=== PATIENT | female | born 1945 | race Caucasian/White ===

== ENCOUNTER 2017-04-04 08:29 | Day surgery (SDC) | payer OTHER ==
[2017-04-04 09:32] LABS: BASO % 0.9 % (0-2.0); EOS % 0.2 % (0-4.5); HEMATOCRIT 38.3 % (32.4-45.2); HEMOGLOBIN 12.5 GM/dL (10.7-15.3); LYMPH % 11.9 % (8-40); MCHC 32.7 g/dl (32.0-36.0); MEAN CELL VOLUME 100.9 fl (80-96); MEAN PLT VOLUME 9.9 fl (7.5-11.1); MONO % 0.7 % (3.8-10.2); NEUT % 86.3 % (42.8-82.8); PLATELET COUNT 199 K/MM3 (134-434); RDW 13.9 % (11.6-15.6); WHITE BLOOD COUNT 3.7 K/mm3 (4.0-10.0)
[2017-04-04 09:51] VITALS: TEMP 97.2
[2017-04-04] MEDS ORDERED: DEXAMETHASONE INJECTION 10 MG, DIPHENHYDRAMINE 50 MG, RANITIDINE INJECTION 50 MG in SOD... IVPB ONE (10:00)
[2017-04-04] MEDS ORDERED: PALONOSETRON HCL 0.25 MG/5 ML VIAL IVPUSH ONE (10:00)
[2017-04-04 10:03] LABS: ALBUMIN 3.6 g/dl (3.4-5.0); ALK PHOS 50 U/L (45-117); ANION GAP 8 (8-16); BILIRUBIN,DIRECT < 0.2 mg/dL (0.0-0.2); BILIRUBIN,TOTAL 0.4 mg/dL (0.2-1.0); BLOOD UREA NITROGEN 18 mg/dL (7-18); CALCIUM 9.4 mg/dL (8.5-10.1); CHLORIDE 104 mmol/L (98-107); CO2 27 mmol/L (21-32); GLUCOSE,RANDOM 218 mg/dL (74-106); MAGNESIUM 1.8 mg/dL (1.8-2.4); SGOT/AST 15 U/L (15-37); SGPT/ALT 15 U/L (12-78); SODIUM 139 mmol/L (136-145); TOT PROT 7.1 g/dl (6.4-8.2)
[2017-04-04] MEDS ORDERED: PACLITAXEL 84 MG in SODIUM CHLORIDE 250 ML IVPB ONE (10:30)
[2017-04-04] MEDS ORDERED: SODIUM CHLORIDE IVPB ONE (11:30)
[2017-04-04] MEDS ORDERED: CARBOPLATIN IVPB ONE (11:30)
[2017-04-04 16:55] VITALS: BP 125/69; PULSE 92
[2017-04-04] MEDS ORDERED: PORTA CATH FLUSH 10 ML IVPUSH ONE (17:43)
== END 2017-04-04 14:45 | disposition home or self-care (01) ==
LOC: JONCCHEMO 08:29 → J7W 09:52 → JONCCHEMO 14:45
PROVIDERS: ATTEND Internal Medicine Hematology & Oncology
DX: Z51.11 Encounter for antineoplastic chemotherapy (principal); C34.11 Malignant neoplasm of upper lobe, right bronchus or lung; I10 Essential (primary) hypertension; B20 Human immunodeficiency virus [HIV] disease
CPT/HCPCS: 36415; 80053; 80076; 83735; 85025; 96367; 96375; 96413; 96417; J1100; J2469

== ENCOUNTER 2017-04-11 07:22 | Day surgery (SDC) | payer OTHER ==
[2017-04-11] MEDS ORDERED: PALONOSETRON HCL 0.25 MG/5 ML VIAL IVPUSH ONE (08:00)
[2017-04-11] MEDS ORDERED: DEXAMETHASONE INJECTION 10 MG, DIPHENHYDRAMINE 50 MG, RANITIDINE INJECTION 50 MG in SOD... IVPB ONE (08:00)
[2017-04-11] MEDS ORDERED: PACLITAXEL 84 MG in SODIUM CHLORIDE 250 ML IVPB ONE (08:30)
[2017-04-11] MEDS ORDERED: SODIUM CHLORIDE IVPB ONE (09:30)
[2017-04-11] MEDS ORDERED: CARBOPLATIN IVPB ONE (09:30)
[2017-04-11 09:49] VITALS: TEMP 98.1
[2017-04-11 10:04] LABS: BASO % 0.5 % (0-2.0); HEMATOCRIT 36.2 % (32.4-45.2); HEMOGLOBIN 11.7 GM/dL (10.7-15.3); LYMPH % 6.5 % (8-40); MCH 32.6 pg (25.7-33.7); MCHC 32.2 g/dl (32.0-36.0); MEAN CELL VOLUME 101.4 fl (80-96); MEAN PLT VOLUME 10.1 fl (7.5-11.1); MONO % 0.7 % (3.8-10.2); NEUT % 92.3 % (42.8-82.8); PLATELET COUNT 183 K/MM3 (134-434); RBC 3.57 M/mm3 (3.60-5.2); RDW 13.6 % (11.6-15.6); WHITE BLOOD COUNT 2.8 K/mm3 (4.0-10.0)
[2017-04-11 10:30] LABS: ALBUMIN 3.6 g/dl (3.4-5.0); ALK PHOS 55 U/L (45-117); ANION GAP 10 (8-16); BILIRUBIN,DIRECT 0.2 mg/dL (0.0-0.2); BILIRUBIN,TOTAL 0.4 mg/dL (0.2-1.0); BLOOD UREA NITROGEN 21 mg/dL (7-18); CALCIUM 10.2 mg/dL (8.5-10.1); CHLORIDE 101 mmol/L (98-107); CO2 29 mmol/L (21-32); GLUCOSE,RANDOM 250 mg/dL (74-106); MAGNESIUM 1.7 mg/dL (1.8-2.4); POTASSIUM 4.1 mmol/L (3.5-5.1); SGOT/AST 13 U/L (15-37); SGPT/ALT 17 U/L (12-78); SODIUM 140 mmol/L (136-145); TOT PROT 6.8 g/dl (6.4-8.2)
[2017-04-11] MEDS ORDERED: INSULIN (NOVOLOG) ASPART 100 UNITS/ML 10ML VIAL SQ ONE (12:00)
[2017-04-11] MEDS ORDERED: MAGNESIUM 1GM/D5W - 1 GM/100 ML IVPB IVPB ONE (12:00)
[2017-04-11 17:49] VITALS: BP 140/72
[2017-04-11 17:51] VITALS: PULSE 93
== END 2017-04-11 13:30 | disposition home or self-care (01) ==
LOC: JONCCHEMO 07:22 → J7W 10:02 → JONCCHEMO 13:30
PROVIDERS: ATTEND Internal Medicine Hematology & Oncology
DX: Z51.11 Encounter for antineoplastic chemotherapy (principal); C34.11 Malignant neoplasm of upper lobe, right bronchus or lung; I10 Essential (primary) hypertension; B20 Human immunodeficiency virus [HIV] disease
CPT/HCPCS: 36415; 80053; 80076; 82962; 83735; 85025; 96367; 96375; 96413; 96417; J1100; J2469

== ENCOUNTER 2017-04-12 07:27 | Day surgery (SDC) | payer OTHER ==
[2017-04-12] MEDS ORDERED: TBO-FILGRASTIM 480 MCG/0.8 ML DISP.SYRIN SQ ONE (08:00)
[2017-04-12 13:37] VITALS: BP 119/73; PULSE 112; TEMP 98.5
== END 2017-04-12 10:10 | disposition home or self-care (01) ==
LOC: JONCCHEMO 07:27 → J7W 09:41 → JONCCHEMO 10:10
PROVIDERS: ATTEND Internal Medicine Hematology & Oncology
PROC: 3E013GC Introduction of Other Therapeutic Substance into Subcutaneous Tissue, Percutaneous Approach (ICD-10-PCS; principal; 2017-04-12)
DX: C34.11 Malignant neoplasm of upper lobe, right bronchus or lung (principal); I10 Essential (primary) hypertension; B20 Human immunodeficiency virus [HIV] disease; Z76.89 Persons encountering health services in other specified circumstances
CPT/HCPCS: 96372; J1447

== ENCOUNTER 2017-04-18 07:30 | Day surgery (SDC) | payer OTHER ==
[2017-04-18 09:04] VITALS: TEMP 97.4
[2017-04-18 09:32] LABS: HEMATOCRIT 35.8 % (32.4-45.2); HEMOGLOBIN 11.6 GM/dL (10.7-15.3); MCHC 32.4 g/dl (32.0-36.0); MEAN CELL VOLUME 101.9 fl (80-96); MEAN PLT VOLUME 10.3 fl (7.5-11.1); PLATELET COUNT 182 K/MM3 (134-434); RBC 3.52 M/mm3 (3.60-5.2); RDW 14.1 % (11.6-15.6); WHITE BLOOD COUNT 9.3 K/mm3 (4.0-10.0)
[2017-04-18 09:55] LABS: ALBUMIN 3.5 g/dl (3.4-5.0); ANION GAP 6 (8-16); BILIRUBIN,DIRECT < 0.2 mg/dL (0.0-0.2); BILIRUBIN,TOTAL 0.5 mg/dL (0.2-1.0); BLOOD UREA NITROGEN 21 mg/dL (7-18); CALCIUM 9.7 mg/dL (8.5-10.1); CHLORIDE 103 mmol/L (98-107); CO2 30 mmol/L (21-32); CREATININE 1.1 mg/dL (0.55-1.02); GLUCOSE,RANDOM 234 mg/dL (74-106); MAGNESIUM 1.7 mg/dL (1.8-2.4); POTASSIUM 4.1 mmol/L (3.5-5.1); SGOT/AST 10 U/L (15-37); SGPT/ALT 17 U/L (12-78); SODIUM 139 mmol/L (136-145); TOT PROT 6.5 g/dl (6.4-8.2)
[2017-04-18 09:56] LABS: ALK PHOS 59 U/L (45-117)
[2017-04-18] MEDS ORDERED: DEXAMETHASONE INJECTION 10 MG, RANITIDINE INJECTION 50 MG, DIPHENHYDRAMINE 50 MG in SOD... IVPB ONE (11:00)
[2017-04-18] MEDS ORDERED: PALONOSETRON HCL 0.25 MG in SODIUM CHLORIDE 50 ML IVPB ONE (11:00)
[2017-04-18 11:28] LABS: ANISOCYTOSIS 0; MACROCYTOSIS 1+; OVALOCYTE 1+; PLATELET ESTIMATE NORMAL
[2017-04-18] MEDS ORDERED: PACLITAXEL 84 MG in SODIUM CHLORIDE 250 ML IVPB ONE (11:30)
[2017-04-18] MEDS ORDERED: CARBOPLATIN IVPB ONE (12:30)
[2017-04-18] MEDS ORDERED: SODIUM CHLORIDE IVPB ONE (12:30)
[2017-04-18] MEDS ORDERED: PORTA CATH FLUSH 10 ML IVPUSH ONE (12:49)
[2017-04-18] MEDS ORDERED: MAGNESIUM OXIDE 400 MG TABLET (FP) PO ONE (14:00)
[2017-04-18 18:20] VITALS: BP 116/72; PULSE 99
== END 2017-04-18 15:15 | disposition home or self-care (01) ==
LOC: JONCCHEMO 07:30 → J7W 09:50 → JONCCHEMO 15:15
PROVIDERS: ATTEND Internal Medicine Hematology & Oncology
DX: Z51.11 Encounter for antineoplastic chemotherapy (principal); I10 Essential (primary) hypertension; B20 Human immunodeficiency virus [HIV] disease
CPT/HCPCS: 36415; 80053; 80076; 83735; 85025; 96367; 96375; 96413; 96417; J1100; J2469

== ENCOUNTER 2017-04-25 07:35 | Day surgery (SDC) | payer OTHER ==
[2017-04-25 09:51] LABS: BASO % 0.3 % (0-2.0); HEMATOCRIT 33.9 % (32.4-45.2); HEMOGLOBIN 11.1 GM/dL (10.7-15.3); LYMPH % 4.9 % (8-40); MCH 33.3 pg (25.7-33.7); MCHC 32.9 g/dl (32.0-36.0); MEAN CELL VOLUME 101.2 fl (80-96); MEAN PLT VOLUME 10.4 fl (7.5-11.1); NEUT % 93.8 % (42.8-82.8); PLATELET COUNT 162 K/MM3 (134-434); RBC 3.35 M/mm3 (3.60-5.2); WHITE BLOOD COUNT 2.7 K/mm3 (4.0-10.0)
[2017-04-25] MEDS ORDERED: PALONOSETRON HCL 0.25 MG/5 ML VIAL IVPUSH ONE (10:00)
[2017-04-25] MEDS ORDERED: DEXAMETHASONE INJECTION 10 MG, DIPHENHYDRAMINE 50 MG, RANITIDINE INJECTION 50 MG in SOD... IVPB ONE (10:00)
[2017-04-25 10:21] LABS: ALBUMIN 3.3 g/dl (3.4-5.0); ALK PHOS 56 U/L (45-117); ANION GAP 12 (8-16); BILIRUBIN,DIRECT 0.2 mg/dL (0.0-0.2); BILIRUBIN,TOTAL 0.4 mg/dL (0.2-1.0); BLOOD UREA NITROGEN 43 mg/dL (7-18); CALCIUM 10.3 mg/dL (8.5-10.1); CHLORIDE 99 mmol/L (98-107); CO2 26 mmol/L (21-32); CREATININE 1.3 mg/dL (0.55-1.02); GLUCOSE,RANDOM 286 mg/dL (74-106); MAGNESIUM 1.8 mg/dL (1.8-2.4); POTASSIUM 4.3 mmol/L (3.5-5.1); SGOT/AST 12 U/L (15-37); SGPT/ALT 17 U/L (12-78); SODIUM 137 mmol/L (136-145); TOT PROT 6.3 g/dl (6.4-8.2)
[2017-04-25] MEDS ORDERED: PACLITAXEL 84 MG in SODIUM CHLORIDE 250 ML IVPB ONE (10:30)
[2017-04-25] MEDS ORDERED: SODIUM CHLORIDE IVPB ONE (11:30)
[2017-04-25] MEDS ORDERED: CARBOPLATIN IVPB ONE (11:30)
[2017-04-25] MEDS ORDERED: POTASSIUM CHLORIDE 20 MEQ, MAGNESIUM SULFATE 1 GM in DEXTROSE 5%-NORMAL SALINE 500 ML IVPB ONE (12:15)
[2017-04-25 13:53] VITALS: TEMP 97.7
[2017-04-25] MEDS ORDERED: PORTA CATH FLUSH 10 ML IVPUSH ONE ×2 (13:55→16:14)
[2017-04-25 17:53] VITALS: BP 141/77; PULSE 94
== END 2017-04-25 17:55 | disposition home or self-care (01) ==
LOC: JONCCHEMO 07:35 → J7W 10:45 → JONCCHEMO 17:55
PROVIDERS: ATTEND Internal Medicine Hematology & Oncology
DX: Z51.11 Encounter for antineoplastic chemotherapy (principal); C34.11 Malignant neoplasm of upper lobe, right bronchus or lung; B20 Human immunodeficiency virus [HIV] disease; I10 Essential (primary) hypertension
CPT/HCPCS: 36415; 80053; 80076; 83735; 85025; 96361; 96367; 96375; 96413; 96417; J1100; J2469

== ENCOUNTER 2017-05-01 09:34 | Inpatient (IN) | payer OTHER ==
--- NOTE | 2017-05-01 10:08 | PDOC ---
History of Present Illness - General History Source: Patient Exam Limitations: No Limitations - History of Present Illness Initial Comments: 05/01/17 10:33 The patient is a 71 year old female, with a significant past medical history of lung cancer(on chemotherapy), COPD, CAD(s/p stents), HIV, hypertension, and hyperlipidemia, who presents to the emergency department with diarrhea for approximately 5 days. Patient reports developing diarrhea s/p chemotherapy on Saturday. She denies any abdominal pain, fever, diarrhea, or constipation. Today , patient reports TMax of 100.5. She denies any associated chills, cough, headache, or dizziness. She denies any chest pain, shortness of breath, diaphoresis, or palpitations. She denies any dysuria, hematuria, frequency, or urgency. She denies any recent travel or sick contacts. Allergies: Procaine HCl Past Surgical History: Cardiac stents Social History: Former smoker. No ETOH or recreational drug use. PCP: Dr. Yumiko Toribio Oncologist: Dr. Fong <Diego Esteban - Last Filed: 05/01/17 16:44> <Faina Smith - Last Filed: 05/03/17 10:57> - General Chief Complaint: Weakness Stated Complaint: DEHYDRATION, DIARRHEA (PCP SENT) Time Seen by Provider: 05/01/17 10:08 Past History <Diego Esteban - Last Filed: 05/01/17 16:44> - Past Medical History Anemia: No Asthma: No Cancer: Yes (lung ca - dx. 01/2017) Cardiac Disorders: Yes (cardiac stent - 2014) CVA: No COPD: Yes (05/24/15 CT chest:No acute pathology or change, 1 cm calc L lower lobe ) CHF: No Dementia: No Diabetes: No GI Disorders: No Disorders: No HTN: Yes Hypercholesterolemia: Yes Liver Disease: No Psychiatric Problems: No Seizures: No Thyroid Disease: No - Surgical History Abdominal Surgery: No Appendectomy: No Cardiac Surgery: Yes (CARDIAC STENT) Cholecystectomy: No Lung Surgery: No Neurologic Surgery: No Orthopedic Surgery: No - Suicide/Smoking/Psychosocial Hx Smoking History: Current every day smoker Have you smoked in the past 12 months: Yes Number of Cigarettes Smoked Daily: 8 If you are a former smoker, when did you quit?: 4 DAYS Cigars Per Day: 0 Information on smoking cessation initiated: No 'Breaking Loose' booklet given: 12/22/15 Hx Alcohol Use: No Drug/Substance Use Hx: No (past only, no use since 1971) Substance Use Type: Heroin Hx Substance Use Treatment: No <Faina Smith - Last Filed: 05/03/17 10:57> - Past Medical History Allergies/Adverse Reactions: Allergies Allergy/AdvReac Type Severity Reaction Status Date / Time procaine HCl [From Novocain] Allergy Unknown Swelling Verified 05/01/17 10:01 Home Medications: Ambulatory Orders Albuterol Sulfate Inhaler - [Ventolin Hfa Inhaler -] 1 - 2 inh PO Q4H 05/01/17 Alendronate Na [Fosamax] 70 mg PO Q7D 05/01/17 Aspirin [ASA -] 81 mg PO DAILY 05/01/17 Beclomethasone Dipropionate [Qvar] 8.7 gm IH BID 05/01/17 Calcium Carbonate/Vitamin D3 [Calcium 600 + D3 Softgel] 1 each PO DAILY Cholecalciferol (Vitamin D3) [Vitamin D3] 5,000 unit PO WEEKLY 05/01/17 Elviteg/Cob/Emtri/Tenof Alafen [Genvoya (Non-Formulary)] 1 each PO HS 05/01/17 Fenofibrate Nanocrystallized [Triglide] 160 mg PO DAILY 05/01/17 Losartan 50Mg/Hctz 12.5MG [Hyzaar -] 1 tab PO DAILY 05/01/17 Mirtazapine 15 mg PO HS 05/01/17 Multivitamin,Therapeutic [Thera] 1 each PO DAILY 05/01/17 [place]-3/Dha/Epa/Fish Oil [[place] 3 500 Softgel] 1 each PO BID 05/01/17 Umeclidinium [place] [Incruse Ellipta] 62.5 mcg IH DAILY 05/01/17 Zolpidem Tartrate [Ambien] 5 mg PO HS 05/01/17 Review of Systems - Review of Systems Able to Perform ROS?: Yes Comments:: 05/01/17 10:34 GENERAL/CONSTITUTIONAL: Yes fever. No chills. No weakness. HEAD, EYES, EARS, NOSE AND THROAT: No change in vision. No ear pain or discharge. No sore throat. CARDIOVASCULAR: No chest pain or shortness of breath. RESPIRATORY: No cough, wheezing, or hemoptysis. GASTROINTESTINAL: Yes diarrhea. No nausea, vomiting, or constipation. GENITOURINARY: No dysuria, frequency, or change in urination. MUSCULOSKELETAL: No joint or muscle swelling or pain. No neck or back pain. SKIN: No rash NEUROLOGIC: No headache, vertigo, loss of consciousness, or change in strength/ sensation. ENDOCRINE: No increased thirst. No abnormal weight change. HEMATOLOGIC/LYMPHATIC: No anemia, easy bleeding, or history of blood clots. ALLERGIC/IMMUNOLOGIC: No hives or skin allergy. <Diego Esteban - Last Filed: 05/01/17 16:44> *Physical Exam - Vital Signs Last Vital Signs Temp Pulse Resp BP Pulse Ox 97.9 F 129 H 21 76/50 98 05/01/17 10:01 05/01/17 10:01 05/01/17 10:01 05/01/17 10:01 05/01/17 10:01 <Diego Esteban - Last Filed: 05/01/17 16:44> - Vital Signs Last Vital Signs Temp Pulse Resp BP Pulse Ox 97.9 F 129 H 21 76/50 98 05/01/17 10:01 05/01/17 10:01 05/01/17 10:01 05/01/17 10:01 05/01/17 10:01 - Physical Exam Comments: GENERAL: Awake, alert, and fully oriented, in no acute distress HEAD: No signs of trauma EYES: PERRLA, EOMI, sclera anicteric, conjunctiva clear ENT: Auricles normal inspection, hearing grossly normal, nares patent, oropharynx clear without exudates. Dry mucosa NECK: Normal ROM, supple, no lymphadenopathy, JVD, or masses LUNGS: Dec air entry B/L, lungs clear to auscultation bilaterally. HEART: Tachycardic, normal S1 and S2, no murmurs, rubs or gallops ABDOMEN: Soft, nontender, normoactive bowel sounds. No guarding, no rebound. No masses EXTREMITIES: Normal range of motion, no edema. No clubbing or cyanosis. No cords, erythema, or tenderness NEUROLOGICAL: Cranial nerves II through XII grossly intact. Normal speech, normal gait SKIN: Warm, Dry, normal turgor, no rashes or lesions noted. <Faina Smith - Last Filed: 05/03/17 10:57> Heart Score/ECG Review - ECG Impressions Comment:: EKG read 10:45- Sinus tach 122 bpm, no acute ST/T changes <Faina Smith - Last Filed: 05/03/17 10:57> ED Treatment Course - LABORATORY CBC & Chemistry Diagram: 05/01/17 11:11 05/01/17 15:30 - RADIOLOGY Radiograph Interpretation: 05/01/17 12:21 EXAM: CXR INTERPRETED BY: Dr. Yousif REVIEWED BY: Dr. Smith IMPRESSION: Since 02/20/2017, a hyperdense nodule is again seen in the left lung base measuring 10 mm likely representing a calcified granuloma. The cardiac silhouette remains borderline in size allowing for magnification. Mild perihilar increased lung markings are present without evidence of focal infiltrates. Left internal jugular central venous catheter tip is in the superior vena cava. No pneumothorax or pleural effusion are identified. Mediastinum and visualized osseous structures appear intact SUMMARY: Left internal jugular central venous catheter is now present with its tip in the superior vena cava. Otherwise, no significant interval change or acute lung disease is present. <Diego Esteban - Last Filed: 05/01/17 16:44> - LABORATORY CBC & Chemistry Diagram: 05/03/17 06:50 05/03/17 06:50 <Faina Smith - Last Filed: 05/03/17 10:57> Medical Decision Making - Medical Decision Making 05/01/17 16:13 First call placed to Dr. Fong at 16:05. Awaiting call back. Patient evaluated by Dr. Workman at 16:45. <Diego Esteban - Last Filed: 05/01/17 16:44> - Medical Decision Making Case d/w Dr. Workman, recommended cefepime and vanco, will follow. I will admit to hospitalist, as patient is followed by the [facility]. <Faina Smith - Last Filed: 05/03/17 10:57> *DC/Admit/Observation/Transfer - Attestations Scribe Attestion: 05/01/17 10:34 Documentation prepared by Diego Esteban, acting as medical device sales for Faina Smith MD. <Diego Esteban - Last Filed: 05/01/17 16:44> - Discharge Dispostion Admit: Yes <Faina Smith - Last Filed: 05/03/17 10:57> Diagnosis at time of Disposition: Fever Qualifiers: Fever type: unspecified Qualified Code(s): R50.9 - Fever, unspecified Leukopenia Qualifiers: Leukopenia type: unspecified Qualified Code(s): D72.819 - Decreased white blood cell count, unspecified - Discharge Dispostion Condition at time of disposition: Stable
[2017-05-01] MEDS ORDERED: SODIUM CHLORIDE 2,000 ML IV STA (10:09)
[2017-05-01 11:18] LABS: BASO % 0.2 % (0-2.0); HEMATOCRIT 32.1 % (32.4-45.2); HEMOGLOBIN 10.7 GM/dL (10.7-15.3); LYMPH % 4.7 % (8-40); MCH 33.2 pg (25.7-33.7); MCHC 33.3 g/dl (32.0-36.0); MEAN CELL VOLUME 99.7 fl (80-96); MEAN PLT VOLUME 10.3 fl (7.5-11.1); MONO % 5.8 % (3.8-10.2); NEUT % 89.3 % (42.8-82.8); PLATELET COUNT 150 K/MM3 (134-434); RBC 3.22 M/mm3 (3.60-5.2); RDW 14.4 % (11.6-15.6); WHITE BLOOD COUNT 2.8 K/mm3 (4.0-10.0)
[2017-05-01 11:20] LABS: VENOUS PC02 39.1 mmHg (38-52); VENOUS PH 7.48 (7.32-7.42); VENOUS PO2 71.7 mmHg (28-48)
[2017-05-01 11:41] LABS: INR 1.12 (0.82-1.09); PROTHROMBIN TIME (PATIENT) 12.7 SEC (9.98-11.88)
--- NOTE | 2017-05-01 13:06 | EKG ---
Test Reason : Blood Pressure : / mmHG Vent. Rate : 122 BPM Atrial Rate : 122 BPM P-R Int : 190 ms QRS Dur : 076 ms QT Int : 372 ms P-R-T Axes : 076 -22 077 degrees QTc Int : 530 ms SINUS TACHYCARDIA OTHERWISE NORMAL ECG WHEN COMPARED WITH ECG OF 06-DEC-2016 10:28, VENT. RATE HAS INCREASED BY 53 BPM Confirmed by JOHN HUERTA MD ([id number]) on 05/01/2017 1:06:14 PM Referred By: Confirmed By:JOHN HUERTA MD
[2017-05-01] MEDS ORDERED: SODIUM CHLORIDE 1,000 ML IV STA (14:19)
[2017-05-01 15:52] LABS: ALBUMIN 2.6 g/dl (3.4-5.0); ANION GAP 7 (8-16); BILIRUBIN,TOTAL 0.6 mg/dL (0.2-1.0); BLOOD UREA NITROGEN 25 mg/dL (7-18); CALCIUM 7.7 mg/dL (8.5-10.1); CHLORIDE 104 mmol/L (98-107); CO2 27 mmol/L (21-32); CREATININE 0.9 mg/dL (0.55-1.02); GLUCOSE,RANDOM 111 mg/dL (74-106); POTASSIUM 4.1 mmol/L (3.5-5.1); SGOT/AST 13 U/L (15-37); SGPT/ALT 13 U/L (12-78); SODIUM 138 mmol/L (136-145)
[2017-05-01 15:54] LABS: ALK PHOS 33 U/L (45-117)
[2017-05-01] MEDS ORDERED: CEFEPIME 2 GM in DEXTROSE 5%-WATER - 100 ML IVPB ONE (16:44)
[2017-05-01] MEDS ORDERED: VANCOMYCIN 1,000 MG in DEXTROSE 5%-WATER - 250 ML IVPB ONE (16:45)
--- NOTE | 2017-05-01 17:26 | HP ---
Admitting History and Physical - Admission Chief Complaint: diarrhea, fever History of Present Illness: HPI This is a 71 year old female with HIV, non small cell carcinoma, HTN, COPD, CAD s/p sents, who presented to the ED after being seen in radiation oncology and noted to have low blood pressure. The pt states she normally feels bad with intermittent diarrhea after chemo and on Saturday she was a bit confused, but other perez wouldn't have come in. Per ED record pt with diarrhea x5 days and fever (100.5) taken at home. She last had chemo on Thursday 04/27 and after is when the diarrhea started. Currently, pt denies sob, fever, chills, diarrhea, abdominal pain. History Source: Patient, Medical Record Limitations to Obtaining History: No Limitations - Past Medical History Cardiovascular: Yes: CAD, HTN, Hyperlipdemia Pulmonary: Yes: COPD Infectious Disease: Yes: HIV - Past Surgical History Past Surgical History: Yes: Stent (cardiac) - Smoking History Smoking history: Current every day smoker Have you smoked in the past 12 months: Yes Aproximately how many cigarettes per day: 8 If you are a former smoker, when did you quit?: 4 DAYS - Alcohol/Substance Use Hx Alcohol Use: No History of Substance Use: reports: None - Social History Usual Living Arrangement: Yes: Alone ADL: Independent Home Medications - Allergies Allergies/Adverse Reactions: Allergies Allergy/AdvReac Type Severity Reaction Status Date / Time procaine HCl [From Novocain] Allergy Unknown Swelling Verified 05/01/17 10:01 - Home Medications Home Medications: Ambulatory Orders Albuterol Sulfate Inhaler - [Ventolin Hfa Inhaler -] 1 - 2 inh PO Q4H 05/01/17 Alendronate Na [Fosamax] 70 mg PO Q7D 05/01/17 Aspirin [ASA -] 81 mg PO DAILY 05/01/17 Beclomethasone Dipropionate [Qvar] 8.7 gm IH BID 05/01/17 Calcium Carbonate/Vitamin D3 [Calcium 600 + D3 Softgel] 1 each PO DAILY Cholecalciferol (Vitamin D3) [Vitamin D3] 5,000 unit PO WEEKLY 05/01/17 Elviteg/Cob/Emtri/Tenof Alafen [Genvoya (Non-Formulary)] 1 each PO HS 05/01/17 Fenofibrate Nanocrystallized [Triglide] 160 mg PO DAILY 05/01/17 Losartan 50Mg/Hctz 12.5MG [Hyzaar -] 1 tab PO DAILY 05/01/17 Mirtazapine 15 mg PO HS 05/01/17 Multivitamin,Therapeutic [Thera] 1 each PO DAILY 05/01/17 [place]-3/Dha/Epa/Fish Oil [[place] 3 500 Softgel] 1 each PO BID 05/01/17 Umeclidinium [place] [Incruse Ellipta] 62.5 mcg IH DAILY 05/01/17 Zolpidem Tartrate [Ambien] 5 mg PO HS 05/01/17 Family Disease History - Family Disease History Family Disease History: Heart Disease: Grandparent, Mother, Respiratory: Grandparent Review of Systems - Review of Systems Eyes: reports: No Symptoms HENT: reports: No Symptoms Neck: reports: No Symptoms Cardiovascular: reports: No Symptoms Respiratory: reports: No Symptoms Gastrointestinal: reports: Diarrhea Genitourinary: reports: No Symptoms Musculoskeletal: reports: No Symptoms Integumentary: reports: No Symptoms Neurological: reports: No Symptoms Endocrine: reports: No Symptoms Hematology/Lymphatic: reports: No Symptoms Psychiatric: reports: No Symptoms Physical Examination Vital Signs: Vital Signs Temperature 97.9 F 05/01/17 10:01 Pulse Rate 108 H 05/01/17 14:06 Respiratory Rate 18 05/01/17 14:06 Blood Pressure 106/98 05/01/17 14:06 O2 Sat by Pulse Oximetry (%) 97 05/01/17 14:06 Constitutional: Yes: No Distress Eyes: Yes: Conjunctiva Clear HENT: Yes: Other (dry MM) Cardiovascular: Yes: Regular Rate and Rhythm, S1, S2 Respiratory: Yes: Diminished, Rhonchi Gastrointestinal: Yes: Normal Bowel Sounds, Soft Musculoskeletal: Yes: WNL Extremities: Yes: WNL Edema: No Wound/Incision: Yes: Other (L CW port) Psychiatric: Yes: Alert, Oriented Labs: CBC, BMP 05/01/17 11:11 05/01/17 15:30 Imaging - Results Chest X-ray: Report Reviewed, Image Reviewed (10 mm hyperdense nodule LL base, no focal infiltrate) Problem List - Problems (1) Diarrhea Code(s): R19.7 - DIARRHEA, UNSPECIFIED (2) Fever Code(s): R50.9 - FEVER, UNSPECIFIED Qualifiers: Fever type: unspecified Qualified Code(s): R50.9 - Fever, unspecified (3) Leukopenia Code(s): D72.819 - DECREASED WHITE BLOOD CELL COUNT, UNSPECIFIED Qualifiers: Leukopenia type: unspecified Qualified Code(s): D72.819 - Decreased white blood cell count, unspecified Assessment/Plan Assessment: 71 year old female admitted with diarrhea and fever following chemo 5 days ago Plan: 1. Sepsis, fevers - Source appears to be urine - Lactic acid wnl - Send urine and blood cultures - Given vanco/cefepime in ED - Continue cefepime q8hr - Continue IVF - ID consulted 2. non small cell carcinoma - Inhalers appear to be NF, will see if pt can bring from home - Mgmt per Heme/onc 3. HTN - Hold BP meds d/t hypotension/sepsis 4. COPD - Stable 5. CAD s/p stents - ASA daily Visit type - Emergency Visit Emergency Visit: Yes ED Registration Date: 05/01/17 Care time: The patient presented to the Emergency Department on the above date and was hospitalized for further evaluation of their emergent condition. - New Patient This patient is new to me today: Yes Date on this admission: 05/02/17 - Critical Care Critical Care patient: No Hospitalist Screening - Colonoscopy Questionnaire Colonoscopy Questionnaire: Colonoscopy Questionnaire - Patient: 50 - 75 years old and never had a screening colonoscopy: Unknown History of colon or rectal polyps, or CA: Unknown History of IBD, Crohn's disease or UC: Unknown History of abdominal radiation therapy as a child: Unknown - Relative: 1 with colon or rectal CA, or polyps at age 60 or younger: Unknown Colon or rectal CA diagnosed at age 45 or younger: Unknown Multiple relatives with colon or rectal CA: Unknown - Outcome: Screening Result: Negative Screen
[2017-05-01 17:29] LABS: URINE APPEARANCE CLOUDY; URINE BILIRUBIN NEGATIVE (NEGATIVE); URINE BLOOD 1+ (NEGATIVE); URINE COLOR AMBER; URINE GLUCOSE (UA) NEGATIVE (NEGATIVE); URINE KETONE NEGATIVE (NEGATIVE); URINE NITRITE NEGATIVE (NEGATIVE)
[2017-05-01 17:31] LABS: URINE LEUK ESTERASE 3+ (NEGATIVE); URINE PROTEIN 1+ (NEGATIVE)
[2017-05-01] MEDS ORDERED: SODIUM CHLORIDE 1,000 ML IV SCH (17:45)
[2017-05-01 18:26] LABS: EPI CELLS RARE /HPF (FEW); URINE BACTERIA FEW /hpf (NONE SEEN); URINE HYALINE CAST 4 /lpf; URINE MUCUS MANY
[2017-05-01] MEDS ORDERED: CEFEPIME 2 GM in DEXTROSE 5%-WATER - 100 ML IVPB SCH (18:30)
[2017-05-01] MEDS: CEFEPIME HCL/D5W 2 GM/50 ML BAG IVPB SCH (19:35)
[2017-05-01] MEDS ORDERED: CEFEPIME 2 GM/100 ML BAG IVPB ONE (19:35)
--- NOTE | 2017-05-01 20:11 | CONSULT ---
Consult Consult Specialty:: oncology - History of Present Illness History of Present Illness: This is a 71 year old female with HIV, non small cell carcinoma, HTN, COPD, CAD s/p sents, who presented to the ED after being seen in radiation oncology and noted to have low blood pressure. The pt states she normally feels bad with intermittent diarrhea after chemo and on Saturday she was a bit confused, but other perez wouldn't have come in. Per ED record pt with diarrhea x5 days and fever (100.5) taken at home. She last had chemo on Thursday 04/27 and after is when the diarrhea started. Currently, pt denies sob, fever, chills, diarrhea, abdominal pain. - History Source History Provided By: Patient, Medical Record - Past Medical History Cardio/Vascular: Yes: CAD, HTN, Hyperlipdemia Pulmonary: Yes: COPD Infectious Disease: Yes: HIV - Past Surgical History Past Surgical History: Yes: Stent (cardiac) - Alcohol/Substance Use Hx Alcohol Use: No History of Substance Use: reports: None - Smoking History Smoking history: Current every day smoker Have you smoked in the past 12 months: Yes Aproximately how many cigarettes per day: 8 If you are a former smoker, when did you quit?: 4 DAYS - Social History ADL: Independent Home Medications - Allergies Allergies/Adverse Reactions: Allergies Allergy/AdvReac Type Severity Reaction Status Date / Time procaine HCl [From Novocain] Allergy Unknown Swelling Verified 05/01/17 10:01 - Home Medications Home Medications: Ambulatory Orders Albuterol Sulfate Inhaler - [Ventolin Hfa Inhaler -] 1 - 2 inh PO Q4H 05/01/17 Alendronate Na [Fosamax] 70 mg PO Q7D 05/01/17 Aspirin [ASA -] 81 mg PO DAILY 05/01/17 Beclomethasone Dipropionate [Qvar] 8.7 gm IH BID 05/01/17 Calcium Carbonate/Vitamin D3 [Calcium 600 + D3 Softgel] 1 each PO DAILY Cholecalciferol (Vitamin D3) [Vitamin D3] 5,000 unit PO WEEKLY 05/01/17 Elviteg/Cob/Emtri/Tenof Alafen [Genvoya (Non-Formulary)] 1 each PO HS 05/01/17 Fenofibrate Nanocrystallized [Triglide] 160 mg PO DAILY 05/01/17 Losartan 50Mg/Hctz 12.5MG [Hyzaar -] 1 tab PO DAILY 05/01/17 Mirtazapine 15 mg PO HS 05/01/17 Multivitamin,Therapeutic [Thera] 1 each PO DAILY 05/01/17 [place]-3/Dha/Epa/Fish Oil [[place] 3 500 Softgel] 1 each PO BID 05/01/17 Umeclidinium [place] [Incruse Ellipta] 62.5 mcg IH DAILY 05/01/17 Zolpidem Tartrate [Ambien] 5 mg PO HS 05/01/17 Family Disease History - Family Disease History Family Disease History: Heart Disease: Grandparent, Mother, Respiratory: Grandparent Physical Exam Vital Signs: Vital Signs Temperature 99.2 F 05/01/17 17:34 Pulse Rate 111 H 05/01/17 19:20 Respiratory Rate 15 05/01/17 19:20 Blood Pressure 125/69 05/01/17 17:34 O2 Sat by Pulse Oximetry (%) 100 05/01/17 19:20 Constitutional: Yes: Calm Eyes: Yes: Conjunctiva Clear, EOM Intact HENT: Yes: Atraumatic, Normocephalic Neck: Yes: Supple, Trachea Midline Cardiovascular: Yes: Regular Rate and Rhythm Respiratory: Yes: Regular, Cough, Diminished Gastrointestinal: Yes: Normal Bowel Sounds, Soft Edema: No Labs: CBC, BMP 05/01/17 11:11 05/01/17 15:30 Imaging - Results X-ray: Report Reviewed Assessment/Plan Fever w/u Abx ID consult will follow.
[2017-05-01] MEDS ORDERED: [UNRECOGNIZED DRUG - OTHER] PO SCH (22:00)
[2017-05-01] MEDS: MIRTAZAPINE 15 MG TABLET (FP) PO SCH (22:20)
[2017-05-01] MEDS: ZOLPIDEM TARTRATE 5 MG TABLET PO SCH (22:20)
[2017-05-01 23:15] VITALS: BMI 22.3
[2017-05-02] MEDS: ACETAMINOPHEN 325 MG TABLET (FP) PO PRN (01:52)
[2017-05-02] MEDS: CEFEPIME HCL/D5W 2 GM/50 ML BAG IVPB SCH ×2 (01:53→18:05)
[2017-05-02 07:56] LABS: BASO % 0.1 % (0-2.0); EOS % 0.1 % (0-4.5); HEMATOCRIT 24.7 % (32.4-45.2); HEMOGLOBIN 8.3 GM/dL (10.7-15.3); LYMPH % 5.8 % (8-40); MCH 34.3 pg (25.7-33.7); MCHC 33.7 g/dl (32.0-36.0); MEAN CELL VOLUME 101.6 fl (80-96); MEAN PLT VOLUME 9.7 fl (7.5-11.1); MONO % 12.9 % (3.8-10.2); NEUT % 81.1 % (42.8-82.8); PLATELET COUNT 75 K/MM3 (134-434); RBC 2.43 M/mm3 (3.60-5.2); RDW 14.2 % (11.6-15.6)
[2017-05-02 08:06] LABS: WHITE BLOOD COUNT 1.8 K/mm3 (4.0-10.0)
[2017-05-02 08:30] LABS: ALBUMIN 2.2 g/dl (3.4-5.0); ANION GAP 7 (8-16); BLOOD UREA NITROGEN 17 mg/dL (7-18); CALCIUM 7.5 mg/dL (8.5-10.1); CHLORIDE 107 mmol/L (98-107); CO2 26 mmol/L (21-32); CREATININE 0.7 mg/dL (0.55-1.02); GLUCOSE,RANDOM 99 mg/dL (74-106); MAGNESIUM 1.3 mg/dL (1.8-2.4); PHOSPHOROUS 1.7 mg/dL (2.5-4.9); POTASSIUM 3.6 mmol/L (3.5-5.1); SGOT/AST 12 U/L (15-37); SGPT/ALT 11 U/L (12-78); SODIUM 140 mmol/L (136-145)
[2017-05-02 08:33] LABS: ALK PHOS 31 U/L (45-117); BILIRUBIN,TOTAL 0.6 mg/dL (0.2-1.0); TOT PROT 4.4 g/dl (6.4-8.2)
--- NOTE | 2017-05-02 09:16 | CON.ID ---
Consult Consult Specialty:: Infectious Disease Referred by:: Primary Team Reason for Consultation:: Low WBC, Fever - History of Present Illness History of Present Illness: 71 year old F with pmh of HIV, NSCLC, COPD, HTN, CAD s/p stents presented from radiation with hypotension. Patient was found to be febrile to 101. Patient states she has chemo every (last ). She has chronic diarrhea after chemo and occasional chills. Patient denies chest pain, shortness of breath, abdominal pain, urinary symptoms, n/v. - History Source History Provided By: Patient, Medical Record Limitations to Obtaining History: No Limitations - Past Medical History Cardio/Vascular: Yes: CAD, HTN, Hyperlipdemia Pulmonary: Yes: COPD Infectious Disease: Yes: HIV - Past Surgical History Past Surgical History: Yes: Stent (cardiac) - Alcohol/Substance Use Hx Alcohol Use: No History of Substance Use: reports: None - Smoking History Smoking history: Current every day smoker Have you smoked in the past 12 months: Yes Aproximately how many cigarettes per day: 8 If you are a former smoker, when did you quit?: 4 DAYS - Social History ADL: Independent Home Medications - Allergies Allergies/Adverse Reactions: Allergies Allergy/AdvReac Type Severity Reaction Status Date / Time procaine HCl [From Novocain] Allergy Unknown Swelling Verified 05/01/17 10:01 - Home Medications Home Medications: Ambulatory Orders Albuterol Sulfate Inhaler - [Ventolin Hfa Inhaler -] 1 - 2 inh PO Q4H 05/01/17 Alendronate Na [Fosamax] 70 mg PO Q7D 05/01/17 Aspirin [ASA -] 81 mg PO DAILY 05/01/17 Beclomethasone Dipropionate [Qvar] 8.7 gm IH BID 05/01/17 Calcium Carbonate/Vitamin D3 [Calcium 600 + D3 Softgel] 1 each PO DAILY Cholecalciferol (Vitamin D3) [Vitamin D3] 5,000 unit PO WEEKLY 05/01/17 Elviteg/Cob/Emtri/Tenof Alafen [Genvoya (Non-Formulary)] 1 each PO HS 05/01/17 Fenofibrate Nanocrystallized [Triglide] 160 mg PO DAILY 05/01/17 Losartan 50Mg/Hctz 12.5MG [Hyzaar -] 1 tab PO DAILY 05/01/17 Mirtazapine 15 mg PO HS 05/01/17 Multivitamin,Therapeutic [Thera] 1 each PO DAILY 05/01/17 [place]-3/Dha/Epa/Fish Oil [[place] 3 500 Softgel] 1 each PO BID 05/01/17 Umeclidinium [place] [Incruse Ellipta] 62.5 mcg IH DAILY 05/01/17 Zolpidem Tartrate [Ambien] 5 mg PO HS 05/01/17 Family Disease History - Family Disease History Family Disease History: Heart Disease: Grandparent, Mother, Respiratory: Grandparent Review of Systems - Review of Systems Constitutional: reports: Chills, Fever. denies: Diaphoresis Eyes: reports: No Symptoms HENT: reports: No Symptoms Neck: reports: No Symptoms Cardiovascular: reports: No Symptoms Respiratory: reports: No Symptoms Gastrointestinal: reports: Diarrhea. denies: Nausea, Vomiting Neurological: reports: No Symptoms Psychiatric: reports: No Symptoms Physical Exam Vital Signs: Vital Signs Temperature 99.1 F 05/02/17 06:24 Pulse Rate 65 05/02/17 06:24 Respiratory Rate 20 05/02/17 06:24 Blood Pressure 119/69 05/02/17 06:24 O2 Sat by Pulse Oximetry (%) 99 05/02/17 02:55 Constitutional: Yes: No Distress, Calm Eyes: Yes: Conjunctiva Clear, EOM Intact HENT: Yes: Atraumatic, Normocephalic Neck: Yes: Supple, Trachea Midline Cardiovascular: Yes: Regular Rate and Rhythm, S1, S2 Respiratory: Yes: CTA Bilaterally, Diminished Gastrointestinal: Yes: Normal Bowel Sounds, Soft. No: Tenderness, Tenderness, Epigastrium, Tenderness, Rebound Edema: No Wound/Incision: Yes: Clean/Dry, Well Approximated, Other (Patient has left chest port. Appears clean/dry/intact without surrounding erythema) Neurological: Yes: Alert, Oriented Psychiatric: Yes: Alert, Oriented Labs: CBC, BMP 05/02/17 07:30 05/02/17 07:30 Microbiology 05/01/17 11:16 Blood Culture - Preliminary Blood - Peripheral Venous Lactose Fermenting Neg Bacilli CBC WBC 1.8 K/mm3 (4.0-10.0) L* D 05/02/17 07:30 RBC 2.43 M/mm3 (3.60-5.2) L D 05/02/17 07:30 Hgb 8.3 GM/dL (10.7-15.3) L D 05/02/17 07:30 Hct 24.7 % (32.4-45.2) L D 05/02/17 07:30 MCV 101.6 fl (80-96) H 05/02/17 07:30 MCH 34.3 pg (25.7-33.7) H 05/02/17 07:30 MCHC 33.7 g/dl (32.0-36.0) 05/02/17 07:30 RDW 14.2 % (11.6-15.6) 05/02/17 07:30 Plt Count 75 K/MM3 (134-434) L D 05/02/17 07:30 MPV 9.7 fl (7.5-11.1) 05/02/17 07:30 Neutrophils % 81.1 % (42.8-82.8) 05/02/17 07:30 Lymphocytes % 5.8 % (8-40) L D 05/02/17 07:30 Monocytes % 12.9 % (3.8-10.2) H D 05/02/17 07:30 Eosinophils % 0.1 % (0-4.5) D 05/02/17 07:30 Basophils % 0.1 % (0-2.0) 05/02/17 07:30 Urine Test Results Urine Color [place] 05/01/17 17:10 Urine Appearance Cloudy 05/01/17 17:10 Urine pH 5.0 (5.0-8.0) 05/01/17 17:10 Ur Specific [place] 1.013 (1.001-1.035) 05/01/17 17:10 Urine Protein 1+ (NEGATIVE) H 05/01/17 17:10 Urine Glucose (UA) Negative (NEGATIVE) 05/01/17 17:10 Urine Ketones Negative (NEGATIVE) 05/01/17 17:10 Urine Blood 1+ (NEGATIVE) H 05/01/17 17:10 Urine Nitrite Negative (NEGATIVE) 05/01/17 17:10 Urine Bilirubin Negative (NEGATIVE) 05/01/17 17:10 Ur Leukocyte Esterase 3+ (NEGATIVE) H 05/01/17 17:10 Ur Epithelial Cells Rare /HPF (FEW) 05/01/17 17:10 Urine Bacteria Few /hpf (NONE SEEN) 05/01/17 17:10 Urine Mucus Many 05/01/17 17:10 Assessment/Plan Assessment: 1. UTI 2. Gram negative bacteremia Plan: 1. Cefepime 2g q8h 2. F/u urine, blood cultures 3. No isolation precautions necessary.
--- NOTE | 2017-05-02 09:17 | PN ---
Teaching Attending Note Name of Resident: Sumeet La ATTENDING PHYSICIAN STATEMENT I saw and evaluated the patient. I reviewed the resident's note and discussed the case with the resident. I agree with the resident's findings and plan as documented. SUBJECTIVE: PATIENT EXAMINED REPORT OF POS BLOOD CULTURE GNB ALERT NAD OBJECTIVE: ASSESSMENT AND PLAN: Selected Entries 05/02/17 05/02/17 01:54 06:24 Temperature 101 F H 99.1 F Pulse Rate 65 Respiratory 20 Rate Blood Pressure 119/69 Microbiology 05/01/17 11:16 Blood - Peripheral Venous Blood Culture - Preliminary Lactose Fermenting Neg Bacilli Laboratory Tests 05/02/17 05/02/17 07:30 07:30 WBC 1.8 L* D Hgb 8.3 L D Hct 24.7 L D Plt Count 75 L D BUN 17 Creatinine 0.7 Creat Clearance w eGFR > 60 Plan Nonneutropenic fever with gram neg bacteremia ( Has a port) but most likely urinary tract source Cefepime 2 grs q 8 H Briana GRAVES Problem List - Problems (1) UTI (urinary tract infection) Code(s): N39.0 - URINARY TRACT INFECTION, SITE NOT SPECIFIED (2) Fever Code(s): R50.9 - FEVER, UNSPECIFIED Qualifiers: Fever type: unspecified Qualified Code(s): R50.9 - Fever, unspecified (3) Gram-negative bacteremia Code(s): R78.81 - BACTEREMIA
[2017-05-02] MEDS: FENOFIBRIC ACID 135 MG CAP PO SCH (10:24)
[2017-05-02] MEDS: ENOXAPARIN NA (PORCINE) 40 MG/0.4 ML DISP.SYRIN SQ SCH (10:24)
--- NOTE | 2017-05-02 11:18 | PN ---
Progress Note (short form) - Note Progress Note: patient seen and examined. Blood cultures positive. feels weak, +cough, productive. Labs reviewed. O/E: General : Appears chronically Ill, +cough HEENT: NCAT Cor: RRR Lungs: Decreased breath sounds Abd: Soft Extremities: No CCE Neuro: AAOx3 Last Vital Signs Temp Pulse Resp BP Pulse Ox 98.3 F 106 H 20 103/59 99 05/02/17 09:56 05/02/17 09:56 05/02/17 09:56 05/02/17 09:56 05/02/17 02:55 CBC, BMP 05/02/17 07:30 05/02/17 07:30 Current Medications Generic Name Dose Route Start Last Admin Trade Name Freq PRN Reason Stop Dose Admin Acetaminophen 650 mg 05/01/17 17:36 05/02/17 01:52 Tylenol - PO 650 mg Q4H PRN Administration FEVER Enoxaparin Sodium 40 mg 05/02/17 10:00 05/02/17 10:24 Lovenox - SQ 40 mg DAILY DURGA Administration Fenofibric Acid 135 mg 05/02/17 10:00 05/02/17 10:24 Trilipix - PO 135 mg DAILY DURGA Administration Sodium Chloride 1,000 mls @ 83 mls/hr 05/01/17 17:45 05/01/17 19:38 Normal Saline - IV 83 mls/hr ASDIR DURGA Administration Cefepime HCl 2 gm/ Dextrose 100 mls @ 200 mls/hr 05/01/17 18:30 IVPB Q8H DURGA Protocol Mirtazapine 15 mg 05/01/17 22:00 05/01/17 22:20 Remeron - PO 15 mg HS DURGA Administration Non-Formulary Medication 1 each 05/01/17 22:00 Elviteg/Cob/Emtri/Tenof Alafen [Genvoya (Non-Formulary)] PO HS DURGA Tbo-Filgrastim 300 mcg 05/03/17 11:17 Granix - SQ 05/03/17 11:18 ONCE ONE Zolpidem Tartrate 5 mg 05/01/17 22:00 05/01/17 22:20 Ambien - PO 5 mg HS DRUGA Administration A/P: Bacteremia: Appreciate ID c/s source likely urine pancytopenia: For Granix X1 Monitor Crit/Platelets Lung Ca (NSCLC) on concurrent chemo/RT on carbo/taxol. presently on hold due to the present clinical situation. Cough: productive Pulm c/s
--- NOTE | 2017-05-02 12:00 | PN ---
Physical Exam: SUBJECTIVE: Patient seen and examined. She denies feeling cold, chills, nausea, vomiting. OBJECTIVE: Vital Signs Period Temp Pulse Resp BP Sys/[place] Pulse Ox Last 24 Hr 98.3 F-101 F 65-111 14-29 103-145/59-98 94-100 PE Neuro: alert, awake, cn 2-12intact Pulm: course bs, basilar rhonchi CV: S1 s2 rrr Abd: s nt nd + bs Ext: Warm , no le edema, LCW port - no erythema, tenderness Laboratory Results - last 24 hr 05/01/17 05/01/17 05/02/17 15:30 17:10 07:30 WBC 1.8 L* D RBC 2.43 L D Hgb 8.3 L D Hct 24.7 L D MCV 101.6 H MCH 34.3 H MCHC 33.7 RDW 14.2 Plt Count 75 L D MPV 9.7 Neutrophils % 81.1 Lymphocytes % 5.8 L D Monocytes % 12.9 H D Eosinophils % 0.1 D Basophils % 0.1 VBG pH POC VBG pCO2 POC VBG pO2 Mixed VBG HCO3 Sodium 138 Potassium 4.1 Chloride 104 Carbon Dioxide 27 Anion Gap 7 L BUN 25 H Creatinine 0.9 Creat Clearance w eGFR > 60 Random Glucose 111 H Lactic Acid Calcium 7.7 L Phosphorus Magnesium Total Bilirubin 0.6 D AST 13 L ALT 13 Alkaline Phosphatase 33 L Creatine Kinase 27 Troponin I < 0.02 Total Protein 5.0 L Albumin 2.6 L Urine Color Ayana Urine Appearance Cloudy Urine pH 5.0 Ur Specific [place] 1.013 Urine Protein 1+ H Urine Glucose (UA) Negative Urine Ketones Negative Urine Blood 1+ H Urine Nitrite Negative Urine Bilirubin Negative Urine Urobilinogen 2.0 H Ur Leukocyte Esterase 3+ H Urine WBC (Auto) 377 Urine RBC (Auto) 3 Ur Epithelial Cells Rare Urine Bacteria Few Hyaline Casts 4 Urine Mucus Many 05/02/17 07:30 WBC RBC Hgb Hct MCV MCH MCHC RDW Plt Count MPV Neutrophils % Lymphocytes % Monocytes % Eosinophils % Basophils % VBG pH POC VBG pCO2 POC VBG pO2 Mixed VBG HCO3 Sodium 140 Potassium 3.6 Chloride 107 Carbon Dioxide 26 Anion Gap 7 L BUN 17 Creatinine 0.7 Creat Clearance w eGFR > 60 Random Glucose 99 Lactic Acid Calcium 7.5 L Phosphorus 1.7 L Magnesium 1.3 L Total Bilirubin 0.6 AST 12 L ALT 11 L Alkaline Phosphatase 31 L Creatine Kinase Troponin I Total Protein 4.4 L Albumin 2.2 L Urine Color Urine Appearance Urine pH Ur Specific [place] Urine Protein Urine Glucose (UA) Urine Ketones Urine Blood Urine Nitrite Urine Bilirubin Urine Urobilinogen Ur Leukocyte Esterase Urine WBC (Auto) Urine RBC (Auto) Ur Epithelial Cells Urine Bacteria Hyaline Casts Urine Mucus Active Medications Generic Name Dose Route Start Last Admin Trade Name Freq PRN Reason Stop Dose Admin Acetaminophen 650 mg 05/01/17 17:36 05/02/17 01:52 Tylenol - PO 650 mg Q4H PRN Administration FEVER Enoxaparin Sodium 40 mg 05/02/17 10:00 05/02/17 10:24 Lovenox - SQ 40 mg DAILY DURGA Administration Fenofibric Acid 135 mg 05/02/17 10:00 05/02/17 10:24 Trilipix - PO 135 mg DAILY DURGA Administration Sodium Chloride 1,000 mls @ 83 mls/hr 05/01/17 17:45 05/01/17 19:38 Normal Saline - IV 83 mls/hr ASDIR DURGA Administration Cefepime HCl 2 gm/ Dextrose 100 mls @ 200 mls/hr 05/01/17 18:30 IVPB Q8H DURGA Protocol Mirtazapine 15 mg 05/01/17 22:00 05/01/17 22:20 Remeron - PO [address] [facility] Administration Non-Formulary Medication 1 each 05/01/17 22:00 Elviteg/Cob/Emtri/Tenof Alafen [Genvoya (Non-Formulary)] PO HS DURGA Tbo-Filgrastim 300 mcg 05/03/17 11:17 Granix - SQ 05/03/17 11:18 ONCE ONE Zolpidem Tartrate 5 mg 05/01/17 22:00 05/01/17 22:20 Ambien - PO 5 mg HS DURGA Administration Microbiology 05/01/17 11:16 Blood Culture - Preliminary Blood - Peripheral Venous NO GROWTH OBTAINED AFTER 24 HOURS, INCUBATION TO CONTINUE FOR 4 DAYS. 05/01/17 11:16 Blood Culture - Preliminary Blood - Peripheral Venous Lactose Fermenting Neg Bacilli Assessment: 71 year old female admitted with diarrhea and fever following chemo 5 days ago Plan: 1. 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 HTN - Hold BP meds d/t hypotension/sepsis 4. COPD - Stable 5. CAD s/p stents - ASA daily Problem List - Problems (1) Diarrhea Code(s): R19.7 - DIARRHEA, UNSPECIFIED (2) Fever Code(s): R50.9 - FEVER, UNSPECIFIED Qualifiers: Fever type: unspecified Qualified Code(s): R50.9 - Fever, unspecified (3) Leukopenia Code(s): D72.819 - DECREASED WHITE BLOOD CELL COUNT, UNSPECIFIED Qualifiers: Leukopenia type: unspecified Qualified Code(s): D72.819 - Decreased white blood cell count, unspecified Visit type - Emergency Visit Emergency Visit: Yes ED Registration Date: 05/01/17 Care time: The patient presented to the Emergency Department on the above date and was hospitalized for further evaluation of their emergent condition. - New Patient This patient is new to me today: No - Critical Care Critical Care patient: No
[2017-05-02] MEDS ORDERED: ALBUTEROL SO4 0.083% IH SOL 2.5 MG/3 ML VIAL.NEB. NEB SCH (12:30)
[2017-05-02] MEDS: SODIUM CHLORIDE 1,000 ML IV SCH ×2 (13:37→15:54)
[2017-05-02] MEDS: ALBUTEROL SO4 0.083% IH SOL 2.5 MG/3 ML VIAL.NEB. NEB SCH ×2 (15:21→21:23)
[2017-05-02] MEDS ORDERED: PT OWN MED DRAWER 7, Y5N ONE ×2 (17:58→18:03)
--- NOTE | 2017-05-02 20:40 | PN ---
Progress Note (short form) - Note Progress Note: Radiation Oncology Pt known to our dept for stage IIA RUL pulmonary ADCA on concurrent chemoradiation (30.6Gy/17fx to date), missed treatments this week due to fatigue , dehydration, diarrhea after chemo last Thur. Sent to ED and admitted for urosepsis, on antibiotics, feeling a bit better today. Will hold RT until medically stable. Cont as per ID rec.
[2017-05-02] MEDS: ZOLPIDEM TARTRATE 5 MG TABLET PO SCH (21:33)
[2017-05-02] MEDS: MIRTAZAPINE 15 MG TABLET (FP) PO SCH (21:33)
[2017-05-03] MEDS ORDERED: SODIUM CHLORIDE 250 ML IV STA (01:18)
[2017-05-03] MEDS: ACETAMINOPHEN 325 MG TABLET (FP) PO PRN (01:31)
[2017-05-03] MEDS ORDERED: PT OWN MED DRAWER 7, Y5N ONE ×2 (01:37→17:10)
[2017-05-03] MEDS: CEFEPIME HCL/D5W 2 GM/50 ML BAG IVPB SCH ×3 (02:13→19:18)
[2017-05-03] MEDS ORDERED: MAGNESIUM SULF 50% (8.12 MEQ/2 ML-1 GM VIAL) IVPB ONE (03:02)
[2017-05-03] MEDS ORDERED: MAGNESIUM SULF 50% (8.12 MEQ/2 ML-1 GM VIAL) ONE (03:20)
[2017-05-03] MEDS ORDERED: dilTIAZem HCL 30 MG TABLET (FP) PO ONE ×2 (03:24→03:49)
--- NOTE | 2017-05-03 04:17 | HOSP ---
Subjective - Review of Symptoms Events since last encounter: called to see pt for elevated HR Subjective: pt denies CP, SOB, palpitation. Physical Examination Vital Signs: Vital Signs Temperature 98.9 F 05/03/17 02:49 Pulse Rate 145 H 05/03/17 02:49 Respiratory Rate 21 05/03/17 02:49 Blood Pressure 121/66 05/03/17 01:45 O2 Sat by Pulse Oximetry (%) 95 05/02/17 21:00 Constitutional: Yes: Calm Cardiovascular: Yes: Regular Rate and Rhythm, Tachycardia, S1, S2 Respiratory: Yes: CTA Bilaterally Gastrointestinal: Yes: Normal Bowel Sounds, Soft. No: Tenderness Labs: CBC, BMP 05/02/17 07:30 05/02/17 07:30 ECG 05/03/17 03:05 supraventricular tachycardia vent rate 134, QTC [address] abnormality Hospitalist Encounter Assessment: SVT - transfer to tele when bed available. Unable to give IV cardiac meds without monitor - cardizem po if bed not going to be available urgently - repeat ECG in am - labs inc cardiac enzymes
[2017-05-03 04:26] LABS: BASO % 0.1 % (0-2.0); EOS % 0.1 % (0-4.5); HEMATOCRIT 23.9 % (32.4-45.2); LYMPH % 7.5 % (8-40); MCH 33.8 pg (25.7-33.7); MCHC 33.2 g/dl (32.0-36.0); MEAN CELL VOLUME 101.6 fl (80-96); MEAN PLT VOLUME 10.9 fl (7.5-11.1); MONO % 17.6 % (3.8-10.2); NEUT % 74.7 % (42.8-82.8); PLATELET COUNT 83 K/MM3 (134-434); RBC 2.36 M/mm3 (3.60-5.2); RDW 14.4 % (11.6-15.6)
[2017-05-03] MEDS: SODIUM CHLORIDE 1,000 ML IV SCH ×2 (04:35→11:50)
[2017-05-03 04:48] LABS: ANION GAP 7 (8-16); BLOOD UREA NITROGEN 17 mg/dL (7-18); CALCIUM 7.5 mg/dL (8.5-10.1); CHLORIDE 107 mmol/L (98-107); CO2 26 mmol/L (21-32); CREATININE 0.6 mg/dL (0.55-1.02); GLUCOSE,RANDOM 104 mg/dL (74-106); SODIUM 140 mmol/L (136-145)
[2017-05-03 05:04] LABS: POTASSIUM 3.7 mmol/L (3.5-5.1)
[2017-05-03 05:33] LABS: WHITE BLOOD COUNT 1.9 K/mm3 (4.0-10.0)
[2017-05-03 07:12] LABS: BASO % 0.1 % (0-2.0); EOS % 0.1 % (0-4.5); HEMATOCRIT 23.4 % (32.4-45.2); HEMOGLOBIN 7.9 GM/dL (10.7-15.3); LYMPH % 7.6 % (8-40); MCH 34.4 pg (25.7-33.7); MCHC 33.9 g/dl (32.0-36.0); MEAN CELL VOLUME 101.4 fl (80-96); MEAN PLT VOLUME 10.1 fl (7.5-11.1); MONO % 14.8 % (3.8-10.2); NEUT % 77.4 % (42.8-82.8); PLATELET COUNT 79 K/MM3 (134-434); RDW 14.4 % (11.6-15.6)
[2017-05-03] MEDS: ALBUTEROL SO4 0.083% IH SOL 2.5 MG/3 ML VIAL.NEB. NEB SCH ×4 (07:54→21:18)
[2017-05-03 08:06] LABS: ANION GAP 10 (8-16); BLOOD UREA NITROGEN 15 mg/dL (7-18); CALCIUM 7.9 mg/dL (8.5-10.1); CHLORIDE 106 mmol/L (98-107); CO2 25 mmol/L (21-32); GLUCOSE,RANDOM 98 mg/dL (74-106); POTASSIUM 3.4 mmol/L (3.5-5.1); SODIUM 141 mmol/L (136-145)
[2017-05-03 08:08] LABS: CREATININE 0.6 mg/dL (0.55-1.02)
[2017-05-03 08:19] LABS: WHITE BLOOD COUNT 1.9 K/mm3 (4.0-10.0)
--- NOTE | 2017-05-03 09:33 | PN ---
Progress Note, Physician Chief Complaint: ID Cefepime Subjective improvement Temp down - Current Medication List Current Medications: Active Medications Acetaminophen (Tylenol -) 650 mg PO Q4H PRN PRN Reason: FEVER Last Admin: 05/03/17 01:31 Dose: 650 mg Albuterol Sulfate (Ventolin 0.083% Nebulizer Soln -) 1 amp NEB RQID [facility] Last Admin: 05/03/17 07:54 Dose: 1 amp Enoxaparin Sodium (Lovenox -) 40 mg SQ DAILY [facility] Last Admin: 05/02/17 10:24 Dose: 40 mg Fenofibric Acid (Trilipix -) 135 mg PO DAILY [facility] Last Admin: 05/02/17 10:24 Dose: 135 mg Sodium Chloride (Normal Saline -) 1,000 mls @ 60 mls/hr IV ASDIR [facility] Last Admin: 05/03/17 04:35 Dose: 60 mls/hr Cefepime HCl (Maxipime 2gm Ivpb (Premix)) 2 gm in 50 mls @ 100 mls/hr IVPB Q8H- IV DURGA PRN Reason: Protocol Last Admin: 05/03/17 02:13 Dose: 100 mls/hr Mirtazapine (Remeron -) 15 mg PO [facility] Last Admin: 05/02/17 21:33 Dose: 15 mg Non-Formulary Medication (Elviteg/Cob/Emtri/Tenof Alafen [Genvoya (Non-Formulary )]) 1 each PO [facility] Tbo-Filgrastim (Granix -) 300 mcg SQ ONCE ONE Stop: 05/03/17 11:18 Zolpidem Tartrate (Ambien -) 5 mg PO [facility] Last Admin: 05/02/17 21:33 Dose: 5 mg - Objective Vital Signs: Vital Signs Temperature 98.5 F 05/03/17 06:45 Pulse Rate 91 H 05/03/17 06:45 Respiratory Rate 20 05/03/17 06:45 Blood Pressure 106/62 05/03/17 06:45 O2 Sat by Pulse Oximetry (%) 95 05/02/17 21:00 Constitutional: Yes: No Distress Neck: Yes: WNL, Supple Cardiovascular: Yes: S1, S2, Other (port left) Respiratory: Yes: WNL, Regular, CTA Bilaterally Gastrointestinal: Yes: WNL, Normal Bowel Sounds, Soft. No: Tenderness, Tenderness, Epigastrium Labs: CBC, BMP 05/03/17 06:50 05/03/17 06:50 INR, PTT INR 1.12 (0.82-1.09) 05/01/17 11:11 Problem List - Problems (1) UTI (urinary tract infection) Code(s): N39.0 - URINARY TRACT INFECTION, SITE NOT SPECIFIED (2) Fever Code(s): R50.9 - FEVER, UNSPECIFIED Qualifiers: Fever type: unspecified Qualified Code(s): R50.9 - Fever, unspecified (3) Gram-negative bacteremia Code(s): R78.81 - BACTEREMIA Assessment/Plan Microbiology 05/01/17 17:10 Urine - Urine Clean Catch Urine Culture - Preliminary Lactose Fermenting Neg Bacilli 05/01/17 11:16 Blood - Peripheral Venous Blood Culture - Preliminary Lactose Fermenting Neg Bacilli Laboratory Tests 05/01/17 05/03/17 17:10 06:50 WBC 1.9 L* Hgb 7.9 L Hct 23.4 L Plt Count 79 L Neutrophils % 77.4 Lymphocytes % 7.6 L Monocytes % 14.8 H Ur Leukocyte Esterase 3+ H Urine WBC (Auto) 377 Urine RBC (Auto) 3 Assessment Nonneutropenic fever post chemotherapy. infection Gram negative bactermia Plan Continue Cefepime pending final cultures Briana GRAVES
--- NOTE | 2017-05-03 10:18 | EKG ---
Test Reason : Blood Pressure : / mmHG Vent. Rate : 134 BPM Atrial Rate : 125 BPM P-R Int : 000 ms QRS Dur : 082 ms QT Int : 350 ms P-R-T Axes : 000 -20 069 degrees QTc Int : 522 ms SUPRAVENTRICULAR TACHYCARDIA NONSPECIFIC ST ABNORMALITY ABNORMAL ECG WHEN COMPARED WITH ECG OF 01-MAY-2017 10:44, NO SIGNIFICANT CHANGE WAS FOUND Confirmed by HANK GRUBBS MD ([id number]) on 05/03/2017 10:18:02 AM Referred By: Confirmed By:HANK GRUBBS MD
[2017-05-03] MEDS: FENOFIBRIC ACID 135 MG CAP PO SCH (11:21)
[2017-05-03] MEDS: ENOXAPARIN NA (PORCINE) 40 MG/0.4 ML DISP.SYRIN SQ SCH (11:21)
--- NOTE | 2017-05-03 12:39 | PN ---
Physical Exam: SUBJECTIVE: Patient seen and examined. She doesn't feel different than her baseline. Denies palpitations, sob, cp. Events: - Period of SVT overnight, cardizem given - Now ST w 1 degree AVB now - Pt asymptomatic OBJECTIVE: Vital Signs Period Temp Pulse Resp BP Sys/[place] Pulse Ox Last 24 Hr 98 F-100.3 F 91-145 20-22 106-132/62-67 95 PE Neuro: alert, awake, cn 2-12intact Pulm: course bs, basilar rhonchi CV: S1 s2 rrr Abd: s nt nd + bs Ext: Warm , no le edema, LCW port Laboratory Results - last 24 hr 05/03/17 05/03/17 05/03/17 04:10 04:10 06:50 WBC 1.9 L* 1.9 L* RBC 2.36 L 2.30 L Hgb 8.0 L 7.9 L Hct 23.9 L 23.4 L MCV 101.6 H 101.4 H MCH 33.8 H 34.4 H MCHC 33.2 33.9 RDW 14.4 14.4 Plt Count 83 L 79 L MPV 10.9 D 10.1 Neutrophils % 74.7 77.4 Lymphocytes % 7.5 L D 7.6 L Monocytes % 17.6 H 14.8 H Eosinophils % 0.1 0.1 Basophils % 0.1 0.1 Sodium 140 Potassium 3.7 Chloride 107 Carbon Dioxide 26 Anion Gap 7 L BUN 17 Creatinine 0.6 Random Glucose 104 Calcium 7.5 L Magnesium Creatine Kinase 47 Troponin I 0.02 05/03/17 05/03/17 06:50 06:50 WBC RBC Hgb Hct MCV MCH MCHC RDW Plt Count MPV Neutrophils % Lymphocytes % Monocytes % Eosinophils % Basophils % Sodium 141 Potassium 3.4 L Chloride 106 Carbon Dioxide 25 Anion Gap 10 BUN 15 Creatinine 0.6 Random Glucose 98 Calcium 7.9 L Magnesium 2.3 Creatine Kinase Troponin I Active Medications Generic Name Dose Route Start Last Admin Trade Name Freq PRN Reason Stop Dose Admin Acetaminophen 650 mg 05/01/17 17:36 05/03/17 01:31 Tylenol - PO 650 mg Q4H PRN Administration FEVER Albuterol Sulfate 1 amp 05/02/17 16:00 05/03/17 11:05 Ventolin 0.083% Nebulizer Soln - NEB 1 amp RQID DURGA Administration Enoxaparin Sodium 40 mg 05/02/17 10:00 05/03/17 11:21 Lovenox - SQ 40 mg DAILY DURGA Administration Fenofibric Acid 135 mg 05/02/17 10:00 05/03/17 11:21 Trilipix - PO 135 mg DAILY DURGA Administration Sodium Chloride 1,000 mls @ 60 mls/hr 05/02/17 12:04 05/03/17 11:50 Normal Saline - IV Not Given ASDIR DURGA Cefepime HCl 2 gm in 50 mls @ 100 mls/hr 05/02/17 18:00 05/03/17 02:13 Maxipime 2gm Ivpb (Premix) IVPB 100 mls/hr Q8H-IV DURGA Administration Protocol Mirtazapine 15 mg 05/01/17 22:00 05/02/17 21:33 Remeron - PO 15 mg HS DURGA Administration Non-Formulary Medication 1 each 05/01/17 22:00 Elviteg/Cob/Emtri/Tenof Alafen [Genvoya (Non-Formulary)] PO HS [facility] Potassium Chloride 40 meq 05/03/17 11:42 Potassium Chloride Oral Liquid PO 05/03/17 11:43 ONCE ONE Tbo-Filgrastim 300 mcg 05/03/17 11:17 Granix - SQ 05/03/17 11:18 ONCE ONE Zolpidem Tartrate 5 mg 05/01/17 22:00 05/02/17 21:33 Ambien - PO 5 mg HS DURGA Administration Microbiology 05/01/17 11:16 Blood Culture - Preliminary Blood - Peripheral Venous NO GROWTH OBTAINED AFTER 48 HOURS, INCUBATION TO CONTINUE FOR 3 DAYS. 05/01/17 11:16 Blood Culture - Final Blood - Peripheral Venous Escherichia Coli 05/01/17 17:10 Urine Culture - Preliminary Urine - Urine Clean Catch Lactose Fermenting Neg Bacilli Assessment: 71 year old female admitted with diarrhea and fever following chemo 5 days ago Plan: 1. Sepsis d/t gram negative bacteremia - Urine cx LFNB - Cefepime q8hr 2. 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 HTN - Hold HCTZ/losartan combo d/t sepsis 5. COPD - Stable 6. CAD s/p stents - ASA daily - Trilipix 7. Hypokalemia - Replete 40meq x1 8. DVt - Lovenox Problem List - Problems (1) Diarrhea Code(s): R19.7 - DIARRHEA, UNSPECIFIED (2) Fever Code(s): R50.9 - FEVER, UNSPECIFIED Qualifiers: Fever type: unspecified Qualified Code(s): R50.9 - Fever, unspecified (3) Leukopenia Code(s): D72.819 - DECREASED WHITE BLOOD CELL COUNT, UNSPECIFIED Qualifiers: Leukopenia type: unspecified Qualified Code(s): D72.819 - Decreased white blood cell count, unspecified Visit type - Emergency Visit Emergency Visit: Yes ED Registration Date: 05/01/17 Care time: The patient presented to the Emergency Department on the above date and was hospitalized for further evaluation of their emergent condition. - New Patient This patient is new to me today: No - Critical Care Critical Care patient: No
--- NOTE | 2017-05-03 12:48 | PN ---
Progress Note (short form) - Note Progress Note: PULMONARY CONSULTATION DICTATED 05/03/17 IMP GRAM NEGATIVE BACTEREMIA UROSEPSIS PANCYTOPENIA LUNG CA COPD HIV ASHD S/P STENTS PLAN IV FLUID ABX PER ID INHALED BRONCHODILATORS O2 MONITOR CBC DR WAETRS
[2017-05-03] MEDS ORDERED: POTASSIUM CHLORIDE ORAL LIQUID 20 MEQ/15 ML PO ONE ×2 (13:00→16:30)
[2017-05-03 13:02] LABS: MAGNESIUM 2.1 mg/dL (1.8-2.4)
[2017-05-03] MEDS ORDERED: TBO-FILGRASTIM 300 MCG/0.5 ML DISP.SYRINGE SQ ONE (15:30)
[2017-05-03] MEDS: TIOTROPIUM BROMIDE 18 MCG/INH (DEVICE W/ 5 CAPSULES) IH SCH (16:42)
--- NOTE | 2017-05-03 21:28 | PN ---
Progress Note (short form) - Note Progress Note: Patient seen and examined Alert, awake . mildly rhonchorous Last Vital Signs Temp Pulse Resp BP Pulse Ox 99.1 F 110 H 18 142/76 94 L 05/04/17 07:51 05/04/17 07:51 05/04/17 07:51 05/04/17 07:51 05/03/17 21:00 Cor: RSR, No murmurs, No gallops Lungs: Clear to P&A Abd: Soft, Normal bowel sounds, No organomegaly Ext: 1+ edema Abnormal Lab Results 05/04/17 05/04/17 06:50 06:50 RBC 2.41 L Hgb 8.3 L Hct 24.3 L MCV 101.1 H MCH 34.6 H Plt Count 87 L Neutrophils % 83.9 H Lymphocytes % 3.9 L D Monocytes % 11.7 H Creatinine 0.4 L Home Medication List Medication Instructions Recorded Confirmed Type Albuterol Sulfate Inhaler - 1 - 2 inh PO Q4H 05/01/17 05/01/17 History [Ventolin Hfa Inhaler -] Alendronate Na [Fosamax] 70 mg PO Q7D 05/01/17 05/01/17 History Aspirin [ASA -] 81 mg PO DAILY 05/01/17 05/01/17 History Beclomethasone Dipropionate [Qvar] 8.7 gm IH BID 05/01/17 05/01/17 History Calcium Carbonate/Vitamin D3 1 each PO DAILY 05/01/17 05/01/17 History [Calcium 600 + D3 Softgel] Cholecalciferol (Vitamin D3) 5,000 unit PO WEEKLY 05/01/17 05/01/17 History [Vitamin D3] Elviteg/Cob/Emtri/Tenof Alafen 1 each PO HS 05/01/17 05/01/17 History [Genvoya (Non-Formulary)] Fenofibrate Nanocrystallized 160 mg PO DAILY 05/01/17 05/01/17 History [Triglide] Losartan 50Mg/Hctz 12.5MG [Hyzaar 1 tab PO DAILY 05/01/17 05/01/17 History -] Mirtazapine 15 mg PO HS 05/01/17 05/01/17 History Multivitamin,Therapeutic [Thera] 1 each PO DAILY 05/01/17 05/01/17 History Henderson-3/Dha/Epa/Fish Oil [H[place]erson 3 1 each PO BID 05/01/17 05/01/17 History 500 Softgel] Umeclidinium [place] [Incruse 62.5 mcg IH DAILY 05/01/17 05/01/17 History Ellipta] Zolpidem Tartrate [Ambien] 5 mg PO HS 05/01/17 05/01/17 History Active Medications Generic Name Dose Route Start Last Admin Trade Name Freq PRN Reason Stop Dose Admin Acetaminophen 650 mg 05/01/17 17:36 05/03/17 01:31 Tylenol - PO 650 mg Q4H PRN Administration FEVER Albuterol Sulfate 1 amp 05/02/17 16:00 05/04/17 07:25 Ventolin 0.083% Nebulizer Soln - NEB 1 amp RQID DURGA Administration Enoxaparin Sodium 40 mg 05/02/17 10:00 05/04/17 09:09 Lovenox - SQ 40 mg DAILY DURGA Administration Fenofibric Acid 135 mg 05/02/17 10:00 05/04/17 09:08 Trilipix - PO 135 mg DAILY DURGA Administration Cefepime HCl 2 gm in 50 mls @ 100 mls/hr 05/02/17 18:00 05/04/17 09:13 Maxipime 2gm Ivpb (Premix) IVPB 100 mls/hr Q8H-IV DURGA Administration Protocol Mirtazapine 15 mg 05/01/17 22:00 05/03/17 21:41 Remeron - PO 15 mg HS DURGA Administration Ptnt's Own Med ( 1 each 05/03/17 22:00 05/03/17 21:41 Elviteg/Cob/Emtri/ PO 1 each Tenof Alafen [ HS DURGA Administration Genvoya] Tiotropium [place] 1 puff 05/03/17 13:00 05/04/17 09:13 Spiriva - IH 1 puff DAILY DURGA Administration Zolpidem Tartrate 5 mg 05/01/17 22:00 05/03/17 21:41 Ambien - PO 5 mg HS DURGA Administration A/P Bacteremia: G- On cefepime pancytopenia: For Granix Monitor Crit/Platelets Lung Ca (NSCLC) on concurrent chemo/RT on carbo/taxol. treatment on hold due to ongoing sepsis discussed with patient and her [id number]. Daughter in law to get health care proxy and living will which were previously done family aware of guarded situation
[2017-05-03] MEDS: [UNRECOGNIZED DRUG - OTHER] PO SCH (21:41)
[2017-05-03] MEDS: ZOLPIDEM TARTRATE 5 MG TABLET PO SCH (21:41)
[2017-05-03] MEDS: MIRTAZAPINE 15 MG TABLET (FP) PO SCH (21:41)
--- NOTE | 2017-05-04 00:18 | CONS ---
DATE OF CONSULTATION: 05/03/2017 PULMONARY CONSULTATION REFERRING PHYSICIAN: Laya Peralta M.D. HISTORY OF PRESENT ILLNESS: The patient is a 71-year-old white female with past medical history that includes lung CA recently diagnosed on bronchoscopy, currently being treated by Dr. Fong, chronic obstructive pulmonary disease, ASD status post stents, HIV, hypertension, hyperlipidemia, admitted to [facility] on May 01 with complaint of diarrhea approximately 5 days prior to admission. Patient apparently developed diarrhea status post chemotherapy on Saturday prior to admission. At the time, she denied any abdominal pain, fevers, and diarrhea or nausea or vomiting. Apparently patient was noted to have a temperature of 100.5. There was no chest pain, palpitation, no cough or hemoptysis. She presented to the emergency room with the above. On admission, she was placed given IV fluids and broad-spectrum antibiotics. She was noted to be neutropenic with a WBC of 1.9. She was evalucated by infectious disease and placed on cefepime. Of note is urine cultures returned positive for E. coli. Blood cultures were also positive for E. coli. Patient has a history of smoking, still currently smokes a few cigarettes a day. There is no history of occupational exposure to chemicals or fumes. There is no history of recent travel. She does have history of COPD which she uses albuterol. She denies any recent travel. There is no history of hemoptysis. Denies any chest pains or palpitations. PAST MEDICAL HISTORY: Again includes HIV since 1988, small cell CA of the lung, COPD, hypertension, ASD status post stents. MEDICATION: Include Maxipen, Lovenox, Remeron, and albuterol, normal saline, , and KCl. REVIEW OF SYSTEMS: No orthopnea. No PND. No shortness of breath. No hemoptysis. No chest pain. No palpitations. Positive diarrhea. Positive fever. Positive chills. No hemoptysis. PHYSICAL EXAMINATION: General: The patient is a well-developed, well-nourished female, awake, alert, in no acute distress. Vital signs: She is currently afebrile. Blood pressure is 132/64, respiratory rate 20, O2 saturation is 95% on 2 L. HEENT: Head is normocephalic, atraumatic. Neck: Supple. Heart: Regular. S1, S2. Chest: Scattered rhonchi bilaterally. Abdomen: Soft. Bowel sounds positive. Extremities: No cyanosis, edema. LABORATORY: WBC is 1.9, hemoglobin 7.9, hematocrit 23.4 with platelet count of 79,000, potassium 3.4, BUN 15, creatinine 0.6, lactic acid 1.4. Chest x-ray, no infiltrates, no effusions. Blood culture positive for E. coli. IMPRESSION: 1. Fever, hypotension secondary to urosepsis. 2. Gram-negative bacteremia. 3. Chronic obstructive pulmonary disease. 4. Pancytopenia. 5. History of lung carcinoma non-small cell. 6. Chronic obstructive pulmonary disease. 7. History of human immunodeficiency virus. PLAN: IV fluids. Antibiotic therapy as per infectious disease. Inhaled bronchodilators. Supplemental O2. Monitor CBC. EVE WATERS M.D. [id number]
[2017-05-04] MEDS: CEFEPIME HCL/D5W 2 GM/50 ML BAG IVPB SCH ×3 (01:12→17:44)
[2017-05-04] MEDS ORDERED: dilTIAZem HCL 30 MG TABLET (FP) PO ONE (02:50)
[2017-05-04 07:22] LABS: BASO % 0.5 % (0-2.0); HEMATOCRIT 24.3 % (32.4-45.2); HEMOGLOBIN 8.3 GM/dL (10.7-15.3); LYMPH % 3.9 % (8-40); MCH 34.6 pg (25.7-33.7); MCHC 34.2 g/dl (32.0-36.0); MEAN CELL VOLUME 101.1 fl (80-96); MEAN PLT VOLUME 10.2 fl (7.5-11.1); MONO % 11.7 % (3.8-10.2); NEUT % 83.9 % (42.8-82.8); PLATELET COUNT 87 K/MM3 (134-434); RBC 2.41 M/mm3 (3.60-5.2); RDW 14.6 % (11.6-15.6); WHITE BLOOD COUNT 5.3 K/mm3 (4.0-10.0)
[2017-05-04] MEDS: ALBUTEROL SO4 0.083% IH SOL 2.5 MG/3 ML VIAL.NEB. NEB SCH ×4 (07:25→21:50)
[2017-05-04 07:37] LABS: ANION GAP 9 (8-16); BLOOD UREA NITROGEN 12 mg/dL (7-18); CALCIUM 8.6 mg/dL (8.5-10.1); CHLORIDE 105 mmol/L (98-107); CO2 28 mmol/L (21-32); GLUCOSE,RANDOM 97 mg/dL (74-106); SODIUM 142 mmol/L (136-145)
[2017-05-04 07:39] LABS: CREATININE 0.4 mg/dL (0.55-1.02)
[2017-05-04] MEDS: FENOFIBRIC ACID 135 MG CAP PO SCH (09:08)
[2017-05-04] MEDS: ENOXAPARIN NA (PORCINE) 40 MG/0.4 ML DISP.SYRIN SQ SCH (09:09)
[2017-05-04] MEDS: TIOTROPIUM BROMIDE 18 MCG/INH (DEVICE W/ 5 CAPSULES) IH SCH (09:13)
[2017-05-04] MEDS ORDERED: TBO-FILGRASTIM 300 MCG/0.5 ML DISP.SYRINGE SQ ONE (09:34)
--- NOTE | 2017-05-04 11:40 | EKG ---
Test Reason : Blood Pressure : / mmHG Vent. Rate : 141 BPM Atrial Rate : 094 BPM P-R Int : 000 ms QRS Dur : 076 ms QT Int : 318 ms P-R-T Axes : 000 -24 063 degrees QTc Int : 487 ms SUPRAVENTRICULAR TACHYCARDIA NONSPECIFIC ST ABNORMALITY ABNORMAL ECG WHEN COMPARED WITH ECG OF 03-MAY-2017 03:05, NO SIGNIFICANT CHANGE WAS FOUND Confirmed by MD CURTIS, XIN ([id number]) on 05/04/2017 11:39:50 AM Referred By: Confirmed By:XIN ACEVEDO MD
--- NOTE | 2017-05-04 12:10 | PN ---
Progress Note (short form) - Note Progress Note: Seen in follow up. Feeling significantly better than previously, no new complaints. Occasional dry cough, denies dyspnea. No fevers past 24 hours.. Meds reviewed. Current Medications Generic Name Dose Route Start Last Admin Trade Name Freq PRN Reason Stop Dose Admin Acetaminophen 650 mg 05/01/17 17:36 05/03/17 01:31 Tylenol - PO 650 mg Q4H PRN Administration FEVER Albuterol Sulfate 1 amp 05/02/17 16:00 05/04/17 11:33 Ventolin 0.083% Nebulizer Soln - NEB 1 amp RQID DURGA Administration Enoxaparin Sodium 40 mg 05/02/17 10:00 05/04/17 09:09 Lovenox - SQ 40 mg DAILY DURGA Administration Fenofibric Acid 135 mg 05/02/17 10:00 05/04/17 09:08 Trilipix - PO 135 mg DAILY DURGA Administration Cefepime HCl 2 gm in 50 mls @ 100 mls/hr 05/02/17 18:00 05/04/17 09:13 Maxipime 2gm Ivpb (Premix) IVPB 100 mls/hr Q8H-IV DURGA Administration Protocol Mirtazapine 15 mg 05/01/17 22:00 05/03/17 21:41 Remeron - PO 15 mg HS DURGA Administration Ptnt's Own Med ( 1 each 05/03/17 22:00 05/03/17 21:41 Elviteg/Cob/Emtri/ PO 1 each Tenof Alafen [ HS DURGA Administration Genvoya] Tiotropium [place] 1 puff 05/03/17 13:00 05/04/17 09:13 Spiriva - IH 1 puff DAILY DURGA Administration Zolpidem Tartrate 5 mg 05/01/17 22:00 05/03/17 21:41 Ambien - PO 5 mg HS DURGA Administration On exam: Last Vital Signs Temp Pulse Resp BP Pulse Ox 99.1 F 110 H 18 142/76 95 05/04/17 07:51 05/04/17 07:51 05/04/17 08:00 05/04/17 07:51 05/04/17 08:00 General: Supine in bed, interactive and pleasant. Extremities: Symmetrical, no obvious swelling. Chest:Soft breath sounds, AE bilaterally, clear Abdomen: Soft, no organomegaly, no masses. Neuro: Alert, oriented, non-focal. CVS: Normal sinus rhythm, S1, S2, no gallop or murmur. CBC, BMP 05/04/17 06:50 05/04/17 06:50 Assessment. NSCLC - on chemotherapy - admitted with chemotherapy induced nuetropenia and E. coli bacteremia. Significantly improved on IV Abics, and today with ANC >1.5 on G-CSG. Continue present Abic management. Can stop Granix. D/C neutropenic precautions.
--- NOTE | 2017-05-04 14:09 | PN ---
Progress Note (short form) - Note Progress Note: Chief Complaint: Events noted, notes reviewed, denies any chest pain or dyspnea , asymptomatic tachycardia noted ectopic atrial tachycardia versus sinus tachycardia, the later likely History of Present Illness: Seen and examined on telemetry. Full consult dictated Echocardiography performed yesterday revealed normal LV and RV size and function , mild MR and TR with pulmonary HTN - Current Medication List Current Medications Acetaminophen (Tylenol -) 650 mg PO Q4H PRN PRN Reason: FEVER Last Admin: 05/03/17 01:31 Dose: 650 mg Albuterol Sulfate (Ventolin 0.083% Nebulizer Soln -) 1 amp NEB RQID [facility] Last Admin: 05/04/17 11:33 Dose: 1 amp Enoxaparin Sodium (Lovenox -) 40 mg SQ DAILY [facility] Last Admin: 05/04/17 09:09 Dose: 40 mg Fenofibric Acid (Trilipix -) 135 mg PO DAILY [facility] Last Admin: 05/04/17 09:08 Dose: 135 mg Cefepime HCl (Maxipime 2gm Ivpb (Premix)) 2 gm in 50 mls @ 100 mls/hr IVPB Q8H- IV DURGA PRN Reason: Protocol Last Admin: 05/04/17 09:13 Dose: 100 mls/hr Mirtazapine (Remeron -) 15 mg PO HS [facility] Last Admin: 05/03/17 21:41 Dose: 15 mg Ptnt's Own Med ( Elviteg/Cob/Emtri/Tenof Alafen [ Genvoya] 1 each PO HS [facility] Last Admin: 05/03/17 21:41 Dose: 1 each Tiotropium [place] (Spiriva -) 1 puff IH DAILY [facility] Last Admin: 05/04/17 09:13 Dose: 1 puff Zolpidem Tartrate (Ambien -) 5 mg PO HS [facility] Last Admin: 05/03/17 21:41 Dose: 5 mg Review of Systems Cardiovascular: As noted above Respiratory: denies: reports: Cough but no Sputum Production Gastrointestinal: denies: Nausea, Vomiting, Diarrhea, Constipation or Abdominal Discomfort Musculoskeletal: No Symptoms Reported Endocrine: No Symptoms Reported - Objective Vital Signs: Last Vital Signs Temp Pulse Resp BP Pulse Ox 98.7 F 92 H 20 117/76 95 05/04/17 13:45 05/04/17 13:45 05/04/17 13:45 05/04/17 13:45 05/04/17 08:00 Intake & Output 05/01/17 05/02/17 05/03/17 05/04/17 23:59 23:59 23:59 23:59 Intake Total 250 2153 2240 220 Output Total 200 Balance 250 2152 2040 220 Weight 138 lb 5 oz Constitutional: No Distress, Calm Neck: Supple Negative JVD Cardiovascular: S1 S2 Regular Rate and Rhythm No Murmur Respiratory: Diminished Breath Sounds at the Bases Bilaterally Gastrointestinal: Soft Benign Normal Bowel Sounds Ext: No Edema Labs: CBC, BMP 05/04/17 06:50 05/04/17 06:50 Hepatic Panel Total Bilirubin 0.6 mg/dL (0.2-1.0) 05/02/17 07:30 AST 12 U/L (15-37) L 05/02/17 07:30 ALT 11 U/L (12-78) L 05/02/17 07:30 Alkaline Phosphatase 31 U/L (45-117) L 05/02/17 07:30 Albumin 2.2 g/dl (3.4-5.0) L 05/02/17 07:30 INR, PTT INR 1.12 (0.82-1.09) 05/01/17 11:11 Assessment/Plan ASSESSMENT: 1. Asymptomatic tachycardia ectopic atrial tachycardia versus sinus tachycardia versus atypical atrial flutter, unlikely to be SVT related to AV carol re- entrant tachycardia or accessory pathway mediated tachycardia 2. Hypotension related to sepsis syndrome, uro-sepsis, resolving 3. CAD post PCI/stent angina pectoris 4. Diastolic dysfunction with chronic class 0 NYHA classifcation LV failure 5. HTN 6. Hyperlipidemia 7. Non small cell lung carcinoma, currently receiving chemotherapy/radiation therapy 8. COPD 9. HIV 10. Anemia/thrombocytopenia PLAN: 1. Add B-Blockers, with caution 2. Continue Trilipix 3. Resume ASA once thrombocytopenia resolves 4. Obtain Holter monitor 5. Counselled smoking cessation and abstinence Claudia Carter MD
--- NOTE | 2017-05-04 15:42 | PN ---
Progress Note (short form) - Note Progress Note: PULMONARY Denies shortness of breath. Nonproductive cough. No fevers or chills. Last Vital Signs Temp Pulse Resp BP Pulse Ox 98.7 F 92 H 20 117/76 95 05/04/17 13:45 05/04/17 13:45 05/04/17 13:45 05/04/17 13:45 05/04/17 08:00 Gen: NAD at rest Heart: RRR Lung: decreased breath sounds at the bases Abd: soft, nontender Ext: no edema CBC, BMP 05/04/17 06:50 05/04/17 06:50 Active Medications Acetaminophen (Tylenol -) 650 mg PO Q4H PRN PRN Reason: FEVER Last Admin: 05/03/17 01:31 Dose: 650 mg Albuterol Sulfate (Ventolin 0.083% Nebulizer Soln -) 1 amp NEB RQID [facility] Last Admin: 05/04/17 11:33 Dose: 1 amp Enoxaparin Sodium (Lovenox -) 40 mg SQ DAILY [facility] Last Admin: 05/04/17 09:09 Dose: 40 mg Fenofibric Acid (Trilipix -) 135 mg PO DAILY [facility] Last Admin: 05/04/17 09:08 Dose: 135 mg Cefepime HCl (Maxipime 2gm Ivpb (Premix)) 2 gm in 50 mls @ 100 mls/hr IVPB Q8H- IV DURGA PRN Reason: Protocol Last Admin: 05/04/17 09:13 Dose: 100 mls/hr Mirtazapine (Remeron -) 15 mg PO HS [facility] Last Admin: 05/03/17 21:41 Dose: 15 mg Ptnt's Own Med ( Elviteg/Cob/Emtri/Tenof Alafen [ Genvoya] 1 each PO HS [facility] Last Admin: 05/03/17 21:41 Dose: 1 each Tiotropium [place] (Spiriva -) 1 puff IH DAILY [facility] Last Admin: 05/04/17 09:13 Dose: 1 puff Zolpidem Tartrate (Ambien -) 5 mg PO HS [facility] Last Admin: 05/03/17 21:41 Dose: 5 mg A/P UTI E Coli Bacteremia Sepsis Pancytopenia NSCLC on chemo COPD HIV CAD - continue antibiotics - inhaled bronchodilators - O2 to keep SpO2 >90% - DVT prophylaxis
--- NOTE | 2017-05-04 15:58 | CONS ---
DATE OF CONSULTATION: 05/04/2017 REQUESTING PHYSICIAN: Hospitalist. CHIEF COMPLAINT: Evaluation of cardiac arrhythmias. HISTORY: This is a 71-year-old female with known history of coronary artery disease status post percutaneous coronary intervention stenting, angina pectoris, diastolic left ventricular dysfunction with chronic class 0-1 [place] Heart Association classification left ventricular failure, hypertensive cardiovascular disease, hypercholesterolemia, HIV positivity, recently diagnosed non-small cell lung carcinoma currently receiving chemotherapy, chronic obstructive pulmonary disease who presented to [facility] with hypotension, generalized weakness and was noted to have evidence of urosepsis. During the current hospitalization, the patient was noted to have evidence of supraventricular tachyarrhythmia that responded to IV Cardizem therapy administration. Cardiovascular evaluation was requested in view of the above-noted arrhythmia. The patient denied any symptoms with the above-noted arrhythmia. The patient denied any chest discomfort. The patient reports dyspnea with [id number] physical exertion. The patient denies any orthopnea or paroxysmal or nocturnal dyspnea. The patient denies any peripheral edema. The patient denies any dizziness, lightheadedness, or syncope. PAST MEDICAL HISTORY: Coronary artery disease post percutaneous coronary intervention stenting, angina pectoris, diastolic left ventricular dysfunction with chronic class 0-1 [place] Heart Association classification left ventricular failure, hypertensive cardiovascular disease, hypercholesterolemia, chronic obstructive pulmonary disease, recently diagnosed non-small cell lung carcinoma currently receiving chemotherapy/radiation therapy. SOCIAL HISTORY: A smoker. FAMILY HISTORY: Positive for coronary artery disease. ALLERGIES: PROCAINE. MEDICAL THERAPY: Currently includes acetaminophen 650 mg every 4 hours as needed, Ventolin nebulizer, Lovenox 40 mg once a day, Trilipix 135 mg once a day, cefepime 2 g every 8 hours, Remeron 15 mg once a day, Genvoya 1 tablet once a day, Spiriva 1 puff once a day, Ambien 10 mg once a day. REVIEW OF SYSTEMS: Head and Neck: Denies headache, photophobia, blurring of vision. Respiratory: Reports cough nonproductive of sputum. Cardiovascular: As noted above. Gastrointestinal: Denies nausea, vomiting, diarrhea, abdominal discomfort. Musculoskeletal: No symptoms reports. Genitourinary: No symptoms reported. PHYSICAL EXAMINATION: Vital Signs: Blood pressure 116/76 mmHg, pulse rate 92 beats per minute, temperature 98.7. Head and Neck: Pupils equal and reactive to light and accommodation. Extraocular muscles are intact. Anicteric sclerae. Negative JVD. No bruits appreciated. Chest: Clear to auscultation and percussion. Cardiovascular: S1, S2. Regular. No murmurs, clicks, or gallops. Abdomen: Soft, benign. Normoactive bowel sounds. Extremities: Negative edema. Intact distal pulses. No calf tenderness. Electrocardiogram reveals sinus tachycardia with nonspecific T-wave abnormality. EKG during the above-noted tachyarrhythmia is suspicious of sinus tachycardia with borderline 1st-degree AV block versus ectopic atrial tachycardia. Chest x-ray report was noted. CBC revealed white blood cell count 5.3, hemoglobin 8.3, platelet count 87. Basic metabolic profile with sodium 142, potassium 4, BUN 12, creatinine 0.4, glucose 97. ASSESSMENT: 1. Asymptomatic tachycardia, ectopic atrial tachycardia versus sinus tachycardia versus atypical atrial flutter. Unlikely to be SVT related to AV carol reentrant tachycardia or accessory pathway-mediated tachycardia. 2. Hypertension related to sepsis syndrome. Urosepsis resolving. 3. Coronary artery disease post percutaneous coronary intervention stenting, angina pectoris. 4. Diastolic left ventricular dysfunction chronic class 0 [place] Heart Association classification left ventricular failure. 5. Hypertensive cardiovascular. 6. Hypercholesterolemia. 7. Non-small cell lung carcinoma currently receiving chemotherapy/radiation therapy. 8. Chronic obstructive pulmonary disease. 9. Human immunodeficiency virus. 10. Anemia/thrombocytopenia. RECOMMENDATION: 1. Addition of beta-blockers with caution. 2. Continuation of Trilipix therapy. 3. Resumption of aspirin therapy once thrombocytopenia resolves. 4. Obtain Holter monitor. 5. Patient was strongly counseled smoking cessation and abstinence. Thank you for the kind referral. LAISHA CAMILO M.D. [id number]
--- NOTE | 2017-05-04 16:38 | PN ---
Physical Exam: SUBJECTIVE: Patient seen and examined. Feels well, at her baseline, no acute complaints. Events: PSVT overnight, cardizem 30mg po x1 given OBJECTIVE: Vital Signs Period Temp Pulse Resp BP Sys/[place] Pulse Ox Last 24 Hr 98.4 F-99.2 F 92-133 18-20 117-155/71-90 94-95 PE Neuro: alert, awake, cn 2-12intact Pulm: course bs, basilar rhonchi CV: S1 s2 rrr Abd: s nt nd + bs Ext: Warm , no le edema, LCW port Laboratory Results - last 24 hr 05/04/17 05/04/17 06:50 06:50 WBC 5.3 D RBC 2.41 L Hgb 8.3 L Hct 24.3 L MCV 101.1 H MCH 34.6 H MCHC 34.2 RDW 14.6 Plt Count 87 L MPV 10.2 Neutrophils % 83.9 H Lymphocytes % 3.9 L D Monocytes % 11.7 H Eosinophils % 0.0 D Basophils % 0.5 D Sodium 142 Potassium 4.0 Chloride 105 Carbon Dioxide 28 Anion Gap 9 BUN 12 Creatinine 0.4 L Random Glucose 97 Calcium 8.6 Active Medications Generic Name Dose Route Start Last Admin Trade Name Freq PRN Reason Stop Dose Admin Acetaminophen 650 mg 05/01/17 17:36 05/03/17 01:31 Tylenol - PO 650 mg Q4H PRN Administration FEVER Albuterol Sulfate 1 amp 05/02/17 16:00 05/04/17 11:33 Ventolin 0.083% Nebulizer Soln - NEB 1 amp RQID DURGA Administration Enoxaparin Sodium 40 mg 05/02/17 10:00 05/04/17 09:09 Lovenox - SQ 40 mg DAILY DURGA Administration Fenofibric Acid 135 mg 05/02/17 10:00 05/04/17 09:08 Trilipix - PO 135 mg DAILY DURGA Administration Cefepime HCl 2 gm in 50 mls @ 100 mls/hr 05/02/17 18:00 05/04/17 09:13 Maxipime 2gm Ivpb (Premix) IVPB 100 mls/hr Q8H-IV DURGA Administration Protocol Mirtazapine 15 mg 05/01/17 22:00 05/03/17 21:41 Remeron - PO 15 mg HS DURGA Administration Ptnt's Own Med ( 1 each 05/03/17 22:00 05/03/17 21:41 Elviteg/Cob/Emtri/ PO 1 each Tenof Alafen [ HS DURGA Administration Genvoya] Tiotropium [place] 1 puff 05/03/17 13:00 05/04/17 09:13 Spiriva - IH 1 puff DAILY DURGA Administration Zolpidem Tartrate 5 mg 05/01/17 22:00 05/03/17 21:41 Ambien - PO 5 mg HS DURGA Administration Microbiology 05/01/17 17:10 Urine - Urine Clean Catch Urine Culture - Final Escherichia Coli 05/01/17 11:16 Blood - Peripheral Venous Blood Culture - Preliminary NO GROWTH OBTAINED AFTER 72 HOURS, INCUBATION TO CONTINUE FOR 2 DAYS. 05/01/17 11:16 Blood - Peripheral Venous Blood Culture - Final Escherichia Coli Assessment: 71 year old female admitted with diarrhea and fever following chemo 5 days ago Plan: 1. Sepsis d/t E coli bacteremia - Cefepime q8hr 2. Atrial tachycardia vs Sinus Tach - Consider BB - ECHO normal LV and RV size and function, mild MR and TR with pulmonary HTN - Holter monitoring - TSH wnl - D/w cardiology 3. Non small cell carcinoma - Albuterol nebs - Granix / - Mgmt per Heme/onc 4. HTN - Resume HCTZ/losartan 5. COPD - Stable 6. CAD s/p stents - ASA daily - Trilipix 7. Hypokalemia - Resolved 8. DVt - Lovenox sq Problem List - Problems (1) Diarrhea Code(s): R19.7 - DIARRHEA, UNSPECIFIED (2) Fever Code(s): R50.9 - FEVER, UNSPECIFIED Qualifiers: Fever type: unspecified Qualified Code(s): R50.9 - Fever, unspecified (3) Leukopenia Code(s): D72.819 - DECREASED WHITE BLOOD CELL COUNT, UNSPECIFIED Qualifiers: Leukopenia type: unspecified Qualified Code(s): D72.819 - Decreased white blood cell count, unspecified Visit type - Emergency Visit Emergency Visit: Yes ED Registration Date: 05/01/17 Care time: The patient presented to the Emergency Department on the above date and was hospitalized for further evaluation of their emergent condition. - New Patient This patient is new to me today: No - Critical Care Critical Care patient: No
[2017-05-04] MEDS: ACETAMINOPHEN 325 MG TABLET (FP) PO PRN (17:43)
[2017-05-04] MEDS: ZOLPIDEM TARTRATE 5 MG TABLET PO SCH (22:00)
[2017-05-04] MEDS: MIRTAZAPINE 15 MG TABLET (FP) PO SCH (22:00)
[2017-05-04] MEDS: [UNRECOGNIZED DRUG - OTHER] PO SCH (22:01)
[2017-05-05] MEDS: ACETAMINOPHEN 325 MG TABLET (FP) PO PRN (01:11)
[2017-05-05] MEDS ORDERED: PT OWN MED DRAWER 7, Y5N ONE (01:27)
[2017-05-05] MEDS: CEFEPIME HCL/D5W 2 GM/50 ML BAG IVPB SCH ×2 (02:35→10:30)
[2017-05-05] MEDS ORDERED: dilTIAZem HCL 30 MG TABLET (FP) PO ONE (03:17)
--- NOTE | 2017-05-05 03:24 | HOSP ---
Subjective - Review of Symptoms Events since last encounter: Hospitalist Encounter Notified by RN that the patient's HR- 130's, but she is asymptomatic Subjective: Arrived to bedside, patient is asleep but arousable. Patient denies CP, palpitations and SOB at present. Plan: EKG- reviewed ST 136 Cardizem 30mg po ordered Will continue to monitor overnight Physical Examination Vital Signs: Vital Signs Temperature 101.4 F H 05/05/17 02:00 Pulse Rate 134 H 05/05/17 02:00 Respiratory Rate 20 05/05/17 02:00 Blood Pressure 162/99 05/05/17 02:00 O2 Sat by Pulse Oximetry (%) 95 05/04/17 21:00 Constitutional: Yes: No Distress, Calm, Pallor Eyes: Yes: WNL, Conjunctiva Clear, EOM Intact, PERRL HENT: Yes: WNL, Atraumatic, Normocephalic Neck: Yes: WNL, Supple, Trachea Midline Cardiovascular: Yes: Tachycardia, S1, S2 Respiratory: Yes: Diminished, Tachypnea Neurological: Yes: WNL, Alert, Oriented, Cran Nerves II-XII Intact ...Motor Strength: WNL Psychiatric: Yes: WNL, Alert, Oriented Labs: CBC, BMP 05/04/17 06:50 05/04/17 06:50 Current Medications Generic Name Dose Route Start Last Admin Trade Name Freq PRN Reason Stop Dose Admin Acetaminophen 650 mg 05/01/17 17:36 05/05/17 01:11 Tylenol - PO 650 mg Q4H PRN Administration FEVER Albuterol Sulfate 1 amp 05/02/17 16:00 05/04/17 21:50 Ventolin 0.083% Nebulizer Soln - NEB 1 amp RQID DURGA Administration Enoxaparin Sodium 40 mg 05/02/17 10:00 05/04/17 09:09 Lovenox - SQ 40 mg DAILY DURGA Administration Fenofibric Acid 135 mg 05/02/17 10:00 05/04/17 09:08 Trilipix - PO 135 mg DAILY DURGA Administration HCTZ/Losartan Potassium 1 tab 05/05/17 10:00 Hyzaar - PO DAILY DURGA Cefepime HCl 2 gm in 50 mls @ 100 mls/hr 05/02/17 18:00 05/04/17 17:44 Maxipime 2gm Ivpb (Premix) IVPB 100 mls/hr Q8H-IV DURGA Administration Protocol Mirtazapine 15 mg 05/01/17 22:00 05/04/17 22:00 Remeron - PO 15 mg HS DURGA Administration Ptnt's Own Med ( 1 each 05/03/17 22:00 05/04/17 22:01 Elviteg/Cob/Emtri/ PO 1 each Tenof Alafen [ HS DURGA Administration Genvoya] Tiotropium [place] 1 puff 05/03/17 13:00 05/04/17 09:13 Spiriva - IH 1 puff DAILY DURGA Administration Zolpidem Tartrate 5 mg 05/01/17 22:00 05/04/17 22:00 Ambien - PO 5 mg HS DURGA Administration
[2017-05-05] MEDS: ALBUTEROL SO4 0.083% IH SOL 2.5 MG/3 ML VIAL.NEB. NEB SCH ×4 (07:50→20:00)
--- NOTE | 2017-05-05 09:27 | PN ---
Physical Exam: SUBJECTIVE: Patient seen and examined. She states she did not sleep well/at all last night. Denies palpitations, sob. Events: - t max 101.4 - PSVT 140-150's - x1 dose cardizem given OBJECTIVE: Vital Signs Period Temp Pulse Resp BP Sys/[place] Pulse Ox Last 24 Hr 97.8 F-101.4 F 92-148 18-22 117-162/68-99 95 PE Neuro: alert, awake, cn 2-12intact Pulm: course bs R>L, scattered rhonchi CV: S1 s2 tachycardia Abd: s nt nd + bs Ext: Warm , no le edema, LCW port Active Medications Generic Name Dose Route Start Last Admin Trade Name Freq PRN Reason Stop Dose Admin Acetaminophen 650 mg 05/01/17 17:36 05/05/17 01:11 Tylenol - PO 650 mg Q4H PRN Administration FEVER Albuterol Sulfate 1 amp 05/02/17 16:00 05/05/17 07:50 Ventolin 0.083% Nebulizer Soln - NEB 1 amp RQID DURGA Administration Enoxaparin Sodium 40 mg 05/02/17 10:00 05/04/17 09:09 Lovenox - SQ 40 mg DAILY DURGA Administration Fenofibric Acid 135 mg 05/02/17 10:00 05/04/17 09:08 Trilipix - PO 135 mg DAILY DURGA Administration HCTZ/Losartan Potassium 1 tab 05/05/17 10:00 Hyzaar - PO DAILY DURGA Cefepime HCl 2 gm in 50 mls @ 100 mls/hr 05/02/17 18:00 05/05/17 02:35 Maxipime 2gm Ivpb (Premix) IVPB 100 mls/hr Q8H-IV DURGA Administration Protocol Mirtazapine 15 mg 05/01/17 22:00 05/04/17 22:00 Remeron - PO 15 mg HS DURGA Administration Ptnt's Own Med ( 1 each 05/03/17 22:00 05/04/17 22:01 Elviteg/Cob/Emtri/ PO 1 each Tenof Alafen [ HS DURGA Administration Genvoya] Tiotropium [place] 1 puff 05/03/17 13:00 05/04/17 09:13 Spiriva - IH 1 puff DAILY DURGA Administration Zolpidem Tartrate 5 mg 05/01/17 22:00 05/04/17 22:00 Ambien - PO 5 mg HS DURGA Administration Imaging: - ECHO normal LV and RV size and function, mild MR and TR with pulmonary HTN Assessment: 71 year old female admitted with diarrhea and fever following chemo 5 days ago Plan: 1. Sepsis d/t E coli bacteremia - Febrile this AM - Repeat BC - Cefepime q8hr per ID 2. Atrial tachycardia vs Sinus Tach - PSVT x1 overnight - Initiation of BB per cardiology - Holter monitoring - Cardiology following 3. Non small cell carcinoma - Albuterol nebs - Granix 05/02 - Mgmt per Heme/onc 4. HTN - Continue HCTZ/losartan 5. COPD - Stable 6. CAD s/p stents - ASA daily - Trilipix 7. DVT - Lovenox sq Problem List - Problems (1) Diarrhea Code(s): R19.7 - DIARRHEA, UNSPECIFIED (2) Fever Code(s): R50.9 - FEVER, UNSPECIFIED Qualifiers: Fever type: unspecified Qualified Code(s): R50.9 - Fever, unspecified (3) Leukopenia Code(s): D72.819 - DECREASED WHITE BLOOD CELL COUNT, UNSPECIFIED Qualifiers: Leukopenia type: unspecified Qualified Code(s): D72.819 - Decreased white blood cell count, unspecified Visit type - Emergency Visit Emergency Visit: Yes ED Registration Date: 05/01/17 Care time: The patient presented to the Emergency Department on the above date and was hospitalized for further evaluation of their emergent condition. - New Patient This patient is new to me today: No - Critical Care Critical Care patient: No
[2017-05-05] MEDS ORDERED: LOSARTAN 50MG/HCTZ 12.5MG 1 TAB (FP) PO SCH (10:00)
[2017-05-05] MEDS: TIOTROPIUM BROMIDE 18 MCG/INH (DEVICE W/ 5 CAPSULES) IH SCH (10:30)
[2017-05-05] MEDS: ENOXAPARIN NA (PORCINE) 40 MG/0.4 ML DISP.SYRIN SQ SCH (10:30)
[2017-05-05] MEDS: FENOFIBRIC ACID 135 MG CAP PO SCH (10:30)
[2017-05-05 10:41] LABS: HEMOGLOBIN 8.5 GM/dL (10.7-15.3); MCH 34.1 pg (25.7-33.7); MEAN CELL VOLUME 100.4 fl (80-96); MEAN PLT VOLUME 9.9 fl (7.5-11.1); PLATELET COUNT 94 K/MM3 (134-434); RBC 2.49 M/mm3 (3.60-5.2); RDW 14.7 % (11.6-15.6); WHITE BLOOD COUNT 5.8 K/mm3 (4.0-10.0)
[2017-05-05 11:10] LABS: ANION GAP 11 (8-16); BLOOD UREA NITROGEN 10 mg/dL (7-18); CALCIUM 8.8 mg/dL (8.5-10.1); CHLORIDE 101 mmol/L (98-107); CO2 29 mmol/L (21-32); CREATININE 0.5 mg/dL (0.55-1.02); GLUCOSE,RANDOM 111 mg/dL (74-106); POTASSIUM 3.9 mmol/L (3.5-5.1); SODIUM 141 mmol/L (136-145)
--- NOTE | 2017-05-05 11:29 | PN ---
Progress Note (short form) - Note Progress Note: Seen in follow up. No new complaints, feeling well. Febrile this morning (?rectal) - now resolved - cultures drawn. Meds reviewed. Current Medications Generic Name Dose Route Start Last Admin Trade Name Freq PRN Reason Stop Dose Admin Acetaminophen 650 mg 05/01/17 17:36 05/05/17 01:11 Tylenol - PO 650 mg Q4H PRN Administration FEVER Albuterol Sulfate 1 amp 05/02/17 16:00 05/05/17 07:50 Ventolin 0.083% Nebulizer Soln - NEB 1 amp RQID DURGA Administration Enoxaparin Sodium 40 mg 05/02/17 10:00 05/05/17 10:30 Lovenox - SQ 40 mg DAILY DURGA Administration Fenofibric Acid 135 mg 05/02/17 10:00 05/05/17 10:30 Trilipix - PO 135 mg DAILY DURGA Administration HCTZ/Losartan Potassium 1 tab 05/05/17 10:00 05/05/17 10:30 Hyzaar - PO 1 tab DAILY DURGA Administration Cefepime HCl 2 gm in 50 mls @ 100 mls/hr 05/02/17 18:00 05/05/17 10:30 Maxipime 2gm Ivpb (Premix) IVPB 100 mls/hr Q8H-IV DURGA Administration Protocol Mirtazapine 15 mg 05/01/17 22:00 05/04/17 22:00 Remeron - PO 15 mg HS DURGA Administration Ptnt's Own Med ( 1 each 05/03/17 22:00 05/04/17 22:01 Elviteg/Cob/Emtri/ PO 1 each Tenof Alafen [ HS DURGA Administration Genvoya] Tiotropium [place] 1 puff 05/03/17 13:00 05/05/17 10:30 Spiriva - IH 1 puff DAILY DURGA Administration Zolpidem Tartrate 5 mg 05/01/17 22:00 05/04/17 22:00 Ambien - PO 5 mg HS DURGA Administration On exam: Last Vital Signs Temp Pulse Resp BP Pulse Ox 98.9 F 148 H 20 162/83 95 05/05/17 05:15 05/05/17 05:15 05/05/17 05:15 05/05/17 05:15 05/04/17 21:00 General: Supine in bed, interactive and pleasant. Extremities: Symmetrical, no obvious swelling. Chest:Soft breath sounds, AE bilaterally, clear Abdomen: Soft, no organomegaly, no masses. Neuro: Alert, oriented, non-focal. CVS: Normal sinus rhythm, S1, S2, no gallop or murmur. CBC, BMP 05/05/17 10:15 05/05/17 10:15 Assessment. NSCLC - on chemotherapy - admitted with chemotherapy induced nuetropenia and E. coli bacteremia. Significantly improved on IV Abics, and today with ANC >1.5 off G-CSF. Fever this am - cultures drawn - pending Continue present Abic management.
--- NOTE | 2017-05-05 12:32 | PN ---
Progress Note (short form) - Note Progress Note: Chief Complaint: Events noted, notes reviewed, denies any chest pain or dyspnea , asymptomatic sinus tachycardia noted given Cardizem last night History of Present Illness: Seen and examined on telemetry. Events noted, notes reviewed, denies any chest pain or dyspnea, asymptomatic sinus tachycardia noted given Cardizem last night Febrile last night Sinus tachycardia is probably reactionary to underlying pathologies not limited to fever, anemia, pain Echocardiography performed yesterday revealed normal LV and RV size and function , mild MR and TR with pulmonary HTN - Current Medication List Current Medications Acetaminophen (Tylenol -) 650 mg PO Q4H PRN PRN Reason: FEVER Last Admin: 05/05/17 01:11 Dose: 650 mg Albuterol Sulfate (Ventolin 0.083% Nebulizer Soln -) 1 amp NEB RQID [facility] Last Admin: 05/05/17 11:46 Dose: 1 amp Enoxaparin Sodium (Lovenox -) 40 mg SQ DAILY [facility] Last Admin: 05/05/17 10:30 Dose: 40 mg Fenofibric Acid (Trilipix -) 135 mg PO DAILY [facility] Last Admin: 05/05/17 10:30 Dose: 135 mg HCTZ/Losartan Potassium (Hyzaar -) 1 tab PO DAILY [facility] Last Admin: 05/05/17 10:30 Dose: 1 tab Cefepime HCl (Maxipime 2gm Ivpb (Premix)) 2 gm in 50 mls @ 100 mls/hr IVPB Q8H- IV [facility] PRN Reason: Protocol Last Admin: 05/05/17 10:30 Dose: 100 mls/hr Mirtazapine (Remeron -) 15 mg PO HS [facility] Last Admin: 05/04/17 22:00 Dose: 15 mg Ptnt's Own Med ( Elviteg/Cob/Emtri/Tenof Alafen [ Genvoya] 1 each PO HS [facility] Last Admin: 05/04/17 22:01 Dose: 1 each Tiotropium [place] (Spiriva -) 1 puff IH DAILY [facility] Last Admin: 05/05/17 10:30 Dose: 1 puff Zolpidem Tartrate (Ambien -) 5 mg PO HS [facility] Last Admin: 05/04/17 22:00 Dose: 5 mg Review of Systems Cardiovascular: As noted above Respiratory: denies: reports: Cough but no Sputum Production Gastrointestinal: denies: Nausea, Vomiting, Diarrhea, Constipation or Abdominal Discomfort Musculoskeletal: No Symptoms Reported Endocrine: No Symptoms Reported - Objective Vital Signs: Last Vital Signs Temp Pulse Resp BP Pulse Ox 98.9 F 148 H 20 162/83 95 05/05/17 05:15 05/05/17 05:15 05/05/17 05:15 05/05/17 05:15 05/04/17 21:00 Intake & Output 05/02/17 05/03/17 05/04/17 05/05/17 23:59 23:59 23:59 23:59 Intake Total 2153 2240 460 300 Output Total 200 Balance 2153 2040 460 300 Constitutional: No Distress, Calm Neck: Supple Negative JVD Cardiovascular: S1 S2 Regular Rate and Rhythm No Murmur Respiratory: Diminished Breath Sounds at the Bases Bilaterally Gastrointestinal: Soft Benign Normal Bowel Sounds Ext: No Edema Labs: CBC, BMP 05/05/17 10:15 05/05/17 10:15 Assessment/Plan ASSESSMENT: 1. Asymptomatic tachycardia probable sinus tachycardia, as outlined unlikely to be SVT related to AV carol re-entrant tachycardia or accessory pathway mediated tachycardia 2. HTN, transient Hypotension related to sepsis syndrome, uro-sepsis, resolved 3. CAD post PCI/stent angina pectoris 4. Diastolic dysfunction with chronic class 0 NYHA classifcation LV failure 5. HTN 6. Hyperlipidemia 7. Non small cell lung carcinoma, currently receiving chemotherapy/radiation therapy 8. COPD 9. HIV 10. Anemia/thrombocytopenia PLAN: 1. As recommended Add B-Blockers, with caution 2. Continue ARBS but avoid HCT 3. Trilipix 4. Resume ASA once thrombocytopenia resolves 5. Holter monitor as recommended 6. Counselled smoking cessation and abstinence Claudia Carter MD
[2017-05-05] MEDS: METOPROLOL TARTRATE 25 MG TABLET (FP) PO SCH ×2 (13:07→22:18)
--- NOTE | 2017-05-05 15:17 | PN ---
Progress Note, Physician History of Present Illness: Feeling better No focal complaint Febrile past 24hr 101,4 WBC improved 5.8 Blood c/s sensitive E coli - Current Medication List Current Medications: Active Medications Acetaminophen (Tylenol -) 650 mg PO Q4H PRN PRN Reason: FEVER Last Admin: 05/05/17 01:11 Dose: 650 mg Albuterol Sulfate (Ventolin 0.083% Nebulizer Soln -) 1 amp NEB RQID [facility] Last Admin: 05/05/17 11:46 Dose: 1 amp Enoxaparin Sodium (Lovenox -) 40 mg SQ DAILY [facility] Last Admin: 05/05/17 10:30 Dose: 40 mg Fenofibric Acid (Trilipix -) 135 mg PO DAILY [facility] Last Admin: 05/05/17 10:30 Dose: 135 mg Cefepime HCl (Maxipime 2gm Ivpb (Premix)) 2 gm in 50 mls @ 100 mls/hr IVPB Q8H- IV [facility] PRN Reason: Protocol Last Admin: 05/05/17 10:30 Dose: 100 mls/hr Losartan Potassium (Cozaar -) 50 mg PO DAILY [facility] Metoprolol Tartrate (Lopressor -) 25 mg PO BID [facility] Last Admin: 05/05/17 13:07 Dose: 25 mg Mirtazapine (Remeron -) 15 mg PO HS [facility] Last Admin: 05/04/17 22:00 Dose: 15 mg Ptnt's Own Med ( Elviteg/Cob/Emtri/Tenof Alafen [ Genvoya] 1 each PO HS [facility] Last Admin: 05/04/17 22:01 Dose: 1 each Tiotropium [place] (Spiriva -) 1 puff IH DAILY [facility] Last Admin: 05/05/17 10:30 Dose: 1 puff Zolpidem Tartrate (Ambien -) 5 mg PO [facility] Last Admin: 05/04/17 22:00 Dose: 5 mg - Objective Vital Signs: Vital Signs Temperature 98.9 F 05/05/17 05:15 Pulse Rate 136 H 05/05/17 14:12 Respiratory Rate 20 05/05/17 14:12 Blood Pressure 130/75 05/05/17 14:12 O2 Sat by Pulse Oximetry (%) 95 05/04/17 21:00 Constitutional: Yes: No Distress, Obese Cardiovascular: Yes: Regular Rate and Rhythm, S1, S2 Respiratory: Yes: CTA Bilaterally Gastrointestinal: Yes: Normal Bowel Sounds, Soft, Abdomen, Obese. No: Tenderness Edema: No Labs: CBC, BMP 05/05/17 10:15 05/05/17 10:15 INR, PTT INR 1.12 (0.82-1.09) 05/01/17 11:11 Assessment/Plan Gram Negative bacteremia/ sepsis secondary to UTI Leukopenia- improved Fever Substitute cefazolin 2gm IVPB q8h Reculture for recurrent temp
[2017-05-05] MEDS: CEFAZOLIN 2 GM/D5W 2 GM/50 ML ML IVPB SCH (17:38)
[2017-05-05] MEDS: MIRTAZAPINE 15 MG TABLET (FP) PO SCH (22:18)
[2017-05-05] MEDS: ZOLPIDEM TARTRATE 5 MG TABLET PO SCH (22:18)
[2017-05-05] MEDS: [UNRECOGNIZED DRUG - OTHER] PO SCH (22:28)
[2017-05-06] MEDS: CEFAZOLIN 2 GM/D5W 2 GM/50 ML ML IVPB SCH ×3 (02:30→18:00)
[2017-05-06 07:10] LABS: HEMATOCRIT 27.4 % (32.4-45.2); HEMOGLOBIN 9.2 GM/dL (10.7-15.3); MCH 34.3 pg (25.7-33.7); MCHC 33.5 g/dl (32.0-36.0); MEAN CELL VOLUME 102.5 fl (80-96); MEAN PLT VOLUME 10.7 fl (7.5-11.1); PLATELET COUNT 97 K/MM3 (134-434); RBC 2.67 M/mm3 (3.60-5.2); RDW 14.9 % (11.6-15.6); WHITE BLOOD COUNT 6.7 K/mm3 (4.0-10.0)
[2017-05-06] MEDS: ALBUTEROL SO4 0.083% IH SOL 2.5 MG/3 ML VIAL.NEB. NEB SCH ×4 (07:30→20:30)
[2017-05-06 08:06] LABS: ALBUMIN 2.4 g/dl (3.4-5.0); ANION GAP 8 (8-16); BLOOD UREA NITROGEN 16 mg/dL (7-18); CALCIUM 8.8 mg/dL (8.5-10.1); CHLORIDE 100 mmol/L (98-107); CO2 31 mmol/L (21-32); CREATININE 0.7 mg/dL (0.55-1.02); GLUCOSE,RANDOM 122 mg/dL (74-106); MAGNESIUM 1.7 mg/dL (1.8-2.4); PHOSPHOROUS 2.5 mg/dL (2.5-4.9); POTASSIUM 3.7 mmol/L (3.5-5.1); SGOT/AST 13 U/L (15-37); SGPT/ALT 12 U/L (12-78); SODIUM 139 mmol/L (136-145)
[2017-05-06 08:08] LABS: ALK PHOS 50 U/L (45-117); BILIRUBIN,TOTAL 0.3 mg/dL (0.2-1.0); TOT PROT 5.2 g/dl (6.4-8.2)
[2017-05-06] MEDS ORDERED: MAGNESIUM 2GM/50ML STERILE WATER IVPB IVPB ONE (09:00)
--- NOTE | 2017-05-06 09:22 | PN ---
Progress Note (short form) - Note Progress Note: feels well febrile to 101.4 3/4 no complaints no diarrhea no cough eating well Vital Signs Period Temp Pulse Resp BP Sys/Ovalles Pulse Ox Last 24 Hr 97.9 F-99.5 F 106-136 18-20 119-138/64-80 94 cor-rrr lungs clear abd soft,nt ext no edema CBC, BMP 05/06/17 06:45 05/06/17 06:45 Microbiology 05/01/17 11:16 Blood - Peripheral Venous Blood Culture - Preliminary NO GROWTH OBTAINED AFTER 96 HOURS, INCUBATION TO CONTINUE FOR 1 DAYS. 05/01/17 17:10 Urine - Urine Clean Catch Urine Culture - Final Escherichia Coli 05/01/17 11:16 Blood - Peripheral Venous Blood Culture - Final Escherichia Coli Active Medications Acetaminophen (Tylenol -) 650 mg PO Q4H PRN PRN Reason: FEVER Last Admin: 05/05/17 01:11 Dose: 650 mg Albuterol Sulfate (Ventolin 0.083% Nebulizer Soln -) 1 amp NEB RQID [facility] Last Admin: 05/06/17 07:30 Dose: 1 amp Enoxaparin Sodium (Lovenox -) 40 mg SQ DAILY [facility] Last Admin: 05/05/17 10:30 Dose: 40 mg Fenofibric Acid (Trilipix -) 135 mg PO DAILY [facility] Last Admin: 05/05/17 10:30 Dose: 135 mg Cefazolin Sodium/Dextrose (Ancef 2 Gm Premixed Ivpb -) 2 gm in 50 mls @ 100 mls /hr IVPB Q8H-IV [facility] Last Admin: 05/06/17 02:30 Dose: 100 mls/hr Losartan Potassium (Cozaar -) 50 mg PO DAILY [facility] Metoprolol Tartrate (Lopressor -) 25 mg PO BID [facility] Last Admin: 05/05/17 22:18 Dose: 25 mg Mirtazapine (Remeron -) 15 mg PO [facility] Last Admin: 05/05/17 22:18 Dose: 15 mg Ptnt's Own Med ( Elviteg/Cob/Emtri/Tenof Alafen [ Genvoya] 1 each PO HS [facility] Last Admin: 05/05/17 22:28 Dose: 1 each Tiotropium [place] (Spiriva -) 1 puff IH DAILY [facility] Last Admin: 05/05/17 10:30 Dose: 1 puff Zolpidem Tartrate (Ambien -) 5 mg PO HS [facility] Last Admin: 05/05/17 22:18 Dose: 5 mg a/p Ecoli sepsis- bacteremia secondary to UTI recurrent fever- would suggest sonogram of kidney/bladder s/p chemo for lung cancer- neutropenia resolved HIV-stable continue ART continue cefazolin
--- NOTE | 2017-05-06 09:34 | PN ---
Progress Note, Physician History of Present Illness: No further episodes of PSVT. - Current Medication List Current Medications: Active Medications Acetaminophen (Tylenol -) 650 mg PO Q4H PRN PRN Reason: FEVER Last Admin: 05/05/17 01:11 Dose: 650 mg Albuterol Sulfate (Ventolin 0.083% Nebulizer Soln -) 1 amp NEB RQID [facility] Last Admin: 05/06/17 07:30 Dose: 1 amp Enoxaparin Sodium (Lovenox -) 40 mg SQ DAILY [facility] Last Admin: 05/05/17 10:30 Dose: 40 mg Fenofibric Acid (Trilipix -) 135 mg PO DAILY [facility] Last Admin: 05/05/17 10:30 Dose: 135 mg Cefazolin Sodium/Dextrose (Ancef 2 Gm Premixed Ivpb -) 2 gm in 50 mls @ 100 mls /hr IVPB Q8H-IV [facility] Last Admin: 05/06/17 02:30 Dose: 100 mls/hr Losartan Potassium (Cozaar -) 50 mg PO DAILY [facility] Metoprolol Tartrate (Lopressor -) 25 mg PO BID [facility] Last Admin: 05/05/17 22:18 Dose: 25 mg Mirtazapine (Remeron -) 15 mg PO [facility] Last Admin: 05/05/17 22:18 Dose: 15 mg Ptnt's Own Med ( Elviteg/Cob/Emtri/Tenof Alafen [ Genvoya] 1 each PO HS [facility] Last Admin: 05/05/17 22:28 Dose: 1 each Tiotropium [place] (Spiriva -) 1 puff IH DAILY [facility] Last Admin: 05/05/17 10:30 Dose: 1 puff Zolpidem Tartrate (Ambien -) 5 mg PO [facility] Last Admin: 05/05/17 22:18 Dose: 5 mg - Objective Vital Signs: Vital Signs Temperature 98.0 F 05/06/17 06:00 Pulse Rate 106 H 05/06/17 06:00 Respiratory Rate 20 05/06/17 06:00 Blood Pressure 138/74 05/06/17 06:00 O2 Sat by Pulse Oximetry (%) 94 L 05/05/17 20:56 Constitutional: Yes: No Distress, Calm Neck: Yes: Supple Cardiovascular: Yes: Regular Rate and Rhythm Respiratory: Yes: Regular, Diminished, On Nasal O2 Gastrointestinal: Yes: Normal Bowel Sounds, Soft Edema: No Labs: CBC, BMP 05/06/17 06:45 05/06/17 06:45 INR, PTT INR 1.12 (0.82-1.09) 05/01/17 11:11 - ....Imaging EKG: Report Reviewed (Tele: SR) Problem List - Problems (1) Gram-negative bacteremia Code(s): R78.81 - BACTEREMIA (2) UTI (urinary tract infection) Code(s): N39.0 - URINARY TRACT INFECTION, SITE NOT SPECIFIED Qualifiers: Urinary tract infection type: site unspecified (3) Non-small cell carcinoma of lung Code(s): C34.90 - MALIGNANT NEOPLASM OF UNSP PART OF UNSP BRONCHUS OR LUNG (4) COPD (chronic obstructive pulmonary disease) Code(s): J44.9 - CHRONIC OBSTRUCTIVE PULMONARY DISEASE, UNSPECIFIED Qualifiers: COPD type: unspecified COPD Qualified Code(s): J44.9 - Chronic obstructive pulmonary disease, unspecified (5) Human immunodeficiency virus (HIV) disease Code(s): B20 - HUMAN IMMUNODEFICIENCY VIRUS [HIV] DISEASE (6) Hypertension, benign Code(s): I10 - ESSENTIAL (PRIMARY) HYPERTENSION (7) Tobacco use disorder Code(s): Z72.0 - TOBACCO USE Assessment/Plan Echocardiography performed yesterday revealed normal LV and RV size and function , mild MR and TR with pulmonary HTN 1. Asymptomatic tachycardia probable sinus tachycardia, as outlined unlikely to be SVT related to AV carol re-entrant tachycardia or accessory pathway mediated tachycardia 2. HTN, transient Hypotension related to neutropenia, E. coli urosepsis, resolved 3. CAD post PCI/stent angina pectoris 4. Diastolic dysfunction with chronic class 0 NYHA classifcation LV failure 5. HTN 6. Hyperlipidemia 7. Non small cell lung carcinoma, currently receiving chemotherapy/radiation therapy 8. COPD 9. HIV on ART 10. Anemia/thrombocytopenia PLAN: 1. Continue Lopressor 25 bid 2. Continue Losartan 50 qd 3. Trilipix 135 qd 4. Resume ASA once thrombocytopenia resolves 5. F/u holter monitor results as recommended 6. Counselled smoking cessation and abstinence 7. DVT prophylaxis, complete abx course, d/c telemetry
[2017-05-06] MEDS ORDERED: MAGNESIUM SULFATE IN WATER 2 GM/50 ML IVPB IVPB ONE (09:45)
[2017-05-06 10:33] LABS: ANISOCYTOSIS 1+; MACROCYTOSIS 1+; PLATELET ESTIMATE DECREASED
--- NOTE | 2017-05-06 10:48 | EKG ---
Test Reason : Blood Pressure : / mmHG Vent. Rate : 131 BPM Atrial Rate : 131 BPM P-R Int : 000 ms QRS Dur : 082 ms QT Int : 270 ms P-R-T Axes : 000 -19 085 degrees QTc Int : 398 ms SINUS TACHYCARDIA OTHERWISE NORMAL ECG WHEN COMPARED WITH ECG OF 04-MAY-2017 03:09, NO SIGNIFICANT CHANGE WAS FOUND Confirmed by JAILENE RAMIREZ MD ([id number]) on 05/06/2017 10:48:05 AM Referred By: Confirmed By:JAILENE RAMIREZ MD
--- NOTE | 2017-05-06 10:48 | EKG ---
Test Reason : Blood Pressure : / mmHG Vent. Rate : 136 BPM Atrial Rate : 136 BPM P-R Int : 000 ms QRS Dur : 080 ms QT Int : 286 ms P-R-T Axes : -04 -20 086 degrees QTc Int : 430 ms SINUS TACHYCARDIA NONSPECIFIC ST AND T WAVE ABNORMALITY ABNORMAL ECG WHEN COMPARED WITH ECG OF 05-MAY-2017 01:07, NO SIGNIFICANT CHANGE WAS FOUND Confirmed by JAILENE RAMIREZ MD ([id number]) on 05/06/2017 10:48:03 AM Referred By: Confirmed By:JAILENE RAMIREZ MD
[2017-05-06] MEDS: FENOFIBRIC ACID 135 MG CAP PO SCH (10:54)
[2017-05-06] MEDS: ENOXAPARIN NA (PORCINE) 40 MG/0.4 ML DISP.SYRIN SQ SCH (10:55)
[2017-05-06] MEDS: METOPROLOL TARTRATE 25 MG TABLET (FP) PO SCH ×2 (10:55→22:04)
[2017-05-06] MEDS: LOSARTAN POTASSIUM 50 MG TABLET (FP) PO SCH (10:55)
[2017-05-06] MEDS: TIOTROPIUM BROMIDE 18 MCG/INH (DEVICE W/ 5 CAPSULES) IH SCH (10:56)
--- NOTE | 2017-05-06 12:35 | PN ---
Progress Note, Physician History of Present Illness: PULMONARY ALERT,FEELING BETTER,-C/O SOB,-COUGH - Current Medication List Current Medications: Active Medications Acetaminophen (Tylenol -) 650 mg PO Q4H PRN PRN Reason: FEVER Last Admin: 05/05/17 01:11 Dose: 650 mg Albuterol Sulfate (Ventolin 0.083% Nebulizer Soln -) 1 amp NEB RQID [facility] Last Admin: 05/06/17 11:34 Dose: 1 amp Enoxaparin Sodium (Lovenox -) 40 mg SQ DAILY [facility] Last Admin: 05/06/17 10:55 Dose: 40 mg Fenofibric Acid (Trilipix -) 135 mg PO DAILY [facility] Last Admin: 05/06/17 10:54 Dose: 135 mg Cefazolin Sodium/Dextrose (Ancef 2 Gm Premixed Ivpb -) 2 gm in 50 mls @ 100 mls /hr IVPB Q8H-IV [facility] Last Admin: 05/06/17 10:54 Dose: 100 mls/hr Losartan Potassium (Cozaar -) 50 mg PO DAILY [facility] Last Admin: 05/06/17 10:55 Dose: 50 mg Metoprolol Tartrate (Lopressor -) 25 mg PO BID [facility] Last Admin: 05/06/17 10:55 Dose: 25 mg Mirtazapine (Remeron -) 15 mg PO [facility] Last Admin: 05/05/17 22:18 Dose: 15 mg Ptnt's Own Med ( Elviteg/Cob/Emtri/Tenof Alafen [ Genvoya] 1 each PO [facility] Last Admin: 05/05/17 22:28 Dose: 1 each Tiotropium [place] (Spiriva -) 1 puff IH DAILY [facility] Last Admin: 05/06/17 10:56 Dose: 1 puff Zolpidem Tartrate (Ambien -) 5 mg PO [facility] Last Admin: 05/05/17 22:18 Dose: 5 mg - Objective Vital Signs: Vital Signs Temperature 98.0 F 05/06/17 06:00 Pulse Rate 106 H 05/06/17 06:00 Respiratory Rate 20 05/06/17 06:00 Blood Pressure 138/74 05/06/17 06:00 O2 Sat by Pulse Oximetry (%) 94 L 05/05/17 20:56 Constitutional: Yes: Well Nourished, Calm Eyes: Yes: WNL HENT: Yes: WNL Neck: Yes: WNL Cardiovascular: Yes: Regular Rate and Rhythm, S1, S2 Respiratory: Yes: Diminished Gastrointestinal: Yes: Normal Bowel Sounds, Soft Extremities: Yes: WNL Edema: No Labs: CBC, BMP 05/06/17 06:45 05/06/17 06:45 INR, PTT INR 1.12 (0.82-1.09) 05/01/17 11:11 Problem List - Problems (1) Diarrhea Code(s): R19.7 - DIARRHEA, UNSPECIFIED (2) Fever Code(s): R50.9 - FEVER, UNSPECIFIED Qualifiers: Fever type: unspecified Qualified Code(s): R50.9 - Fever, unspecified (3) Gram-negative bacteremia Code(s): R78.81 - BACTEREMIA (4) Leukopenia Code(s): D72.819 - DECREASED WHITE BLOOD CELL COUNT, UNSPECIFIED Qualifiers: Leukopenia type: unspecified Qualified Code(s): D72.819 - Decreased white blood cell count, unspecified (5) Coronary artery calcification seen on CT scan Code(s): I25.10 - ATHSCL HEART DISEASE OF [place] CORONARY ARTERY W/O ANG PCTRS (6) Non-small cell carcinoma of lung Code(s): C34.90 - MALIGNANT NEOPLASM OF UNSP PART OF UNSP BRONCHUS OR LUNG (7) COPD (chronic obstructive pulmonary disease) Code(s): J44.9 - CHRONIC OBSTRUCTIVE PULMONARY DISEASE, UNSPECIFIED Qualifiers: COPD type: unspecified COPD Qualified Code(s): J44.9 - Chronic obstructive pulmonary disease, unspecified (8) Coronary artery disease Code(s): I25.10 - ATHSCL HEART DISEASE OF [place] CORONARY ARTERY W/O ANG PCTRS (9) Human immunodeficiency virus (HIV) disease Code(s): B20 - HUMAN IMMUNODEFICIENCY VIRUS [HIV] DISEASE (10) Tobacco use disorder Code(s): Z72.0 - TOBACCO USE Assessment/Plan IMP E COLI BACTEREMIA UROSEPSIS PANCYTOPENIA IMPROVING LUNG CA COPD HIV ASHD S/P STENTS PLAN ABX PER ID INHALED BRONCHODILATORS O2 MONITOR CBC DR WATERS
--- NOTE | 2017-05-06 15:05 | PN ---
Physical Exam: SUBJECTIVE: Patient seen and examined at the bedside. Feels better, resting. No shortness of breath, no pain. OBJECTIVE: Vital Signs Period Temp Pulse Resp BP Sys/Ovalles Pulse Ox Last 24 Hr 97.9 F-99.5 F 102-116 18-20 119-138/64-80 94-94 GENERAL: The patient is awake, alert, and fully oriented, in no acute distress. HEAD: Normal with no signs of trauma. EYES: PERRL, extraocular movements intact, sclera anicteric, conjunctiva clear. No ptosis. ENT: Ears normal, nares patent, oropharynx clear without exudates, moist mucous membranes. NECK: Trachea midline, full range of motion, supple. LUNGS: Breath sounds equal, clear to auscultation bilaterally, no wheezes, no crackles, no accessory muscle use. HEART: Regular rate and rhythm, S1, S2 without murmur, rub or gallop. ABDOMEN: Soft, nontender, nondistended, normoactive bowel sounds, EXTREMITIES: 2+ pulses, warm, well-perfused, no edema. NEUROLOGICAL: Cranial nerves II through XII grossly intact. Normal speech, gait not observed. PSYCH: Normal mood, normal affect. SKIN: Warm, dry, normal turgor, no rashes or lesions noted Laboratory Results - last 24 hr 05/06/17 05/06/17 06:45 06:45 WBC 6.7 RBC 2.67 L Hgb 9.2 L Hct 27.4 L MCV 102.5 H MCH 34.3 H MCHC 33.5 RDW 14.9 Plt Count 97 L MPV 10.7 Neutrophils % No Result Required. Neutrophils % (Manual) 77.8 Band Neutrophils % 3.0 Lymphocytes % No Result Required. Lymphocytes % (Manual) 8.1 D Monocytes % (Manual) 8 D Eosinophils % (Manual) 0.0 Basophils % (Manual) 0.0 Myelocytes % (Man) 1 D Promyelocytes % (Man) 0 Blast Cells % (Manual) 0 Nucleated RBC % 0 Metamyelocytes 1 D Hypochromia 0 Platelet Estimate Decreased Polychromasia 1+ Poikilocytosis 0 Anisocytosis 1+ Macrocytosis 1+ Sodium 139 Potassium 3.7 Chloride 100 Carbon Dioxide 31 Anion Gap 8 BUN 16 Creatinine 0.7 Creat Clearance w eGFR > 60 Random Glucose 122 H Calcium 8.8 Phosphorus 2.5 Magnesium 1.7 L Total Bilirubin 0.3 D AST 13 L ALT 12 Alkaline Phosphatase 50 Total Protein 5.2 L Albumin 2.4 L Active Medications Generic Name Dose Route Start Last Admin Trade Name Valeriyq PRN Reason Stop Dose Admin Acetaminophen 650 mg 05/01/17 17:36 05/05/17 01:11 Tylenol - PO 650 mg Q4H PRN Administration FEVER Albuterol Sulfate 1 amp 05/02/17 16:00 05/06/17 11:34 Ventolin 0.083% Nebulizer Soln - NEB 1 amp RQID [facility] Administration Enoxaparin Sodium 40 mg 05/02/17 10:00 05/06/17 10:55 Lovenox - SQ 40 mg DAILY [facility] Administration Fenofibric Acid 135 mg 05/02/17 10:00 05/06/17 10:54 Trilipix - PO 135 mg DAILY [facility] Administration Cefazolin Sodium/Dextrose 2 gm in 50 mls @ 100 mls/hr 05/05/17 18:00 10:54 Ancef 2 Gm Premixed Ivpb - IVPB 100 mls/hr Q8H-IV [facility] Administration Losartan Potassium 50 mg 05/06/17 10:00 05/06/17 10:55 Cozaar - PO 50 mg DAILY [facility] Administration Metoprolol Tartrate 25 mg 05/05/17 12:45 05/06/17 10:55 Lopressor - PO 25 mg BID [facility] Administration Mirtazapine 15 mg 05/01/17 22:00 05/05/17 22:18 Remeron - PO 15 mg HS [facility] Administration Ptnt's Own Med ( 1 each 05/03/17 22:00 05/05/17 22:28 Elviteg/Cob/Emtri/ PO 1 each Tenof Alafen [ HS [facility] Administration Genvoya] Tiotropium [place] 1 puff 05/03/17 13:00 05/06/17 10:56 Spiriva - IH 1 puff DAILY [facility] Administration Zolpidem Tartrate 5 mg 05/01/17 22:00 05/05/17 22:18 Ambien - PO 5 mg HS [facility] Administration ASSESSMENT/PLAN: Patient is a 71 year old female with a past medical history of HIV, non small cell carcinoma, hypertension, COPD, CAD with stents. She presents to the ED after being seen at radiation oncology and noted to have a low blood pressure. She last had chemo on 04/27 and reports that she had episodes of diarrhea after that session of chemo. ID: Sepsis Gram Negative bacteremia Sepsis secondary to UTI Repeat blood and urine cultures pending Leukopenia improved Fever curve improving, tmax 101,4 On Cefazolin 2 gram q8 HIV On antiviral therapy Cardiology Sinus tachycardia/atrial tachycardia CAD w stents Hypertension, chronic On Lopressor 25mg BID On asa 81mg Holter monitoring Cardiology notes reviewed Oncology/Hematology Non small cell carcinoma, on active therapy Oncology following Supplemental oxygen Thrombocytopenia, improving Leukopenia, resolving F.E.N. Fluids: tolerating PO electrolyses: monitor Nutrition: low sodium Prophy: Lovenox Visit type - Emergency Visit Emergency Visit: Yes ED Registration Date: 05/01/17 Care time: The patient presented to the Emergency Department on the above date and was hospitalized for further evaluation of their emergent condition. - New Patient This patient is new to me today: Yes Date on this admission: 05/06/17 - Critical Care Critical Care patient: No - Discharge Referral Referred to [facility] Med P.C.: No
--- NOTE | 2017-05-06 16:04 | HOL ---
Hook-up date: 2017-05-05 11:42:00 Duration: 23:31:00 Test Indications: PSVT VS ATRIAL TACH VS ST Medications: 742945 QRS complexes 112 Ventricular ectopics which represent <1 % of total QRS comp. 405 Supraventricular ectopics which represent <1 % of total QRS comp. * Paced QRS complexs which represent % of total QRS comp. * % of Time Classified as Noise VENTRICULAR ECTOPY 108 Isolated 0 Bigeminal Cycles 2 Couplets 0 Runs 0 Beats in Runs * Beats LONGEST at * BPM at :: -- * Beats FASTEST at * BPM at :: -- SUPRAVENTRICULAR ECTOPY 375 Isolated 12 Couplets 2 Runs 7 Beats in Runs 4 Beats LONGEST at 166 BPM at 13:14:54 2017-05-05 3 Beats FASTEST at 185 BPM at 12:18:59 2017-05-05 HEART RATES 83 MIN at 04:46:29 2017-05-06 109 AVG 175 MAX at 10:45:44 2017-05-06 LONGEST RR 0.984 secs at 15:04:04 2017-05-05 1. BASELINE RHYTHM IS SINUS WITH AVERAGE HEART RATE OF 109 BPM. RATES VARIED FROM 83 TO 175 BPM (SINUS TACHYCARDIA) 2. OCCASIONAL PREMATURE VENTRICULAR COMPLEXES 3. OCCASIONAL ATRIAL ECTOPIES INCLUDING 375 PREMATURE ATRIAL COMPLEXES , 12 COUPLETS AND 2 EPISODE OF 4 BEATS OF SVT. 4. NO SIGNIFICANT ST OR T WAVE VARIATIONS 5. DIARY WAS NOT SUBMITTED SCANNED BY CHRIS GRAVES ON 05/06/17 Confirmed by JAMES GRAVES, JAILENE ([id number]) on 05/06/2017 4:04:31 PM Referred By: SABRINA ROJAS DR Overread By: JAILENE RAMIREZ MD
[2017-05-06] MEDS ORDERED: ZOLPIDEM TARTRATE 5 MG TABLET PO PRN (22:00)
[2017-05-06] MEDS: [UNRECOGNIZED DRUG - OTHER] PO SCH (22:03)
[2017-05-06] MEDS: MIRTAZAPINE 15 MG TABLET (FP) PO SCH (22:04)
[2017-05-07] MEDS: CEFAZOLIN 2 GM/D5W 2 GM/50 ML ML IVPB SCH ×3 (02:30→18:31)
--- NOTE | 2017-05-07 07:01 | PN ---
Progress Note (short form) - Note Progress Note: Patient seen and examined 05/06/17 Alert, awake . More comfortable Feels well AFVSS Cor: RSR, No murmurs, No gallops Lungs: Clear to P&A Abd: Soft, Normal bowel sounds, No organomegaly Ext: no edema labs/meds rviewed A/P Bacteremia: G- On ancef pancytopenia: improved WBC stable platelets--monitor Lung Ca (NSCLC) on concurrent chemo/RT on carbo/taxol. treatment on hold due to ongoing infection
[2017-05-07] MEDS: ACETAMINOPHEN 325 MG TABLET (FP) PO PRN ×2 (07:08→22:19)
[2017-05-07 07:19] LABS: HEMATOCRIT 23.6 % (32.4-45.2); HEMOGLOBIN 8.1 GM/dL (10.7-15.3); MCH 34.7 pg (25.7-33.7); MCHC 34.1 g/dl (32.0-36.0); MEAN CELL VOLUME 101.7 fl (80-96); MEAN PLT VOLUME 10.3 fl (7.5-11.1); PLATELET COUNT 89 K/MM3 (134-434); RBC 2.32 M/mm3 (3.60-5.2); RDW 15.1 % (11.6-15.6)
[2017-05-07 07:47] LABS: ALBUMIN 2.3 g/dl (3.4-5.0); ANION GAP 7 (8-16); BLOOD UREA NITROGEN 20 mg/dL (7-18); CALCIUM 8.9 mg/dL (8.5-10.1); CHLORIDE 99 mmol/L (98-107); CO2 33 mmol/L (21-32); CREATININE 0.7 mg/dL (0.55-1.02); GLUCOSE,RANDOM 121 mg/dL (74-106); MAGNESIUM 1.8 mg/dL (1.8-2.4); POTASSIUM 3.7 mmol/L (3.5-5.1); SGOT/AST 12 U/L (15-37); SGPT/ALT 11 U/L (12-78); SODIUM 139 mmol/L (136-145)
[2017-05-07 07:48] LABS: ALK PHOS 48 U/L (45-117); BILIRUBIN,TOTAL 0.5 mg/dL (0.2-1.0); TOT PROT 5.1 g/dl (6.4-8.2)
[2017-05-07] MEDS: ALBUTEROL SO4 0.083% IH SOL 2.5 MG/3 ML VIAL.NEB. NEB SCH ×4 (08:35→20:19)
[2017-05-07 09:15] LABS: ANISOCYTOSIS 1+; PLATELET ESTIMATE DECREASED
[2017-05-07] MEDS: ENOXAPARIN NA (PORCINE) 40 MG/0.4 ML DISP.SYRIN SQ SCH (10:04)
[2017-05-07] MEDS: LOSARTAN POTASSIUM 50 MG TABLET (FP) PO SCH (10:04)
[2017-05-07] MEDS: METOPROLOL TARTRATE 25 MG TABLET (FP) PO SCH ×2 (10:04→22:13)
--- NOTE | 2017-05-07 10:07 | PN ---
Progress Note (short form) - Note Progress Note: PULMONARY More short of breath today. Now with cough productive of yellow sputum. Low grade fever this AM. Last Vital Signs Temp Pulse Resp BP Pulse Ox 100.5 F H 62 20 142/98 94 L 05/07/17 06:29 05/07/17 06:29 05/07/17 06:29 05/07/17 06:29 05/06/17 21:00 Gen: NAD at rest Heart: RRR Lung: decreased breath sounds at the bases Abd: soft, nontender Ext: no edema CBC, BMP 05/07/17 06:30 05/07/17 06:30 Active Medications Acetaminophen (Tylenol -) 650 mg PO Q4H PRN PRN Reason: FEVER Last Admin: 05/07/17 07:08 Dose: 650 mg Albuterol Sulfate (Ventolin 0.083% Nebulizer Soln -) 1 amp NEB RQID [facility] Last Admin: 05/06/17 20:30 Dose: 1 amp Enoxaparin Sodium (Lovenox -) 40 mg SQ DAILY [facility] Last Admin: 05/07/17 10:04 Dose: 40 mg Fenofibric Acid (Trilipix -) 135 mg PO DAILY [facility] Cefazolin Sodium/Dextrose (Ancef 2 Gm Premixed Ivpb -) 2 gm in 50 mls @ 100 mls /hr IVPB Q8H-IV [facility] Last Admin: 05/07/17 10:04 Dose: 100 mls/hr Losartan Potassium (Cozaar -) 50 mg PO DAILY [facility] Last Admin: 05/07/17 10:04 Dose: 50 mg Metoprolol Tartrate (Lopressor -) 25 mg PO BID [facility] Last Admin: 05/07/17 10:04 Dose: 25 mg Mirtazapine (Remeron -) 15 mg PO HS [facility] Last Admin: 05/06/17 22:04 Dose: 15 mg Ptnt's Own Med ( Elviteg/Cob/Emtri/Tenof Alafen [ Genvoya] 1 each PO HS [facility] Last Admin: 05/06/17 22:03 Dose: 1 each Tiotropium [place] (Spiriva -) 1 puff IH DAILY [facility] Last Admin: 05/06/17 10:56 Dose: 1 puff Zolpidem Tartrate (Ambien -) 5 mg PO HS PRN PRN Reason: INSOMNIA A/P UTI E Coli Bacteremia Sepsis Pancytopenia NSCLC on chemo COPD HIV CAD - will order CXR - continue antibiotics - f/u pending cultures - inhaled bronchodilators - O2 to keep SpO2 >90% - DVT prophylaxis
[2017-05-07] MEDS ORDERED: PT OWN MED DRAWER 7, Y5N ONE (10:29)
[2017-05-07] MEDS: FENOFIBRIC ACID 135 MG CAP PO SCH (10:37)
--- NOTE | 2017-05-07 11:53 | PN ---
Progress Note, Physician Chief Complaint: Events noted Not in distress History of Present Illness: Patient was seen and examined. Awake and alert. Chart was reviewed Denies chest pain, SOB or palpitations Periods of sinus tachycardia Temp 100.5 - Current Medication List Current Medications: Active Medications Acetaminophen (Tylenol -) 650 mg PO Q4H PRN PRN Reason: FEVER Last Admin: 05/07/17 07:08 Dose: 650 mg Albuterol Sulfate (Ventolin 0.083% Nebulizer Soln -) 1 amp NEB RQID [facility] Last Admin: 05/07/17 08:35 Dose: 1 amp Enoxaparin Sodium (Lovenox -) 40 mg SQ DAILY [facility] Last Admin: 05/07/17 10:04 Dose: 40 mg Fenofibric Acid (Trilipix -) 135 mg PO DAILY [facility] Last Admin: 05/07/17 10:37 Dose: 135 mg Cefazolin Sodium/Dextrose (Ancef 2 Gm Premixed Ivpb -) 2 gm in 50 mls @ 100 mls /hr IVPB Q8H-IV [facility] Last Admin: 05/07/17 10:04 Dose: 100 mls/hr Losartan Potassium (Cozaar -) 50 mg PO DAILY [facility] Last Admin: 05/07/17 10:04 Dose: 50 mg Metoprolol Tartrate (Lopressor -) 25 mg PO BID [facility] Last Admin: 05/07/17 10:04 Dose: 25 mg Mirtazapine (Remeron -) 15 mg PO HS [facility] Last Admin: 05/06/17 22:04 Dose: 15 mg Ptnt's Own Med ( Elviteg/Cob/Emtri/Tenof Alafen [ Genvoya] 1 each PO HS [facility] Last Admin: 05/06/17 22:03 Dose: 1 each Tiotropium [place] (Spiriva -) 1 puff IH DAILY [facility] Last Admin: 05/06/17 10:56 Dose: 1 puff Zolpidem Tartrate (Ambien -) 5 mg PO HS PRN PRN Reason: INSOMNIA - Objective Vital Signs: Vital Signs Temperature 100.5 F H 05/07/17 06:29 Pulse Rate 62 05/07/17 06:29 Respiratory Rate 20 05/07/17 06:29 Blood Pressure 142/98 05/07/17 06:29 O2 Sat by Pulse Oximetry (%) 94 L 05/06/17 21:00 HENT: Yes: Atraumatic Neck: Yes: Supple Cardiovascular: Yes: Regular Rate and Rhythm, Tachycardia, S1, S2 Respiratory: Yes: Diminished Gastrointestinal: Yes: Normal Bowel Sounds, Soft. No: Tenderness Edema: No Labs: CBC, BMP 05/07/17 06:30 05/07/17 06:30 Problem List - Problems (1) Sinus tachycardia Code(s): R00.0 - TACHYCARDIA, UNSPECIFIED (2) Fever Code(s): R50.9 - FEVER, UNSPECIFIED Qualifiers: Fever type: unspecified Qualified Code(s): R50.9 - Fever, unspecified (3) UTI (urinary tract infection) Code(s): N39.0 - URINARY TRACT INFECTION, SITE NOT SPECIFIED Qualifiers: Urinary tract infection type: site unspecified (4) Leukopenia Code(s): D72.819 - DECREASED WHITE BLOOD CELL COUNT, UNSPECIFIED Qualifiers: Leukopenia type: unspecified Qualified Code(s): D72.819 - Decreased white blood cell count, unspecified (5) Non-small cell carcinoma of lung Code(s): C34.90 - MALIGNANT NEOPLASM OF UNSP PART OF UNSP BRONCHUS OR LUNG (6) COPD (chronic obstructive pulmonary disease) Code(s): J44.9 - CHRONIC OBSTRUCTIVE PULMONARY DISEASE, UNSPECIFIED Qualifiers: COPD type: unspecified COPD Qualified Code(s): J44.9 - Chronic obstructive pulmonary disease, unspecified (7) Coronary artery disease Code(s): I25.10 - ATHSCL HEART DISEASE OF [place] CORONARY ARTERY W/O ANG PCTRS (8) Human immunodeficiency virus (HIV) disease Code(s): B20 - HUMAN IMMUNODEFICIENCY VIRUS [HIV] DISEASE (9) Hypertension, benign Code(s): I10 - ESSENTIAL (PRIMARY) HYPERTENSION Assessment/Plan 1. Asymptomatic tachycardia probable sinus tachycardia due to current clinical presentation with fever and sepsis 2. History of HTN 3. Post neutropenia now improved 4. CAD post PCI/stent angina pectoris 5. Diastolic dysfunction with chronic class 0 NYHA classifcation LV failure 6. Hyperlipidemia 7. Non small cell lung carcinoma, currently receiving chemotherapy/radiation therapy 8. COPD 9. HIV on HAART 10. Anemia/thrombocytopenia PLAN: 1. Continue Lopressor and Losartan as tolerated 2. Continue Trilipix 3. Resume ASA once thrombocytopenia resolves 4. Holter monitor reviewed 5. DVT prophylaxis 6. Complete antibiotic course 7. Continue HIV treatment 8. Follow Fever trend and further work up and treatment Gigi Hess MD
--- NOTE | 2017-05-07 12:32 | PN ---
Physical Exam: SUBJECTIVE: Patient seen and examined at the bedside. Slight short of breath reported, but oxygen stable. No chest pain, eating lunch. No conversational dyspnea. OBJECTIVE: Vital Signs Period Temp Pulse Resp BP Sys/[place] Pulse Ox Last 24 Hr 98.1 F-100.5 F 62-112 20-20 108-142/59-98 94 GENERAL: The patient is awake, alert, and fully oriented, in no acute distress. HEAD: Normal with no signs of trauma. EYES: PERRL, extraocular movements intact, sclera anicteric, conjunctiva clear. No ptosis. ENT: Ears normal, nares patent, oropharynx clear without exudates, moist mucous membranes. NECK: Trachea midline, full range of motion, supple. LUNGS: Breath sounds equal, clear to auscultation bilaterally, no wheezes, no crackles, no accessory muscle use. HEART: Regular rate and rhythm, S1, S2 without murmur, rub or gallop. ABDOMEN: Soft, nontender, nondistended, normoactive bowel sounds, EXTREMITIES: 2+ pulses, warm, well-perfused, no edema. NEUROLOGICAL: Cranial nerves II through XII grossly intact. Normal speech, gait not observed. PSYCH: Normal mood, normal affect. SKIN: Warm, dry, normal turgor, no rashes or lesions noted Laboratory Results - last 24 hr 05/07/17 05/07/17 06:30 06:30 WBC 5.0 RBC 2.32 L Hgb 8.1 L D Hct 23.6 L MCV 101.7 H MCH 34.7 H MCHC 34.1 RDW 15.1 Plt Count 89 L MPV 10.3 Neutrophils % No Result Required. Neutrophils % (Manual) 85.4 H Band Neutrophils % 0.0 Lymphocytes % No Result Required. Lymphocytes % (Manual) 3.1 L D Monocytes % (Manual) 7 Eosinophils % (Manual) 0.0 Basophils % (Manual) 0.0 Myelocytes % (Man) 1 Promyelocytes % (Man) 0 Blast Cells % (Manual) 0 Nucleated RBC % 0 Metamyelocytes 1 Platelet Estimate Decreased Anisocytosis 1+ Stomatocytes 3+ Sodium 139 Potassium 3.7 Chloride 99 Carbon Dioxide 33 H Anion Gap 7 L BUN 20 H Creatinine 0.7 Creat Clearance w eGFR > 60 Random Glucose 121 H Calcium 8.9 Magnesium 1.8 Total Bilirubin 0.5 D AST 12 L ALT 11 L Alkaline Phosphatase 48 Total Protein 5.1 L Albumin 2.3 L Active Medications Generic Name Dose Route Start Last Admin Trade Name Freq PRN Reason Stop Dose Admin Acetaminophen 650 mg 05/06/17 19:41 05/07/17 07:08 Tylenol - PO 650 mg Q4H PRN Administration FEVER Albuterol Sulfate 1 amp 05/06/17 20:00 05/07/17 08:35 Ventolin 0.083% Nebulizer Soln - NEB 1 amp RQID [facility] Administration Enoxaparin Sodium 40 mg 05/07/17 10:00 05/07/17 10:04 Lovenox - SQ 40 mg DAILY [facility] Administration Fenofibric Acid 135 mg 05/07/17 10:00 05/07/17 10:37 Trilipix - PO 135 mg DAILY [facility] Administration Cefazolin Sodium/Dextrose 2 gm in 50 mls @ 100 mls/hr 05/05/17 18:00 10:04 Ancef 2 Gm Premixed Ivpb - IVPB 100 mls/hr Q8H-IV [facility] Administration Losartan Potassium 50 mg 05/06/17 10:00 05/07/17 10:04 Cozaar - PO 50 mg DAILY [facility] Administration Metoprolol Tartrate 25 mg 05/05/17 12:45 05/07/17 10:04 Lopressor - PO 25 mg BID [facility] Administration Mirtazapine 15 mg 05/06/17 22:00 05/06/17 22:04 Remeron - PO 15 mg HS [facility] Administration Ptnt's Own Med ( 1 each 05/03/17 22:00 05/06/17 22:03 Elviteg/Cob/Emtri/ PO 1 each Tenof Alafen [ HS [facility] Administration Genvoya] Tiotropium [place] 1 puff 05/03/17 13:00 05/06/17 10:56 Spiriva - IH 1 puff DAILY [facility] Administration Zolpidem Tartrate 5 mg 05/06/17 22:00 Ambien - PO HS PRN INSOMNIA ASSESSMENT/PLAN: Patient is a 71 year old female with a past medical history of HIV, non small cell carcinoma, hypertension (home oxygen dependent), COPD, CAD with stents. She presents to the ED after being seen at radiation oncology and noted to have a low blood pressure. She last had chemo on 04/27 and reports that she had episodes of diarrhea after that session of chemo and generalized weakness. Imaging: Ultrasound of kidney/bladder - no obstruction seen ID: Sepsis secondary to UTI/Gram Negative bacteremia Repeat blood and urine cultures pending Neutropenia resolved Having low grade fevers 100.5 On Cefazolin 2 gram q8 (day #6) Monitor fever curve, vitals ID following HIV, chronic On antiviral therapy Cardiology Sinus tachycardia/atrial tachycardia CAD w stents, chronic Hypertension, chronic On Lopressor 25mg BID On asa 81mg (on hold due to thrombocytopenia) Mild tachycardia with low grade fevers Oncology/Hematology Non small cell carcinoma, on active therapy Oncology following Supplemental oxygen @ 2 liters Maintain oxygen saturations above 90% on 2 liters Chest xray as above Thrombocytopenia, monitor Leukopenia, resolved F.E.N. Fluids: tolerating PO electrolyses: monitor Nutrition: low sodium Prophy: Lovenox Disposition: full code. Visit type - Emergency Visit Emergency Visit: Yes ED Registration Date: 05/01/17 Care time: The patient presented to the Emergency Department on the above date and was hospitalized for further evaluation of their emergent condition. - New Patient This patient is new to me today: No - Critical Care Critical Care patient: No - Discharge Referral Referred to [facility] Med P.C.: No
--- NOTE | 2017-05-07 14:58 | PN ---
Progress Note (short form) - Note Progress Note: feels well no complaints Vital Signs Period Temp Pulse Resp BP Sys/[place] Pulse Ox Last 24 Hr 98.1 F-100.5 F 62-112 18-20 106-142/59-98 94 cor-rrr llungs scattered rhonchi abd soft,nt ext no edema CBC, BMP 05/07/17 06:30 05/07/17 06:30 Microbiology 05/05/17 11:10 Blood - Peripheral Venous Blood Culture - Preliminary NO GROWTH OBTAINED AFTER 48 HOURS, INCUBATION TO CONTINUE FOR 3 DAYS. 05/05/17 10:30 Blood - Peripheral Venous Blood Culture - Preliminary NO GROWTH OBTAINED AFTER 48 HOURS, INCUBATION TO CONTINUE FOR 3 DAYS. 05/01/17 11:16 Blood - Peripheral Venous Blood Culture - Final NO GROWTH AFTER 5 DAYS INCUBATION 05/01/17 17:10 Urine - Urine Clean Catch Urine Culture - Final Escherichia Coli 05/01/17 11:16 Blood - Peripheral Venous Blood Culture - Final Escherichia Coli sonogram kidney/bladder- no obstruction a/p Ecoli sepsis- bacteremia secondary to UTI s/p chemo for lung cancer- neutropenia resolved HIV-stable continue ART continue cefazolin day #6 antibiotics
[2017-05-07] MEDS: TIOTROPIUM BROMIDE 18 MCG/INH (DEVICE W/ 5 CAPSULES) IH SCH (18:00)
[2017-05-07] MEDS: MIRTAZAPINE 15 MG TABLET (FP) PO SCH (22:13)
[2017-05-07] MEDS: [UNRECOGNIZED DRUG - OTHER] PO SCH (22:13)
[2017-05-08] MEDS: CEFAZOLIN 2 GM/D5W 2 GM/50 ML ML IVPB SCH ×3 (01:33→17:11)
[2017-05-08] MEDS: ALBUTEROL SO4 0.083% IH SOL 2.5 MG/3 ML VIAL.NEB. NEB SCH ×4 (08:23→20:15)
[2017-05-08] MEDS ORDERED: PT OWN MED DRAWER 7, Y5N ONE (09:10)
[2017-05-08] MEDS: METOPROLOL TARTRATE 25 MG TABLET (FP) PO SCH ×2 (09:12→21:05)
[2017-05-08] MEDS: LOSARTAN POTASSIUM 50 MG TABLET (FP) PO SCH (09:12)
[2017-05-08] MEDS: ENOXAPARIN NA (PORCINE) 40 MG/0.4 ML DISP.SYRIN SQ SCH (09:13)
[2017-05-08] MEDS: TIOTROPIUM BROMIDE 18 MCG/INH (DEVICE W/ 5 CAPSULES) IH SCH (09:13)
[2017-05-08] MEDS: FENOFIBRIC ACID 135 MG CAP PO SCH (09:15)
--- NOTE | 2017-05-08 10:02 | PN ---
Progress Note (short form) - Note Progress Note: PULMONARY OFFERS NO COMPLAINTS APPEARS COMFORTABLE VSS/AFEBRILE ANICTERIC/PALE MINIMAL RHONCHI LEFT BASE S1S2 BS+ NO EDEMA CXR:LEFT MID LUNG LINEAR ATELECTASIS MEDS/NOTES/LABS/MICRO UTI E Coli Bacteremia Sepsis Pancytopenia NSCLC on chemo COPD HIV CAD - continue antibiotics - f/u pending cultures - inhaled bronchodilators - O2 to keep SpO2 >90% - DVT prophylaxis Becca QURESHI MD
--- NOTE | 2017-05-08 10:50 | PN ---
Progress Note (short form) - Note Progress Note: feels well no complaints Vital Signs Period Temp Pulse Resp BP Sys/[place] Pulse Ox Last 24 Hr 97.9 F-99.4 F 91-114 18-106 105-114/59-68 cor-rrr lungs decreased bs at bases abd soft,nt ext no edema CBC, BMP 05/07/17 06:30 05/07/17 06:30 Microbiology 05/05/17 10:30 Blood - Peripheral Venous Blood Culture - Preliminary NO GROWTH OBTAINED AFTER 72 HOURS, INCUBATION TO CONTINUE FOR 2 DAYS. 05/05/17 11:10 Blood - Peripheral Venous Blood Culture - Preliminary NO GROWTH OBTAINED AFTER 48 HOURS, INCUBATION TO CONTINUE FOR 3 DAYS. 05/01/17 11:16 Blood - Peripheral Venous Blood Culture - Final NO GROWTH AFTER 5 DAYS INCUBATION 05/01/17 17:10 Urine - Urine Clean Catch Urine Culture - Final Escherichia Coli 05/01/17 11:16 Blood - Peripheral Venous Blood Culture - Final Escherichia Coli sonogram kidney/bladder- no obstruction a/p Ecoli sepsis- bacteremia secondary to UTI s/p chemo for lung cancer- neutropenia resolved HIV-stable continue ART cefazolin day #7 antibiotics can switch to po vantin for another 7 days needs PT eval d/w hospitalist
[2017-05-08 11:10] LABS: HEMATOCRIT 24.1 % (32.4-45.2); MCH 34.2 pg (25.7-33.7); MCHC 33.3 g/dl (32.0-36.0); MEAN CELL VOLUME 102.9 fl (80-96); PLATELET COUNT 84 K/MM3 (134-434); RBC 2.35 M/mm3 (3.60-5.2); RDW 15.6 % (11.6-15.6); WHITE BLOOD COUNT 2.9 K/mm3 (4.0-10.0)
[2017-05-08 11:28] LABS: ALBUMIN 2.3 g/dl (3.4-5.0); ANION GAP 3 (8-16); BILIRUBIN,TOTAL 0.2 mg/dL (0.2-1.0); BLOOD UREA NITROGEN 29 mg/dL (7-18); CALCIUM 9.3 mg/dL (8.5-10.1); CHLORIDE 101 mmol/L (98-107); CO2 37 mmol/L (21-32); CREATININE 0.8 mg/dL (0.55-1.02); GLUCOSE,RANDOM 124 mg/dL (74-106); POTASSIUM 3.8 mmol/L (3.5-5.1); SGOT/AST 10 U/L (15-37); SGPT/ALT < 6 U/L (12-78); SODIUM 141 mmol/L (136-145); TOT PROT 5.2 g/dl (6.4-8.2)
[2017-05-08 11:29] LABS: ALK PHOS 48 U/L (45-117)
--- NOTE | 2017-05-08 11:55 | PN ---
Progress Note, Physician History of Present Illness: Remains afebrile. - Current Medication List Current Medications: Active Medications Acetaminophen (Tylenol -) 650 mg PO Q4H PRN PRN Reason: FEVER Last Admin: 05/07/17 22:19 Dose: 650 mg Albuterol Sulfate (Ventolin 0.083% Nebulizer Soln -) 1 amp NEB RQID [facility] Last Admin: 05/08/17 11:52 Dose: 1 amp Enoxaparin Sodium (Lovenox -) 40 mg SQ DAILY [facility] Last Admin: 05/08/17 09:13 Dose: 40 mg Fenofibric Acid (Trilipix -) 135 mg PO DAILY [facility] Last Admin: 05/08/17 09:15 Dose: 135 mg Cefazolin Sodium/Dextrose (Ancef 2 Gm Premixed Ivpb -) 2 gm in 50 mls @ 100 mls /hr IVPB Q8H-IV [facility] Last Admin: 05/08/17 09:12 Dose: 100 mls/hr Losartan Potassium (Cozaar -) 50 mg PO DAILY [facility] Last Admin: 05/08/17 09:12 Dose: 50 mg Metoprolol Tartrate (Lopressor -) 25 mg PO BID [facility] Last Admin: 05/08/17 09:12 Dose: 25 mg Mirtazapine (Remeron -) 15 mg PO HS [facility] Last Admin: 05/07/17 22:13 Dose: 15 mg Ptnt's Own Med ( Elviteg/Cob/Emtri/Tenof Alafen [ Genvoya] 1 each PO HS [facility] Last Admin: 05/07/17 22:13 Dose: 1 each Tiotropium [place] (Spiriva -) 1 puff IH DAILY [facility] Last Admin: 05/08/17 09:13 Dose: 1 puff Zolpidem Tartrate (Ambien -) 5 mg PO HS PRN PRN Reason: INSOMNIA - Objective Vital Signs: Vital Signs Temperature 97.9 F 05/08/17 06:46 Pulse Rate 109 H 05/08/17 11:46 Respiratory Rate 20 05/08/17 06:46 Blood Pressure 114/68 05/08/17 06:46 O2 Sat by Pulse Oximetry (%) 93 L 05/08/17 11:46 Constitutional: Yes: No Distress, Calm Neck: Yes: Supple Cardiovascular: Yes: Regular Rate and Rhythm Respiratory: Yes: Regular, Diminished Gastrointestinal: Yes: Normal Bowel Sounds, Soft Edema: No Labs: CBC, BMP 05/08/17 10:35 05/08/17 10:35 INR, PTT INR 1.12 (0.82-1.09) 05/01/17 11:11 - ....Imaging Chest X-ray: Report Reviewed (Left midlung ATX) Problem List - Problems (1) Gram-negative bacteremia Code(s): R78.81 - BACTEREMIA (2) UTI (urinary tract infection) Code(s): N39.0 - URINARY TRACT INFECTION, SITE NOT SPECIFIED Qualifiers: Urinary tract infection type: site unspecified (3) Non-small cell carcinoma of lung Code(s): C34.90 - MALIGNANT NEOPLASM OF UNSP PART OF UNSP BRONCHUS OR LUNG (4) COPD (chronic obstructive pulmonary disease) Code(s): J44.9 - CHRONIC OBSTRUCTIVE PULMONARY DISEASE, UNSPECIFIED Qualifiers: COPD type: unspecified COPD Qualified Code(s): J44.9 - Chronic obstructive pulmonary disease, unspecified (5) Human immunodeficiency virus (HIV) disease Code(s): B20 - HUMAN IMMUNODEFICIENCY VIRUS [HIV] DISEASE (6) Hypertension, benign Code(s): I10 - ESSENTIAL (PRIMARY) HYPERTENSION (7) Tobacco use disorder Code(s): Z72.0 - TOBACCO USE Assessment/Plan Echocardiography performed yesterday revealed normal LV and RV size and function , mild MR and TR with pulmonary HTN 05/06/2017 Holter: SR, occ PAC, PVC 1. Asymptomatic tachycardia probable sinus tachycardia due to current clinical presentation with fever and E. coli sepsis 2/2 UTI 2. History of HTN 3. Post neutropenia now improved 4. CAD post PCI/stent angina pectoris 5. Diastolic dysfunction with chronic class 0 NYHA classifcation LV failure 6. Hyperlipidemia 7. Non small cell lung carcinoma, currently receiving chemotherapy/radiation therapy 8. COPD 9. HIV on HAART 10. Anemia/thrombocytopenia PLAN: 1. Continue Lopressor 25 bid and Losartan 50 qd 2. Continue Trilipix 135 qd 3. Resume ASA once thrombocytopenia resolves 4. DVT prophylaxis 5. Complete antibiotic course per ID 6. Continue HIV treatment
[2017-05-08 12:00] LABS: ANISOCYTOSIS 1+; MACROCYTOSIS 1+
[2017-05-08 12:01] LABS: PLATELET ESTIMATE DECREASED
--- NOTE | 2017-05-08 14:58 | PN ---
Physical Exam: SUBJECTIVE: Patient seen and examined. She feels well, has no complaints. Got OOB with PT OBJECTIVE: Vital Signs Period Temp Pulse Resp BP Sys/[place] Pulse Ox Last 24 Hr 97.5 F-99.4 F 94-114 18-106 105-123/59-82 93-93 PE Neuro: alert, awake, cn 2-12intact Pulm: course bs R>L, scattered rhonchi CV: S1 s2 tachycardia Abd: s nt nd + bs Ext: Warm , no le edema, LCW port Laboratory Results - last 24 hr 05/08/17 05/08/17 10:35 10:35 WBC 2.9 L D RBC 2.35 L Hgb 8.0 L Hct 24.1 L MCV 102.9 H MCH 34.2 H MCHC 33.3 RDW 15.6 Plt Count 84 L MPV 10.0 Neutrophils % No Result Required. Neutrophils % (Manual) 64.0 Band Neutrophils % 3.0 Lymphocytes % No Result Required. Lymphocytes % (Manual) 15.0 Monocytes % (Manual) 15 H Myelocytes % (Man) 2 Nucleated RBC % 1 H Metamyelocytes 1 Differential Comment Man diff performed Platelet Estimate Decreased Platelet Comment Few giant plts Polychromasia 1+ Anisocytosis 1+ Macrocytosis 1+ Stomatocytes 1+ Sodium 141 Potassium 3.8 Chloride 101 Carbon Dioxide 37 H Anion Gap 3 L BUN 29 H Creatinine 0.8 Creat Clearance w eGFR > 60 Random Glucose 124 H Calcium 9.3 Magnesium 2.0 Total Bilirubin 0.2 D AST 10 L ALT < 6 L Alkaline Phosphatase 48 Total Protein 5.2 L Albumin 2.3 L Active Medications Generic Name Dose Route Start Last Admin Trade Name Freq PRN Reason Stop Dose Admin Acetaminophen 650 mg 05/06/17 19:41 05/07/17 22:19 Tylenol - PO 650 mg Q4H PRN Administration FEVER Albuterol Sulfate 1 amp 05/06/17 20:00 05/08/17 11:52 Ventolin 0.083% Nebulizer Soln - NEB 1 amp RQID [facility] Administration Enoxaparin Sodium 40 mg 05/07/17 10:00 05/08/17 09:13 Lovenox - SQ 40 mg DAILY [facility] Administration Fenofibric Acid 135 mg 05/07/17 10:00 05/08/17 09:15 Trilipix - PO 135 mg DAILY [facility] Administration Cefazolin Sodium/Dextrose 2 gm in 50 mls @ 100 mls/hr 05/05/17 18:00 09:12 Ancef 2 Gm Premixed Ivpb - IVPB 100 mls/hr Q8H-IV [facility] Administration Losartan Potassium 50 mg 05/06/17 10:00 05/08/17 09:12 Cozaar - PO 50 mg DAILY [facility] Administration Metoprolol Tartrate 25 mg 05/05/17 12:45 05/08/17 09:12 Lopressor - PO 25 mg BID [facility] Administration Mirtazapine 15 mg 05/06/17 22:00 05/07/17 22:13 Remeron - PO 15 mg HS [facility] Administration Ptnt's Own Med ( 1 each 05/03/17 22:00 05/07/17 22:13 Elviteg/Cob/Emtri/ PO 1 each Tenof Alafen [ HS [facility]UR[facility] Administration Genvoya] Tiotropium [place] 1 puff 05/03/17 13:00 05/08/17 09:13 Spiriva - IH 1 puff DAILY [facility] Administration Zolpidem Tartrate 5 mg 05/06/17 22:00 Ambien - PO HS PRN INSOMNIA Imaging: - ECHO normal LV and RV size and function, mild MR and TR with pulmonary HTN Assessment: 71 year old female admitted with diarrhea and fever following chemo 5 days ago Plan: 1. Sepsis d/t E coli bacteremia - Transition to PO vantin 200mg BID x7 days 2. Asymptomatic tachycardia - Losartan 50mg daily - Lopressor 25mg BID 3. Non small cell carcinoma - Albuterol nebs - Granix 3/ - Mgmt per Heme/onc 4. HTN - Stop HCTZ - Losartan 50mg - Lopressor 25mg BID 5. COPD - Stable 6. CAD s/p stents - ASA daily - Trilipix 7. DVT - Lovenox sq Dispo: - DC home tomorrow with oxygen and VNS Problem List - Problems (1) Diarrhea Code(s): R19.7 - [place], UNSPECIFIED (2) Fever Code(s): R50.9 - FEVER, UNSPECIFIED Qualifiers: Fever type: unspecified Qualified Code(s): R50.9 - Fever, unspecified (3) Leukopenia Code(s): D72.819 - DECREASED WHITE BLOOD CELL COUNT, UNSPECIFIED Qualifiers: Leukopenia type: unspecified Qualified Code(s): D72.819 - Decreased white blood cell count, unspecified Visit type - Emergency Visit Emergency Visit: Yes ED Registration Date: 05/01/17 Care time: The patient presented to the Emergency Department on the above date and was hospitalized for further evaluation of their emergent condition. - New Patient This patient is new to me today: No - Critical Care Critical Care patient: No
[2017-05-08] MEDS: MIRTAZAPINE 15 MG TABLET (FP) PO SCH (21:05)
[2017-05-08] MEDS: [UNRECOGNIZED DRUG - OTHER] PO SCH (21:07)
[2017-05-09] MEDS: CEFAZOLIN 2 GM/D5W 2 GM/50 ML ML IVPB SCH ×3 (03:32→17:31)
[2017-05-09 07:40] LABS: HEMATOCRIT 24.7 % (32.4-45.2); HEMOGLOBIN 8.2 GM/dL (10.7-15.3); MCH 34.1 pg (25.7-33.7); MEAN CELL VOLUME 103.3 fl (80-96); MEAN PLT VOLUME 11.2 fl (7.5-11.1); PLATELET COUNT 107 K/MM3 (134-434); RBC 2.39 M/mm3 (3.60-5.2); RDW 16.1 % (11.6-15.6); WHITE BLOOD COUNT 3.2 K/mm3 (4.0-10.0)
[2017-05-09] MEDS: ALBUTEROL SO4 0.083% IH SOL 2.5 MG/3 ML VIAL.NEB. NEB SCH ×3 (08:40→16:42)
[2017-05-09 09:25] LABS: ANISOCYTOSIS 1+; MACROCYTOSIS 1+; PLATELET ESTIMATE DECREASED
[2017-05-09] MEDS: ENOXAPARIN NA (PORCINE) 40 MG/0.4 ML DISP.SYRIN SQ SCH (10:03)
[2017-05-09] MEDS: LOSARTAN POTASSIUM 50 MG TABLET (FP) PO SCH (10:03)
[2017-05-09] MEDS: METOPROLOL TARTRATE 25 MG TABLET (FP) PO SCH (10:03)
[2017-05-09] MEDS: FENOFIBRIC ACID 135 MG CAP PO SCH (10:04)
[2017-05-09] MEDS: TIOTROPIUM BROMIDE 18 MCG/INH (DEVICE W/ 5 CAPSULES) IH SCH (10:06)
--- NOTE | 2017-05-09 10:33 | PN ---
Progress Note, Physician History of Present Illness: Low grade fevers. - Current Medication List Current Medications: Active Medications Acetaminophen (Tylenol -) 650 mg PO Q4H PRN PRN Reason: FEVER Last Admin: 05/07/17 22:19 Dose: 650 mg Albuterol Sulfate (Ventolin 0.083% Nebulizer Soln -) 1 amp NEB RQID [facility] Last Admin: 05/08/17 20:15 Dose: 1 amp Enoxaparin Sodium (Lovenox -) 40 mg SQ DAILY [facility] Last Admin: 05/09/17 10:03 Dose: 40 mg Fenofibric Acid (Trilipix -) 135 mg PO DAILY [facility] Last Admin: 05/09/17 10:04 Dose: 135 mg Cefazolin Sodium/Dextrose (Ancef 2 Gm Premixed Ivpb -) 2 gm in 50 mls @ 100 mls /hr IVPB Q8H-IV [facility] Last Admin: 05/09/17 10:03 Dose: 100 mls/hr Losartan Potassium (Cozaar -) 50 mg PO DAILY [facility] Last Admin: 05/09/17 10:03 Dose: 50 mg Metoprolol Tartrate (Lopressor -) 25 mg PO BID [facility] Last Admin: 05/09/17 10:03 Dose: 25 mg Mirtazapine (Remeron -) 15 mg PO HS [facility] Last Admin: 05/08/17 21:05 Dose: 15 mg Ptnt's Own Med ( Elviteg/Cob/Emtri/Tenof Alafen [ Genvoya] 1 each PO HS [facility] Last Admin: 05/08/17 21:07 Dose: 1 each Tiotropium [place] (Spiriva -) 1 puff IH DAILY [facility] Last Admin: 05/09/17 10:06 Dose: 1 puff Zolpidem Tartrate (Ambien -) 5 mg PO HS PRN PRN Reason: INSOMNIA Last Admin: 05/08/17 21:05 Dose: 5 mg - Objective Vital Signs: Vital Signs Temperature 100.3 F H 05/09/17 06:00 Pulse Rate 115 H 05/09/17 06:00 Respiratory Rate 20 05/09/17 06:00 Blood Pressure 130/78 05/09/17 06:00 O2 Sat by Pulse Oximetry (%) 93 L 05/08/17 21:00 Constitutional: Yes: No Distress, Calm Neck: Yes: Supple Cardiovascular: Yes: Tachycardia Respiratory: Yes: Regular, Diminished Gastrointestinal: Yes: Normal Bowel Sounds, Soft Edema: No Labs: CBC, BMP 05/09/17 06:00 05/08/17 10:35 INR, PTT INR 1.12 (0.82-1.09) 05/01/17 11:11 Problem List - Problems (1) Gram-negative bacteremia Code(s): R78.81 - BACTEREMIA (2) UTI (urinary tract infection) Code(s): N39.0 - URINARY TRACT INFECTION, SITE NOT SPECIFIED Qualifiers: Urinary tract infection type: site unspecified (3) Non-small cell carcinoma of lung Code(s): C34.90 - MALIGNANT NEOPLASM OF UNSP PART OF UNSP BRONCHUS OR LUNG (4) COPD (chronic obstructive pulmonary disease) Code(s): J44.9 - CHRONIC OBSTRUCTIVE PULMONARY DISEASE, UNSPECIFIED Qualifiers: COPD type: unspecified COPD Qualified Code(s): J44.9 - Chronic obstructive pulmonary disease, unspecified (5) Human immunodeficiency virus (HIV) disease Code(s): B20 - HUMAN IMMUNODEFICIENCY VIRUS [HIV] DISEASE (6) Hypertension, benign Code(s): I10 - ESSENTIAL (PRIMARY) HYPERTENSION (7) Tobacco use disorder Code(s): Z72.0 - TOBACCO USE Assessment/Plan Echocardiography performed yesterday revealed normal LV and RV size and function , mild MR and TR with pulmonary HTN 05/06/2017 Holter: SR, occ PAC, PVC 1. Asymptomatic tachycardia probable sinus tachycardia due to current clinical presentation with fever and E. coli sepsis 2/2 UTI 2. History of HTN 3. Post neutropenia now improved 4. CAD post PCI/stent angina pectoris 5. Diastolic dysfunction with chronic class 0 NYHA classifcation LV failure 6. Hyperlipidemia 7. Non small cell lung carcinoma, currently receiving chemotherapy/radiation therapy 8. COPD 9. HIV on HAART 10. Anemia/thrombocytopenia PLAN: 1. Continue Lopressor 25 bid and Losartan 50 qd 2. Continue Trilipix 135 qd 3. Resume ASA 81 qd as thrombocytopenia resolving 4. DVT prophylaxis 5. Complete antibiotic course per ID 6. Continue HIV treatment
[2017-05-09] MEDS ORDERED: PT OWN MED DRAWER 7, Y5N ONE ×2 (10:45→15:10)
--- NOTE | 2017-05-09 10:54 | PN ---
Progress Note (short form) - Note Progress Note: PULMONARY OFFERS NO COMPLAINTS APPEARS COMFORTABLE VSS/LOW GRADE TEMP ANICTERIC/PALE MINIMAL RHONCHI LEFT BASE S1S2 BS+ NO EDEMA CXR:LEFT MID LUNG LINEAR ATELECTASIS MEDS/NOTES/LABS/MICRO UTI E Coli Bacteremia Sepsis Pancytopenia NSCLC on chemo COPD HIV CAD - antibiotics as per primary team - subsequent cultures are negative - inhaled bronchodilators - O2 to keep SpO2 >90% - DVT prophylaxis Becca QURESHI MD
--- NOTE | 2017-05-09 11:33 | PN ---
Progress Note (short form) - Note Progress Note: Patient seen and examined continues to feel better. Has temp of 100.3 Cor: RSR, No murmurs, No gallops Lungs: Clear to P&A Abd: Soft, Normal bowel sounds, No organomegaly Ext: 1+ edema Last Vital Signs Temp Pulse Resp BP Pulse Ox 100.3 F H 115 H 20 130/78 93 L 05/09/17 06:00 05/09/17 06:00 05/09/17 06:00 05/09/17 06:00 05/08/17 21:00 CBC, BMP 05/09/17 06:00 05/08/17 10:35 Current Medications Generic Name Dose Route Start Last Admin Trade Name Freq PRN Reason Stop Dose Admin Acetaminophen 650 mg 05/06/17 19:41 05/07/17 22:19 Tylenol - PO 650 mg Q4H PRN Administration FEVER Albuterol Sulfate 1 amp 05/06/17 20:00 05/08/17 20:15 Ventolin 0.083% Nebulizer Soln - NEB 1 amp RQID [facility] Administration Aspirin 81 mg 05/10/17 10:00 Asa - PO DAILY [facility] Enoxaparin Sodium 40 mg 05/07/17 10:00 05/09/17 10:03 Lovenox - SQ 40 mg DAILY [facility] Administration Fenofibric Acid 135 mg 05/07/17 10:00 05/09/17 10:04 Trilipix - PO 135 mg DAILY [facility] Administration Cefazolin Sodium/Dextrose 2 gm in 50 mls @ 100 mls/hr 05/05/17 18:00 10:03 Ancef 2 Gm Premixed Ivpb - IVPB 100 mls/hr Q8H-IV [facility] Administration Losartan Potassium 50 mg 05/06/17 10:00 05/09/17 10:03 Cozaar - PO 50 mg DAILY [facility] Administration Metoprolol Tartrate 25 mg 05/05/17 12:45 05/09/17 10:03 Lopressor - PO 25 mg BID [facility] Administration Mirtazapine 15 mg 05/06/17 22:00 05/08/17 21:05 Remeron - PO 15 mg HS [facility] Administration Ptnt's Own Med ( 1 each 05/03/17 22:00 05/08/17 21:07 Elviteg/Cob/Emtri/ PO 1 each Tenof Alafen [ HS [facility] Administration Genvoya] Tiotropium [place] 1 puff 05/03/17 13:00 05/09/17 10:06 Spiriva - IH 1 puff DAILY [facility] Administration Zolpidem Tartrate 5 mg 05/06/17 22:00 05/08/17 21:05 Ambien - PO 5 mg HS PRN Administration INSOMNIA A/P Bacteremia: G- On ancef pancytopenia: improved WBC stable platelets--monitor VSS: temp of 100.3 Lung Ca (NSCLC) on concurrent chemo/RT on carbo/taxol. treatment on hold due to ongoing infection DC When planned, to be on home O2. [facility]
--- NOTE | 2017-05-09 12:46 | DS ---
Physical Exam: SUBJECTIVE: Patient seen and examined OBJECTIVE: Vital Signs Period Temp Pulse Resp BP Sys/[place] Pulse Ox Last 24 Hr 98.8 F-100.3 F 92-115 20-20 116-130/69-78 93 PHYSICAL EXAM GENERAL: The patient is awake, alert, and fully oriented, in no acute distress. HEAD: Normal with no signs of trauma. EYES: PERRL, extraocular movements intact, sclera anicteric, conjunctiva clear. ENT: Ears normal, nares patent, oropharynx clear without exudates, moist mucous membranes. NECK: Trachea midline, full range of motion, supple. LUNGS: Breath sounds equal, clear to auscultation bilaterally, no wheezes, no crackles, no accessory muscle use. HEART: Regular rate and rhythm, S1, S2 without murmur, rub or gallop. ABDOMEN: Soft, nontender, nondistended, normoactive bowel sounds, no guarding, no rebound, no hepatosplenomegaly, no masses. EXTREMITIES: 2+ pulses, warm, well-perfused, no edema. NEUROLOGICAL: Cranial nerves II through XII grossly intact. Normal speech, gait not observed. PSYCH: Normal mood, normal affect. SKIN: Warm, dry, normal turgor, no rashes or lesions noted. LABS Laboratory Results - last 24 hr 05/09/17 06:00 WBC 3.2 L RBC 2.39 L Hgb 8.2 L Hct 24.7 L MCV 103.3 H MCH 34.1 H MCHC 33.0 RDW 16.1 H Plt Count 107 L D MPV 11.2 H D Neutrophils % No Result Required. Neutrophils % (Manual) 71.0 Band Neutrophils % 2.0 Lymphocytes % No Result Required. Lymphocytes % (Manual) 16.0 D Monocytes % (Manual) 9 Eosinophils % (Manual) 0.0 Basophils % (Manual) 0.0 Myelocytes % (Man) 1 Promyelocytes % (Man) 0 Blast Cells % (Manual) 0 Nucleated RBC % 1 H Metamyelocytes 0 D Platelet Estimate Decreased Polychromasia 1+ Anisocytosis 1+ Macrocytosis 1+ HOSPITAL COURSE: Date of Admission:05/01/17 Date of Discharge: 05/09/17 Discharge Summary Reason For Visit: FEVER; LEUKOPENIA Current Active Problems Diarrhea (Acute) Fever (Acute) Gram-negative bacteremia (Acute) Sinus tachycardia (Acute) UTI (urinary tract infection) (Acute) Leukopenia (Chronic) Condition: Stable - Instructions Diet, Activity, Other Instructions: Please return to the ED for any new, persistent, or worsening symptoms. Follow up with your PCP in 1 week Take home medications as directed Take new medications as directed Take antibiotics as directed and until completed Continue using oxygen Referrals: Leonid Fong MD [Staff Physician] - Rolo Pedro MD [Staff Physician] - Disposition: VNS/HOME HEALTH CARE - Home Medications Comprehensive Discharge Medication List: Ambulatory Orders Albuterol Sulfate Inhaler - [Ventolin HFA Inhaler -] 1 - 2 inh PO Q4H 05/01/17 Alendronate Na [Fosamax (Weekly)] 70 mg PO Q7D 05/01/17 Aspirin [ASA -] 81 mg PO DAILY 05/01/17 Beclomethasone Dipropionate [Qvar] 8.7 gm IH BID 05/01/17 Calcium Carbonate/Vitamin D3 [Calcium 600 + Vit D 400 Softgl] 1 each PO DAILY Cholecalciferol (Vitamin D3) [Vitamin D3] 5,000 unit PO WEEKLY 05/01/17 Elviteg/Cob/Emtri/Tenof Alafen [Genvoya (Non-Formulary)] 1 each PO HS 05/01/17 Fenofibrate Nanocrystallized [Triglide] 160 mg PO DAILY 05/01/17 Mirtazapine 15 mg PO HS 05/01/17 Multivitamin,Therapeutic [Thera] 1 each PO DAILY 05/01/17 Riddle-3/Dha/Epa/Fish Oil [Riddle 3 500 Softgel] 1 each PO BID 05/01/17 Umeclidinium [place] [Incruse Ellipta] 62.5 mcg IH DAILY 05/01/17 Zolpidem Tartrate [Ambien] 5 mg PO HS 05/01/17 Cefpodoxime Proxetil [Vantin -] 200 mg PO BID #14 tablet 05/09/17 Losartan Potassium [Cozaar -] 50 mg PO DAILY #30 tablet 05/09/17 Metoprolol Tartrate [Lopressor -] 25 mg PO BID #60 tablet 05/09/17 Walker [Ultra-Light Rollator] 1 each MC DAILY #1 each 05/09/17 Problem List - Problems (1) Diarrhea Code(s): R19.7 - DIARRHEA, UNSPECIFIED (2) Fever Code(s): R50.9 - FEVER, UNSPECIFIED Qualifiers: Fever type: unspecified Qualified Code(s): R50.9 - Fever, unspecified (3) Leukopenia Code(s): D72.819 - DECREASED WHITE BLOOD CELL COUNT, UNSPECIFIED Qualifiers: Leukopenia type: unspecified Qualified Code(s): D72.819 - Decreased white blood cell count, unspecified - Discharge Referral Referred to [facility] No
[2017-05-09 15:30] VITALS: PULSE 99
[2017-05-09 17:00] VITALS: BP 133/75; TEMP 98.5
[2017-05-10] MEDS ORDERED: ASPIRIN 81 MG CHEWABLE TABLETS PO SCH (10:00)
== END 2017-05-09 19:04 | disposition home health service (06) | DRG 872 ==
LOC: JER 09:34 → JERBED 17:24 → J5S 21:09 → J4W 05-03 07:03 → J8W 05-06 14:54
PROVIDERS: ADMIT Internal Medicine; ATTEND Nurse Practitioner Acute Care
DX: A41.51 Sepsis due to Escherichia coli [E. coli] (principal); C34.90 Malignant neoplasm of unspecified part of unspecified bronchus or lung; N39.0 Urinary tract infection, site not specified; I47.1 Supraventricular tachycardia; I25.110 Atherosclerotic heart disease of native coronary artery with unstable angina pectoris; D61.818 Other pancytopenia; D72.819 Decreased white blood cell count, unspecified; J44.9 Chronic obstructive pulmonary disease, unspecified; I10 Essential (primary) hypertension; E78.5 Hyperlipidemia, unspecified; E86.0 Dehydration; E87.6 Hypokalemia; I27.20 Pulmonary hypertension, unspecified; D69.6 Thrombocytopenia, unspecified; D64.9 Anemia, unspecified; D70.2 Other drug-induced agranulocytosis; R19.7 Diarrhea, unspecified; T45.1X5A Adverse effect of antineoplastic and immunosuppressive drugs, initial encounter; Z87.891 Personal history of nicotine dependence; Z95.5 Presence of coronary angioplasty implant and graft; Z21 Asymptomatic human immunodeficiency virus [HIV] infection status
CPT/HCPCS: 36415; 71045-TC-FY; 76775-TC; 76856-TC; 80048; 80053; 81003; 81015; 82550; 82803; 83605; 83735; 84100; 84443; 84484; 85025; 85027; 85610; 85730; 87040; 87086; 87186; 93005; 93010; 93225; 93226; 93306-TC; 94010; 94640; 94761; 97116-GP; 97161-GP; 99285-25; J1447

== ENCOUNTER → 2017-05-23 | Day surgery (SDC) | payer OTHER ==
[~2017-05-23] MED LIST: CARBOPLATIN IVPB ONE; DEXAMETHASONE INJECTION 10 MG, DIPHENHYDRAMINE 50 MG, RANITIDINE INJECTION 50 MG in SOD... IVPB ONE; PACLITAXEL 84 MG in SODIUM CHLORIDE 250 ML IVPB ONE; PALONOSETRON HCL 0.25 MG/5 ML VIAL IVPUSH ONE; SODIUM CHLORIDE IVPB ONE
[2017-05-23 09:59] VITALS: BP 161/92; PULSE 94; TEMP 97.6
[2017-05-23 10:19] LABS: HEMATOCRIT 31.4 % (32.4-45.2); HEMOGLOBIN 10.4 GM/dL (10.7-15.3); MCH 33.5 pg (25.7-33.7); MCHC 33.1 g/dl (32.0-36.0); MEAN CELL VOLUME 101.1 fl (80-96); MEAN PLT VOLUME 10.3 fl (7.5-11.1); PLATELET COUNT 191 K/MM3 (134-434); RBC 3.11 M/mm3 (3.60-5.2); RDW 16.8 % (11.6-15.6); WHITE BLOOD COUNT 2.4 K/mm3 (4.0-10.0)
[2017-05-23 10:40] LABS: ALBUMIN 3.2 g/dl (3.4-5.0); ALK PHOS 62 U/L (45-117); ANION GAP 6 (8-16); BILIRUBIN,TOTAL 0.3 mg/dL (0.2-1.0); BLOOD UREA NITROGEN 16 mg/dL (7-18); CALCIUM 10.3 mg/dL (8.5-10.1); CHLORIDE 101 mmol/L (98-107); CO2 31 mmol/L (21-32); CREATININE 0.8 mg/dL (0.55-1.02); GLUCOSE,RANDOM 109 mg/dL (74-106); POTASSIUM 4.1 mmol/L (3.5-5.1); SGOT/AST 18 U/L (15-37); SGPT/ALT 9 U/L (12-78); SODIUM 138 mmol/L (136-145); TOT PROT 6.7 g/dl (6.4-8.2)
[2017-05-23 12:12] LABS: BILIRUBIN,DIRECT < 0.2 mg/dL (0.0-0.2); MAGNESIUM 1.4 mg/dL (1.8-2.4)
[2017-05-23 12:42] LABS: ANISOCYTOSIS 1+; MACROCYTOSIS 1+; PLATELET ESTIMATE NORMAL
== END | disposition home or self-care (01) ==
LOC: JONCCHEMO 05-02 07:29
PROVIDERS: ATTEND Internal Medicine Hematology & Oncology
PROC: 0JPVXVZ Removal of Infusion Pump from Upper Extremity Subcutaneous Tissue and Fascia, External Approach (ICD-10-PCS; principal; 2017-05-23)
DX: Z53.8 Procedure and treatment not carried out for other reasons (principal)
CPT/HCPCS: 36415; 80053; 80076; 83735; 85025

== ENCOUNTER 2017-05-30 07:24 | Day surgery (SDC) | payer OTHER ==
[2017-05-30] MEDS ORDERED: PALONOSETRON HCL 0.25 MG/5 ML VIAL IVPUSH ONE (08:00)
[2017-05-30] MEDS ORDERED: DEXAMETHASONE INJECTION 10 MG, DIPHENHYDRAMINE 50 MG, RANITIDINE INJECTION 50 MG in SOD... IVPB ONE (08:00)
[2017-05-30] MEDS ORDERED: PACLITAXEL 84 MG in SODIUM CHLORIDE 250 ML IVPB ONE (08:30)
[2017-05-30] MEDS ORDERED: SODIUM CHLORIDE IVPB ONE (09:30)
[2017-05-30] MEDS ORDERED: CARBOPLATIN IVPB ONE (09:30)
[2017-05-30 10:54] LABS: HEMATOCRIT 34.7 % (32.4-45.2); HEMOGLOBIN 11.5 GM/dL (10.7-15.3); MCH 33.2 pg (25.7-33.7); MCHC 33.2 g/dl (32.0-36.0); MEAN PLT VOLUME 10.4 fl (7.5-11.1); PLATELET COUNT 196 K/MM3 (134-434); RBC 3.47 M/mm3 (3.60-5.2); RDW 15.6 % (11.6-15.6)
[2017-05-30 11:31] LABS: ALBUMIN 3.4 g/dl (3.4-5.0); ANION GAP 9 (8-16); BILIRUBIN,TOTAL 0.4 mg/dL (0.2-1.0); BLOOD UREA NITROGEN 21 mg/dL (7-18); CALCIUM 10.2 mg/dL (8.5-10.1); CHLORIDE 101 mmol/L (98-107); CO2 30 mmol/L (21-32); CREATININE 0.8 mg/dL (0.55-1.02); GLUCOSE,RANDOM 109 mg/dL (74-106); SGPT/ALT 11 U/L (12-78); SODIUM 140 mmol/L (136-145)
[2017-05-30 11:32] LABS: ALK PHOS 62 U/L (45-117); TOT PROT 7.2 g/dl (6.4-8.2)
[2017-05-30 11:57] LABS: PLATELET ESTIMATE NORMAL
[2017-05-30 12:15] LABS: ALBUMIN 3.4 g/dl (3.4-5.0); ALK PHOS 61 U/L (45-117); BILIRUBIN,TOTAL 0.4 mg/dL (0.2-1.0); SGPT/ALT 10 U/L (12-78); TOT PROT 7.1 g/dl (6.4-8.2)
[2017-05-30 12:21] LABS: BILIRUBIN,DIRECT < 0.2 mg/dL (0.0-0.2); MAGNESIUM 1.8 mg/dL (1.8-2.4); SGOT/AST 27 U/L (15-37)
[2017-05-30 12:22] LABS: POTASSIUM 4.5 mmol/L (3.5-5.1); SGOT/AST 26 U/L (15-37)
[2017-05-30 16:09] VITALS: PULSE 93; TEMP 97.3
[2017-05-30] MEDS ORDERED: PORTA CATH FLUSH 10 ML IVPUSH ONE (16:09)
[2017-05-30 16:12] VITALS: BP 153/89
== END 2017-05-30 14:10 | disposition home or self-care (01) ==
LOC: JONCCHEMO 07:24 → J7W 10:28 → JONCCHEMO 14:10
PROVIDERS: ATTEND Internal Medicine Hematology & Oncology
DX: Z51.11 Encounter for antineoplastic chemotherapy (principal); C34.11 Malignant neoplasm of upper lobe, right bronchus or lung
CPT/HCPCS: 36415; 80053; 80076; 83735; 85025; 96367; 96375; 96413; 96417; J1100; J2469

== ENCOUNTER 2017-06-06 07:17 | Day surgery (SDC) | payer OTHER ==
[2017-06-06] MEDS ORDERED: PALONOSETRON HCL 0.25 MG/5 ML VIAL IVPUSH ONE (08:00)
[2017-06-06] MEDS ORDERED: DEXAMETHASONE INJECTION 10 MG, DIPHENHYDRAMINE 50 MG, RANITIDINE INJECTION 50 MG in SOD... IVPB ONE (08:00)
[2017-06-06] MEDS ORDERED: PACLITAXEL 84 MG in SODIUM CHLORIDE 250 ML IVPB ONE (08:30)
[2017-06-06] MEDS ORDERED: SODIUM CHLORIDE IVPB ONE (09:30)
[2017-06-06] MEDS ORDERED: CARBOPLATIN IVPB ONE (09:30)
[2017-06-06 10:25] LABS: HEMATOCRIT 33.6 % (32.4-45.2); HEMOGLOBIN 10.9 GM/dL (10.7-15.3); MCH 32.7 pg (25.7-33.7); MCHC 32.6 g/dl (32.0-36.0); MEAN CELL VOLUME 100.4 fl (80-96); MEAN PLT VOLUME 10.3 fl (7.5-11.1); PLATELET COUNT 150 K/MM3 (134-434); RBC 3.35 M/mm3 (3.60-5.2); RDW 15.4 % (11.6-15.6); WHITE BLOOD COUNT 2.5 K/mm3 (4.0-10.0)
[2017-06-06 10:45] LABS: ALBUMIN 3.2 g/dl (3.4-5.0); ALK PHOS 62 U/L (45-117); ANION GAP 4 (8-16); BILIRUBIN,DIRECT < 0.2 mg/dL (0.0-0.2); BILIRUBIN,TOTAL 0.2 mg/dL (0.2-1.0); BLOOD UREA NITROGEN 24 mg/dL (7-18); CALCIUM 9.6 mg/dL (8.5-10.1); CHLORIDE 102 mmol/L (98-107); CO2 33 mmol/L (21-32); CREATININE 0.7 mg/dL (0.55-1.02); GLUCOSE,RANDOM 101 mg/dL (74-106); MAGNESIUM 1.7 mg/dL (1.8-2.4); POTASSIUM 4.8 mmol/L (3.5-5.1); SGOT/AST 15 U/L (15-37); SGPT/ALT 8 U/L (12-78); SODIUM 139 mmol/L (136-145); TOT PROT 6.3 g/dl (6.4-8.2)
[2017-06-06] MEDS ORDERED: MAGNESIUM SULF 50% (8.12 MEQ/2 ML-1 GM VIAL) IVPB ONE (11:30)
[2017-06-06] MEDS ORDERED: MAGNESIUM 1GM/D5W - 1 GM/100 ML IVPB IVPB ONE (11:30)
[2017-06-06 13:00] LABS: MACROCYTOSIS 1+; PLATELET ESTIMATE NORMAL
[2017-06-06] MEDS ORDERED: TBO-FILGRASTIM 480 MCG/0.8 ML DISP.SYRIN SQ ONE (14:15)
[2017-06-06 16:03] VITALS: TEMP 97.7
[2017-06-06] MEDS ORDERED: PORTA CATH FLUSH 10 ML IVPUSH ONE (16:03)
[2017-06-06 16:04] VITALS: BP 143/79; PULSE 90
== END 2017-06-06 14:30 | disposition home or self-care (01) ==
LOC: JONCCHEMO 07:17 → J7W 11:23 → JONCCHEMO 14:30
PROVIDERS: ATTEND Internal Medicine Hematology & Oncology
PROC: 3E043GC Introduction of Other Therapeutic Substance into Central Vein, Percutaneous Approach (ICD-10-PCS; principal; 2017-06-06)
PROC: 3E013GC Introduction of Other Therapeutic Substance into Subcutaneous Tissue, Percutaneous Approach (ICD-10-PCS; 2017-06-06)
DX: C34.11 Malignant neoplasm of upper lobe, right bronchus or lung (principal); Z76.89 Persons encountering health services in other specified circumstances
CPT/HCPCS: 36415; 80053; 80076; 83735; 85025; 96372; 96417; J1447

== ENCOUNTER 2017-06-13 07:22 | Day surgery (SDC) | payer OTHER ==
[2017-06-13] MEDS ORDERED: PALONOSETRON HCL 0.25 MG/5 ML VIAL IVPUSH ONE (08:00)
[2017-06-13] MEDS ORDERED: DEXAMETHASONE INJECTION 10 MG, DIPHENHYDRAMINE 50 MG, RANITIDINE INJECTION 50 MG in SOD... IVPB ONE (08:00)
[2017-06-13] MEDS ORDERED: PACLITAXEL 84 MG in SODIUM CHLORIDE 250 ML IVPB ONE (08:30)
[2017-06-13 08:45] LABS: BASO % 1.5 % (0-2.0); EOS % 2.5 % (0-4.5); HEMATOCRIT 31.4 % (32.4-45.2); HEMOGLOBIN 10.4 GM/dL (10.7-15.3); LYMPH % 35.7 % (8-40); MCHC 33.2 g/dl (32.0-36.0); MEAN CELL VOLUME 99.4 fl (80-96); MEAN PLT VOLUME 9.6 fl (7.5-11.1); NEUT % 51.3 % (42.8-82.8); PLATELET COUNT 152 K/MM3 (134-434); RBC 3.15 M/mm3 (3.60-5.2); RDW 15.5 % (11.6-15.6)
[2017-06-13 08:51] LABS: WHITE BLOOD COUNT 0.8 K/mm3 (4.0-10.0)
[2017-06-13 09:10] LABS: ALBUMIN 3.4 g/dl (3.4-5.0); ANION GAP 6 (8-16); BILIRUBIN,DIRECT 0.2 mg/dL (0.0-0.2); BLOOD UREA NITROGEN 23 mg/dL (7-18); CALCIUM 10.4 mg/dL (8.5-10.1); CHLORIDE 101 mmol/L (98-107); CO2 32 mmol/L (21-32); GLUCOSE,RANDOM 108 mg/dL (74-106); MAGNESIUM 1.7 mg/dL (1.8-2.4); POTASSIUM 4.8 mmol/L (3.5-5.1); SGOT/AST 16 U/L (15-37); SGPT/ALT 10 U/L (12-78); SODIUM 139 mmol/L (136-145)
[2017-06-13 09:12] LABS: ALK PHOS 58 U/L (45-117); BILIRUBIN,TOTAL 0.6 mg/dL (0.2-1.0); TOT PROT 6.5 g/dl (6.4-8.2)
[2017-06-13] MEDS ORDERED: CARBOPLATIN IVPB ONE (09:30)
[2017-06-13] MEDS ORDERED: SODIUM CHLORIDE IVPB ONE (09:30)
[2017-06-13] MEDS ORDERED: D5-1/2NS+20 MEQ KCL - 20 MEQ/1,000 ML INFUS.BAG IV SCH (10:00)
[2017-06-13] MEDS ORDERED: TBO-FILGRASTIM 480 MCG/0.8 ML DISP.SYRIN SQ ONE (10:00)
[2017-06-13] MEDS ORDERED: MAGNESIUM 2GM/50ML STERILE WATER IVPB IVPB ONE (11:30)
[2017-06-13 15:48] VITALS: BP 134/84; PULSE 103; TEMP 97.4
== END 2017-06-13 15:15 | disposition home or self-care (01) ==
LOC: JONCCHEMO 07:22 → J7W 09:14 → JONCCHEMO 15:15
PROVIDERS: ATTEND Internal Medicine Hematology & Oncology
PROC: 3E043GC Introduction of Other Therapeutic Substance into Central Vein, Percutaneous Approach (ICD-10-PCS; principal; 2017-06-13)
PROC: 3E043GC Introduction of Other Therapeutic Substance into Central Vein, Percutaneous Approach (ICD-10-PCS; 2017-06-13)
PROC: 3E013GC Introduction of Other Therapeutic Substance into Subcutaneous Tissue, Percutaneous Approach (ICD-10-PCS; 2017-06-13)
DX: C34.11 Malignant neoplasm of upper lobe, right bronchus or lung (principal); Z76.89 Persons encountering health services in other specified circumstances
CPT/HCPCS: 36415; 80053; 80076; 83735; 85025; 96361; 96365; 96372; J1447

== ENCOUNTER 2017-06-20 09:08 | Day surgery (SDC) | payer OTHER ==
[2017-06-20 09:48] LABS: HEMATOCRIT 29.5 % (32.4-45.2); HEMOGLOBIN 9.8 GM/dL (10.7-15.3); MCH 32.9 pg (25.7-33.7); MCHC 33.3 g/dl (32.0-36.0); MEAN CELL VOLUME 98.8 fl (80-96); MEAN PLT VOLUME 10.8 fl (7.5-11.1); PLATELET COUNT 141 K/MM3 (134-434); RBC 2.99 M/mm3 (3.60-5.2); RDW 15.6 % (11.6-15.6); WHITE BLOOD COUNT 2.2 K/mm3 (4.0-10.0)
[2017-06-20 10:16] LABS: ALBUMIN 3.1 g/dl (3.4-5.0); ALK PHOS 54 U/L (45-117); ANION GAP 5 (8-16); BILIRUBIN,TOTAL 0.2 mg/dL (0.2-1.0); BLOOD UREA NITROGEN 27 mg/dL (7-18); CALCIUM 9.5 mg/dL (8.5-10.1); CHLORIDE 103 mmol/L (98-107); CO2 29 mmol/L (21-32); CREATININE 0.9 mg/dL (0.55-1.02); GLUCOSE,RANDOM 115 mg/dL (74-106); POTASSIUM 4.2 mmol/L (3.5-5.1); SGOT/AST 13 U/L (15-37); SGPT/ALT 10 U/L (12-78); SODIUM 137 mmol/L (136-145); TOT PROT 6.5 g/dl (6.4-8.2)
[2017-06-20 10:28] LABS: BILIRUBIN,DIRECT < 0.2 mg/dL (0.0-0.2); MAGNESIUM 1.9 mg/dL (1.8-2.4)
[2017-06-20] MEDS ORDERED: D5-1/2NS+20 MEQ KCL - 20 MEQ/1,000 ML INFUS.BAG IV SCH (11:30)
[2017-06-20 11:38] LABS: ANISOCYTOSIS 1+; MACROCYTOSIS 1+; OVALOCYTE 1+
[2017-06-20] MEDS ORDERED: TBO-FILGRASTIM 480 MCG/0.8 ML DISP.SYRIN SQ ONE (11:45)
--- NOTE | 2017-06-20 14:49 | EKG ---
Test Reason : Blood Pressure : / mmHG Vent. Rate : 127 BPM Atrial Rate : 127 BPM P-R Int : 000 ms QRS Dur : 084 ms QT Int : 304 ms P-R-T Axes : -29 -41 071 degrees QTc Int : 441 ms SINUS TACHYCARDIA LEFT AXIS DEVIATION ABNORMAL ECG WHEN COMPARED WITH ECG OF 05-MAY-2017 02:38, ST NO LONGER DEPRESSED IN ANTERIOR LEADS Confirmed by JENN PEÑA MD ([id number]) on 06/20/2017 2:49:28 PM Referred By: Confirmed By:JENN PEÑA MD
[2017-06-20 16:46] VITALS: TEMP 97.4
[2017-06-20] MEDS ORDERED: PORTA CATH FLUSH 10 ML IVPUSH ONE (16:46)
[2017-06-20 16:49] VITALS: BP 145/85; PULSE 104
== END 2017-06-20 14:15 | disposition home or self-care (01) ==
LOC: JONCCHEMO 09:08 → J7W 11:07 → JONCCHEMO 14:15
PROVIDERS: ATTEND Internal Medicine Hematology & Oncology
PROC: 3E04329 Introduction of Other Anti-infective into Central Vein, Percutaneous Approach (ICD-10-PCS; principal; 2017-06-20)
PROC: 3E013GC Introduction of Other Therapeutic Substance into Subcutaneous Tissue, Percutaneous Approach (ICD-10-PCS; 2017-06-20)
DX: C34.11 Malignant neoplasm of upper lobe, right bronchus or lung (principal); Z76.89 Persons encountering health services in other specified circumstances
CPT/HCPCS: 36415; 80053; 80076; 83735; 85025; 93005; 93010; 93970-TC; 96360; 96361; 96372; J1447

== ENCOUNTER 2017-06-26 07:25 | Day surgery (SDC) | payer OTHER ==
[2017-06-26] MEDS ORDERED: DEXAMETHASONE INJECTION 10 MG, DIPHENHYDRAMINE 50 MG, RANITIDINE INJECTION 50 MG in SOD... IVPB ONE (10:00)
[2017-06-26] MEDS ORDERED: PALONOSETRON HCL 0.25 MG/5 ML VIAL IVPUSH ONE (10:00)
[2017-06-26 10:16] LABS: BASO % 0.6 % (0-2.0); EOS % 0.6 % (0-4.5); HEMATOCRIT 28.1 % (32.4-45.2); HEMOGLOBIN 9.3 GM/dL (10.7-15.3); LYMPH % 8.2 % (8-40); MCH 32.8 pg (25.7-33.7); MCHC 33.1 g/dl (32.0-36.0); MEAN CELL VOLUME 99.1 fl (80-96); MEAN PLT VOLUME 9.1 fl (7.5-11.1); NEUT % 75.6 % (42.8-82.8); PLATELET COUNT 175 K/MM3 (134-434); RBC 2.83 M/mm3 (3.60-5.2); RDW 15.9 % (11.6-15.6); WHITE BLOOD COUNT 4.7 K/mm3 (4.0-10.0)
[2017-06-26] MEDS ORDERED: PACLITAXEL 84 MG in SODIUM CHLORIDE 250 ML IVPB ONE (10:30)
[2017-06-26 10:42] LABS: ALBUMIN 2.9 g/dl (3.4-5.0); ALK PHOS 53 U/L (45-117); ANION GAP 5 (8-16); BILIRUBIN,DIRECT < 0.2 mg/dL (0.0-0.2); BILIRUBIN,TOTAL 0.2 mg/dL (0.2-1.0); BLOOD UREA NITROGEN 15 mg/dL (7-18); CALCIUM 9.4 mg/dL (8.5-10.1); CHLORIDE 105 mmol/L (98-107); CO2 28 mmol/L (21-32); CREATININE 0.8 mg/dL (0.55-1.02); GLUCOSE,RANDOM 111 mg/dL (74-106); MAGNESIUM 1.8 mg/dL (1.8-2.4); POTASSIUM 4.4 mmol/L (3.5-5.1); SGOT/AST 15 U/L (15-37); SGPT/ALT 7 U/L (12-78); SODIUM 138 mmol/L (136-145); TOT PROT 6.1 g/dl (6.4-8.2)
[2017-06-26] MEDS ORDERED: CARBOPLATIN IVPB ONE (11:30)
[2017-06-26] MEDS ORDERED: SODIUM CHLORIDE IVPB ONE (11:30)
[2017-06-26 16:41] VITALS: TEMP 98.3
[2017-06-26 16:44] VITALS: BP 155/88; PULSE 109
[2017-06-26] MEDS ORDERED: PORTA CATH FLUSH 10 ML IVPUSH ONE (17:00)
== END 2017-06-26 15:00 | disposition home or self-care (01) ==
LOC: JONCCHEMO 07:25 → J7W 10:55 → JONCCHEMO 15:00
PROVIDERS: ATTEND Internal Medicine Hematology & Oncology
DX: Z51.11 Encounter for antineoplastic chemotherapy (principal); C34.11 Malignant neoplasm of upper lobe, right bronchus or lung
CPT/HCPCS: 36415; 80053; 80076; 83735; 85025; 96367; 96375; 96413; 96417; J1100; J2469

== ENCOUNTER 2017-07-03 07:26 | Day surgery (SDC) | payer OTHER ==
[2017-07-03] MEDS ORDERED: DEXAMETHASONE INJECTION 10 MG, DIPHENHYDRAMINE 25 MG, RANITIDINE INJECTION 50 MG in SOD... IVPB ONE (10:00)
[2017-07-03] MEDS ORDERED: PALONOSETRON HCL 0.25 MG/5 ML VIAL IVPUSH ONE (10:00)
[2017-07-03 10:18] LABS: HEMATOCRIT 28.8 % (32.4-45.2); HEMOGLOBIN 9.4 GM/dL (10.7-15.3); MCH 32.6 pg (25.7-33.7); MCHC 32.7 g/dl (32.0-36.0); MEAN CELL VOLUME 99.8 fl (80-96); MEAN PLT VOLUME 10.2 fl (7.5-11.1); PLATELET COUNT 166 K/MM3 (134-434); RBC 2.89 M/mm3 (3.60-5.2); RDW 15.8 % (11.6-15.6); WHITE BLOOD COUNT 2.8 K/mm3 (4.0-10.0)
[2017-07-03] MEDS ORDERED: PACLITAXEL 84 MG in SODIUM CHLORIDE 250 ML IVPB ONE (10:30)
[2017-07-03 10:45] LABS: ALBUMIN 3.3 g/dl (3.4-5.0); ANION GAP 4 (8-16); BLOOD UREA NITROGEN 28 mg/dL (7-18); CALCIUM 9.5 mg/dL (8.5-10.1); CHLORIDE 103 mmol/L (98-107); CO2 31 mmol/L (21-32); CREATININE 0.9 mg/dL (0.55-1.02); GLUCOSE,RANDOM 98 mg/dL (74-106); POTASSIUM 4.5 mmol/L (3.5-5.1); SGOT/AST 16 U/L (15-37); SGPT/ALT 9 U/L (12-78); SODIUM 138 mmol/L (136-145)
[2017-07-03 10:47] LABS: ALK PHOS 43 U/L (45-117); BILIRUBIN,TOTAL 0.4 mg/dL (0.2-1.0); TOT PROT 6.3 g/dl (6.4-8.2)
[2017-07-03] MEDS ORDERED: SODIUM CHLORIDE IVPB ONE (11:30)
[2017-07-03] MEDS ORDERED: CARBOPLATIN IVPB ONE (11:30)
[2017-07-03 11:40] LABS: MACROCYTOSIS 1+; OVALOCYTE 1+; TEAR DROP CELLS 1+
[2017-07-03 12:54] LABS: BILIRUBIN,DIRECT 0.2 mg/dL (0.0-0.2); MAGNESIUM 1.7 mg/dL (1.8-2.4)
[2017-07-03 16:07] VITALS: TEMP 97.8
[2017-07-03 16:13] VITALS: BP 104/67; PULSE 100
[2017-07-03] MEDS ORDERED: PORTA CATH FLUSH 10 ML IVPUSH ONE (16:13)
== END 2017-07-03 14:30 | disposition home or self-care (01) ==
LOC: JONCCHEMO 07:26 → J7W 10:34 → JONCCHEMO 14:30
PROVIDERS: ATTEND Internal Medicine Hematology & Oncology
PROC: 3E04305 Introduction of Other Antineoplastic into Central Vein, Percutaneous Approach (ICD-10-PCS; principal; 2017-07-03)
PROC: 3E033GC Introduction of Other Therapeutic Substance into Peripheral Vein, Percutaneous Approach (ICD-10-PCS; 2017-07-03)
DX: Z51.11 Encounter for antineoplastic chemotherapy (principal); C34.11 Malignant neoplasm of upper lobe, right bronchus or lung; I10 Essential (primary) hypertension; I25.10 Atherosclerotic heart disease of native coronary artery without angina pectoris; Z21 Asymptomatic human immunodeficiency virus [HIV] infection status; E78.00 Pure hypercholesterolemia, unspecified; J44.9 Chronic obstructive pulmonary disease, unspecified
CPT/HCPCS: 36415; 80053; 80076; 83735; 85025; 96367; 96375; 96413; 96415; 96417; J1100; J2469

== ENCOUNTER 2017-07-04 07:41 | Day surgery (SDC) | payer OTHER ==
[2017-07-04] MEDS ORDERED: TBO-FILGRASTIM 480 MCG/0.8 ML DISP.SYRIN SQ ONE (10:00)
[2017-07-04 17:01] VITALS: BP 138/81; PULSE 120; TEMP 98.2
== END 2017-07-04 09:30 | disposition home or self-care (01) ==
LOC: JONCCHEMO 07:41 → J7W 09:06 → JONCCHEMO 09:30
PROVIDERS: ATTEND Internal Medicine Hematology & Oncology
PROC: 3E023GC Introduction of Other Therapeutic Substance into Muscle, Percutaneous Approach (ICD-10-PCS; principal; 2017-07-04)
DX: C34.11 Malignant neoplasm of upper lobe, right bronchus or lung (principal); I10 Essential (primary) hypertension; I25.10 Atherosclerotic heart disease of native coronary artery without angina pectoris; Z21 Asymptomatic human immunodeficiency virus [HIV] infection status; E78.00 Pure hypercholesterolemia, unspecified; J44.9 Chronic obstructive pulmonary disease, unspecified
CPT/HCPCS: 96372; J1447

== ENCOUNTER 2017-07-10 07:31 | Day surgery (SDC) | payer OTHER ==
[2017-07-10] MEDS ORDERED: PALONOSETRON HCL 0.25 MG/5 ML VIAL IVPUSH ONE (10:00)
[2017-07-10] MEDS ORDERED: DEXAMETHASONE INJECTION 10 MG, DIPHENHYDRAMINE 25 MG, RANITIDINE INJECTION 50 MG in SOD... IVPB ONE (10:00)
[2017-07-10] MEDS ORDERED: PACLITAXEL 84 MG in SODIUM CHLORIDE 250 ML IVPB ONE (10:30)
[2017-07-10 11:00] LABS: BASO % 0.7 % (0-2.0); EOS % 0.5 % (0-4.5); HEMOGLOBIN 8.9 GM/dL (10.7-15.3); LYMPH % 19.8 % (8-40); MCHC 33.1 g/dl (32.0-36.0); MEAN CELL VOLUME 99.5 fl (80-96); MEAN PLT VOLUME 9.5 fl (7.5-11.1); MONO % 25.4 % (3.8-10.2); NEUT % 53.6 % (42.8-82.8); PLATELET COUNT 154 K/MM3 (134-434); RBC 2.71 M/mm3 (3.60-5.2); RDW 16.2 % (11.6-15.6)
[2017-07-10 11:14] LABS: WHITE BLOOD COUNT 1.4 K/mm3 (4.0-10.0)
[2017-07-10] MEDS ORDERED: SODIUM CHLORIDE IVPB ONE (11:30)
[2017-07-10] MEDS ORDERED: CARBOPLATIN IVPB ONE (11:30)
[2017-07-10] MEDS ORDERED: TBO-FILGRASTIM 480 MCG/0.8 ML DISP.SYRIN SQ ONE (12:15)
[2017-07-10 12:23] LABS: ALBUMIN 3.9 g/dl (3.4-5.0); ANION GAP 8 (8-16); BLOOD UREA NITROGEN 11 mg/dL (7-18); CALCIUM 8.4 mg/dL (8.5-10.1); CHLORIDE 104 mmol/L (98-107); CO2 27 mmol/L (21-32); GLUCOSE,RANDOM 94 mg/dL (74-106); POTASSIUM 3.9 mmol/L (3.5-5.1); SODIUM 139 mmol/L (136-145)
[2017-07-10 12:28] LABS: ALK PHOS 86 U/L (45-117); BILIRUBIN,TOTAL 0.4 mg/dL (0.2-1.0); CREATININE 1.2 mg/dL (0.55-1.02); SGOT/AST 15 U/L (15-37); SGPT/ALT 20 U/L (12-78)
[2017-07-10 16:22] VITALS: BP 130/88; PULSE 53; TEMP 97.5
[2017-07-11 00:23] LABS: ALBUMIN 3.5 g/dl (3.4-5.0); BILIRUBIN,DIRECT < 0.2 mg/dL (0.0-0.2); BILIRUBIN,TOTAL 0.3 mg/dL (0.2-1.0); MAGNESIUM 1.6 mg/dL (1.8-2.4); SGOT/AST 16 U/L (15-37); SGPT/ALT 8 U/L (12-78); TOT PROT 6.2 g/dl (6.4-8.2)
[2017-07-11 00:24] LABS: ALK PHOS 46 U/L (45-117)
== END 2017-07-10 12:00 | disposition home or self-care (01) ==
LOC: JONCCHEMO 07:31 → J7W 11:36 → JONCCHEMO 12:00
PROVIDERS: ATTEND Internal Medicine Hematology & Oncology
PROC: 3E013GC Introduction of Other Therapeutic Substance into Subcutaneous Tissue, Percutaneous Approach (ICD-10-PCS; principal; 2017-07-10)
DX: C34.11 Malignant neoplasm of upper lobe, right bronchus or lung (principal); I10 Essential (primary) hypertension; I25.10 Atherosclerotic heart disease of native coronary artery without angina pectoris; J44.9 Chronic obstructive pulmonary disease, unspecified; Z21 Asymptomatic human immunodeficiency virus [HIV] infection status; E78.00 Pure hypercholesterolemia, unspecified
CPT/HCPCS: 36415; 80053; 80076; 83735; 85025; 96372; J1447

== ENCOUNTER 2017-12-08 14:10 | Inpatient (IN) | payer OTHER ==
[2017-12-08] MEDS ORDERED: SODIUM CHLORIDE 1,000 ML IV STA ×2 (14:24→20:44)
[2017-12-08] MEDS ORDERED: dilTIAZem HCL 50 MG/10 ML - 10 ML VIAL IVPUSH ONE ×2 (14:42→15:27)
[2017-12-08] MEDS ORDERED: dilTIAZem HCL 125 MG/25 ML - 25 ML VIAL ONE (15:09)
[2017-12-08 15:10] LABS: BASO % 0.7 % (0-2.0); EOS % 0.2 % (0-4.5); HEMATOCRIT 41.8 % (32.4-45.2); HEMOGLOBIN 13.5 GM/dL (10.7-15.3); LYMPH % 7.1 % (8-40); MCHC 32.2 g/dl (32.0-36.0); MEAN CELL VOLUME 93.3 fl (80-96); MEAN PLT VOLUME 11.3 fl (7.5-11.1); MONO % 9.2 % (3.8-10.2); NEUT % 82.8 % (42.8-82.8); PLATELET COUNT 146 K/MM3 (134-434); RBC 4.48 M/mm3 (3.60-5.2); RDW 15.8 % (11.6-15.6); WHITE BLOOD COUNT 8.3 K/mm3 (4.0-10.0)
[2017-12-08 15:25] LABS: INR 1.13 (0.83-1.09); PROTHROMBIN TIME (PATIENT) 13.4 SEC (9.7-13.0)
[2017-12-08 15:27] LABS: ACTIVATED PTT 32.4 SECONDS (25.2-36.5)
[2017-12-08 15:47] LABS: ALBUMIN 2.5 g/dl (3.4-5.0); ALK PHOS 65 U/L (45-117); ANION GAP 3 MMOL/L (8-16); BILIRUBIN,TOTAL 1.6 mg/dL (0.2-1); BLOOD UREA NITROGEN 36 mg/dL (7-18); CALCIUM 10.4 mg/dL (8.5-10.1); CHLORIDE 103 mmol/L (98-107); CO2 29 mmol/L (21-32); GLUCOSE,RANDOM 137 mg/dL (74-106); N-TERMINAL BNP 18036.9 pg/ml (5-125); SGOT/AST 55 U/L (15-37); SGPT/ALT 19 U/L (13-61); SODIUM 134 mmol/L (136-145); TOT PROT 8.1 g/dl (6.4-8.2)
--- NOTE | 2017-12-08 15:47 | PDOC ---
History of Present Illness <Lora Cid - Last Filed: 12/08/17 18:41> - General History Source: Patient Exam Limitations: No Limitations - History of Present Illness Initial Comments: 12/08/17 15:46 *History obtained from daughter and patient 72yo f with HIV, lung adenocarcinoma s/p radiation and chemotherapy (last session in August 2017), COPD (uses 2L O2 at home) htn, hld, stent placement BIBA after being found on the floor by her couch. Per daughter, pt was last seen at around 5pm yesterday and she was on her couch. She was found on the floor by her godson at around 1pm today. Pt states she went to get up off the couch when she fell down. She admits to palpitations and cough. Denies headache, back pain , chest pain, abdominal pain, n/v/d, hemoptysis, leg pain/swelling, fevers. She is not taking blood thinners. She has not taken her HAART medications for the past few months, does not know what her current viral load is. PCP: Oncologist: Ajit PMH: see hpi PSH: cardiac stent 2014 Meds: see med rec Social: denies <Stacey Guardado - Last Filed: 12/09/17 00:42> - General Chief Complaint: Injury Stated Complaint: RAPID HEARTBEAT Time Seen by Provider: 12/08/17 14:22 Past History <Lora Cid - Last Filed: 12/08/17 18:41> - Past Medical History Anemia: No Asthma: Yes Cancer: Yes (lung ca - dx. 01/2017) Cardiac Disorders: Yes (cardiac stent - 2014) CVA: Yes COPD: Yes (05/24/15 CT chest:No acute pathology or change, 1 cm calc L lower lobe ) CHF: No Dementia: No Diabetes: No GI Disorders: No Disorders: No HTN: Yes Hypercholesterolemia: Yes Liver Disease: No Psychiatric Problems: No Seizures: No Thyroid Disease: No Other medical history: ARTHRITIS - Surgical History Abdominal Surgery: No Appendectomy: No Cardiac Surgery: Yes (CARDIAC STENT) Cholecystectomy: No Lung Surgery: No Neurologic Surgery: No Orthopedic Surgery: No - Immunization History Immunization Up to Date: (UNKNOWN) - Suicide/Smoking/Psychosocial Hx Smoking History: Former smoker Have you smoked in the past 12 months: No Number of Cigarettes Smoked Daily: 8 If you are a former smoker, when did you quit?: 7days Cigars Per Day: 0 Information on smoking cessation initiated: No 'Breaking Loose' booklet given: 05/01/17 Hx Alcohol Use: No Drug/Substance Use Hx: No Substance Use Type: Heroin Hx Substance Use Treatment: No <Stacey Guardado - Last Filed: 12/09/17 00:42> - Past Medical History Allergies/Adverse Reactions: Allergies Allergy/AdvReac Type Severity Reaction Status Date / Time procaine HCl [From Novocain] Allergy Unknown Swelling Verified 12/08/17 14:12 Home Medications: Ambulatory Orders Alendronate Na [Fosamax (Weekly)] 70 mg PO Q7D 05/01/17 Calcium Carbonate/Vitamin D3 [Calcium 600 + Vit D 400 Softgl] 1 each PO DAILY Cholecalciferol (Vitamin D3) [Vitamin D3] 5,000 unit PO WEEKLY 05/01/17 Lancets [Lancets Ultra Thin] 1 each MC TID #100 each 06/27/17 Albuterol Sulfate Inhaler - [Ventolin Hfa Inhaler -] 1 - 2 inh PO Q6H PRN Furosemide [Lasix -] 20 mg PO DAILY 07/05/17 Albuterol Sulfate Inhaler - [Ventolin HFA Inhaler -] 1 - 2 inh PO Q4H #3 each Aspirin [ASA -] 81 mg PO DAILY #90 tab.chew 09/25/17 Beclomethasone Dipropionate [Qvar] 8.7 gm IH BID #3 aer.w.adap 09/25/17 Clindamycin [Cleocin -] 300 mg PO TID #21 capsule 09/25/17 Elviteg/Cob/Emtri/Tenof Alafen [Genvoya (Non-Formulary)] 1 each PO HS #30 tablet 09/25/17 Fenofibrate Nanocrystallized [Triglide] 160 mg PO DAILY #90 tablet 09/25/17 L.acidoph,Paracasei, B.lactis [Probiotic] 1 each PO BID #30 capsule 09/25/17 Losartan Potassium [Cozaar -] 50 mg PO DAILY #90 tablet 09/25/17 Metoprolol Tartrate [Lopressor -] 25 mg PO BID #180 tablet 09/25/17 Mirtazapine 15 mg PO HS #30 tablet 09/25/17 Multivitamin,Therapeutic [Thera] 1 each PO DAILY #90 tablet 09/25/17 Umeclidinium [place] [Incruse Ellipta] 1 puff IH DAILY #3 blst.w.dev 09/25/17 Zolpidem Tartrate [Ambien] 5 mg PO HS #5 tablet MDD half tablet 09/25/17 Review of Systems - Review of Systems Able to Perform ROS?: Yes Is the patient limited Bahamian proficient: No Constitutional: No: Chills, Fever HEENTM: No: Recent change in vision, Nose Pain, Hearing Loss, Throat Pain Respiratory: Yes: Cough. No: Shortness of Breath, Hemoptysis Cardiac (ROS): Yes: Palpitations, Syncope. No: Chest Pain, Lightheadedness ABD/GI: No: Constipated, Diarrhea, Nausea, Vomiting, Abdominal cramping : No: Burning, Dysuria, Hematuria Musculoskeletal: No: Back Pain, Joint Pain, Muscle Pain, Neck Pain Integumentary: Yes: Dryness Neurological: No: Headache, Numbness, Tingling, Tremors Hematologic/Lymphatic: No: Blood Clots <Stacey Guardado - Last Filed: 12/09/17 00:42> *Physical Exam - Vital Signs Last Vital Signs Temp Pulse Resp BP Pulse Ox 98.4 F 122 H 22 H 157/94 98 12/08/17 14:16 12/08/17 18:15 12/08/17 18:15 12/08/17 18:15 12/08/17 18:15 <Lora Cid - Last Filed: 12/08/17 18:41> - Vital Signs Last Vital Signs Temp Pulse Resp BP Pulse Ox 98.4 F 120 H 22 H 142/102 H 100 12/08/17 14:16 12/08/17 15:35 12/08/17 15:35 12/08/17 15:35 12/08/17 15:35 - Physical Exam Comments: 12/08/17 21:07 Pt resting comfortably in bed, tachypneic General Appearance: Yes: Appropriately Dressed, Mild Distress, Cachetic, Thin HEENT: positive: EOMI, ISAEL, Pharynx Normal. negative: TMs Normal (L normal, R showed some erythema in ear canal with cerumen. No mastoid tenderness, ear tenderness), TM Bulging, TM Dull, TM Erythema Neck: positive: Trachea midline, Supple. negative: Carotid bruit, Lymphadenopathy (R), Lymphadenopathy (L) Respiratory/Chest: positive: Rapid RR, Crackles (in both lung arora), Rhonchi ( in L lung field). negative: Chest Tender, Lungs Clear, Normal Breath Sounds, Stridor, Wheezing Cardiovascular: positive: S1, S2, Tachycardia. negative: Edema, JVD, Murmur Vascular Pulses: Carotid (R): 2+, Carotid (L): 2+, Dorsalis-Pedis (R): 1+, Doralis-Pedis (L): 1+ Gastrointestinal/Abdominal: positive: Normal Bowel Sounds, Soft. negative: Distended, Guarding, Rebound, Tenderness Musculoskeletal: negative: CVA Tenderness (R), CVA Tenderness (L), Decreased Range of Motion Extremity: positive: Normal Capillary Refill, Pelvis Stable, Pedal Edema (edema up to ankles). negative: Coldness, Swelling, Calf Tenderness Integumentary: positive: Other (dry skin on face and arms. thickened lesion on doral aspect of feet, no bleeding) Neurologic: positive: microsoft dynamics manager architect II-XII NML intact, Fully Oriented, Alert, Normal Mood/ Affect, Normal Response. negative: Motor Strength 5/5 (motor strength 4/5 in legs bilaterally), Numbness, Sensory Deficit Deep Tendon Reflexes: Knee (L): 2+, Knee (R): 2+ <Stacey Guardado - Last Filed: 12/09/17 00:42> ED Treatment Course - LABORATORY CBC & Chemistry Diagram: 12/08/17 14:53 12/08/17 15:02 - ADDITIONAL ORDERS Additional order review: Laboratory Results 12/08/17 12/08/17 12/08/17 15:58 15:02 15:02 PT with INR INR PTT (Actin FS) Sodium Potassium Chloride Carbon Dioxide Anion Gap BUN Creatinine Creat Clearance w eGFR Random Glucose Calcium Magnesium Total Bilirubin AST ALT Alkaline Phosphatase Creatine Kinase Cancelled Troponin I B-Natriuretic Peptide Cancelled Total Protein Albumin TSH Urine Color Ayana Urine Appearance Cloudy Urine pH 8.0 D Ur Specific Holiday 1.016 Urine Protein 2+ H Urine Glucose (UA) Negative Urine Ketones Negative Urine Blood 2+ H Urine Nitrite Negative Urine Bilirubin Negative Urine Urobilinogen 4.0 e.u/dl H Ur Leukocyte Esterase 2+ H Urine WBC (Auto) 68 Urine RBC (Auto) 3 Urine Bacteria Rare Urine Mucus Rare 12/08/17 12/08/17 12/08/17 15:02 15:02 14:53 PT with INR 13.40 H INR 1.13 H PTT (Actin FS) 32.4 Sodium 134 L Potassium 6.0 H Chloride 103 Carbon Dioxide 29 Anion Gap 3 L BUN 36 H Creatinine 1.0 Creat Clearance w eGFR 54.81 Random Glucose 137 H Calcium 10.4 H Magnesium 2.0 Total Bilirubin 1.6 H AST 55 H ALT 19 Alkaline Phosphatase 65 Creatine Kinase 121 Troponin I 0.10 H B-Natriuretic Peptide 26142.9 H Total Protein 8.1 Albumin 2.5 L TSH Cancelled 0.30 L Urine Color Urine Appearance Urine pH Ur Specific Holiday Urine Protein Urine Glucose (UA) Urine Ketones Urine Blood Urine Nitrite Urine Bilirubin Urine Urobilinogen Ur Leukocyte Esterase Urine WBC (Auto) Urine RBC (Auto) Urine Bacteria Urine Mucus 12/08/17 14:53 RBC 4.48 MCV 93.3 MCHC 32.2 RDW 15.8 H D MPV 11.3 H Neutrophils % 82.8 D Lymphocytes % 7.1 L D Monocytes % 9.2 Eosinophils % 0.2 D Basophils % 0.7 - RADIOLOGY Radiology Studies Ordered: Category Date Time Status CHEST X-RAY PORTABLE* [RAD] Stat Radiology 12/08/17 14:25 Taken - Medications Given in the ED: ED Medications Discontinued Medications Generic Name Dose Route Start Last Admin Trade Name Dante PRN Reason Stop Dose Admin Calcium Gluconate 1,000 mg 12/08/17 16:18 12/08/17 18:34 Calcium Gluconate 10% - IVPB 12/08/17 16:19 1,000 mg ONCE ONE Administration Ceftriaxone Sodium 1,000 mg 12/08/17 17:41 12/08/17 18:22 Rocephin - IVPUSH 12/08/17 17:42 1,000 mg ONCE ONE Administration Dextrose 25 gm 12/08/17 18:20 12/08/17 18:34 D50w (Vial) - IVPUSH 12/08/17 18:21 25 gm NOW ONE Administration Diltiazem HCl 10 mg 12/08/17 14:42 12/08/17 15:10 Cardizem Injection - IVPUSH 12/08/17 14:43 10 mg ONCE ONE Administration Diltiazem HCl 10 mg 12/08/17 15:27 12/08/17 15:37 Cardizem Injection - IVPUSH 12/08/17 15:28 10 mg ONCE ONE Administration Diltiazem HCl 60 mg 12/08/17 17:39 12/08/17 18:16 Cardizem - PO 12/08/17 17:40 60 mg ONCE ONE Administration Furosemide 40 mg 12/08/17 16:18 12/08/17 18:16 Lasix Injection - IVPUSH 12/08/17 16:19 40 mg ONCE ONE Administration Sodium Chloride 1,000 mls @ 1,000 mls/hr 12/08/17 14:24 12/08/17 15:08 Normal Saline - IV 12/08/17 15:23 1,000 mls/hr ASDIR STA Administration Dextrose 1,000 mls @ 125 mls/hr 12/08/17 16:30 12/08/17 18:34 D10w - IV Not Given ASDIR DURGA Insulin Human Regular 10 units 12/08/17 16:18 12/08/17 18:34 Novolin R Vial *For Ivpush Or Iv Drip Only* IVPUSH 12/08/17 16:19 10 unit ONCE ONE Administration <Lora Cid - Last Filed: 12/08/17 18:41> - LABORATORY CBC & Chemistry Diagram: 12/08/17 14:53 12/08/17 21:34 - ADDITIONAL ORDERS Additional order review: Laboratory Results 12/08/17 12/08/17 12/08/17 15:02 15:02 15:02 PT with INR INR PTT (Actin FS) Creatine Kinase Cancelled B-Natriuretic Peptide Cancelled TSH Cancelled 12/08/17 14:53 PT with INR 13.40 H INR 1.13 H PTT (Actin FS) 32.4 Creatine Kinase B-Natriuretic Peptide TSH 12/08/17 14:53 RBC 4.48 MCV 93.3 MCHC 32.2 RDW 15.8 H D MPV 11.3 H Neutrophils % 82.8 D Lymphocytes % 7.1 L D Monocytes % 9.2 Eosinophils % 0.2 D Basophils % 0.7 - Medications Given in the ED: ED Medications Discontinued Medications Generic Name Dose Route Start Last Admin Trade Name Dante PRN Reason Stop Dose Admin Diltiazem HCl 10 mg 12/08/17 14:42 12/08/17 15:10 Cardizem Injection - IVPUSH 12/08/17 14:43 10 mg ONCE ONE Administration Diltiazem HCl 10 mg 12/08/17 15:27 12/08/17 15:37 Cardizem Injection - IVPUSH 12/08/17 15:28 10 mg ONCE ONE Administration Sodium Chloride 1,000 mls @ 1,000 mls/hr 12/08/17 14:24 12/08/17 15:08 Normal Saline - IV 12/08/17 15:23 1,000 mls/hr ASDIR STA Administration <Stacey Guardado - Last Filed: 12/09/17 00:42> Medical Decision Making - Critical Care Time Total Critical Care Time (minutes): 60 Critical Care Statement: The care of this patient involved high complexity decision making to prevent further life threatening deterioration of the patient 's condition and/or to evaluate & treat vital organ system(s) failure or risk of failure. - Medical Decision Making 12/08/17 17:38 72yo f with PMH of lung adenocarcinoma s/p radiation and chemotherapy, HIV, COPD , htn, hld presenting after synopal episode found on ground for over 12 hours. Vitals: tachycardic, tachypneic, saturating in high 80s/low 90s, afebrile ( rectal temp) PE: crackles/rhonci in lungs, dry scaling skin, no neurological deficits. Pt at baseline DDx: acs, pe, sepsis pt is afebrile however not on antiretrovirals and tachycardic, tachypneic and saturating in low 90s. syncope could be due to stock sheets cleaner inspector, pe, arrythmia. low suspicion for stock sheets cleaner inspector process due to lack of neurological deficits. EKG seems to show svt, no afib. due to pt history of malignancy, high suspicion for pe. EKG showed SVT. unsure as to whether originating from sinus or other pathway. Tried vagal maneuvers but it was unsuccessful. IV was established (L arm with 22G done by nurse Sera and R arm 20G done with ultrasound guidance by ks). Pt given 2 doses of IV diltiazem, which reduced hr to the 120s. EKG obtained again which showed atrial flutter. PT received po 60mg diltazem, ivf. CBC wnl. CMP showd K at 6, Ca at 10.4, Trop at .1 and BNP 94991. Bedside ultrasound showed reduced L ventricle contractility with RV similar in size to LV. Negative for B lines therefore no pulmonary congestion. Ordered calcium gluconate, insulin with d50, and 2 duoneb. will recheck cmp and troponin. UA positive for infection. started pt on ceftriaxone Consulted Dr. Llamas for elevated troponin and a flutter. Awaiting CT results. 12/08/17 20:59 ICU declined pt. 2nd labs showed K at 3.5 and Trop at 0.08. still tachy in 120s, low o2 saturation. pt on 3L nc. Not complaining of SOB, still at baseline neurologically. Pt given ivf. Pt admitted to inpatient tele under Dr. Barbosa CT head negative for hemorrhage or ischemia. chronic microvascular changes CT c spine negative for fracture 12/09/17 00:07 received call from imaging digital solution architect notifying me of bilateral pe's in upper and lower lobes. PT was sent to CT at 4pm and images had not been sent to imaging digital solution architect by 8pm. Pt started on enoxaparin 1mg/kg q12 h. Will receive one dose here in ED and then every 12 hours. CTA chest- multiple acute pulmonary emboli within l and r upper and lower lobe pulmonary arterial branches. suggestion of a parson's hum in r llower lobe posterior basal segment. <Stacey Guardado - Last Filed: 12/09/17 00:42> *DC/Admit/Observation/Transfer - Discharge Dispostion Decision to Admit order: Yes Decision to Admit order Date/Time: Decision to Admit Order Category Date Time Status Decision to Admit to Hospital Routine Admission 12/08/17 14:43 Active <Lora Cid - Last Filed: 12/08/17 18:41> <Stacey Guardado - Last Filed: 12/09/17 00:42> Diagnosis at time of Disposition: Syncope Qualifiers: Syncope type: unspecified Qualified Code(s): R55 - Syncope and collapse Arrhythmia Qualifiers: Arrhythmia type: atrial flutter Atrial flutter type: unspecified Qualified Code (s): I48.92 - Unspecified atrial flutter UTI (urinary tract infection) Qualifiers: Urinary tract infection type: site unspecified Hematuria presence: without hematuria Qualified Code(s): N39.0 - Urinary tract infection, site not specified Pulmonary embolism Qualifiers: Pulmonary embolism type: other Chronicity: acute Acute cor pulmonale presence: without acute cor pulmonale Qualified Code(s): I26.99 - Other pulmonary embolism without acute cor pulmonale - Discharge Dispostion Condition at time of disposition: Fair
--- NOTE | 2017-12-08 16:17 | PDOC ---
Attending Attestation - Resident Resident Name: Stacey Guardado - ED Attending Attestation I have performed the following: I have examined & evaluated the patient, The case was reviewed & discussed with the resident, I agree w/resident's findings & plan - HPI HPI: 12/08/17 18:44 Mrs. 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 last normal and in usual state of health yesterday. today was found down on the ground, apparently down for apparently ~16 hours; pt unclear of prodromal sx. she woke up feeling palpitations. The patient denies chest pain, shortness of breath, headache and dizziness. Denies fever, chills, nausea, vomiting, diarrhea or constipation. Denies dysuria , frequency, urgency and hematuria. Allergies: Procaine HCl Past surgical history: Cardiac stent (2014) Social History: Heroin use. Tobacco use (8 daily). 12/08/17 18:48 - Physicial Exam PE: 12/08/17 18:48 NAD, well appearing, MMM, nl conjunctiva, anicteric; neck supple, no JVD.. (+) Tachypnea and Rhonchi left lower lobe and crackles, (+) Very Tachycardic, abdomen soft nontender. ROBLES x4, no focal neuro deficits. No peripheral edema. (+ ) Dry skin over face and dorsum of foot. normal color for ethnicity, WWP. no calf tenderness. 12/08/17 18:55 - Critical Care Time Total Critical Care Time: 90 (arrhythmia, electrolyte derangement) Critical Care Statement: The care of this patient involved high complexity decision making to prevent further life threatening deterioration of the patient 's condition and/or to evaluate & treat vital organ system(s) failure or risk of failure. - Medical Decision Making 12/08/17 18:49 Mrs. 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 dehydration, electrolyte/metabolic derangements. syncope, CVA, head bleed. Vital signs reviewed, notable for no fevers rectally. very tachy to 140s. mildly hypertensive and hypoxic off RA in high 80s, increased supp O2 for support. Prior notes reviewed, including admissions, discharges and consultations. laboratory results and imaging reviewed, basic labs, normal WBC ct and H/H. however potassium elevated ~6, without acute EKG changes. Cr normal. EKG 2:1 atrial flutter, no P waves vs burial in T waves when traced out. narrow QRS complexes, ST and T wave segments and morphology normal. Nonspecific T wave abnormalities - given diltiazem x 2 doses IV, then PO dose to rate control as possible Aflutter 2:1 block. rate improved. down to 120s, now sinus tachycardia -Hyper K noted, treat with IV calcium, lasix, dextrose and insulin, albuterol nebs. NO Kayexalate as no evidence to suggest utility. Hyper K may be from being found down, hemolysis/cell lysis; will recheck after meds and tx. - IVF hydration. - trop elevated, BNP elevated, but see POCUS findings below. considering elevations in biomarkers 2/2 PE vs ACS vs infection/sepsis POCUS echocardiogram performed, indication includes chest pain/dyspnea/ arrhythmia/syncope. views obtained (PSLA, PSS, A4, SX). Findings include normal EF, no pericardial effusion, Normal aortic root <4cm. RV=LV. Impression: dilated RV compared to left, acute vs chronic dilation; POCUS thoracic exam, indication for dyspnea; views obtained (bilateral lung arora and bases). Findings: A line profile, b/l lung sliding, no B lines and no pleural effusions. Impression: no acute findings. - with POCUS findings, does have h/o COPD so suspected chronic pulm HTN, will need CT PE study to r/o PE as source for syncope, arrhythmia and persistent tachypnea/hypoxia. - bnp elevated, but no pulm edema or B lines noted on ultrasound. so doubt acute pulm edema/fluid overloaded state trops elevated with bnp, neg lung findings, suggest of submassive PE vs other etiology - CT head to r/o bleed or CVA Dispo: plan for telemetry vs ICU consultation, cardiology consultation. serial trops and monitoring Admit for elevated trops/Syncope, suspecting cardiogenic etiology vs Acute PE. Discussed results and management plan with pt and family member at bedside, agree with impression and plan 12/11/17 15:57 Heart Score/ECG Review - ECG Impressions Normal ECG: No Tachycardia: Atrial Flutter Comment:: 12/08/17 18:55 EKG 2:1 atrial flutter, no P waves vs burial in T waves when traced out. narrow QRS complexes, ST and T wave segments and morphology normal. Nonspecific T wave abnormalities Procedures - Bedside Ultrasound Bedside Ultrasound: Cardiac Remarks: 12/08/17 18:58 POCUS echocardiogram performed, indication includes chest pain/dyspnea/ arrhythmia/syncope. views obtained (PSLA, PSS, A4, SX). Findings include normal EF, no pericardial effusion, Normal aortic root <4cm. RV=LV. Impression: dilated RV compared to left, acute vs chronic dilation; POCUS thoracic exam, indication for dyspnea; views obtained (bilateral lung arora and bases). Findings: A line profile, b/l lung sliding, no B lines and no pleural effusions. Impression: no acute findings. 12/08/17 18:58
[2017-12-08] MEDS ORDERED: CALCIUM GLUCONATE 10% - 1,000 MG/10 ML VIAL IVPB ONE (16:18)
[2017-12-08] MEDS ORDERED: INSULIN REGULAR HUMAN 100 UNITS/ML *VIAL IVPUSH ONE (16:18)
[2017-12-08] MEDS ORDERED: FUROSEMIDE 40 MG/4 ML INJECTABLE VIAL IVPUSH ONE (16:18)
[2017-12-08] MEDS ORDERED: ALBUTEROL SO4 2.5/IPRATROPIUM 0.5 INH SOL 3 ML VIAL.NEB. NEB ONE ×2 (16:18→18:12)
[2017-12-08 16:30] LABS: URINE APPEARANCE CLOUDY; URINE BILIRUBIN NEGATIVE (<2.0 mg/dL); URINE COLOR AMBER; URINE GLUCOSE (UA) NEGATIVE (NEGATIVE); URINE KETONE NEGATIVE (NEGATIVE); URINE LEUK ESTERASE 2+ (NEGATIVE); URINE NITRITE NEGATIVE (NEGATIVE); URINE PROTEIN 2+ (NEGATIVE); URINE UROBILINOGEN 4.0 E.U/dl mg/dL (0.2-1.0)
[2017-12-08] MEDS ORDERED: DEXTROSE 10%-WATER - 1,000 ML IV SCH (16:30)
[2017-12-08 16:39] LABS: URINE BACTERIA RARE /hpf (NONE SEEN); URINE MUCUS RARE
[2017-12-08] MEDS ORDERED: dilTIAZem HCL 60 MG TABLET (FP) PO ONE (17:39)
[2017-12-08] MEDS ORDERED: CALCIUM GLUCONATE 10% - 1,000 MG/10 ML VIAL ONE (18:12)
[2017-12-08] MEDS ORDERED: dilTIAZem HCL 60 MG TABLET (FP) ONE (18:12)
[2017-12-08] MEDS ORDERED: CEFTRIAXONE 1 GM/50 ML BAG ONE (18:12)
[2017-12-08] MEDS ORDERED: INSULIN REGULAR HUMAN 100 UNITS/ML *VIAL ONE (18:13)
[2017-12-08] MEDS ORDERED: FUROSEMIDE 40 MG/4 ML INJECTABLE VIAL ONE (18:13)
[2017-12-08] MEDS ORDERED: DEXTROSE 50%-WATER - 25 GM/50 ML VIAL IVPUSH ONE (18:20)
[2017-12-08] MEDS ORDERED: DEXTROSE 50%-WATER 25 GM/50 ML DISP.SYRIN ONE (18:25)
[2017-12-08 22:17] LABS: ALBUMIN 2.4 g/dl (3.4-5.0); ALK PHOS 69 U/L (45-117); ANION GAP 7 MMOL/L (8-16); BILIRUBIN,TOTAL 1.2 mg/dL (0.2-1); BLOOD UREA NITROGEN 30 mg/dL (7-18); CALCIUM 9.5 mg/dL (8.5-10.1); CHLORIDE 106 mmol/L (98-107); CO2 28 mmol/L (21-32); CREATININE 0.8 mg/dL (0.55-1.3); GLUCOSE,RANDOM 91 mg/dL (74-106); POTASSIUM 3.5 mmol/L (3.5-5.1); SGOT/AST 56 U/L (15-37); SGPT/ALT 21 U/L (13-61); SODIUM 141 mmol/L (136-145)
--- NOTE | 2017-12-08 22:26 | PN ---
Teaching Attending Note Name of Resident: Rcih Hudson ATTENDING PHYSICIAN STATEMENT I saw and evaluated the patient. I reviewed the resident's note and discussed the case with the resident. I agree with the resident's findings and plan as documented. SUBJECTIVE: Patient is a 72 year old woman with history of HIV disease, lung adenocarcinoma (s/p radiation and chemotherapy last session in August 2017), COPD on 2L O2 at home, HTN, HLD, CAD with stent placement BIBA after being found on the floor by her couch. Per daughter, she was last seen at around 5pm yesterday and she was on her couch. She was found on the floor by her Godson at around 1pm today. Patient states she went to get up off the couch when she fell down. She admits to palpitations and cough. Denies headache, back pain, chest pain, abdominal pain, vomiting, hemoptysis, leg pain/swelling or fevers. She is not taking blood thinners. She has not taken her HAART medications for the past few months , does not know what her current viral load is. Had Aflutter with tachycardia on arrival and responded to cardiazem. OBJECTIVE: Alert Vital Signs Period Temp Pulse Resp BP Sys/[place] Pulse Ox Last 24 Hr 98.4 F 115-143 18-26 130-157/86-108 95-100 HEENT: No Jaundice, eye redness or discharge, PERRLA, EOMI. Normocephalic, atraumatic. External ears are normal and hearing is grossly intact. No nasal discharge. Neck: Supple, nontender. No palpable adenopathy or thyromegaly. No JVD Chest: Good effort. Clear to auscultation and percussion. Heart: Tachycardia. No S3, rub or murmur Abdomen: Not distended, soft, nontender and no HSM. No rebound or guarding. Normoactive bowel sounds. Ext: Peripheral pulses intact. No leg edema. Skin: Warm and dry. No petechiae, rash or ecchymosis. Neuro: Alert. Oriented x3. CN 2-12 grossly intact. Sensation grossly intact in all four extremities and DTR are symmetric. Home Medications Medication Instructions Recorded Alendronate Na [Fosamax (Weekly)] 70 mg PO Q7D 05/01/17 Calcium Carbonate/Vitamin D3 1 each PO DAILY 05/01/17 [Calcium 600 + Vit D 400 Softgl] Cholecalciferol (Vitamin D3) 5,000 unit PO WEEKLY 05/01/17 [Vitamin D3] Lancets [Lancets Ultra Thin] 1 each MC TID #100 each 06/27/17 Albuterol Sulfate Inhaler - 1 - 2 inh PO Q6H PRN 07/05/17 [Ventolin Hfa Inhaler -] Furosemide [Lasix -] 20 mg PO DAILY 07/05/17 Albuterol Sulfate Inhaler - 1 - 2 inh PO Q4H #3 each 09/25/17 [Ventolin HFA Inhaler -] Aspirin [ASA -] 81 mg PO DAILY #90 tab.chew 09/25/17 Beclomethasone Dipropionate [Qvar] 8.7 gm IH BID #3 aer.w.adap 09/25/17 Clindamycin [Cleocin -] 300 mg PO TID #21 capsule 09/25/17 Elviteg/Cob/Emtri/Tenof Alafen 1 each PO HS #30 tablet 09/25/17 [Genvoya (Non-Formulary)] Fenofibrate Nanocrystallized 160 mg PO DAILY #90 tablet 09/25/17 [Triglide] L.acidoph,Paracasei, B.lactis 1 each PO BID #30 capsule 09/25/17 [Probiotic] Losartan Potassium [Cozaar -] 50 mg PO DAILY #90 tablet 09/25/17 Metoprolol Tartrate [Lopressor -] 25 mg PO BID #180 tablet 09/25/17 Mirtazapine 15 mg PO HS #30 tablet 09/25/17 Multivitamin,Therapeutic [Thera] 1 each PO DAILY #90 tablet 09/25/17 Umeclidinium [place] [Incruse 1 puff IH DAILY #3 blst.w.dev 09/25/17 Ellipta] Zolpidem Tartrate [Ambien] 5 mg PO HS #5 tablet MDD half 09/25/17 tablet Abnormal Lab Results 12/08/17 12/08/17 12/08/17 14:53 14:53 15:02 RDW 15.8 H D MPV 11.3 H Lymphocytes % 7.1 L D PT with INR 13.40 H INR 1.13 H Sodium 134 L Potassium 6.0 H Anion Gap 3 L BUN 36 H Random Glucose 137 H Calcium 10.4 H Total Bilirubin 1.6 H AST 55 H Troponin I 0.10 H B-Natriuretic Peptide 64739.9 H Albumin 2.5 L TSH 0.30 L Urine Protein Urine Blood Urine Urobilinogen Ur Leukocyte Esterase 12/08/17 12/08/17 15:58 21:34 RDW MPV Lymphocytes % PT with INR INR Sodium Potassium Anion Gap 7 L BUN 30 H Random Glucose Calcium Total Bilirubin 1.2 H AST 56 H Troponin I 0.08 H B-Natriuretic Peptide Albumin 2.4 L TSH Urine Protein 2+ H Urine Blood 2+ H Urine Urobilinogen 4.0 e.u/dl H Ur Leukocyte Esterase 2+ H ASSESSMENT AND PLAN: 1. Syncope/UTI/Pulmonary embolism - Etiology of syncope is unclear, but aflutter /infection or PE are possible culprits. Found to have UTI and PE on CTA. Started on full dose Lovenox and Rocephin. Monitor on telemetry, repeat troponin and EKG to rule out ACS and continue beta bharat for rate control; get ECHO and complete syncope work up with brain MRI, EEG and carotid doppler ( she had fallen twice recently without coming to the hospital). Will give IV lasix, strive for normotension, correct hyperkalemia (got acute measures in the ER), monitior LFTs and check free T4 and T3RU. 2. Hypoalbuminemia - Possibly due to combined effects of proteinuria, malnutrition and inflammation associated with comorbid chronic conditions. Will ensure adequate dietary protein intake and also consult carpentry teacher. 3. DVT prophylaxis - On full dose lovenox for PE. 4. Advance directives - Full code
--- NOTE | 2017-12-09 00:01 | HP ---
CHIEF COMPLAINT: Fall PCP: None HISTORY OF PRESENT ILLNESS: Pt is a 72 y/o lady with a significant past medical history of non-small cell lung cancer, HIV (diagnosed 1988, Viral load 89, CD4 count 10,000, follows up at [facility]), COPD, HTN, HLD, CAD who was BIBA yesterday evening (12/08/17) after being found on the ground near her couch by her godson at approximately 1 pm yesterday. Pt endorses that she last saw her family Saturday around 5pm and was informed then that they would be taking her to [facility] in the afternoon. Pt endorses remembering waking up around midnight yesterday and being confused. Pt endorses she remembers hitting her head sometime during the night but cannot recall any details. Pt states she has fallen 3 times in the past few months, Oct 24, , and yesterday. Did not seek medical treatment for the first 2 falls. Denies chest pain, headache, changes in vision, nausea or vomiting. ER course was notable for: (1) CTA chest- multiple acute pulmonary emboli within L and R upper and lower lobe pulmonary arterial branches. (2) Potassium--> 6.0 (3) BNP > 18K Recent Travel: denies PAST MEDICAL HISTORY: per hpi PAST SURGICAL HISTORY: Chemo port insertion, 2 cardiac stents Social History: Smoking: Former smoker Smoked 2 packs/day, quit apr 2017 Alcohol: Denies Drugs: Denies Family History: Allergies procaine HCl [From Novocain] Allergy (Unknown, Verified 12/08/17 14:12) Swelling HOME MEDICATIONS: Home Medications Medication Instructions Recorded Alendronate Na [Fosamax (Weekly)] 70 mg PO Q7D 05/01/17 Calcium Carbonate/Vitamin D3 1 each PO DAILY 05/01/17 [Calcium 600 + Vit D 400 Softgl] Cholecalciferol (Vitamin D3) 5,000 unit PO WEEKLY 05/01/17 [Vitamin D3] Lancets [Lancets Ultra Thin] 1 each MC TID #100 each 06/27/17 Albuterol Sulfate Inhaler - 1 - 2 inh PO Q6H PRN 07/05/17 [Ventolin Hfa Inhaler -] Furosemide [Lasix -] 20 mg PO DAILY 07/05/17 Albuterol Sulfate Inhaler - 1 - 2 inh PO Q4H #3 each 09/25/17 [Ventolin HFA Inhaler -] Aspirin [ASA -] 81 mg PO DAILY #90 tab.chew 09/25/17 Beclomethasone Dipropionate [Qvar] 8.7 gm IH BID #3 aer.w.adap 09/25/17 Clindamycin [Cleocin -] 300 mg PO TID #21 capsule 09/25/17 Elviteg/Cob/Emtri/Tenof Alafen 1 each PO HS #30 tablet 09/25/17 [Genvoya (Non-Formulary)] Fenofibrate Nanocrystallized 160 mg PO DAILY #90 tablet 09/25/17 [Triglide] L.acidoph,Paracasei, B.lactis 1 each PO BID #30 capsule 09/25/17 [Probiotic] Losartan Potassium [Cozaar -] 50 mg PO DAILY #90 tablet 09/25/17 Metoprolol Tartrate [Lopressor -] 25 mg PO BID #180 tablet 09/25/17 Mirtazapine 15 mg PO HS #30 tablet 09/25/17 Multivitamin,Therapeutic [Thera] 1 each PO DAILY #90 tablet 09/25/17 Umeclidinium [place] [Incruse 1 puff IH DAILY #3 blst.w.dev 09/25/17 Ellipta] Zolpidem Tartrate [Ambien] 5 mg PO HS #5 tablet MDD half 09/25/17 tablet REVIEW OF SYSTEMS CONSTITUTIONAL: Absent: fever, chills, diaphoresis, generalized weakness, malaise, loss of appetite, weight change HEENT: Absent: rhinorrhea, nasal congestion, throat pain, throat swelling, difficulty swallowing, mouth swelling, ear pain, eye pain, visual changes CARDIOVASCULAR: PRESENT palpitations, irregular heart rate RESPIRATORY: Absent: cough, shortness of breath, dyspnea with exertion, orthopnea, wheezing, stridor, hemoptysis GASTROINTESTINAL: Absent: abdominal pain, abdominal distension, nausea, vomiting, diarrhea, constipation, melena, hematochezia GENITOURINARY: Absent: dysuria, frequency, urgency, hesitancy, hematuria, flank pain, genital pain MUSCULOSKELETAL: PRESENT: back pain SKIN: PRESENT: itching HEMATOLOGIC/IMMUNOLOGIC: Absent: easy bleeding, easy bruising, lymphadenopathy, frequent infections ENDOCRINE: Absent: unexplained weight gain, unexplained weight loss, heat intolerance, cold intolerance NEUROLOGIC: Absent: headache, focal weakness or paresthesias, dizziness, unsteady gait, seizure, mental status changes, bladder or bowel incontinence PSYCHIATRIC: Absent: anxiety, depression, suicidal or homicidal ideation, hallucinations. PHYSICAL EXAMINATION Vital Signs - 24 hr 12/08/17 12/08/17 12/08/17 14:16 15:09 15:15 Temperature 98.4 F Pulse Rate 141 H Pulse Rate [ Apical] Pulse Rate [ 143 H 124 H Left Radial] Respiratory 18 26 H 20 Rate Blood Pressure 137/101 H Blood Pressure 130/108 H 141/92 [Right Arm] O2 Sat by Pulse 95 99 100 Oximetry (%) 12/08/17 12/08/17 12/08/17 15:35 15:49 16:09 Temperature Pulse Rate Pulse Rate [ 120 H 115 H 122 H Apical] Pulse Rate [ 120 H Left Radial] Respiratory 22 H 20 22 H Rate Blood Pressure Blood Pressure 142/102 H 139/86 149/102 H [Right Arm] O2 Sat by Pulse 100 100 100 Oximetry (%) 12/08/17 18:15 Temperature Pulse Rate Pulse Rate [ 122 H Apical] Pulse Rate [ Left Radial] Respiratory 22 H Rate Blood Pressure Blood Pressure 157/94 [Right Arm] O2 Sat by Pulse 98 Oximetry (%) GENERAL: AAOx3, NAD HEAD: NC/AT, dry peeling skin on face and 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 . MUSCULOSKELETAL: FROM UPPER EXTREMITIES: No CCE LOWER EXTREMITIES: :Excoriations on dorsum of feet 2/2 intense itching NEUROLOGICAL: CN 2-12 intact. No neuro deficits appreciated PSYCHIATRIC: Cooperative. Good eye contact. Appropriate mood and affect. SKIN: Dry Laboratory Results - last 24 hr 12/08/17 12/08/17 12/08/17 14:53 14:53 15:02 WBC 8.3 RBC 4.48 Hgb 13.5 Hct 41.8 D MCV 93.3 MCH 30.0 MCHC 32.2 RDW 15.8 H D Plt Count 146 MPV 11.3 H Absolute Neuts (auto) 6.9 Neutrophils % 82.8 D Neutrophils % (Manual) 78.0 Band Neutrophils % 3.0 Lymphocytes % 7.1 L D Lymphocytes % (Manual) 9.0 D Monocytes % 9.2 Monocytes % (Manual) 9 Eosinophils % 0.2 D Basophils % 0.7 Nucleated RBC % 0 Platelet Comment No clumping noted PT with INR 13.40 H INR 1.13 H PTT (Actin FS) 32.4 Sodium 134 L Potassium 6.0 H Chloride 103 Carbon Dioxide 29 Anion Gap 3 L BUN 36 H Creatinine 1.0 Creat Clearance w eGFR 54.81 Random Glucose 137 H Calcium 10.4 H Magnesium 2.0 Total Bilirubin 1.6 H AST 55 H ALT 19 Alkaline Phosphatase 65 Creatine Kinase 121 Troponin I 0.10 H B-Natriuretic Peptide 33319.9 H Total Protein 8.1 Albumin 2.5 L TSH 0.30 L Urine Color Urine Appearance Urine pH Ur Specific [place] Urine Protein Urine Glucose (UA) Urine Ketones Urine Blood Urine Nitrite Urine Bilirubin Urine Urobilinogen Ur Leukocyte Esterase Urine WBC (Auto) Urine RBC (Auto) Urine Bacteria Urine Mucus 12/08/17 12/08/17 12/08/17 15:02 15:02 15:02 WBC RBC Hgb Hct MCV MCH MCHC RDW Plt Count MPV Absolute Neuts (auto) Neutrophils % Neutrophils % (Manual) Band Neutrophils % Lymphocytes % Lymphocytes % (Manual) Monocytes % Monocytes % (Manual) Eosinophils % Basophils % Nucleated RBC % Platelet Comment PT with INR INR PTT (Actin FS) Sodium Potassium Chloride Carbon Dioxide Anion Gap BUN Creatinine Creat Clearance w eGFR Random Glucose Calcium Magnesium Total Bilirubin AST ALT Alkaline Phosphatase Creatine Kinase Cancelled Troponin I B-Natriuretic Peptide Cancelled Total Protein Albumin TSH Cancelled Urine Color Urine Appearance Urine pH Ur Specific [place] Urine Protein Urine Glucose (UA) Urine Ketones Urine Blood Urine Nitrite Urine Bilirubin Urine Urobilinogen Ur Leukocyte Esterase Urine WBC (Auto) Urine RBC (Auto) Urine Bacteria Urine Mucus 12/08/17 12/08/17 15:58 21:34 WBC RBC Hgb Hct MCV MCH MCHC RDW Plt Count MPV Absolute Neuts (auto) Neutrophils % Neutrophils % (Manual) Band Neutrophils % Lymphocytes % Lymphocytes % (Manual) Monocytes % Monocytes % (Manual) Eosinophils % Basophils % Nucleated RBC % Platelet Comment PT with INR INR PTT (Actin FS) Sodium 141 Potassium 3.5 Chloride 106 Carbon Dioxide 28 Anion Gap 7 L BUN 30 H Creatinine 0.8 Creat Clearance w eGFR > 60 Random Glucose 91 Calcium 9.5 Magnesium Total Bilirubin 1.2 H AST 56 H ALT 21 Alkaline Phosphatase 69 Creatine Kinase Troponin I 0.08 H B-Natriuretic Peptide Total Protein 7.0 Albumin 2.4 L TSH Urine Color [place] Urine Appearance Cloudy Urine pH 8.0 D Ur Specific [place] 1.016 Urine Protein 2+ H Urine Glucose (UA) Negative Urine Ketones Negative Urine Blood 2+ H Urine Nitrite Negative Urine Bilirubin Negative Urine Urobilinogen 4.0 e.u/dl H Ur Leukocyte Esterase 2+ H Urine WBC (Auto) 68 Urine RBC (Auto) 3 Urine Bacteria Rare Urine Mucus Rare ASSESSMENT/PLAN: Pt is a 72 y/o lady with a significant past medical history of non-small cell lung cancer, HIV, COPD, HTN, HLD, CAD who was BIBA yesterday evening (12/08/17) after being found on the ground near her couch by her godson at approximately 1 pm yesterday. # Syncope 2/2 Pulmonary Embolism/ Arrhythmia - Head CT negative - CTA Chest--> Multiple acute pulmonary emboli within L and R upper and lower lobe pulmonary arterial branches. -Lovenox 63 MG SQ BID - Cardio consult - Repeat Troponin and EKG to rule out ACS -BNP-->50632. Most likely 2/2 P.E, not CHF- -Diltiazem IVPUSH for Atrial Flutter. Rsponded well in ED. #HIV -Pt endorses taking Genvoya every day -Continue taking medication -ID consult # Non-Small cell [place] Lung -Received Radiation therapy for 12 weeks, everyday according to pt -Received Chemo therapy for 12 weeks, once per week according to pt -Consider Heme/Onc consult -MRI Brain to check for metastases #HTN -Consider continuing Losartan in light of pt's residing hyperkalemia -Resume Metoprolol 25 bid #COPD Resume Qvar Inhaler BID Ventolin inhaler PRN FEN No Fluids Monitor electrolytes Sodium Diet DVT ppx: Lovenox SQ BID Dispo: Monitor on tele Visit type - Emergency Visit Emergency Visit: Yes ED Registration Date: 12/08/17 Care time: The patient presented to the Emergency Department on the above date and was hospitalized for further evaluation of their emergent condition. - New Patient This patient is new to me today: Yes Date on this admission: 12/09/17 - Critical Care Critical Care patient: No
[2017-12-09] MEDS ORDERED: ENOXAPARIN NA (PORCINE) 40 MG/0.4 ML DISP.SYRIN SQ ONE (00:25)
[2017-12-09] MEDS ORDERED: ENOXAPARIN NA (PORCINE) 80 MG/0.8 ML DISP.SYRIN SQ ONE ×2 (00:48→09:48)
[2017-12-09] MEDS: ENOXAPARIN NA (PORCINE) 40 MG/0.4 ML DISP.SYRIN SQ SCH ×2 (00:50→09:49)
[2017-12-09 07:02] LABS: BASO % 0.8 % (0-2.0); EOS % 0.1 % (0-4.5); HEMATOCRIT 38.1 % (32.4-45.2); HEMOGLOBIN 11.9 GM/dL (10.7-15.3); LYMPH % 8.3 % (8-40); MCH 29.5 pg (25.7-33.7); MCHC 31.2 g/dl (32.0-36.0); MEAN CELL VOLUME 94.4 fl (80-96); MEAN PLT VOLUME 11.3 fl (7.5-11.1); MONO % 9.9 % (3.8-10.2); NEUT % 80.9 % (42.8-82.8); PLATELET COUNT 116 K/MM3 (134-434); RBC 4.04 M/mm3 (3.60-5.2); RDW 15.7 % (11.6-15.6); WHITE BLOOD COUNT 8.3 K/mm3 (4.0-10.0)
[2017-12-09 07:29] LABS: ANION GAP 8 MMOL/L (8-16); BLOOD UREA NITROGEN 30 mg/dL (7-18); CALCIUM 9.2 mg/dL (8.5-10.1); CHLORIDE 106 mmol/L (98-107); CO2 28 mmol/L (21-32); CREATININE 0.9 mg/dL (0.55-1.3); GLUCOSE,RANDOM 114 mg/dL (74-106); MAGNESIUM 1.6 mg/dL (1.8-2.4); POTASSIUM 4.1 mmol/L (3.5-5.1); SODIUM 142 mmol/L (136-145)
[2017-12-09] MEDS ORDERED: IBUPROFEN 600 MG TABLET (FP) PO ONE ×2 (07:30→09:20)
[2017-12-09 07:31] LABS: INR 1.21 (0.83-1.09); PROTHROMBIN TIME (PATIENT) 14.3 SEC (9.7-13.0)
[2017-12-09 07:33] LABS: ACTIVATED PTT 43.1 SECONDS (25.2-36.5)
[2017-12-09] MEDS ORDERED: CEFTRIAXONE 1 GM in DEXTROSE 5%-WATER - 50 ML IVPB ONE (08:00)
--- NOTE | 2017-12-09 08:21 | CON.CARD ---
Consult Consult Specialty:: Cardiology Reason for Consultation:: PE - History of Present Illness History of Present Illness: Pt is a 72 y/o lady with a significant past medical history of non-small cell lung cancer, HIV (diagnosed 1988, Viral load 89, CD4 count 10,000, follows up at [facility]), COPD, HTN, HLD, CAD who was BIBA yesterday evening (12/08/17) after being found on the ground near her couch by her godson at approximately 1 pm yesterday. Pt endorses that she last saw her family Saturday around 5pm and was informed then that they would be taking her to religion in the afternoon. Pt endorses remembering waking up around midnight yesterday and being confused. Pt endorses she remembers hitting her head sometime during the night but cannot recall any details. Pt states she has fallen 3 times in the past few months, Oct 24, , and yesterday. Did not seek medical treatment for the first 2 falls. Denies chest pain, headache, changes in vision, nausea or vomiting. ER course was notable for: (1) CTA chest- multiple acute pulmonary emboli within L and R upper and lower lobe pulmonary arterial branches. (2) Potassium--> 6.0 (3) BNP > 18K - History Source History Provided By: Patient, Medical Record - Past Medical History Cardio/Vascular: Yes: CAD, HTN, Hyperlipdemia Pulmonary: Yes: COPD Infectious Disease: Yes: HIV - Past Surgical History Past Surgical History: Yes: Stent - Alcohol/Substance Use Hx Alcohol Use: No History of Substance Use: reports: None - Smoking History Smoking history: Former smoker Have you smoked in the past 12 months: No Aproximately how many cigarettes per day: 8 If you are a former smoker, when did you quit?: 7days - Social History ADL: Independent Home Medications - Allergies Allergies/Adverse Reactions: Allergies Allergy/AdvReac Type Severity Reaction Status Date / Time procaine HCl [From Novocain] Allergy Unknown Swelling Verified 12/08/17 14:12 - Home Medications Home Medications: Ambulatory Orders Alendronate Na [Fosamax (Weekly)] 70 mg PO Q7D 05/01/17 Calcium Carbonate/Vitamin D3 [Calcium 600 + Vit D 400 Softgl] 1 each PO DAILY Cholecalciferol (Vitamin D3) [Vitamin D3] 5,000 unit PO WEEKLY 05/01/17 Lancets [Lancets Ultra Thin] 1 each MC TID #100 each 06/27/17 Albuterol Sulfate Inhaler - [Ventolin Hfa Inhaler -] 1 - 2 inh PO Q6H PRN Furosemide [Lasix -] 20 mg PO DAILY 07/05/17 Albuterol Sulfate Inhaler - [Ventolin HFA Inhaler -] 1 - 2 inh PO Q4H #3 each Aspirin [ASA -] 81 mg PO DAILY #90 tab.chew 09/25/17 Beclomethasone Dipropionate [Qvar] 8.7 gm IH BID #3 aer.w.adap 09/25/17 Clindamycin [Cleocin -] 300 mg PO TID #21 capsule 09/25/17 Elviteg/Cob/Emtri/Tenof Alafen [Genvoya (Non-Formulary)] 1 each PO HS #30 tablet 09/25/17 Fenofibrate Nanocrystallized [Triglide] 160 mg PO DAILY #90 tablet 09/25/17 L.acidoph,Paracasei, B.lactis [Probiotic] 1 each PO BID #30 capsule 09/25/17 Losartan Potassium [Cozaar -] 50 mg PO DAILY #90 tablet 09/25/17 Metoprolol Tartrate [Lopressor -] 25 mg PO BID #180 tablet 09/25/17 Mirtazapine 15 mg PO HS #30 tablet 09/25/17 Multivitamin,Therapeutic [Thera] 1 each PO DAILY #90 tablet 09/25/17 Umeclidinium [place] [Incruse Ellipta] 1 puff IH DAILY #3 blst.w.dev 09/25/17 Zolpidem Tartrate [Ambien] 5 mg PO HS #5 tablet MDD half tablet 09/25/17 Family Disease History - Family Disease History Family Disease History: Heart Disease: Grandparent, Mother, Respiratory: Grandparent Review of Systems - Review of Systems Constitutional: reports: No Symptoms Eyes: reports: No Symptoms HENT: reports: No Symptoms Neck: reports: No Symptoms Cardiovascular: reports: Shortness of Breath Gastrointestinal: reports: No Symptoms Genitourinary: reports: No Symptoms Breasts: reports: No Symptoms Reported Musculoskeletal: reports: No Symptoms Integumentary: reports: No Symptoms Neurological: reports: Syncope Endocrine: reports: No Symptoms Hematology/Lymphatic: reports: No Symptoms Psychiatric: reports: No Symptoms Vital Signs: Vital Signs Temperature 98.3 F 12/09/17 02:24 Pulse Rate 129 H 12/09/17 07:51 Respiratory Rate 27 H 12/09/17 06:10 Blood Pressure 148/95 12/09/17 07:51 O2 Sat by Pulse Oximetry (%) 96 12/09/17 06:10 Constitutional: Yes: Well Nourished, No Distress, Calm Eyes: Yes: WNL, Conjunctiva Clear, EOM Intact HENT: Yes: WNL, Atraumatic, Normocephalic Neck: Yes: WNL, Supple, Trachea Midline Respiratory: Yes: WNL, Regular, CTA Bilaterally Gastrointestinal: Yes: WNL, Normal Bowel Sounds Renal/: Yes: WNL Cardiovascular: Yes: WNL, Regular Rate and Rhythm, Tachycardia Heart Sounds: Yes: S1, S2 Musculoskeletal: Yes: WNL Extremities: Yes: WNL Edema: Yes Integumentary: Yes: WNL Neurological: Yes: WNL, Alert, Oriented ...Motor Strength: WNL Psychiatric: Yes: WNL, Alert, Oriented - Other Data Labs, Other Data: CBC, BMP 12/09/17 06:00 12/09/17 06:00 INR, PTT INR 1.21 (0.83-1.09) H 12/09/17 06:00 Troponin, BNP 12/08/17 12/08/17 12/08/17 15:02 15:02 21:34 Troponin I 0.10 H 0.08 H B-Natriuretic Peptide 72302.9 H Cancelled Troponin, BNP 12/08/17 12/08/17 12/08/17 15:02 15:02 21:34 Troponin I 0.10 H 0.08 H B-Natriuretic Peptide 41070.9 H Cancelled Imaging - Results Chest X-ray: Image Reviewed (l base grranuloma) EKG: Image Reviewed (s tachy rep abn) Problem List - Problems (1) Arrhythmia Code(s): I49.9 - CARDIAC ARRHYTHMIA, UNSPECIFIED Qualifiers: Arrhythmia type: atrial flutter Atrial flutter type: unspecified Qualified Code(s): I48.92 - Unspecified atrial flutter (2) Pulmonary embolism Code(s): I26.99 - OTHER PULMONARY EMBOLISM WITHOUT ACUTE COR PULMONALE Qualifiers: Pulmonary embolism type: other Chronicity: acute Acute cor pulmonale presence: without acute cor pulmonale Qualified Code(s): I26.99 - Other pulmonary embolism without acute cor pulmonale (3) Syncope Code(s): R55 - SYNCOPE AND COLLAPSE Qualifiers: Syncope type: unspecified Qualified Code(s): R55 - Syncope and collapse (4) UTI (urinary tract infection) Code(s): N39.0 - URINARY TRACT INFECTION, SITE NOT SPECIFIED Qualifiers: Urinary tract infection type: site unspecified Hematuria presence: without hematuria Qualified Code(s): N39.0 - Urinary tract infection, site not specified (5) Abdominal or pelvic swelling, mass, or lump, left upper quadrant Code(s): R19.02 - LEFT UPPER QUADRANT ABDOMINAL SWELLING, MASS AND LUMP (6) Abnormal finding on CT scan Code(s): R93.8 - ABNORMAL FINDINGS ON DIAGNOSTIC IMAGING OF BILL * DO NOT USE * (7) Acute URI Code(s): J06.9 - ACUTE UPPER RESPIRATORY INFECTION, UNSPECIFIED (8) Coronary artery calcification seen on CT scan Code(s): I25.10 - ATHSCL HEART DISEASE OF [place] CORONARY ARTERY W/O ANG PCTRS (9) Deficiency of vitamin B12 Code(s): E53.8 - DEFICIENCY OF OTHER SPECIFIED B GROUP VITAMINS (10) Diabetes Code(s): E11.9 - TYPE 2 DIABETES MELLITUS WITHOUT COMPLICATIONS (11) Diarrhea Code(s): R19.7 - DIARRHEA, UNSPECIFIED (12) Dizziness Code(s): R42 - DIZZINESS AND GIDDINESS (13) Encounter for gynecological examination Code(s): Z01.419 - ENCNTR FOR AUTO DESIGN CHECKER EXAM (GENERAL) (ROUTINE) W/O ABN FINDINGS (14) Encounter for medication counseling Code(s): Z71.89 - OTHER SPECIFIED COUNSELING (15) Fever Code(s): R50.9 - FEVER, UNSPECIFIED Qualifiers: Fever type: unspecified Qualified Code(s): R50.9 - Fever, unspecified (16) Gram-negative bacteremia Code(s): R78.81 - BACTEREMIA (17) Headache Code(s): R51 - HEADACHE (18) Herpes zoster Code(s): B02.9 - ZOSTER WITHOUT COMPLICATIONS (19) Hypercalcemia Code(s): E83.52 - HYPERCALCEMIA (20) Instability of right knee joint Code(s): M25.361 - OTHER INSTABILITY, RIGHT KNEE (21) Joint pain Code(s): M25.50 - PAIN IN UNSPECIFIED JOINT (22) Knee pain, right Code(s): M25.561 - PAIN IN RIGHT KNEE (23) Macrocytosis Code(s): D75.89 - OTHER SPECIFIED DISEASES OF BLOOD AND BLOOD-FORMING ORGANS (24) Non-small cell carcinoma of lung Code(s): C34.90 - MALIGNANT NEOPLASM OF UNSP PART OF UNSP BRONCHUS OR LUNG (25) Pre-diabetes Code(s): R73.09 - OTHER ABNORMAL GLUCOSE (26) Pre-op evaluation Code(s): Z01.818 - ENCOUNTER FOR OTHER PREPROCEDURAL EXAMINATION (27) Screening for malignant neoplasm of cervix Code(s): Z12.4 - ENCOUNTER FOR SCREENING FOR MALIGNANT NEOPLASM OF CERVIX (28) Seborrhea Code(s): L21.9 - SEBORRHEIC DERMATITIS, UNSPECIFIED (29) Sinus tachycardia Code(s): R00.0 - TACHYCARDIA, UNSPECIFIED (30) Skin lesion of face Code(s): L98.9 - DISORDER OF THE SKIN AND SUBCUTANEOUS TISSUE, UNSPECIFIED (31) Tachycardia Code(s): R00.0 - TACHYCARDIA, UNSPECIFIED (32) Vitamin D deficiency Code(s): E55.9 - VITAMIN D DEFICIENCY, UNSPECIFIED (33) Weight loss Code(s): R63.4 - ABNORMAL WEIGHT LOSS (34) Wound of right leg Code(s): S81.801A - UNSPECIFIED OPEN WOUND, RIGHT LOWER LEG, INITIAL ENCOUNTER (35) COPD (chronic obstructive pulmonary disease) Code(s): J44.9 - CHRONIC OBSTRUCTIVE PULMONARY DISEASE, UNSPECIFIED Qualifiers: COPD type: unspecified COPD Qualified Code(s): J44.9 - Chronic obstructive pulmonary disease, unspecified (36) Coronary artery disease Code(s): I25.10 - ATHSCL HEART DISEASE OF [place] CORONARY ARTERY W/O ANG PCTRS (37) Human immunodeficiency virus (HIV) disease Code(s): B20 - HUMAN IMMUNODEFICIENCY VIRUS [HIV] DISEASE (38) Hypertension, benign Code(s): I10 - ESSENTIAL (PRIMARY) HYPERTENSION (39) Leukopenia Code(s): D72.819 - DECREASED WHITE BLOOD CELL COUNT, UNSPECIFIED Qualifiers: Leukopenia type: unspecified Qualified Code(s): D72.819 - Decreased white blood cell count, unspecified (40) Macrocytosis without anemia Code(s): D75.89 - OTHER SPECIFIED DISEASES OF BLOOD AND BLOOD-FORMING ORGANS (41) Osteoporosis Code(s): M81.0 - AGE-RELATED OSTEOPOROSIS W/O CURRENT PATHOLOGICAL FRACTURE (42) Paresthesia of right upper extremity Code(s): R20.2 - PARESTHESIA OF SKIN (43) Seborrheic dermatitis of scalp Code(s): L21.9 - SEBORRHEIC DERMATITIS, UNSPECIFIED (44) Tobacco use disorder Code(s): Z72.0 - TOBACCO USE Assessment/Plan Multiple bilateral PEs (upper lobes) syncope s tachycardia history of non-small cell lung cancer, HIV (diagnosed 1988, Viral load 89, CD4 count 10,000, follows up at [facility]) , COPD, HTN, HLD, CAD Plan; LMWH 1 mg/kg BID ECHO to evaluate RV strain and need for trombolitics ICU monitoring Critical care /pulmonary consult cc time spent 71 min
[2017-12-09] MEDS ORDERED: DILTIAZEM INJECTION 125 MG in DEXTROSE 5%-WATER - 100 ML IVPB SCH (09:00)
[2017-12-09] MEDS ORDERED: dilTIAZem HCL 125 MG/25 ML - 25 ML VIAL ONE ×2 (09:02→09:04)
[2017-12-09] MEDS ORDERED: CEFTRIAXONE 1 GM/50 ML BAG ONE (09:20)
[2017-12-09] MEDS: MAGNESIUM OXIDE 400 MG TABLET (FP) PO ONE ×2 (10:28→10:30)
[2017-12-09] MEDS ORDERED: MAGNESIUM OXIDE 400 MG TABLET (FP) ONE (10:28)
--- NOTE | 2017-12-09 10:40 | EKG ---
Test Reason : Blood Pressure : / mmHG Vent. Rate : 146 BPM Atrial Rate : 107 BPM P-R Int : 000 ms QRS Dur : 078 ms QT Int : 342 ms P-R-T Axes : 000 -52 061 degrees QTc Int : 532 ms SUPRAVENTRICULAR TACHYCARDIA LEFT AXIS DEVIATION POSSIBLE INFERIOR INFARCT , AGE UNDETERMINED ABNORMAL ECG WHEN COMPARED WITH ECG OF 25-SEP-2017 11:26, NO SIGNIFICANT CHANGE WAS FOUND Confirmed by JAILENE RAMIREZ MD ([id number]) on 12/09/2017 10:40:26 AM Referred By: Confirmed By:JAILENE RAMIREZ MD
--- NOTE | 2017-12-09 10:40 | EKG ---
Test Reason : Blood Pressure : / mmHG Vent. Rate : 141 BPM Atrial Rate : 136 BPM P-R Int : 000 ms QRS Dur : 078 ms QT Int : 342 ms P-R-T Axes : 000 -44 063 degrees QTc Int : 523 ms SUPRAVENTRICULAR TACHYCARDIA LEFT AXIS DEVIATION NONSPECIFIC ST AND T WAVE ABNORMALITY ABNORMAL ECG WHEN COMPARED WITH ECG OF 08-DEC-2017 14:18, NO SIGNIFICANT CHANGE WAS FOUND Confirmed by JAILENE RAMIREZ MD ([id number]) on 12/09/2017 10:40:22 AM Referred By: Confirmed By:JAILENE RAMIREZ MD
--- NOTE | 2017-12-09 12:53 | CON.PULM ---
Consult Consult Specialty:: PULMONARY Referred by:: Dr Mcintyre Reason for Consultation:: pulmonary emboli - History of Present Illness Chief Complaint: syncope History of Present Illness: 72yo female with h/o HTN, hyperlipidemia, CAD, COPD, chronic hypoxic respiratory failure, HIV, adenocarcinoma of lung s/p chemotherapy and radiation who was admitted after being found on the floor. Reportedly felt palpitations prior to falling. Denies shortness of breath or chest pain. No fevers, chills or sweats. Found to be in rapid atrial flutter, started on cardizem gtt. CTA chest ordered which did show bilateral pulmonary emboli. Denies history of clots. She is a former smoker. Denies any leg pain or swelling. - History Source History Provided By: Patient, Medical Record Limitations to Obtaining History: Poor Historian - Past Medical History Cardio/Vascular: Yes: CAD, HTN, Hyperlipdemia Pulmonary: Yes: COPD Infectious Disease: Yes: HIV - Past Surgical History Past Surgical History: Yes: Stent - Alcohol/Substance Use Hx Alcohol Use: No History of Substance Use: reports: None - Smoking History Smoking history: Former smoker Have you smoked in the past 12 months: No Aproximately how many cigarettes per day: 8 If you are a former smoker, when did you quit?: 7days - Social History ADL: Independent Home Medications - Allergies Allergies/Adverse Reactions: Allergies Allergy/AdvReac Type Severity Reaction Status Date / Time procaine HCl [From Novocain] Allergy Unknown Swelling Verified 12/08/17 14:12 - Home Medications Home Medications: Ambulatory Orders Alendronate Na [Fosamax (Weekly)] 70 mg PO Q7D 05/01/17 Calcium Carbonate/Vitamin D3 [Calcium 600 + Vit D 400 Softgl] 1 each PO DAILY Cholecalciferol (Vitamin D3) [Vitamin D3] 5,000 unit PO WEEKLY 05/01/17 Lancets [Lancets Ultra Thin] 1 each MC TID #100 each 06/27/17 Albuterol Sulfate Inhaler - [Ventolin Hfa Inhaler -] 1 - 2 inh PO Q6H PRN Furosemide [Lasix -] 20 mg PO DAILY 07/05/17 Albuterol Sulfate Inhaler - [Ventolin HFA Inhaler -] 1 - 2 inh PO Q4H #3 each 07 /25/18 Aspirin [ASA -] 81 mg PO DAILY #90 tab.chew 09/25/17 Beclomethasone Dipropionate [Qvar] 8.7 gm IH BID #3 aer.w.adap 09/25/17 Clindamycin [Cleocin -] 300 mg PO TID #21 capsule 09/25/17 Elviteg/Cob/Emtri/Tenof Alafen [Genvoya (Non-Formulary)] 1 each PO HS #30 tablet 09/25/17 Fenofibrate Nanocrystallized [Triglide] 160 mg PO DAILY #90 tablet 09/25/17 L.acidoph,Paracasei, B.lactis [Probiotic] 1 each PO BID #30 capsule 09/25/17 Losartan Potassium [Cozaar -] 50 mg PO DAILY #90 tablet 09/25/17 Metoprolol Tartrate [Lopressor -] 25 mg PO BID #180 tablet 09/25/17 Mirtazapine 15 mg PO HS #30 tablet 09/25/17 Multivitamin,Therapeutic [Thera] 1 each PO DAILY #90 tablet 09/25/17 Umeclidinium [place] [Incruse Ellipta] 1 puff IH DAILY #3 blst.w.dev 09/25/17 Zolpidem Tartrate [Ambien] 5 mg PO HS #5 tablet MDD half tablet 09/25/17 Family Disease History - Family Disease History Family Disease History: Heart Disease: Grandparent, Mother, Respiratory: Grandparent Review of Systems - Review of Systems Constitutional: reports: Weakness. denies: Chills, Fever Eyes: denies: Recent Change in Vision HENT: denies: Nasal Congestion, Throat Pain Neck: denies: Stiffness, Tenderness Cardiovascular: reports: Palpitations. denies: Chest Pain, Edema, Shortness of Breath Respiratory: denies: Cough, Hemoptysis, Wheezing Gastrointestinal: denies: Abdominal Pain, Nausea, Vomiting Genitourinary: denies: Dysuria, Hematuria Neurological: denies: Dizziness, Headache Endocrine: denies: Unexplained Weight Loss Physical Exam Vital Sings: Vital Signs Temperature 98.3 F 12/09/17 02:24 Pulse Rate 104 H 12/09/17 12:39 Respiratory Rate 29 H 12/09/17 12:39 Blood Pressure 109/70 12/09/17 12:39 O2 Sat by Pulse Oximetry (%) 95 12/09/17 12:39 Constitutional: Yes: Calm Eyes: Yes: Conjunctiva Clear, EOM Intact HENT: Yes: Atraumatic, Normocephalic Neck: Yes: Trachea Midline Cardiovascular: Yes: Pulse Irregular Respiratory: Yes: Diminished (decreased breath sounds at the bases) ...Clubbing: No Gastrointestinal: Yes: Normal Bowel Sounds, Soft. No: Tenderness Edema: No Neurological: Yes: Alert Labs: CBC, BMP 12/09/17 06:00 12/09/17 06:00 Imaging - Results Cat Scan: Report Reviewed, Image Reviewed (bilateral pulmonary emboli) Problem List - Problems (1) Pulmonary embolism Code(s): I26.99 - OTHER PULMONARY EMBOLISM WITHOUT ACUTE COR PULMONALE Qualifiers: Pulmonary embolism type: other Chronicity: acute Acute cor pulmonale presence: without acute cor pulmonale Qualified Code(s): I26.99 - Other pulmonary embolism without acute cor pulmonale (2) Syncope Code(s): R55 - SYNCOPE AND COLLAPSE Qualifiers: Syncope type: unspecified Qualified Code(s): R55 - Syncope and collapse (3) Non-small cell carcinoma of lung Code(s): C34.90 - MALIGNANT NEOPLASM OF UNSP PART OF UNSP BRONCHUS OR LUNG (4) COPD (chronic obstructive pulmonary disease) Code(s): J44.9 - CHRONIC OBSTRUCTIVE PULMONARY DISEASE, UNSPECIFIED Qualifiers: COPD type: unspecified COPD Qualified Code(s): J44.9 - Chronic obstructive pulmonary disease, unspecified (5) Coronary artery disease Code(s): I25.10 - ATHSCL HEART DISEASE OF [place] CORONARY ARTERY W/O ANG PCTRS (6) Human immunodeficiency virus (HIV) disease Code(s): B20 - HUMAN IMMUNODEFICIENCY VIRUS [HIV] DISEASE (7) Hypertension, benign Code(s): I10 - ESSENTIAL (PRIMARY) HYPERTENSION Assessment/Plan Syncope Acute Pulmonary Emboli Atrial Fibrillation with RVR NSCLC (Adenocarcinoma) s/p chemo/RT HIV COPD Chronic Hypoxic Respiratory Failure CAD HTN Hyperlipidemia - anticoagulation with LMWH - LE dopplers to assess clot burden - echocardiogram to assess RV function - O2 to keep SpO2 >90% - rate control - inhaled bronchodilators - telemetry monitoring Thank you for this consult Anand Pacheco MD
--- NOTE | 2017-12-09 14:08 | ECHO ---
Name: JOHANNA ORTIZ Exam:Adult Echocardiogram Study Date: 12/09/2017 11:30 AM Age: 72 yrs Reason For Study: Pulmonary emboli Height: 65 in Weight: 138 lb BSA: 1.7 m2 MMode/2D Measurements & Calculations IVSd: 0.96 cm Ao root diam: 3.1 cm LVIDd: 4.3 cm LA dimension: 2.2 cm LVIDs: 3.2 cm ACS: 1.8 cm LVPWd: 0.74 cm IVSs: 1.2 cm LVPWs: 0.98 cm EDV(Teich): 81.2 ml ESV(Teich): 40.5 ml Doppler Measurements & Calculations MV E max amilcar: 30.9 cm/sec TR max amilcar: 279.3 cm/sec MV A max amilcar: 86.4 cm/sec TR max P.2 mmHg MV E/A: 0.36 Med Peak E' Amilcar: 2.9 cm/sec Med E/e': 10.8 Lat Peak E' Amilcar: 3.1 cm/sec Lat E/e': 10.1 Procedure A complete two-dimensional transthoracic echocardiogram was performed (2D, M-mode, Doppler and color flow Doppler). Left Ventricle The left ventricle is normal in size. Left ventricular systolic function is mildly reduced. Ejection Fraction = 45-50%. There is basal posterolateral wall mild hypokinesis. There is proximal mid posteriolateral wall mild hypokinesis. There is mild inferior wall hypokinesis. There is mid inferoseptal wall mild hypokinesis . There is basal inferoseptal wall mild hypokinesis. There are regional wall motion abnormalities as specifie d. Right Ventricle The right ventricle is not well visualized. RV appears mildly dilated with reduced systolic function. A moderator band is seen in the right ventricle. Atria The left atrial size is normal. Right atrial size is normal. Mitral Valve There is mild mitral annular calcification. There is no mitral regurgitation noted. Tricuspid Valve The tricuspid valve is normal in structure and function. There is mild tricuspid regurgitation. Aortic Valve There is moderate aortic sclerosis.;. No aortic regurgitation is present. Pulmonic Valve The pulmonic valve is not well visualized. Great Vessels Mild aortic root dilatation. Pericardium/Pleura There is no pericardial effusion. Interpretation Summary The left ventricle is normal in size. Left ventricular systolic function is mildly reduced. There are regional wall motion abnormalities as specified. Ejection Fraction = 45-50%. The right ventricle is not well visualized. RV appears mildly dilated with reduced systolic function A moderator band is seen in the right ventricle. The left atrial size is normal. There is mild mitral annular calcification. There is mild tricuspid regurgitation. There is moderate aortic sclerosis.; Mild aortic root dilatation. Pulmonary artery systolic pressure is at least 50 mmHg assuming RA pressure of 15 mmHg (dilated IVC w ith <50% collapse) There is no pericardial effusion. Previous study is not available for comparison Gigi Hess MD 12/09/2017 02:07 PM
--- NOTE | 2017-12-09 14:46 | PN ---
Progress Note (short form) - Note Progress Note: ID Consult dictated S/P syncope Bilateral pulmonary emboli Rapid A fib Lung ca UTI HIV/ AIDS Hx non compliance ? Seborrhea Await c/s Continue ceftriaxone Check CD4 ART ? PCP prophylaxis
--- NOTE | 2017-12-09 15:49 | CONSULT ---
Consultation: REQUESTING PROVIDER: CONSULT REQUEST: We have been asked to medically evaluate this patient for ICU. HISTORY OF PRESENT ILLNESS: A 72 y.o. F w/ PMHx. of COPD (on 3L NC), HTN, HIV( last CD4 was 89 in August per Pt.) CAD( stent placed in 2015), Lung Ca. ( completed chemo and radiation in August), HLD and medication noncompliance, presents to the ICU after passing out and laying on the ground for an undetermined amount of time. [facility] called EMS and brought PT. to the ED. Pt. states that since October 21, 2017 she has fallen 3 times always with the symptoms of feeling dizzy/lightheaded "here I go again" feeling. In the ED Pt. was found to be tachycardic Pt. states she does not take medications because she does not fee like it. REVIEW OF SYSTEMS: Pt. endorses having dizziness, lightheadedness, cough( non-productive), polyuria , sees floaters in eyes( 6-7 white and black), palpitations, increased shortness of breath, swollen feet, and facial rash that began 3 years ago. Pt. denies all other symptoms. PHYSICAL EXAMINATION Vital Signs - 24 hr 12/08/17 12/08/17 12/08/17 15:49 16:09 18:15 Temperature Pulse Rate Pulse Rate [ 115 H 122 H 122 H Apical] Respiratory 20 22 H 22 H Rate Blood Pressure Blood Pressure 139/86 149/102 H 157/94 [Right Arm] O2 Sat by Pulse 100 100 98 Oximetry (%) 12/08/17 12/09/17 12/09/17 20:20 02:24 06:10 Temperature 98.3 F Pulse Rate Pulse Rate [ 121 H 127 H Apical] Respiratory 25 H 27 H Rate Blood Pressure Blood Pressure 123/81 147/93 [Right Arm] O2 Sat by Pulse 97 95 96 Oximetry (%) 12/09/17 12/09/17 12/09/17 07:51 09:13 10:37 Temperature Pulse Rate 138 H Pulse Rate [ 129 H 133 H Apical] Respiratory 21 H Rate Blood Pressure 150/99 Blood Pressure 148/95 165/93 [Right Arm] O2 Sat by Pulse 94 L Oximetry (%) 12/09/17 12/09/17 12/09/17 11:00 11:10 12:39 Temperature Pulse Rate 133 H Pulse Rate [ 132 H 104 H Apical] Respiratory 32 H 29 H Rate Blood Pressure 125/73 Blood Pressure 125/73 109/70 [Right Arm] O2 Sat by Pulse 95 95 Oximetry (%) GENERAL: Awake, alert, and fully oriented, in no acute distress. HEAD: Normal with no signs of gross trauma, Facial rash, dry, likely psoriasis. EYES: Pupils equal, round and reactive to light, extraocular movements intact, sclera anicteric, conjunctiva clear. No lid lag. EARS, NOSE, THROAT: Ears normal, nares patent, oropharynx clear without exudates. Moist mucous membranes. NECK: Normal range of motion, supple without lymphadenopathy, JVD, or masses. LUNGS: Breath sounds equal, clear to auscultation bilaterally. No wheezes, and no crackles. No accessory muscle use. HEART: Regular rate and rhythm, normal S1 and S2 without murmur, rub or gallop. ABDOMEN: Soft, nontender, not distended, normoactive bowel sounds, no guarding, no rebound, no masses. No hepatomegaly or splenomegaly. MUSCULOSKELETAL: Normal range of motion at all joints. No bony deformities or tenderness. No CVA tenderness. UPPER EXTREMITIES: 2+ pulses, warm, well-perfused. No cyanosis. No clubbing. Cap refill <2 seconds. No peripheral edema. LOWER EXTREMITIES: 2+ pulses, warm, well-perfused. No calf tenderness. No peripheral edema. NEUROLOGICAL: Cranial nerves II-XII intact. Normal speech. Normal gait. PSYCHIATRIC: Cooperative. Good eye contact. Appropriate mood and affect. SKIN: Warm, dry, normal turgor, no rashes or lesions noted. Laboratory Results - last 24 hr 12/08/17 12/08/17 12/08/17 14:53 15:02 15:58 WBC RBC Hgb Hct MCV MCH MCHC RDW Plt Count MPV Absolute Neuts (auto) Neutrophils % Neutrophils % (Manual) 78.0 Band Neutrophils % 3.0 Lymphocytes % Lymphocytes % (Manual) 9.0 D Monocytes % Monocytes % (Manual) 9 Eosinophils % Basophils % Nucleated RBC % Platelet Comment No clumping noted PT with INR INR PTT (Actin FS) Sodium 134 L Potassium 6.0 H Chloride 103 Carbon Dioxide 29 Anion Gap 3 L BUN 36 H Creatinine 1.0 Creat Clearance w eGFR 54.81 Random Glucose 137 H Calcium 10.4 H Phosphorus Magnesium 2.0 Total Bilirubin 1.6 H AST 55 H ALT 19 Alkaline Phosphatase 65 Creatine Kinase 121 Troponin I 0.10 H B-Natriuretic Peptide 41475.9 H Total Protein 8.1 Albumin 2.5 L TSH 0.30 L Free T4 Urine Color [place] Urine Appearance Cloudy Urine pH 8.0 D Ur Specific [place] 1.016 Urine Protein 2+ H Urine Glucose (UA) Negative Urine Ketones Negative Urine Blood 2+ H Urine Nitrite Negative Urine Bilirubin Negative Urine Urobilinogen 4.0 e.u/dl H Ur Leukocyte Esterase 2+ H Urine WBC (Auto) 68 Urine RBC (Auto) 3 Urine Bacteria Rare Urine Mucus Rare 12/08/17 12/09/17 12/09/17 21:34 06:00 06:00 WBC 8.3 RBC 4.04 Hgb 11.9 Hct 38.1 MCV 94.4 MCH 29.5 MCHC 31.2 L RDW 15.7 H Plt Count 116 L D MPV 11.3 H Absolute Neuts (auto) 6.7 Neutrophils % 80.9 Neutrophils % (Manual) Band Neutrophils % Lymphocytes % 8.3 Lymphocytes % (Manual) Monocytes % 9.9 Monocytes % (Manual) Eosinophils % 0.1 Basophils % 0.8 Nucleated RBC % 0 Platelet Comment PT with INR 14.30 H INR 1.21 H PTT (Actin FS) 43.1 H Sodium 141 Potassium 3.5 Chloride 106 Carbon Dioxide 28 Anion Gap 7 L BUN 30 H Creatinine 0.8 Creat Clearance w eGFR > 60 Random Glucose 91 Calcium 9.5 Phosphorus Magnesium Total Bilirubin 1.2 H AST 56 H ALT 21 Alkaline Phosphatase 69 Creatine Kinase Troponin I 0.08 H B-Natriuretic Peptide Total Protein 7.0 Albumin 2.4 L TSH Free T4 Urine Color Urine Appearance Urine pH Ur Specific [place] Urine Protein Urine Glucose (UA) Urine Ketones Urine Blood Urine Nitrite Urine Bilirubin Urine Urobilinogen Ur Leukocyte Esterase Urine WBC (Auto) Urine RBC (Auto) Urine Bacteria Urine Mucus 12/09/17 12/09/17 06:00 08:50 WBC RBC Hgb Hct MCV MCH MCHC RDW Plt Count MPV Absolute Neuts (auto) Neutrophils % Neutrophils % (Manual) Band Neutrophils % Lymphocytes % Lymphocytes % (Manual) Monocytes % Monocytes % (Manual) Eosinophils % Basophils % Nucleated RBC % Platelet Comment PT with INR INR PTT (Actin FS) Sodium 142 Potassium 4.1 Chloride 106 Carbon Dioxide 28 Anion Gap 8 BUN 30 H Creatinine 0.9 Creat Clearance w eGFR > 60 Random Glucose 114 H Calcium 9.2 Phosphorus 3.0 Magnesium 1.6 L Total Bilirubin AST ALT Alkaline Phosphatase Creatine Kinase Troponin I B-Natriuretic Peptide Total Protein Albumin TSH Free T4 1.40 Urine Color Urine Appearance Urine pH Ur Specific [place] Urine Protein Urine Glucose (UA) Urine Ketones Urine Blood Urine Nitrite Urine Bilirubin Urine Urobilinogen Ur Leukocyte Esterase Urine WBC (Auto) Urine RBC (Auto) Urine Bacteria Urine Mucus Active Medications Current Medications Chlorhexidine Gluconate (Hibiclens For Decolonization -) 1 applic TP HS DURGA Enoxaparin Sodium (Lovenox -) 63 mg SQ BID DURGA Last Admin: 12/09/17 09:49 Dose: 63 mg Ceftriaxone Sodium 1 gm/ (Dextrose) 50 mls @ 100 mls/hr IVPB DAILY DURGA; Protocol Mupirocin (Bactroban Ointment (For Decolonization) -) 1 applic NS BID DURGA Stop: 12/14/17 21:59 ASSESSMENT/PLAN: Pt is a 72 y/o lady with a significant past medical history of non-small cell lung cancer, HIV, COPD, HTN, HLD, CAD who was BIBA yesterday evening (12/08/17) after being found on the ground near her couch by her godson at approximately 1 pm yesterday. #Cardiovascular -Syncope 2/2 Pulmonary Embolism vs.Arrhythmia Cardiology consult appreciated Trend troponins and EKG to rule out ACS BNP: 85697. Most likely 2/2 P.E, not CHF -HTN Consider continuing Losartan in light of pt's residing hyperkalemia Resume Metoprolol 25 bid #Pulmonology -Bilateral PE CTA Chest shows multiple acute pulmonary emboli within L and R upper and lower lobe pulmonary arterial branches. c/w Lovenox 1mg/kg BID BNP: 60620 -COPD-stable Resume Qvar Inhaler BID Ventolin inhaler PRN #Infectious Disease -HIV Pt endorses taking Genvoya every day Continue taking medication ID consult # Oncology -Non-Small cell Adeno Lung Completed Radiation and Chemotherapy Tx. F/u Heme/Onc consult MRI Brain to check for metastases #FEN No Fluids Monitor electrolytes Sodium Diet DVT ppx: Lovenox SQ BID Dispo: ICU Visit type - Emergency Visit Emergency Visit: Yes ED Registration Date: 12/08/17 Care time: The patient presented to the Emergency Department on the above date and was hospitalized for further evaluation of their emergent condition. - New Patient This patient is new to me today: Yes Date on this admission: 12/09/17 - Critical Care Critical Care patient: Yes Total Critical Care Time (in minutes): 42 Critical Care Statement: The care of this patient involved high complexity decision making to prevent further life threatening deterioration of the patient 's condition and/or to evaluate & treat vital organ system(s) failure or risk of failure.
[2017-12-09] MEDS: CEFTRIAXONE 1 GM in DEXTROSE 5%-WATER - 50 ML IVPB SCH (15:52)
--- NOTE | 2017-12-09 16:52 | CONS ---
DATE OF CONSULTATION: DATE OF DICTATION: 12/09/2017 The patient is a 72-year-old female with a history of acquired immunodeficiency syndrome with recent history of noncompliance, lung cancer status post chemotherapy in August of 2017, now evaluated for HIV management. The history is obtained from the chart as well as the patient and the patient's son, who was present at the time of examination. She was apparently found on the floor of her residence on December 08, 2017, after an apparent syncopal episode. She was brought to the emergency room, where a CAT scan of the head was negative for acute infarct or bleed. A CT angiogram was performed of the chest and showed bilateral pulmonary emboli. She was placed on anticoagulation. Her course was complicated by rapid atrial fibrillation. At the present time, she is awake and alert; she has no recall for events. She does report falling several times in the past week or so. She had sustained right head trauma without evidence of injury. On initial evaluation, she was also noted to have pyuria. She denies urinary tract symptoms. No complaints of dysuria, hematuria, frequency, or urgency. Patient admits to non-adherence to her anti-retroviral therapy; however, states she has been taking them regularly for the past week or so. Her most recent viral markers from September 2017 showed a viral load of 55,000, T-cell count of 96. PAST MEDICAL HISTORY POSITIVE FOR: 1. Acquired immunodeficiency syndrome diagnosed in 1988. 2. History of lung cancer, status post chemo and radiation therapy, [id number] CA. 3. COPD. 4. Hypertension. 5. Hyperlipidemia. 6. Coronary artery disease. ALLERGIES: To PROCAINE, reports swelling. Medications include ceftriaxone, Lovenox, outpatient antiretroviral therapy, Genvoya. SOCIAL HISTORY: She is a former smoker. Former heroin user, as per chart. SYSTEMS REVIEW: Neurologic: As per HPI. Cardiac: As per HPI. Respiratory: Negative cough, sputum production, hemoptysis. Gastrointestinal: Negative vomiting or diarrhea. Genitourinary: As per HPI. LABORATORY DATA: White count 8.3, hematocrit 38.1, platelets 116. BUN 30, creatinine 0.9. Chest x-ray negative for acute infiltrate. CAT scan: No evidence of infiltrate. Positive bilateral pulmonary emboli. PHYSICAL EXAMINATION: General: She is supine on a stretcher in the emergency room, in no acute distress. Vital Signs: Temperature 98.3. Blood pressure 109/70. Pulse 104, regular. Respiration 20 per minute. Skin: There is extensive seborrhea or psoriasis involving the face. No mucous membrane involvement. Eyes: Sclerae anicteric. Oropharynx: Negative. Neck: Supple. No palpable nodes. Heart Sounds: Irregular. S1, S2. Lungs: Crepitations at the bases bilaterally. Abdomen: Obese, soft, nontender. Extremities: Negative for edema. Dry abrasions are present over the dorsum of both feet. They do not appear to be infected. IMPRESSION: 1. Status post syncope. 2. Bilateral pulmonary emboli. 3. Rapid atrial fibrillation. 4. Lung cancer. 5. Urinary tract infection. 6. Acquired immunodeficiency syndrome with history of noncompliance. 7. Seborrhea of the face. Await culture results. Will continue ceftriaxone 1 g IV piggyback daily for possible urinary tract infection. Obtain CD4 lymphocyte count. Resume antiretroviral therapy. PCP prophylaxis if T-cell count less than 200. Will follow. Thank you for the kind referral. HANK BISHOP M.D. [id number]
--- NOTE | 2017-12-09 17:36 | PN ---
Physical Exam: SUBJECTIVE: Patient seen and examined at bedside. Patient has no new complaints. She denies SOB, chest pain, palpitations, abdominal pain, diarrhea, headache, lightheadedness. OBJECTIVE: Vital Signs Period Temp Pulse Resp BP Sys/[place] Pulse Ox Last 24 Hr 98.3 F 93-138 21-32 109-165/68-99 91-98 GENERAL: The patient is awake, alert, and fully oriented, in no acute distress. HEAD: Normal with no signs of trauma. +pruritic, dry skin on the face EYES: PERRLA, EOMI, sclera anicteric, conjunctiva clear. ENT: Ears normal, nares patent, oropharynx clear without exudates, moist mucous membranes. NECK: Trachea midline, full range of motion, supple. LUNGS: Breath sounds equal, clear to auscultation bilaterally. HEART: Regular rate and rhythm, S1, S2 without murmur, rub or gallop. ABDOMEN: Soft, nontender, nondistended, normoactive bowel sounds. EXTREMITIES: 2+ pulses, warm, well-perfused, no edema. NEUROLOGICAL: Cranial nerves II through XII grossly intact. Normal speech, gait not observed. PSYCH: Normal mood, normal affect. SKIN: Warm, normal turgor, +dry skin, +wounds on dorsum of feet bilaterally Laboratory Results - last 24 hr 12/08/17 12/08/17 12/09/17 14:53 21:34 06:00 WBC 8.3 RBC 4.04 Hgb 11.9 Hct 38.1 MCV 94.4 MCH 29.5 MCHC 31.2 L RDW 15.7 H Plt Count 116 L D MPV 11.3 H Absolute Neuts (auto) 6.7 Neutrophils % 80.9 Neutrophils % (Manual) 78.0 Band Neutrophils % 3.0 Lymphocytes % 8.3 Lymphocytes % (Manual) 9.0 D Monocytes % 9.9 Monocytes % (Manual) 9 Eosinophils % 0.1 Basophils % 0.8 Nucleated RBC % 0 Platelet Comment No clumping noted PT with INR INR PTT (Actin FS) Sodium 141 Potassium 3.5 Chloride 106 Carbon Dioxide 28 Anion Gap 7 L BUN 30 H Creatinine 0.8 Creat Clearance w eGFR > 60 Random Glucose 91 Calcium 9.5 Phosphorus Magnesium Total Bilirubin 1.2 H AST 56 H ALT 21 Alkaline Phosphatase 69 Troponin I 0.08 H Total Protein 7.0 Albumin 2.4 L Free T4 12/09/17 12/09/17 12/09/17 06:00 06:00 08:50 WBC RBC Hgb Hct MCV MCH MCHC RDW Plt Count MPV Absolute Neuts (auto) Neutrophils % Neutrophils % (Manual) Band Neutrophils % Lymphocytes % Lymphocytes % (Manual) Monocytes % Monocytes % (Manual) Eosinophils % Basophils % Nucleated RBC % Platelet Comment PT with INR 14.30 H INR 1.21 H PTT (Actin FS) 43.1 H Sodium 142 Potassium 4.1 Chloride 106 Carbon Dioxide 28 Anion Gap 8 BUN 30 H Creatinine 0.9 Creat Clearance w eGFR > 60 Random Glucose 114 H Calcium 9.2 Phosphorus 3.0 Magnesium 1.6 L Total Bilirubin AST ALT Alkaline Phosphatase Troponin I Total Protein Albumin Free T4 1.40 Active Medications Generic Name Dose Route Start Last Admin Trade Name Freq PRN Reason Stop Dose Admin Chlorhexidine Gluconate 1 applic 12/09/17 22:00 Hibiclens For Decolonization - TP HS DURGA Enoxaparin Sodium 63 mg 12/09/17 00:30 12/09/17 09:49 Lovenox - SQ 63 mg BID DURGA Administration Ceftriaxone Sodium 1 gm/ 50 mls @ 100 mls/hr 12/09/17 15:15 12/09/17 15:52 Dextrose IVPB 100 mls/hr DAILY DURGA Administration Protocol Mupirocin 1 applic 12/09/17 22:00 Bactroban Ointment (For Decolonization) - NS 12/14/17 21:59 BID DURGA Imaging Chest xray (12/08/17) - Since 05/07/17, the lungs appear better aerated. The left central line persists. There is a prominent mediastinum and persistent granuloma left base. Chest xray (12/09/17) - Since 12/08/17, there is no significant change and no sign of an acute process. There is a left base granuloma, left central line and prominent mediastinum. Chest CTA - Multiple pulmonary emboli at the left pulmonary artery bifurcation extending and involving the left upper and lower lobe branches as well as multiple pulmonary emboli in the right upper and lower lobe proximal and distal branches. Minimal atelectatic changes in the left lung base and subsegmental atelectasis in the right lung base, posteriorly. There is no aneurysmal dilatation of the abdominal aorta. Vascular calcifications are present. Partially included exophytic right renal lesion for which further evaluation with US is recommended. On prior CT scan of the chest dated 10/15/17, partially included cortical deformity of the right kidney was present. Head CT without contrast - No evidence of acute intracranial hemorrhage, edema, midline shift, mass effect, or skull fracture. No CT evidence of acute territorial ischemic changes. Moderate supratentorial white matter microangiopathic ischemic changes. Cervical spine CT - No compression fracture, subluxation or prevertebral soft tissue swelling identified. Moderate to marked degenerative disc disease at C6- C7 level with mild anterior and posterior spur formation as well as bilateral uncovertebral hypertrophy slightly to moderately narrowing the right and slightly narrowing the left foramen. Echo - LV is normal in size. LV systolic function is mildly reduced. There are regional wall motion abnormalities. EF is 45-50%. RV is not well visualized. RV appears mildly dilated with reduced systolic function. A moderator band is seen in the RV. LA size is normal. There is mild mitral annular calcification. There is mild tricuspid regurgitation. There is moderate aortic sclerosis. Mild aortic root dilatation. Pulmonary artery systolic pressure is at least 50mmHg assuming RA pressure of 15mmHg (dilated IVC with <50% collapse). No pericardial effusion. ASSESSMENT/PLAN: Patient is a 72 year old female with a significant past medical history of non- small cell lung cancer, HIV, COPD, HTN, HLD, CAD who was BIBA yesterday evening (12/08/17) after having an episode of syncope and being found on the ground near her couch by her godson at approximately 1 pm yesterday. # Syncope: likely 2/2 Arrhythmia vs Pulmonary embolism -EKG - SVT, LAD -Head CT - No evidence of acute intracranial hemorrhage, edema, midline shift, mass effect, or skull fracture. No CT evidence of acute territorial ischemic changes. Moderate supratentorial white matter microangiopathic ischemic changes. -Echo - LV systolic function is mildly reduced. There are regional wall motion abnormalities. EF is 45-50%. RV is not well visualized. RV appears mildly dilated with reduced systolic function. A moderator band is seen in the RV. LA size is normal. There is mild mitral annular calcification. There is mild tricuspid regurgitation. There is moderate aortic sclerosis. Mild aortic root dilatation. Pulmonary artery systolic pressure is at least 50mmHg assuming RA pressure of 15mmHg (dilated IVC with <50% collapse). -Troponins trended 0.10 --> 0.08. Likely demand ischemia from tachycardia. -Cardiology (Dr. St) consulted. Recommendations appreciated. -Lovenox 63 mg sq BID (1mg/kg bid) -Cardizem drip started. #Multiple pulmonary embolism: hemodynamically stable -Chest CTA - Multiple pulmonary emboli at the left pulmonary artery bifurcation extending and involving the left upper and lower lobe branches as well as multiple pulmonary emboli in the right upper and lower lobe proximal and distal branches. -BNP - 35075 -Lovenox 63mg sq BID #Hypomagnesemia -Mg 1.6 -Mg PO 800mg given -will monitor #HIV -Pt endorses taking Genvoya every day -ID (Dr. Peralta) consulted. #UTI -UA - WBC 63, leuk est +2 -Ceftriaxone 1 gm daily started. #Non-Small cell AdenoCa Lung -Received Radiation therapy for 12 weeks, everyday according to pt -Received Chemo therapy for 12 weeks, once per week according to pt -MRI Brain ordered. #HTN -Consider continuing Losartan in light of pt's residing hyperkalemia -Resume Metoprolol 25 mg bid #COPD -Resume Qvar Inhaler BID -Ventolin inhaler PRN #FEN -not on any standing fluids -HypoMg, replete as needed -Sodium restricted diet #Prophylaxis -On lovenox #Disposition -admit to ICU for closer monitoring Visit type - Emergency Visit Emergency Visit: Yes ED Registration Date: 12/08/17 Care time: The patient presented to the Emergency Department on the above date and was hospitalized for further evaluation of their emergent condition. - New Patient This patient is new to me today: Yes Date on this admission: 12/09/17 - Critical Care Critical Care patient: Yes Total Critical Care Time (in minutes): 40 Critical Care Statement: The care of this patient involved high complexity decision making to prevent further life threatening deterioration of the patient 's condition and/or to evaluate & treat vital organ system(s) failure or risk of failure.
--- NOTE | 2017-12-09 17:58 | PN ---
Teaching Attending Note Name of Resident: Tracy Malik ATTENDING PHYSICIAN STATEMENT I saw and evaluated the patient. I reviewed the resident's note and discussed the case with the resident. I agree with the resident's findings and plan as documented. SUBJECTIVE:asymptomatic. states she is no longer feeling palpitations. denies CP , SOB, fever, chills, N/V/c/D, dizzyness or blurred vision OBJECTIVE: Last Vital Signs Temp Pulse Resp BP Pulse Ox 98.3 F 101 H 23 H 113/62 94 L 12/09/17 02:24 12/09/17 17:41 12/09/17 17:41 12/09/17 17:41 12/09/17 17:41 General NAD CV S1 S2 RRR Lungs CTA B/L No wheezing/rales/rhonchi Extremities no pedal edema skin white flaking of the entire face, lacy macular rash of the arms ASSESSMENT AND PLAN: 72yo F with PMH HIV not compliant with HARRT, lung ca s/p chemo/RTX, COPD on home O2 2L NC, HTN, CAD s/p stent, dyslipidemia presented to the ER after syncope. she syncopized at home and then could not get up and was down on the floor for extended period of time.In the ER was found to be in aflutter and have multiple PE 1. Syncope- most lkely due to arythmia. will complete syncope workup to r/o other causes. check echo and carotid doppler. cardiac monitoring 2. Aflutter- initially SVT with no response to vagal maneuver. responded well to cardizem and showed aflutter. currently on cardizem ggt and currently appear to be in sinus rhythm. will transition over to po. cardio consulted 3. Multiple B/L PE- hemodynamically stable. no signs of heart strain with bedside echo, awaiting official echo to be done. on lovenox full dose. will likely require life long anticoaulation. given malignancy and hypercoagulable state. 4. Hyperkalemia- treated in the ER. now resolved 5. Tropinemia- likely demand ischemia from tachycardia. Peaked at 0.1 and trended down. can consider ischemia eval as outpatient if aflutter persists although most likely induced from PE. 6. Hypomagnesemia- mg 800mg 7. Low TSH- check T3/T4 8. UTI- on ceftriaxone day 1. f/u Cx 9. HIV- not complaint wtih HARRT. ID consulted 10. diffuse rash- has had for over a year. has seen dermatology in the past. not on treatment 11. DVT ppx- full dose lovenox
[2017-12-09] MEDS ORDERED: CHLORHEXIDINE GLUCONATE 4% CLEANSER FOR DECOLONIZATION TP SCH (22:00)
[2017-12-09] MEDS ORDERED: MUPIROCIN 2% TOPICAL OINTMENT FOR DECOLONIZATION NS SCH (22:00)
[2017-12-09] MEDS: ENOXAPARIN NA (PORCINE) 60 MG/0.6 ML DISP.SYRIN SQ SCH (23:42)
[2017-12-10 07:28] LABS: BASO % 0.4 % (0-2.0); EOS % 0.2 % (0-4.5); HEMATOCRIT 36.7 % (32.4-45.2); HEMOGLOBIN 11.6 GM/dL (10.7-15.3); MCH 29.5 pg (25.7-33.7); MCHC 31.6 g/dl (32.0-36.0); MEAN CELL VOLUME 93.4 fl (80-96); MEAN PLT VOLUME 11.7 fl (7.5-11.1); MONO % 9.4 % (3.8-10.2); PLATELET COUNT 106 K/MM3 (134-434); RBC 3.93 M/mm3 (3.60-5.2); RDW 15.9 % (11.6-15.6); WHITE BLOOD COUNT 6.3 K/mm3 (4.0-10.0)
[2017-12-10 07:50] LABS: INR 1.16 (0.83-1.09); PROTHROMBIN TIME (PATIENT) 13.7 SEC (9.7-13.0)
[2017-12-10 08:01] LABS: ALBUMIN 2.2 g/dl (3.4-5.0); ALK PHOS 62 U/L (45-117); ANION GAP 6 MMOL/L (8-16); BILIRUBIN,TOTAL 0.8 mg/dL (0.2-1); BLOOD UREA NITROGEN 33 mg/dL (7-18); CALCIUM 9.4 mg/dL (8.5-10.1); CHLORIDE 105 mmol/L (98-107); CO2 29 mmol/L (21-32); CREATININE 0.6 mg/dL (0.55-1.3); GLUCOSE,RANDOM 94 mg/dL (74-106); MAGNESIUM 1.9 mg/dL (1.8-2.4); PHOSPHOROUS 2.5 mg/dL (2.5-4.9); POTASSIUM 4.1 mmol/L (3.5-5.1); SGOT/AST 25 U/L (15-37); SGPT/ALT 16 U/L (13-61); SODIUM 141 mmol/L (136-145); TOT PROT 6.8 g/dl (6.4-8.2)
[2017-12-10] MEDS ORDERED: DEXTROSE 5%-WATER - 50 ML IVPB ONE (09:09)
[2017-12-10] MEDS ORDERED: cefTRIAXone SODIUM 1 GM VIAL ONE (09:09)
[2017-12-10] MEDS: CEFTRIAXONE 1 GM in DEXTROSE 5%-WATER - 50 ML IVPB SCH (09:15)
[2017-12-10] MEDS: ENOXAPARIN NA (PORCINE) 60 MG/0.6 ML DISP.SYRIN SQ SCH ×2 (09:16→21:20)
[2017-12-10] MEDS ORDERED: FLU VACCINE QUAD 60 MCG/0.5 ML (MDV 18-19) IM ONE (10:00)
[2017-12-10] MEDS ORDERED: LOSARTAN POTASSIUM 50 MG TABLET (FP) PO SCH (10:00)
[2017-12-10] MEDS ORDERED: METOPROLOL TARTRATE 25 MG TABLET (FP) PO SCH (10:00)
--- NOTE | 2017-12-10 10:03 | PN ---
Progress Note, Physician Chief Complaint: Pt A&Ox3; feels "better" than on admission, but still coughs, feels fatigued and is easily dyspneic.No chest pain presently. History of Present Illness: 72yo white woman with HIV, lung adenocarcinoma s/p radiation and chemotherapy ( last session in August 2017), COPD (uses 2L O2 at home) htn, hld, stent placement BIBA after being found on the floor by her couch. Per daughter, pt was last seen at around 5pm yesterday and she was on her couch. She was found on the floor by her godson at around 1pm today. Pt states she went to get up off the couch when she fell down. She admits to palpitations and cough. Denies headache , back pain, chest pain, abdominal pain, n/v/d, hemoptysis, leg pain/swelling, fevers. She is not taking blood thinners. She has not taken her HAART medications for the past few months, does not know what her current viral load is. PCP: Oncologist: Ajit PMH: see hpi PSH: cardiac stent 2014 - Current Medication List Current Medications: Active Medications Enoxaparin Sodium (Lovenox -) 60 mg SQ BID [facility] Last Admin: 12/10/17 09:16 Dose: 60 mg Ceftriaxone Sodium 1 gm/ (Dextrose) 50 mls @ 100 mls/hr IVPB DAILY [facility]; Protocol Last Admin: 12/10/17 09:15 Dose: 100 mls/hr Influenza Virus Vaccine Quadrival (Flulaval Quad [id number]) 60 mcg IM .ONCE ONE Stop: 12/10/17 10:01 Metoprolol Tartrate (Lopressor -) 25 mg PO BID [facility] Last Admin: 12/10/17 09:15 Dose: 25 mg - Objective Vital Signs: Vital Signs Temperature 98.8 F 12/10/17 05:55 Pulse Rate 128 H 12/10/17 05:55 Respiratory Rate 20 12/10/17 05:55 Blood Pressure 137/85 12/10/17 05:55 O2 Sat by Pulse Oximetry (%) 94 L 12/09/17 22:00 Constitutional: Yes: Calm Eyes: Yes: WNL HENT: Yes: WNL Neck: Yes: WNL Cardiovascular: Yes: Regular Rate and Rhythm, S1, S2, S4 Respiratory: Yes: Diminished, Tachypnea Gastrointestinal: Yes: Soft ...Rectal Exam: Yes: Deferred Genitourinary: Yes: Anuria Breast(s): Yes: WNL Musculoskeletal: Yes: Muscle Weakness Extremities: Yes: Cool Edema: No Peripheral Pulses WNL: Yes Neurological: Yes: Alert, Oriented, Weakness Psychiatric: Yes: Alert, Oriented Labs: CBC, BMP 12/10/17 05:30 12/10/17 05:30 INR, PTT INR 1.16 (0.83-1.09) H 12/10/17 05:30 Abnormal Lab Results 12/09/17 12/10/17 12/10/17 08:50 05:30 05:30 MCHC 31.6 L RDW 15.9 H Plt Count 106 L MPV 11.7 H Neutrophils % 83.0 H Neutrophils % (Manual) 86.7 H Lymphocytes % 7.0 L Lymphocytes % (Manual) 3.1 L D PT with INR INR Anion Gap 6 L BUN 33 H Albumin 2.2 L Free T3 1.9 L 12/10/17 05:30 MCHC RDW Plt Count MPV Neutrophils % Neutrophils % (Manual) Lymphocytes % Lymphocytes % (Manual) PT with INR 13.70 H INR 1.16 H Anion Gap BUN Albumin Free T3 - ....Imaging Cat Scan: Image Reviewed (bilateral PE) EKG: Image Reviewed (NSR; LAD) Problem List - Problems (1) Pulmonary embolism Assessment/Plan: Multiple bilateral pulmonary emboli, Initially in sinus tachycardia; now in NSR, with HR 90-100 bpm. ECHO: mildly reduced LVEF with regional wall motion abnormalities; reduced RVEF with mildly dilated RV On Lovenox 60 mg bid. As discussed with rn emergency, pt to be evaluated for possible tPa. Coronary artery evaluation when stable (hx coronary stent several years ago; still smokes cigarettes; she is unsure if she ever had an FL). Code(s): I26.99 - OTHER PULMONARY EMBOLISM WITHOUT ACUTE COR PULMONALE Qualifiers: Pulmonary embolism type: other Chronicity: acute Acute cor pulmonale presence: without acute cor pulmonale Qualified Code(s): I26.99 - Other pulmonary embolism without acute cor pulmonale (2) Syncope Code(s): R55 - SYNCOPE AND COLLAPSE Qualifiers: Syncope type: unspecified Qualified Code(s): R55 - Syncope and collapse (3) Coronary artery calcification seen on CT scan Assessment/Plan: hx coronary stent several years ago. Multiple ongoing risks for CAD progression. For coronary artery evaluation when stable, if not done in the recent past. Code(s): I25.10 - ATHSCL HEART DISEASE OF [place] CORONARY ARTERY W/O ANG PCTRS (4) Diabetes Code(s): E11.9 - TYPE 2 DIABETES MELLITUS WITHOUT COMPLICATIONS (5) Fever Assessment/Plan: on antibiotics for UTI per ID. Code(s): R50.9 - FEVER, UNSPECIFIED Qualifiers: Fever type: unspecified Qualified Code(s): R50.9 - Fever, unspecified (6) Non-small cell carcinoma of lung Code(s): C34.90 - MALIGNANT NEOPLASM OF UNSP PART OF UNSP BRONCHUS OR LUNG (7) COPD (chronic obstructive pulmonary disease) Code(s): J44.9 - CHRONIC OBSTRUCTIVE PULMONARY DISEASE, UNSPECIFIED Qualifiers: COPD type: unspecified COPD Qualified Code(s): J44.9 - Chronic obstructive pulmonary disease, unspecified (8) Coronary artery disease Code(s): I25.10 - ATHSCL HEART DISEASE OF [place] CORONARY ARTERY W/O ANG PCTRS (9) Osteoporosis Code(s): M81.0 - AGE-RELATED OSTEOPOROSIS W/O CURRENT PATHOLOGICAL FRACTURE (10) Seborrheic dermatitis of scalp Code(s): L21.9 - SEBORRHEIC DERMATITIS, UNSPECIFIED (11) Tobacco use disorder Code(s): Z72.0 - TOBACCO USE (12) HIV (human immunodeficiency virus infection) Code(s): B20 - HUMAN IMMUNODEFICIENCY VIRUS [HIV] DISEASE
[2017-12-10] MEDS ORDERED: METOPROLOL TARTRATE 50 MG TABLET (FP) PO SCH (10:15)
--- NOTE | 2017-12-10 10:32 | PN ---
Progress Note, Physician History of Present Illness: C/O back pain with deep inspiration No c/o dyspnea/ cough No c/o fever/ chills Denies dysuria - Current Medication List Current Medications: Active Medications Enoxaparin Sodium (Lovenox -) 60 mg SQ BID [facility] Last Admin: 12/10/17 09:16 Dose: 60 mg Ceftriaxone Sodium 1 gm/ (Dextrose) 50 mls @ 100 mls/hr IVPB DAILY [facility]; Protocol Last Admin: 12/10/17 09:15 Dose: 100 mls/hr Metoprolol Tartrate (Lopressor -) 50 mg PO BID [facility] - Objective Vital Signs: Vital Signs Temperature 98.8 F 12/10/17 05:55 Pulse Rate 128 H 12/10/17 05:55 Respiratory Rate 20 12/10/17 05:55 Blood Pressure 137/85 12/10/17 05:55 O2 Sat by Pulse Oximetry (%) 94 L 12/09/17 22:00 Constitutional: Yes: No Distress Eyes: Yes: Conjunctiva Clear Cardiovascular: Yes: Regular Rate and Rhythm, S1, S2 Respiratory: Yes: Diminished Gastrointestinal: Yes: Normal Bowel Sounds, Soft. No: Tenderness Edema: No Labs: CBC, BMP 12/10/17 05:30 12/10/17 05:30 INR, PTT INR 1.16 (0.83-1.09) H 12/10/17 05:30 Assessment/Plan S/P syncope Bilateral PE UTI HIV/ AIDS Continue empiric ceftriaxone
[2017-12-10] MEDS ORDERED: METOPROLOL TARTRATE 25 MG TABLET (FP) PO ONE (10:38)
[2017-12-10 11:15] LABS: ANISOCYTOSIS 1+; MACROCYTOSIS 1+; OVALOCYTE 1+; PLATELET ESTIMATE DECREASED
--- NOTE | 2017-12-10 11:45 | EKG ---
Test Reason : Blood Pressure : / mmHG Vent. Rate : 097 BPM Atrial Rate : 097 BPM P-R Int : 174 ms QRS Dur : 084 ms QT Int : 366 ms P-R-T Axes : 064 -49 020 degrees QTc Int : 464 ms NORMAL SINUS RHYTHM LEFT AXIS DEVIATION ABNORMAL ECG Confirmed by Florencio Slaughter MD ([id number]) on 12/10/2017 11:45:14 AM Referred By: Confirmed By:Florencio Slaughter MD
--- NOTE | 2017-12-10 11:49 | PN ---
Progress Note, Physician History of Present Illness: PULMONARY ALERT,NO DISTRESS,-CP,-SOB - Current Medication List Current Medications: Active Medications Enoxaparin Sodium (Lovenox -) 60 mg SQ BID [facility] Last Admin: 12/10/17 09:16 Dose: 60 mg Ceftriaxone Sodium 1 gm/ (Dextrose) 50 mls @ 100 mls/hr IVPB DAILY [facility]; Protocol Last Admin: 12/10/17 09:15 Dose: 100 mls/hr Metoprolol Tartrate (Lopressor -) 50 mg PO BID [facility] - Objective Vital Signs: Vital Signs Temperature 98.3 F 12/10/17 08:15 Pulse Rate 132 H 12/10/17 09:00 Respiratory Rate 20 12/10/17 09:00 Blood Pressure 151/90 12/10/17 08:15 O2 Sat by Pulse Oximetry (%) 93 L 12/10/17 09:00 Constitutional: Yes: Well Nourished, Calm Eyes: Yes: WNL HENT: Yes: WNL Neck: Yes: WNL Cardiovascular: Yes: Pulse Irregular, S1, S2 Respiratory: Yes: CTA Bilaterally Gastrointestinal: Yes: Normal Bowel Sounds, Soft Extremities: Yes: WNL Edema: No Labs: CBC, BMP 12/10/17 05:30 INR, PTT INR 1.16 (0.83-1.09) H 12/10/17 05:30 - ....Imaging Cat Scan: Report Reviewed, Image Reviewed (BILATERAL PULMONARY EMBOLI) Ultrasound: Report Reviewed (RLE DVT) Other: Other (ECHO MILDLY REDUCED RV FUNCTION,+ PULMONARY HTN) Assessment/Plan Problem List - Problems (1) Pulmonary embolism Code(s): I26.99 - OTHER PULMONARY EMBOLISM WITHOUT ACUTE COR PULMONALE Qualifiers: Pulmonary embolism type: other Chronicity: acute Acute cor pulmonale presence: without acute cor pulmonale Qualified Code(s): I26.99 - Other pulmonary embolism without acute cor pulmonale (2) Syncope Code(s): R55 - SYNCOPE AND COLLAPSE Qualifiers: Syncope type: unspecified Qualified Code(s): R55 - Syncope and collapse (3) Non-small cell carcinoma of lung Code(s): C34.90 - MALIGNANT NEOPLASM OF UNSP PART OF UNSP BRONCHUS OR LUNG (4) COPD (chronic obstructive pulmonary disease) Code(s): J44.9 - CHRONIC OBSTRUCTIVE PULMONARY DISEASE, UNSPECIFIED Qualifiers: COPD type: unspecified COPD Qualified Code(s): J44.9 - Chronic obstructive pulmonary disease, unspecified (5) Coronary artery disease Code(s): I25.10 - ATHSCL HEART DISEASE OF [place] CORONARY ARTERY W/O ANG PCTRS (6) Human immunodeficiency virus (HIV) disease Code(s): B20 - HUMAN IMMUNODEFICIENCY VIRUS [HIV] DISEASE (7) Hypertension, benign Code(s): I10 - ESSENTIAL (PRIMARY) HYPERTENSION Assessment/Plan Syncope likely secondary to PE Acute Submassive Pulmonary Emboli Atrial Fibrillation with RVR RLE DVT NSCLC (Adenocarcinoma) s/p chemo/RT HIV COPD Chronic Hypoxic Respiratory Failure CAD HTN Hyperlipidemia - anticoagulation with LMWH - O2 to keep SpO2 >90% - inhaled bronchodilators - IR evaluation for possible catheter directed tpa in view of rv dysfunction on echo DR WATERS
--- NOTE | 2017-12-10 12:06 | CONSULT ---
Consultation: REQUESTING PROVIDER: CONSULT REQUEST: We have been asked to medically evaluate this patient for PE and need for AC. HISTORY OF PRESENT ILLNESS: 72 yo F with pmhx of adenocarcinoma of lung , HIV (on HAART), HTN, HLD, and COPD presents to ER BIBA after being found to floor of her home by her grandson. She was find to have bilateral PE's and LE DVT. Patient will need anticoagulation . REVIEW OF SYSTEMS: CONSTITUTIONAL: Absent: fever, chills, diaphoresis, generalized weakness, malaise, loss of appetite, weight change HEENT: Absent: rhinorrhea, nasal congestion, throat pain, throat swelling, difficulty swallowing, mouth swelling, ear pain, eye pain, visual changes CARDIOVASCULAR:chest pain, syncope Absent: , palpitations, irregular heart rate, lightheadedness, peripheral edema RESPIRATORY: cough, shortness of breath, dyspnea with exertion Absent:, orthopnea, wheezing, stridor, hemoptysis GASTROINTESTINAL: Absent: abdominal pain, abdominal distension, nausea, vomiting, diarrhea, constipation, melena, hematochezia GENITOURINARY: Absent: dysuria, frequency, urgency, hesitancy, hematuria, flank pain, genital pain MUSCULOSKELETAL: Absent: myalgia, arthralgia, joint swelling, back pain, neck pain SKIN: Absent: rash, itching, pallor HEMATOLOGIC/IMMUNOLOGIC: Absent: easy bleeding, easy bruising, lymphadenopathy, frequent infections ENDOCRINE: Absent: unexplained weight gain, unexplained weight loss, heat intolerance, cold intolerance NEUROLOGIC: Absent: headache, focal weakness or paresthesias, dizziness, unsteady gait, seizure, mental status changes, bladder or bowel incontinence PSYCHIATRIC: Absent: anxiety, depression, suicidal or homicidal ideation, hallucinations. PHYSICAL EXAMINATION Vital Signs - 24 hr 12/09/17 12/09/17 12/09/17 12:39 13:30 14:30 Temperature Pulse Rate Pulse Rate [ 104 H 102 H 99 H Apical] Respiratory 29 H 25 H 22 H Rate Blood Pressure Blood Pressure 109/70 113/68 116/72 [Right Arm] O2 Sat by Pulse 95 96 91 L Oximetry (%) 12/09/17 12/09/17 12/09/17 15:55 16:30 17:41 Temperature Pulse Rate Pulse Rate [ 93 H 97 H 101 H Apical] Respiratory 24 H 26 H 23 H Rate Blood Pressure Blood Pressure 119/76 112/74 113/62 [Right Arm] O2 Sat by Pulse 93 L 95 94 L Oximetry (%) 12/09/17 12/09/17 12/09/17 19:57 21:00 22:00 Temperature 97.8 F Pulse Rate 94 H Pulse Rate [ 98 H Apical] Respiratory 18 20 20 Rate Blood Pressure 120/60 Blood Pressure 117/80 [Right Arm] O2 Sat by Pulse 96 94 L Oximetry (%) 12/10/17 12/10/17 12/10/17 02:31 05:55 08:15 Temperature 97.3 F L 98.8 F 98.3 F Pulse Rate 103 H 128 H 93 H Pulse Rate [ Apical] Respiratory 20 20 20 Rate Blood Pressure 118/73 137/85 151/90 Blood Pressure [Right Arm] O2 Sat by Pulse Oximetry (%) 12/10/17 09:00 Temperature Pulse Rate 132 H Pulse Rate [ Apical] Respiratory 20 Rate Blood Pressure Blood Pressure [Right Arm] O2 Sat by Pulse 93 L Oximetry (%) GENERAL: awake but lethargic, NAD HEAD: NCAT EYES: PERRLA, EOMI, sclera anicteric, conjunctiva clear. ptosis of left eye EARS, NOSE, THROAT: Dry mucous membranes. NECK: Supple without lymphadenopathy, JVD, or masses. LUNGS: Decreased breath sounds bilaterally.Scattered wheezes, and no crackles. No accessory muscle use. HEART: RRR, normal S1 and S2 without murmur, rub or gallop. BREAST: No palpable masses, without dippling or retraction. ABDOMEN: Soft, NT/ND, NABS, no guarding, no rebound, no masses. No hepatomegaly or splenomegaly. MUSCULOSKELETAL: No CVA tenderness. UPPER EXTREMITIES: 2+ pulses, warm, well-perfused. No cyanosis. No clubbing. No peripheral edema. LOWER EXTREMITIES: 2+ pulses, warm, well-perfused. No calf tenderness. No peripheral edema. NEUROLOGICAL: lethargic , responds to repeated questioning. SKIN: Xeroderma of face and scalp, onychomycosis of bilateral feet. Laboratory Results - last 24 hr 12/09/17 12/10/17 12/10/17 08:50 05:30 05:30 WBC 6.3 RBC 3.93 Hgb 11.6 Hct 36.7 MCV 93.4 MCH 29.5 MCHC 31.6 L RDW 15.9 H Plt Count 106 L MPV 11.7 H Absolute Neuts (auto) 5.2 Neutrophils % 83.0 H Neutrophils % (Manual) 86.7 H Band Neutrophils % 0.0 Lymphocytes % 7.0 L Lymphocytes % (Manual) 3.1 L D Monocytes % 9.4 Monocytes % (Manual) 10 Eosinophils % 0.2 D Eosinophils % (Manual) 0.0 D Basophils % 0.4 Basophils % (Manual) 0.0 Myelocytes % (Man) 0 D Promyelocytes % (Man) 0 Blast Cells % (Manual) 0 Nucleated RBC % 0 Metamyelocytes 0 Hypochromia 1+ Platelet Estimate Decreased Polychromasia 1+ Poikilocytosis 0 Anisocytosis 1+ Microcytosis 0 Macrocytosis 1+ Ovalocytes 1+ PT with INR INR Sodium Potassium Chloride Carbon Dioxide Anion Gap BUN Creatinine Creat Clearance w eGFR Random Glucose Lactic Acid Calcium Phosphorus Magnesium Total Bilirubin AST ALT Alkaline Phosphatase Creatine Kinase Troponin I 0.03 Total Protein Albumin Free T3 1.9 L 12/10/17 12/10/17 12/10/17 05:30 05:30 05:30 WBC RBC Hgb Hct MCV MCH MCHC RDW Plt Count MPV Absolute Neuts (auto) Neutrophils % Neutrophils % (Manual) Band Neutrophils % Lymphocytes % Lymphocytes % (Manual) Monocytes % Monocytes % (Manual) Eosinophils % Eosinophils % (Manual) Basophils % Basophils % (Manual) Myelocytes % (Man) Promyelocytes % (Man) Blast Cells % (Manual) Nucleated RBC % Metamyelocytes Hypochromia Platelet Estimate Polychromasia Poikilocytosis Anisocytosis Microcytosis Macrocytosis Ovalocytes PT with INR 13.70 H INR 1.16 H Sodium 141 Potassium 4.1 Chloride 105 Carbon Dioxide 29 Anion Gap 6 L BUN 33 H Creatinine 0.6 Creat Clearance w eGFR > 60 Random Glucose 94 Lactic Acid 1.4 Calcium 9.4 Phosphorus 2.5 Magnesium 1.9 Total Bilirubin 0.8 AST 25 ALT 16 Alkaline Phosphatase 62 Creatine Kinase 38 Troponin I 0.04 Total Protein 6.8 Albumin 2.2 L Free T3 Active Medications Generic Name Dose Route Start Last Admin Trade Name Freq PRN Reason Stop Dose Admin Enoxaparin Sodium 60 mg 12/09/17 23:45 12/10/17 09:16 Lovenox - SQ 60 mg BID [facility] Administration Ceftriaxone Sodium 1 gm/ 50 mls @ 100 mls/hr 12/09/17 15:15 12/10/17 09:15 Dextrose IVPB 100 mls/hr DAILY [facility] Administration Protocol Metoprolol Tartrate 50 mg 12/10/17 22:00 Lopressor - PO BID [facility] ASSESSMENT/PLAN: 72yo F with PMH HIV not compliant with HARRT, lung ca s/p chemo/RTX, COPD on home O2 2L NC, HTN, CAD s/p stent, dyslipidemia presented to the ER after syncope. she syncopized at home and then could not get up and was down on the floor for extended period of time.In the ER was found to be in aflutter and have multiple PE's. Dispo: We will continue to follow the patient. Thank you for this consultative opportunity. Problem List - Problems (1) Pulmonary embolism Assessment/Plan: Bilateral massive PE found on imaging. * Can be bridged from Lovenox to NOAC. * No contraindication or significant reaction with HAART therapy . * Can start NOAC for next dose of Lovenox. * Kidney and liver function ok to start NOAC. (2) HIV (human immunodeficiency virus infection) Assessment/Plan: On HAART therapy; Followed at [facility]. (3) Non-small cell carcinoma of lung Code(s): C34.90 - MALIGNANT NEOPLASM OF UNSP PART OF UNSP BRONCHUS OR LUNG Visit type - Emergency Visit Emergency Visit: Yes ED Registration Date: 12/08/17 Care time: The patient presented to the Emergency Department on the above date and was hospitalized for further evaluation of their emergent condition. - New Patient This patient is new to me today: Yes Date on this admission: 12/11/17 - Critical Care Critical Care patient: No
--- NOTE | 2017-12-10 13:59 | PN ---
Teaching Attending Note Name of Resident: Tracy Malik ATTENDING PHYSICIAN STATEMENT I saw and evaluated the patient. I reviewed the resident's note and discussed the case with the resident. I agree with the resident's findings and plan as documented. SUBJECTIVE: OBJECTIVE: ASSESSMENT AND PLAN:
--- NOTE | 2017-12-10 14:11 | PN ---
Teaching Attending Note Name of Resident: Tracy Malik ATTENDING PHYSICIAN STATEMENT I saw and evaluated the patient. I reviewed the resident's note and discussed the case with the resident. I agree with the resident's findings and plan as documented with exceptions below. SUBJECTIVE: Patient seen and examined. Overall breathing better, low back pain from fall but no new leg weakness/tingling/numbness, urinary or bowel symptoms. OBJECTIVE: Vital Signs Period Temp Pulse Resp BP Sys/[place] Pulse Ox Last 24 Hr 97.3 F-98.8 F 93-132 18-26 112-151/60-90 91-96 Intake & Output 12/07/17 12/08/17 12/09/17 12/10/17 23:59 23:59 23:59 23:59 Intake Total 500 Balance 500 Weight 138 lb 138 lb 131 lb 3.2 oz General: sitting in bed, some tachypnea, short of breath with minimal activity. able to speak uninterrupted in small sentences CVS:S1S2 irregular Chest: CTAB, no rales or wheezing appreciated Abdomen:soft, nT, ND, positive bowel sounds Extremities: mininal LE asymmetry, with RLE with some swelling, positive pulses Home Medications Medication Instructions Recorded Alendronate Na [Fosamax (Weekly)] 70 mg PO Q7D 05/01/17 Calcium Carbonate/Vitamin D3 1 each PO DAILY 05/01/17 [Calcium 600 + Vit D 400 Softgl] Cholecalciferol (Vitamin D3) 5,000 unit PO WEEKLY 05/01/17 [Vitamin D3] Lancets [Lancets Ultra Thin] 1 each MC TID #100 each 06/27/17 Albuterol Sulfate Inhaler - 1 - 2 inh PO Q6H PRN 07/05/17 [Ventolin Hfa Inhaler -] Furosemide [Lasix -] 20 mg PO DAILY 07/05/17 Albuterol Sulfate Inhaler - 1 - 2 inh PO Q4H #3 each 09/25/17 [Ventolin HFA Inhaler -] Aspirin [ASA -] 81 mg PO DAILY #90 tab.chew 09/25/17 Beclomethasone Dipropionate [Qvar] 8.7 gm IH BID #3 aer.w.adap 09/25/17 Clindamycin [Cleocin -] 300 mg PO TID #21 capsule 09/25/17 Elviteg/Cob/Emtri/Tenof Alafen 1 each PO HS #30 tablet 09/25/17 [Genvoya (Non-Formulary)] Fenofibrate Nanocrystallized 160 mg PO DAILY #90 tablet 09/25/17 [Triglide] L.acidoph,Paracasei, B.lactis 1 each PO BID #30 capsule 09/25/17 [Probiotic] Losartan Potassium [Cozaar -] 50 mg PO DAILY #90 tablet 09/25/17 Metoprolol Tartrate [Lopressor -] 25 mg PO BID #180 tablet 09/25/17 Mirtazapine 15 mg PO HS #30 tablet 09/25/17 Multivitamin,Therapeutic [Thera] 1 each PO DAILY #90 tablet 09/25/17 Umeclidinium [place] [Incruse 1 puff IH DAILY #3 blst.w.dev 09/25/17 Ellipta] Zolpidem Tartrate [Ambien] 5 mg PO HS #5 tablet MDD half 09/25/17 tablet [place]-3/Dha/Epa/Fish Oil [[place] 3 1 each PO BID 12/09/17 500 Softgel] Active Medications Acetaminophen (Tylenol -) 650 mg PO Q6H PRN PRN Reason: PAIN Enoxaparin Sodium (Lovenox -) 60 mg SQ BID [facility] Last Admin: 12/10/17 09:16 Dose: 60 mg Ceftriaxone Sodium 1 gm/ (Dextrose) 50 mls @ 100 mls/hr IVPB DAILY [facility]; Protocol Last Admin: 12/10/17 09:15 Dose: 100 mls/hr Metoprolol Tartrate (Lopressor -) 50 mg PO BID [facility] Laboratory Results - last 24 hr 12/09/17 12/10/17 12/10/17 08:50 05:30 05:30 WBC 6.3 RBC 3.93 Hgb 11.6 Hct 36.7 MCV 93.4 MCH 29.5 MCHC 31.6 L RDW 15.9 H Plt Count 106 L MPV 11.7 H Absolute Neuts (auto) 5.2 Neutrophils % 83.0 H Neutrophils % (Manual) 86.7 H Band Neutrophils % 0.0 Lymphocytes % 7.0 L Lymphocytes % (Manual) 3.1 L D Monocytes % 9.4 Monocytes % (Manual) 10 Eosinophils % 0.2 D Eosinophils % (Manual) 0.0 D Basophils % 0.4 Basophils % (Manual) 0.0 Myelocytes % (Man) 0 D Promyelocytes % (Man) 0 Blast Cells % (Manual) 0 Nucleated RBC % 0 Metamyelocytes 0 Hypochromia 1+ Platelet Estimate Decreased Polychromasia 1+ Poikilocytosis 0 Anisocytosis 1+ Microcytosis 0 Macrocytosis 1+ Ovalocytes 1+ PT with INR INR Sodium Potassium Chloride Carbon Dioxide Anion Gap BUN Creatinine Creat Clearance w eGFR Random Glucose Lactic Acid Calcium Phosphorus Magnesium Total Bilirubin AST ALT Alkaline Phosphatase Creatine Kinase Troponin I 0.03 Total Protein Albumin Free T3 1.9 L 12/10/17 12/10/17 12/10/17 05:30 05:30 05:30 WBC RBC Hgb Hct MCV MCH MCHC RDW Plt Count MPV Absolute Neuts (auto) Neutrophils % Neutrophils % (Manual) Band Neutrophils % Lymphocytes % Lymphocytes % (Manual) Monocytes % Monocytes % (Manual) Eosinophils % Eosinophils % (Manual) Basophils % Basophils % (Manual) Myelocytes % (Man) Promyelocytes % (Man) Blast Cells % (Manual) Nucleated RBC % Metamyelocytes Hypochromia Platelet Estimate Polychromasia Poikilocytosis Anisocytosis Microcytosis Macrocytosis Ovalocytes PT with INR 13.70 H INR 1.16 H Sodium 141 Potassium 4.1 Chloride 105 Carbon Dioxide 29 Anion Gap 6 L BUN 33 H Creatinine 0.6 Creat Clearance w eGFR > 60 Random Glucose 94 Lactic Acid 1.4 Calcium 9.4 Phosphorus 2.5 Magnesium 1.9 Total Bilirubin 0.8 AST 25 ALT 16 Alkaline Phosphatase 62 Creatine Kinase 38 Troponin I 0.04 Total Protein 6.8 Albumin 2.2 L Free T3 CTA results reviewed 2D echo results reviewed, limited visualization of RV, <50% collapsed RVC Telemetry: 100s-120s tachycardia since 4 AM, ?sinus EKG NSR 97 ASSESSMENT AND PLAN: 72yo F with PMH HIV not compliant with HARRT, lung ca s/p chemo/RTX, COPD on home O2 2L NC, HTN, CAD s/p stent, dyslipidemia presented to the ER after syncope. she syncopized at home and then could not get up and was down on the floor for extended period of time.In the ER was found to be in aflutter and have multiple PE -Syncope, from extensive bilateral PE vs Arrhythmia -Atrial flutter with RVR -RLE DVT -Hyperkalemia, resolved -Elevated troponin, suspect demand induced from above, ?right heart strai -Hypomagnesemia -Abnormal TFTs -Lower uncomplicated UTI -HIV, concern for noncompliance with HAART -Lung ca s/p chemo/RTx -COPD on 2l Home oxygen -CAD s/p PCI -Diffuse rash, > 1 year Plan: Cardiology/pulmonary input noted. Lovenox BID. Off cardizem drip. Resumed home metoprolol. Dose increased. Hold losartan for now. Heme/onc consult with Dr. Fong (sees Dr. Fong outpatient) replete lytes prn. Repeat TFTs in 2-3 weeks. Ceftriaxone day 2, HAART per ID. DVTPPX as above Dispo pending clinical improvement. Plan discussed with patient in detail, all questions answered.
[2017-12-10] MEDS: ACETAMINOPHEN 325 MG TABLET (FP) PO PRN (15:54)
--- NOTE | 2017-12-10 19:10 | PN ---
Physical Exam: SUBJECTIVE: Patient seen and examined at bedside this morning. Patient was noted to be tachycardic this morning. Home med Lopressor resumed. OBJECTIVE: Vital Signs Period Temp Pulse Resp BP Sys/[place] Pulse Ox Last 24 Hr 97.3 F-101.6 F 93-132 18-20 117-151/60-90 93-96 GENERAL: The patient is awake, alert, and fully oriented, in no acute distress. HEAD: Normal with no signs of trauma. +pruritic, dry skin on the face EYES: PERRLA, EOMI, sclera anicteric, conjunctiva clear. ENT: Ears normal, nares patent, oropharynx clear without exudates, moist mucous membranes. NECK: Trachea midline, full range of motion, supple. LUNGS: Breath sounds equal, clear to auscultation bilaterally. HEART: Regular rate and rhythm, S1, S2 without murmur, rub or gallop. ABDOMEN: Soft, nontender, nondistended, normoactive bowel sounds. EXTREMITIES: 2+ pulses, warm, well-perfused, no edema. NEUROLOGICAL: Cranial nerves II through XII grossly intact. Normal speech, gait not observed. PSYCH: Normal mood, normal affect. SKIN: Warm, normal turgor, +dry skin, +wounds on dorsum of feet bilaterally Laboratory Results - last 24 hr 12/09/17 12/10/17 12/10/17 08:50 05:30 05:30 WBC 6.3 RBC 3.93 Hgb 11.6 Hct 36.7 MCV 93.4 MCH 29.5 MCHC 31.6 L RDW 15.9 H Plt Count 106 L MPV 11.7 H Absolute Neuts (auto) 5.2 Neutrophils % 83.0 H Neutrophils % (Manual) 86.7 H Band Neutrophils % 0.0 Lymphocytes % 7.0 L Lymphocytes % (Manual) 3.1 L D Monocytes % 9.4 Monocytes % (Manual) 10 Eosinophils % 0.2 D Eosinophils % (Manual) 0.0 D Basophils % 0.4 Basophils % (Manual) 0.0 Myelocytes % (Man) 0 D Promyelocytes % (Man) 0 Blast Cells % (Manual) 0 Nucleated RBC % 0 Metamyelocytes 0 Hypochromia 1+ Platelet Estimate Decreased Polychromasia 1+ Poikilocytosis 0 Anisocytosis 1+ Microcytosis 0 Macrocytosis 1+ Ovalocytes 1+ PT with INR INR Sodium Potassium Chloride Carbon Dioxide Anion Gap BUN Creatinine Creat Clearance w eGFR Random Glucose Lactic Acid Calcium Phosphorus Magnesium Total Bilirubin AST ALT Alkaline Phosphatase Creatine Kinase Troponin I 0.03 Total Protein Albumin Free T3 1.9 L 12/10/17 12/10/17 12/10/17 05:30 05:30 05:30 WBC RBC Hgb Hct MCV MCH MCHC RDW Plt Count MPV Absolute Neuts (auto) Neutrophils % Neutrophils % (Manual) Band Neutrophils % Lymphocytes % Lymphocytes % (Manual) Monocytes % Monocytes % (Manual) Eosinophils % Eosinophils % (Manual) Basophils % Basophils % (Manual) Myelocytes % (Man) Promyelocytes % (Man) Blast Cells % (Manual) Nucleated RBC % Metamyelocytes Hypochromia Platelet Estimate Polychromasia Poikilocytosis Anisocytosis Microcytosis Macrocytosis Ovalocytes PT with INR 13.70 H INR 1.16 H Sodium 141 Potassium 4.1 Chloride 105 Carbon Dioxide 29 Anion Gap 6 L BUN 33 H Creatinine 0.6 Creat Clearance w eGFR > 60 Random Glucose 94 Lactic Acid 1.4 Calcium 9.4 Phosphorus 2.5 Magnesium 1.9 Total Bilirubin 0.8 AST 25 ALT 16 Alkaline Phosphatase 62 Creatine Kinase 38 Troponin I 0.04 Total Protein 6.8 Albumin 2.2 L Free T3 Active Medications Generic Name Dose Route Start Last Admin Trade Name Freq PRN Reason Stop Dose Admin Acetaminophen 650 mg 12/10/17 13:15 12/10/17 15:54 Tylenol - PO 650 mg Q6H PRN Administration PAIN Enoxaparin Sodium 60 mg 12/09/17 23:45 12/10/17 09:16 Lovenox - SQ 60 mg BID DUR[facility] Administration Ceftriaxone Sodium 1 gm/ 50 mls @ 100 mls/hr 12/09/17 15:15 12/10/17 09:15 Dextrose IVPB 100 mls/hr DAILY DURGA Administration Protocol Metoprolol Tartrate 50 mg 12/10/17 22:00 Lopressor - PO BID [facility] Imaging Chest xray (12/08/17) - Since 05/07/17, the lungs appear better aerated. The left central line persists. There is a prominent mediastinum and persistent granuloma left base. Chest xray (12/09/17) - Since 12/08/17, there is no significant change and no sign of an acute process. There is a left base granuloma, left central line and prominent mediastinum. Chest CTA - Multiple pulmonary emboli at the left pulmonary artery bifurcation extending and involving the left upper and lower lobe branches as well as multiple pulmonary emboli in the right upper and lower lobe proximal and distal branches. Minimal atelectatic changes in the left lung base and subsegmental atelectasis in the right lung base, posteriorly. There is no aneurysmal dilatation of the abdominal aorta. Vascular calcifications are present. Partially included exophytic right renal lesion for which further evaluation with US is recommended. On prior CT scan of the chest dated 10/15/17, partially included cortical deformity of the right kidney was present. Head CT without contrast - No evidence of acute intracranial hemorrhage, edema, midline shift, mass effect, or skull fracture. No CT evidence of acute territorial ischemic changes. Moderate supratentorial white matter microangiopathic ischemic changes. Cervical spine CT - No compression fracture, subluxation or prevertebral soft tissue swelling identified. Moderate to marked degenerative disc disease at C6- C7 level with mild anterior and posterior spur formation as well as bilateral uncovertebral hypertrophy slightly to moderately narrowing the right and slightly narrowing the left foramen. Echo - LV is normal in size. LV systolic function is mildly reduced. There are regional wall motion abnormalities. EF is 45-50%. RV is not well visualized. RV appears mildly dilated with reduced systolic function. A moderator band is seen in the RV. LA size is normal. There is mild mitral annular calcification. There is mild tricuspid regurgitation. There is moderate aortic sclerosis. Mild aortic root dilatation. Pulmonary artery systolic pressure is at least 50mmHg assuming RA pressure of 15mmHg (dilated IVC with <50% collapse). No pericardial effusion. ASSESSMENT/PLAN: Patient is a 72 year old female with a significant past medical history of non- small cell lung cancer, HIV, COPD, HTN, HLD, CAD who was BIBA yesterday evening (12/08/17) after having an episode of syncope and being found on the ground near her couch by her godson at approximately 1 pm yesterday. # Syncope: likely 2/2 Arrhythmia vs Pulmonary embolism -EKG - SVT, LAD -Head CT - No evidence of acute intracranial hemorrhage, edema, midline shift, mass effect, or skull fracture. No CT evidence of acute territorial ischemic changes. Moderate supratentorial white matter microangiopathic ischemic changes. -Echo - LV systolic function is mildly reduced. There are regional wall motion abnormalities. EF is 45-50%. -Troponins trended 0.10 --> 0.08. Likely demand ischemia from tachycardia. -Cardiology (Dr. St) consulted. Recommendations appreciated. -Lovenox 60 mg sq BID (1mg/kg bid) -Cardizem drip discontinued. -Lopressor 25mg BID. -Will monitor. #Multiple pulmonary embolism: hemodynamically stable -Chest CTA - Multiple pulmonary emboli at the left pulmonary artery bifurcation extending and involving the left upper and lower lobe branches as well as multiple pulmonary emboli in the right upper and lower lobe proximal and distal branches. -[facility]-Onc (Dr. Fong) consulted. Recommendations appreciated. -Would consider catheter directed thrombolysis. -Ultimately will need anticoagulant. -Non compliance is an issue so NOAC is favored over lovenox. -Coumadin less efficacious in malignancies and would foresee compliance monitoring issue. -Continue Lovenox 60mg sq BID #Hypomagnesemia -Mg 1.9 -will give Mg PO 800mg given -will monitor #HIV -Pt endorses taking Genvoya every day -ID (Dr. Peralta) consulted. #UTI -UA - WBC 63, leuk est +2 -Ceftriaxone 1 gm daily started. #Non-Small cell AdenoCa Lung -Received Radiation therapy for 12 weeks, everyday according to pt -Received Chemo therapy for 12 weeks, once per week according to pt -MRI Brain done - Moderate chronic small vessel ischemic changes. Otherwise unremarkable MRI of the brain. #HTN: controlled -Consider continuing Losartan in light of pt's residing hyperkalemia -Resume Metoprolol 25 mg bid #COPD -Resume Qvar Inhaler BID -Ventolin inhaler PRN #FEN -not on any standing fluids -HypoMg, replete as needed -Sodium restricted diet #Prophylaxis -On lovenox #Disposition -tele monitoring Visit type - Emergency Visit Emergency Visit: Yes ED Registration Date: 12/08/17 Care time: The patient presented to the Emergency Department on the above date and was hospitalized for further evaluation of their emergent condition. - New Patient This patient is new to me today: Yes Date on this admission: 12/10/17 - Critical Care Critical Care patient: No
--- NOTE | 2017-12-10 19:13 | PN ---
Teaching Attending Note Name of Resident: Winston Moreira ATTENDING PHYSICIAN STATEMENT I saw and evaluated the patient. I reviewed the resident's note and discussed the case with the resident. I agree with the resident's findings and plan as documented. SUBJECTIVE:Patient seen and examined Events noted Syncope and bilateral saddle emboli. Patient with HIV under therapy, COPD who was treated with combined RT/taxol/ carboplatinum for adenoca of lung. (7 cycles of chemotherapy) Non compliant and missed many appointments. Eventually completed treatment with delays in both RT and chemotherapy. Last chemotherapy given in July 2017. Last seen in office in September 2017. Reviewed CTA Extensive bilateral pulmonary emboli. Would consider catheter directed thrombolysis . Ultimately will need a/c. Non compliance is an issue so NOAC favored over lovenox . Coumadin less efficacious in malignancies and would foresee compliance monitoring issue. OBJECTIVE: ASSESSMENT AND PLAN:
[2017-12-10] MEDS: METOPROLOL TARTRATE 50 MG TABLET (FP) PO SCH (21:20)
[2017-12-11 06:54] LABS: BASO % 0.4 % (0-2.0); HEMATOCRIT 37.6 % (32.4-45.2); HEMOGLOBIN 11.6 GM/dL (10.7-15.3); LYMPH % 9.2 % (8-40); MCHC 30.9 g/dl (32.0-36.0); MEAN CELL VOLUME 93.7 fl (80-96); MEAN PLT VOLUME 12.5 fl (7.5-11.1); MONO % 9.3 % (3.8-10.2); NEUT % 81.1 % (42.8-82.8); PLATELET COUNT 139 K/MM3 (134-434); RBC 4.01 M/mm3 (3.60-5.2); RDW 15.7 % (11.6-15.6); WHITE BLOOD COUNT 9.2 K/mm3 (4.0-10.0)
--- NOTE | 2017-12-11 07:39 | PN ---
Teaching Attending Note Name of Resident: Tracy Malik ATTENDING PHYSICIAN STATEMENT I saw and evaluated the patient. I reviewed the resident's note and discussed the case with the resident. I agree with the resident's findings and plan as documented with exceptions below. SUBJECTIVE: Patient seen and examined. awake, appropriate, breathing better, hungry, otherwise no complaints. OBJECTIVE: Vital Signs Period Temp Pulse Resp BP Sys/[place] Pulse Ox Last 24 Hr 97.5 F-101.6 F 93-132 18-20 135-162/83-92 93-96 Intake & Output 12/08/17 12/09/17 12/10/17 12/11/17 23:59 23:59 23:59 23:59 Intake Total 500 530 Balance 500 530 Weight 138 lb 138 lb 131 lb General: lying in bed, no tachypnea or use of acessory muscles of respiration today Chest: few basilar rales Abdomen; soft, NT throughout Extremities: trace RLE edema neuro: AA, orented to self, place, but not time, facial symmetry, generalized weakness but non focal exam Musculoskeletal: no spinal tenderness Active Medications Acetaminophen (Tylenol -) 650 mg PO Q6H PRN PRN Reason: PAIN Last Admin: 12/10/17 15:54 Dose: 650 mg Enoxaparin Sodium (Lovenox -) 60 mg SQ BID [facility] Last Admin: 12/10/17 21:20 Dose: 60 mg Ceftriaxone Sodium 1 gm/ (Dextrose) 50 mls @ 100 mls/hr IVPB DAILY [facility]; Protocol Last Admin: 12/10/17 09:15 Dose: 100 mls/hr Metoprolol Tartrate (Lopressor -) 50 mg PO BID [facility] Last Admin: 12/10/17 21:20 Dose: 50 mg Laboratory Results - last 24 hr 12/10/17 12/10/17 12/10/17 05:30 05:30 05:30 WBC 6.3 RBC 3.93 Hgb 11.6 Hct 36.7 MCV 93.4 MCH 29.5 MCHC 31.6 L RDW 15.9 H Plt Count 106 L MPV 11.7 H Absolute Neuts (auto) 5.2 Neutrophils % 83.0 H Neutrophils % (Manual) 86.7 H Band Neutrophils % 0.0 Lymphocytes % 7.0 L Lymphocytes % (Manual) 3.1 L D Monocytes % 9.4 Monocytes % (Manual) 10 Eosinophils % 0.2 D Eosinophils % (Manual) 0.0 D Basophils % 0.4 Basophils % (Manual) 0.0 Myelocytes % (Man) 0 D Promyelocytes % (Man) 0 Blast Cells % (Manual) 0 Nucleated RBC % 0 Metamyelocytes 0 Hypochromia 1+ Platelet Estimate Decreased Polychromasia 1+ Poikilocytosis 0 Anisocytosis 1+ Microcytosis 0 Macrocytosis 1+ Ovalocytes 1+ PT with INR INR Sodium 141 Potassium 4.1 Chloride 105 Carbon Dioxide 29 Anion Gap 6 L BUN 33 H Creatinine 0.6 Creat Clearance w eGFR > 60 Random Glucose 94 Lactic Acid Calcium 9.4 Phosphorus 2.5 Magnesium 1.9 Total Bilirubin 0.8 AST 25 ALT 16 Alkaline Phosphatase 62 Creatine Kinase 38 Troponin I 0.03 0.04 Total Protein 6.8 Albumin 2.2 L 12/10/17 12/10/17 12/11/17 05:30 05:30 05:30 WBC 9.2 RBC 4.01 Hgb 11.6 Hct 37.6 MCV 93.7 MCH 29.0 MCHC 30.9 L RDW 15.7 H Plt Count 139 D MPV 12.5 H Absolute Neuts (auto) 7.4 Neutrophils % 81.1 Neutrophils % (Manual) Band Neutrophils % Lymphocytes % 9.2 D Lymphocytes % (Manual) Monocytes % 9.3 Monocytes % (Manual) Eosinophils % 0.0 D Eosinophils % (Manual) Basophils % 0.4 Basophils % (Manual) Myelocytes % (Man) Promyelocytes % (Man) Blast Cells % (Manual) Nucleated RBC % 0 Metamyelocytes Hypochromia Platelet Estimate Polychromasia Poikilocytosis Anisocytosis Microcytosis Macrocytosis Ovalocytes PT with INR 13.70 H INR 1.16 H Sodium Potassium Chloride Carbon Dioxide Anion Gap BUN Creatinine Creat Clearance w eGFR Random Glucose Lactic Acid 1.4 Calcium Phosphorus Magnesium Total Bilirubin AST ALT Alkaline Phosphatase Creatine Kinase Troponin I Total Protein Albumin EKG NSR ASSESSMENT AND PLAN: 72yo F with PMH HIV not compliant with HARRT, lung ca s/p chemo/RTX, COPD on home O2 2L NC, HTN, CAD s/p stent, dyslipidemia presented to the ER after syncope. she syncopized at home and then could not get up and was down on the floor for extended period of time.In the ER was found to be in aflutter and have multiple PE -Syncope, from extensive bilateral PE vs Arrhythmia -Submassive PE with likely right heart strain -Atrial flutter with RVR, likely from submassive PE -RLE DVT -Fever, ?from PE/DVT vs pulmonary infarction, r/o infectious etiology -Hyperkalemia, resolved -Elevated troponin, suspect right heart strain vs demand induced from above -Hypomagnesemia -Abnormal TFTs -Lower uncomplicated Klebsiella UTI -HIV, concern for noncompliance with HAART -Lung ca s/p chemo/RTx -COPD on 2l Home oxygen -CAD s/p PCI -Diffuse rash, > 1 year Plan fevers noted, likely from clot burden+/- pulmonary infarction. CXR, repeat blood cx. urine cultures noted. Ceftriaxone day 4. Cd4 38. HAART per ID. Cardiology/pulmonary/heme/onc input noted. IR guided catheter thrombolysis. Attempt repeat 2D echo to assess RV. Lovenox BID. NOAC when stable. Unlikely candidate for coumadin given less efficacy in malignancy and compliance concerns. Off cardizem drip. Metoprolol 50 mg BID. Hold losartan for now. Replete lytes prn. Repeat TFTs in 2-3 weeks. DVTPPX as above Dispo pending clinical improvement. Plan discussed with patient in detail, all questions answered.
[2017-12-11 08:53] LABS: ALBUMIN 2.1 g/dl (3.4-5.0); ALK PHOS 73 U/L (45-117); ANION GAP 8 MMOL/L (8-16); BILIRUBIN,TOTAL 0.7 mg/dL (0.2-1); BLOOD UREA NITROGEN 37 mg/dL (7-18); CALCIUM 9.7 mg/dL (8.5-10.1); CHLORIDE 107 mmol/L (98-107); CO2 28 mmol/L (21-32); CREATININE 0.6 mg/dL (0.55-1.3); GLUCOSE,RANDOM 104 mg/dL (74-106); MAGNESIUM 2.1 mg/dL (1.8-2.4); PHOSPHOROUS 2.5 mg/dL (2.5-4.9); POTASSIUM 4.7 mmol/L (3.5-5.1); SGOT/AST 23 U/L (15-37); SGPT/ALT 15 U/L (13-61); SODIUM 142 mmol/L (136-145); TOT PROT 6.7 g/dl (6.4-8.2)
[2017-12-11] MEDS ORDERED: cefTRIAXone SODIUM 1 GM VIAL ONE (09:05)
[2017-12-11] MEDS ORDERED: DEXTROSE 5%-WATER - 50 ML IVPB ONE (09:06)
[2017-12-11 10:07] LABS: ANISOCYTOSIS 1+; MACROCYTOSIS 0; PLATELET ESTIMATE DECREASED
--- NOTE | 2017-12-11 10:18 | PN ---
Progress Note, Physician History of Present Illness: Pt is a 72 y/o lady with a significant past medical history of non-small cell lung cancer, HIV (diagnosed 1988, Viral load 89, CD4 count 10,000, follows up at [facility]), COPD, HTN, HLD, CAD who was BIBA yesterday evening (12/08/17) after being found on the ground near her couch by her godson at approximately 1 pm yesterday. Pt endorses that she last saw her family Saturday around 5pm and was informed then that they would be taking her to congregational in the afternoon. Pt endorses remembering waking up around midnight yesterday and being confused. Pt endorses she remembers hitting her head sometime during the night but cannot recall any details. Pt states she has fallen 3 times in the past few months, Oct 24, , and yesterday. Did not seek medical treatment for the first 2 falls. Denies chest pain, headache, changes in vision, nausea or vomiting. ER course was notable for: (1) CTA chest- multiple acute pulmonary emboli within L and R upper and lower lobe pulmonary arterial branches. (2) Potassium--> 6.0 (3) BNP > 18K - Current Medication List Current Medications: Active Medications Acetaminophen (Tylenol -) 650 mg PO Q6H PRN PRN Reason: PAIN Last Admin: 12/10/17 15:54 Dose: 650 mg Enoxaparin Sodium (Lovenox -) 60 mg SQ BID [facility] Last Admin: 12/10/17 21:20 Dose: 60 mg Ceftriaxone Sodium 1 gm/ (Dextrose) 50 mls @ 100 mls/hr IVPB DAILY [facility]; Protocol Last Admin: 12/10/17 09:15 Dose: 100 mls/hr Metoprolol Tartrate (Lopressor -) 50 mg PO BID [facility] Last Admin: 12/10/17 21:20 Dose: 50 mg - Objective Vital Signs: Vital Signs Temperature 98.3 F 12/11/17 08:48 Pulse Rate 108 H 12/11/17 08:48 Respiratory Rate 20 12/11/17 09:00 Blood Pressure 147/99 12/11/17 08:48 O2 Sat by Pulse Oximetry (%) 98 12/11/17 09:00 Eyes: Yes: WNL, Conjunctiva Clear, EOM Intact HENT: Yes: WNL, Atraumatic, Normocephalic Neck: Yes: WNL, Supple, Trachea Midline Cardiovascular: Yes: WNL, Regular Rate and Rhythm Respiratory: Yes: WNL, Regular, CTA Bilaterally Gastrointestinal: Yes: WNL, Normal Bowel Sounds Genitourinary: Yes: WNL Musculoskeletal: Yes: WNL Extremities: Yes: WNL Edema: No Integumentary: Yes: WNL Neurological: Yes: WNL, Alert, Oriented ...Motor Strength: WNL Psychiatric: Yes: WNL Labs: CBC, BMP 12/11/17 05:30 12/11/17 05:30 INR, PTT INR 1.16 (0.83-1.09) H 12/10/17 05:30 Problem List - Problems (1) Arrhythmia Code(s): I49.9 - CARDIAC ARRHYTHMIA, UNSPECIFIED Qualifiers: Arrhythmia type: atrial flutter Atrial flutter type: unspecified Qualified Code(s): I48.92 - Unspecified atrial flutter (2) Pulmonary embolism Code(s): I26.99 - OTHER PULMONARY EMBOLISM WITHOUT ACUTE COR PULMONALE Qualifiers: Pulmonary embolism type: other Chronicity: acute Acute cor pulmonale presence: without acute cor pulmonale Qualified Code(s): I26.99 - Other pulmonary embolism without acute cor pulmonale (3) Syncope Code(s): R55 - SYNCOPE AND COLLAPSE Qualifiers: Syncope type: unspecified Qualified Code(s): R55 - Syncope and collapse (4) UTI (urinary tract infection) Code(s): N39.0 - URINARY TRACT INFECTION, SITE NOT SPECIFIED Qualifiers: Urinary tract infection type: site unspecified Hematuria presence: without hematuria Qualified Code(s): N39.0 - Urinary tract infection, site not specified (5) Abdominal or pelvic swelling, mass, or lump, left upper quadrant Code(s): R19.02 - LEFT UPPER QUADRANT ABDOMINAL SWELLING, MASS AND LUMP (6) Abnormal finding on CT scan Code(s): R93.8 - ABNORMAL FINDINGS ON DIAGNOSTIC IMAGING OF BILL * DO NOT USE * (7) Acute URI Code(s): J06.9 - ACUTE UPPER RESPIRATORY INFECTION, UNSPECIFIED (8) Coronary artery calcification seen on CT scan Code(s): I25.10 - ATHSCL HEART DISEASE OF [place] CORONARY ARTERY W/O ANG PCTRS (9) Deficiency of vitamin B12 Code(s): E53.8 - DEFICIENCY OF OTHER SPECIFIED B GROUP VITAMINS (10) Diabetes Code(s): E11.9 - TYPE 2 DIABETES MELLITUS WITHOUT COMPLICATIONS (11) Diarrhea Code(s): R19.7 - DIARRHEA, UNSPECIFIED (12) Dizziness Code(s): R42 - DIZZINESS AND GIDDINESS (13) Encounter for gynecological examination Code(s): Z01.419 - ENCNTR FOR GRAIN OPERATIONS MANAGER EXAM (GENERAL) (ROUTINE) W/O ABN FINDINGS (14) Encounter for medication counseling Code(s): Z71.89 - OTHER SPECIFIED COUNSELING (15) Fever Code(s): R50.9 - FEVER, UNSPECIFIED Qualifiers: Fever type: unspecified Qualified Code(s): R50.9 - Fever, unspecified (16) Gram-negative bacteremia Code(s): R78.81 - BACTEREMIA (17) Headache Code(s): R51 - HEADACHE (18) Herpes zoster Code(s): B02.9 - ZOSTER WITHOUT COMPLICATIONS (19) Hypercalcemia Code(s): E83.52 - HYPERCALCEMIA (20) Instability of right knee joint Code(s): M25.361 - OTHER INSTABILITY, RIGHT KNEE (21) Joint pain Code(s): M25.50 - PAIN IN UNSPECIFIED JOINT (22) Knee pain, right Code(s): M25.561 - PAIN IN RIGHT KNEE (23) Macrocytosis Code(s): D75.89 - OTHER SPECIFIED DISEASES OF BLOOD AND BLOOD-FORMING ORGANS (24) Non-small cell carcinoma of lung Code(s): C34.90 - MALIGNANT NEOPLASM OF UNSP PART OF UNSP BRONCHUS OR LUNG (25) Pre-diabetes Code(s): R73.09 - OTHER ABNORMAL GLUCOSE (26) Pre-op evaluation Code(s): Z01.818 - ENCOUNTER FOR OTHER PREPROCEDURAL EXAMINATION (27) Screening for malignant neoplasm of cervix Code(s): Z12.4 - ENCOUNTER FOR SCREENING FOR MALIGNANT NEOPLASM OF CERVIX (28) Seborrhea Code(s): L21.9 - SEBORRHEIC DERMATITIS, UNSPECIFIED (29) Sinus tachycardia Code(s): R00.0 - TACHYCARDIA, UNSPECIFIED (30) Skin lesion of face Code(s): L98.9 - DISORDER OF THE SKIN AND SUBCUTANEOUS TISSUE, UNSPECIFIED (31) Tachycardia Code(s): R00.0 - TACHYCARDIA, UNSPECIFIED (32) Vitamin D deficiency Code(s): E55.9 - VITAMIN D DEFICIENCY, UNSPECIFIED (33) Weight loss Code(s): R63.4 - ABNORMAL WEIGHT LOSS (34) Wound of right leg Code(s): S81.801A - UNSPECIFIED OPEN WOUND, RIGHT LOWER LEG, INITIAL ENCOUNTER (35) COPD (chronic obstructive pulmonary disease) Code(s): J44.9 - CHRONIC OBSTRUCTIVE PULMONARY DISEASE, UNSPECIFIED Qualifiers: COPD type: unspecified COPD Qualified Code(s): J44.9 - Chronic obstructive pulmonary disease, unspecified (36) Coronary artery disease Code(s): I25.10 - ATHSCL HEART DISEASE OF [place] CORONARY ARTERY W/O ANG PCTRS (37) Human immunodeficiency virus (HIV) disease Code(s): B20 - HUMAN IMMUNODEFICIENCY VIRUS [HIV] DISEASE (38) Hypertension, benign Code(s): I10 - ESSENTIAL (PRIMARY) HYPERTENSION (39) Leukopenia Code(s): D72.819 - DECREASED WHITE BLOOD CELL COUNT, UNSPECIFIED Qualifiers: Leukopenia type: unspecified Qualified Code(s): D72.819 - Decreased white blood cell count, unspecified (40) Macrocytosis without anemia Code(s): D75.89 - OTHER SPECIFIED DISEASES OF BLOOD AND BLOOD-FORMING ORGANS (41) Osteoporosis Code(s): M81.0 - AGE-RELATED OSTEOPOROSIS W/O CURRENT PATHOLOGICAL FRACTURE (42) Paresthesia of right upper extremity Code(s): R20.2 - PARESTHESIA OF SKIN (43) Seborrheic dermatitis of scalp Code(s): L21.9 - SEBORRHEIC DERMATITIS, UNSPECIFIED (44) Tobacco use disorder Code(s): Z72.0 - TOBACCO USE Assessment/Plan - Problems (1) Pulmonary embolism Assessment/Plan: Multiple bilateral pulmonary emboli, Initially in sinus tachycardia; now in NSR, with HR 90-100 bpm. ECHO: mildly reduced LVEF with regional wall motion abnormalities; reduced RVEF with mildly dilated RV On Lovenox 60 mg bid. As discussed with lime sludge kiln operator, pt to be evaluated for possible tPa. Coronary artery evaluation when stable (hx coronary stent several years ago; still smokes cigarettes; she is unsure if she ever had an DE). Code(s): I26.99 - OTHER PULMONARY EMBOLISM WITHOUT ACUTE COR PULMONALE Qualifiers: Pulmonary embolism type: other Chronicity: acute Acute cor pulmonale presence: without acute cor pulmonale Qualified Code(s): I26.99 - Other pulmonary embolism without acute cor pulmonale (2) Syncope Code(s): R55 - SYNCOPE AND COLLAPSE Qualifiers: Syncope type: unspecified Qualified Code(s): R55 - Syncope and collapse (3) Coronary artery calcification seen on CT scan Assessment/Plan: hx coronary stent several years ago. Multiple ongoing risks for CAD progression. For coronary artery evaluation whn stable, if not done in the recent past. Code(s): I25.10 - ATHSCL HEART DISEASE OF [place] CORONARY ARTERY W/O ANG PCTRS (4) Diabetes Code(s): E11.9 - TYPE 2 DIABETES MELLITUS WITHOUT COMPLICATIONS (5) Fever Assessment/Plan: on antibiotics for UTI per ID. Code(s): R50.9 - FEVER, UNSPECIFIED Qualifiers: Fever type: unspecified Qualified Code(s): R50.9 - Fever, unspecified (6) Non-small cell carcinoma of lung Code(s): C34.90 - MALIGNANT NEOPLASM OF UNSP PART OF UNSP BRONCHUS OR LUNG (7) COPD (chronic obstructive pulmonary disease) Code(s): J44.9 - CHRONIC OBSTRUCTIVE PULMONARY DISEASE, UNSPECIFIED Qualifiers: COPD type: unspecified COPD Qualified Code(s): J44.9 - Chronic obstructive pulmonary disease, unspecified (8) Coronary artery disease Code(s): I25.10 - ATHSCL HEART DISEASE OF [place] CORONARY ARTERY W/O ANG PCTRS (9) Osteoporosis Code(s): M81.0 - AGE-RELATED OSTEOPOROSIS W/O CURRENT PATHOLOGICAL FRACTURE (10) Seborrheic dermatitis of scalp Code(s): L21.9 - SEBORRHEIC DERMATITIS, UNSPECIFIED (11) Tobacco use disorder Code(s): Z72.0 - TOBACCO USE (12) HIV (human immunodeficiency virus infection) Code(s): B20 - HUMAN IMMUNODEFICIENCY VIRUS [HIV] DISEASE
[2017-12-11] MEDS: CEFTRIAXONE 1 GM in DEXTROSE 5%-WATER - 50 ML IVPB SCH (10:44)
[2017-12-11] MEDS: METOPROLOL TARTRATE 50 MG TABLET (FP) PO SCH ×2 (10:44→21:38)
[2017-12-11] MEDS: ENOXAPARIN NA (PORCINE) 60 MG/0.6 ML DISP.SYRIN SQ SCH (10:44)
--- NOTE | 2017-12-11 10:47 | ECHO ---
Version: 1 Name: JOHANNA ORTIZ Exam: Adult Echocardiogram Study Date: 12/11/2017, 9:03 AM Age: 72 Years MMode/2D Measurements & Calculations IVSd: 1.07 cm LVIDs: 4.2 cm LVIDd: 4.7 cm LVPWd: 0.77 cm LVOT diam: 1.97 cm Procedure Images were not obtained from all of the standard acoustic windows due to the limited scope of the s tudy. The study was technically difficult with many images being suboptimal in quality. Left Ventricle The left ventricle is grossly normal size. Left ventricular systolic function is severely reduced. R egional wall motion abnormalities cannot be excluded due to limited visualization. Right Ventricle The right ventricle is moderately dilated. The right ventricular systolic function is moderately red uced. Mitral Valve The mitral valve is not well visualized. Tricuspid Valve The tricuspid valve is not well visualized. Aortic Valve The aortic valve is not well visualized. Pulmonic Valve The pulmonic valve is not well visualized. Great Vessels The aortic root is not well visualized. Summary Statements The study was technically difficult with many images being suboptimal in quality. The left ventricle is grossly normal size. Left ventricular systolic function is severely reduced. Regional wall motion abnormalities cannot be excluded due to limited visualization. The right ventricle is moderately dilated. The right ventricular systolic function is moderately reduced. MD Adam Garcia 12/11/2017, 10:46 AM Ordering Physician: KAREEM FLOWER Performed By: Nevin Duron
--- NOTE | 2017-12-11 11:01 | PN ---
Progress Note, Physician History of Present Illness: PULMONARY ALERT,NO DISTRESS,-CP,-SOB - Current Medication List Current Medications: Active Medications Acetaminophen (Tylenol -) 650 mg PO Q6H PRN PRN Reason: PAIN Last Admin: 12/10/17 15:54 Dose: 650 mg Enoxaparin Sodium (Lovenox -) 60 mg SQ BID [facility] Last Admin: 12/11/17 10:44 Dose: 60 mg Ceftriaxone Sodium 1 gm/ (Dextrose) 50 mls @ 100 mls/hr IVPB DAILY [facility]; Protocol Last Admin: 12/11/17 10:44 Dose: 100 mls/hr Metoprolol Tartrate (Lopressor -) 50 mg PO BID [facility] Last Admin: 12/11/17 10:44 Dose: 50 mg - Objective Vital Signs: Vital Signs Temperature 98.3 F 12/11/17 08:48 Pulse Rate 108 H 12/11/17 08:48 Respiratory Rate 20 12/11/17 09:00 Blood Pressure 147/99 12/11/17 08:48 O2 Sat by Pulse Oximetry (%) 98 12/11/17 09:00 Constitutional: Yes: Well Nourished, Calm Eyes: Yes: WNL HENT: Yes: WNL Neck: Yes: WNL Cardiovascular: Yes: Tachycardia, S1, S2 Respiratory: Yes: Diminished Gastrointestinal: Yes: Normal Bowel Sounds, Soft Extremities: Yes: WNL Edema: No Labs: CBC, BMP 12/11/17 05:30 12/11/17 05:30 INR, PTT INR 1.16 (0.83-1.09) H 12/10/17 05:30 Assessment/Plan Problem List - Problems (1) Pulmonary embolism Code(s): I26.99 - OTHER PULMONARY EMBOLISM WITHOUT ACUTE COR PULMONALE Qualifiers: Pulmonary embolism type: other Chronicity: acute Acute cor pulmonale presence: without acute cor pulmonale Qualified Code(s): I26.99 - Other pulmonary embolism without acute cor pulmonale (2) Syncope Code(s): R55 - SYNCOPE AND COLLAPSE Qualifiers: Syncope type: unspecified Qualified Code(s): R55 - Syncope and collapse (3) Non-small cell carcinoma of lung Code(s): C34.90 - MALIGNANT NEOPLASM OF UNSP PART OF UNSP BRONCHUS OR LUNG (4) COPD (chronic obstructive pulmonary disease) Code(s): J44.9 - CHRONIC OBSTRUCTIVE PULMONARY DISEASE, UNSPECIFIED Qualifiers: COPD type: unspecified COPD Qualified Code(s): J44.9 - Chronic obstructive pulmonary disease, unspecified (5) Coronary artery disease Code(s): I25.10 - ATHSCL HEART DISEASE OF [place] CORONARY ARTERY W/O ANG PCTRS (6) Human immunodeficiency virus (HIV) disease Code(s): B20 - HUMAN IMMUNODEFICIENCY VIRUS [HIV] DISEASE (7) Hypertension, benign Code(s): I10 - ESSENTIAL (PRIMARY) HYPERTENSION Assessment/Plan Syncope likely secondary to PE Acute Submassive Pulmonary Emboli Atrial Fibrillation with RVR RLE DVT NSCLC (Adenocarcinoma) s/p chemo/RT HIV COPD Chronic Hypoxic Respiratory Failure CAD HTN Hyperlipidemia - anticoagulation with LMWH - O2 to keep SpO2 >90% - inhaled bronchodilators - IR for catheter directed tpa in view of rv dysfunction on echo DR WATERS
[2017-12-11] MEDS ORDERED: ALTEPLASE 50MG 25 MG in SODIUM CHLORIDE 250 ML IVPB ONE (13:30)
[2017-12-11] MEDS ORDERED: ALTEPLASE 50MG 25 MG in SODIUM CHLORIDE 225 ML IVPB ONE (13:53)
--- NOTE | 2017-12-11 14:51 | EKG ---
Test Reason : Blood Pressure : / mmHG Vent. Rate : 120 BPM Atrial Rate : 120 BPM P-R Int : 180 ms QRS Dur : 082 ms QT Int : 328 ms P-R-T Axes : 072 -48 019 degrees QTc Int : 463 ms SINUS TACHYCARDIA LEFT AXIS DEVIATION POSSIBLE INFERIOR INFARCT , AGE UNDETERMINED ANTERIOR INFARCT , AGE UNDETERMINED ABNORMAL ECG WHEN COMPARED WITH ECG OF 08-DEC-2017 14:37, ST NO LONGER DEPRESSED IN ANTERIOR LEADS T WAVE INVERSION NOW EVIDENT IN INFERIOR LEADS INVERTED T WAVES HAVE REPLACED NONSPECIFIC T WAVE ABNORMALITY IN ANTERIOR LEADS Confirmed by DEANNA GRAVES, JOHN ([id number]) on 12/11/2017 2:51:12 PM Referred By: Confirmed By:JOHN HUERTA MD
--- NOTE | 2017-12-11 15:17 | PN ---
Physical Exam: SUBJECTIVE: Patient seen and examined. Pt. received on tPA drip. Will hold BP medications for permissive HTN up to 180 SBP. Fibrinogen sent with Rpt. order for 8pm. Fibrinogen goal between 200-400. OBJECTIVE: Vital Signs Period Temp Pulse Resp BP Sys/[place] Pulse Ox Last 24 Hr 97.5 F-100.3 F 93-116 16-20 135-162/83-105 95-100 GENERAL: The patient is awake, alert, and fully oriented, in no acute distress. HEAD: Normal with no signs of trauma. EYES: PERRL, extraocular movements intact, sclera anicteric, conjunctiva clear. No ptosis. ENT: Ears normal, nares patent, oropharynx clear without exudates, moist mucous membranes. NECK: Trachea midline, full range of motion, supple. LUNGS: Breath sounds equal, clear to auscultation bilaterally, no wheezes, no crackles, no accessory muscle use. HEART: Regular rate and rhythm, S1, S2 without murmur, rub or gallop. ABDOMEN: Soft, nontender, nondistended, normoactive bowel sounds, no guarding, no rebound, no hepatosplenomegaly, no masses. EXTREMITIES: 2+ pulses, warm, well-perfused, no edema. NEUROLOGICAL: Cranial nerves II through XII grossly intact. Normal speech, gait not observed. PSYCH: Normal mood, normal affect. SKIN: Warm, dry, normal turgor, no rashes or lesions noted Laboratory Results - last 24 hr 12/10/17 12/11/17 12/11/17 10:30 05:30 05:30 WBC 9.8 9.2 RBC 4.01 Hgb 11.6 Hct 37.6 MCV 93.7 MCH 29.0 MCHC 30.9 L RDW 15.7 H Plt Count 139 D MPV 12.5 H Absolute Neuts (auto) 7.4 Absolute Lymphs (auto) 0.4 L Neutrophils % 81.1 Neutrophils % (Manual) 84.6 H Band Neutrophils % 0.0 Lymphocytes % 9.2 D Lymphocytes % (Manual) 13.4 D Monocytes % 9.3 Monocytes % (Manual) 2 L Eosinophils % 0.0 D Eosinophils % (Manual) 0.0 Basophils % 0.4 Basophils % (Manual) 0.0 Myelocytes % (Man) 0 Promyelocytes % (Man) 0 Blast Cells % (Manual) 0 Nucleated RBC % 0 Lymphocytes 4 Metamyelocytes 0 Nucleated RBCs TNP Hypochromia 0 Platelet Estimate Decreased Polychromasia 0 Poikilocytosis 3+ Anisocytosis 1+ Microcytosis 0 Macrocytosis 0 Sodium 142 Potassium 4.7 Chloride 107 Carbon Dioxide 28 Anion Gap 8 BUN 37 H Creatinine 0.6 Creat Clearance w eGFR > 60 Random Glucose 104 Calcium 9.7 Phosphorus 2.5 Magnesium 2.1 Total Bilirubin 0.7 AST 23 ALT 15 Alkaline Phosphatase 73 Total Protein 6.7 Albumin 2.1 L Absolute CD3 Count 327 L % CD3+ Lymphocytes 81.8 Absolute CD4 [place] 38 L % CD4+ Lymphocyte 9.5 L CD4/CD8 Ratio 0.13 L % CD8+ Lymphocyte 71.3 H Absolute CD8 Count 285 Active Medications Current Medications Acetaminophen (Tylenol -) 650 mg PO Q6H PRN PRN Reason: PAIN Last Admin: 12/10/17 15:54 Dose: 650 mg Enoxaparin Sodium (Lovenox -) 60 mg SQ BID [facility] Last Admin: 12/11/17 10:44 Dose: 60 mg Ceftriaxone Sodium 1 gm/ (Dextrose) 50 mls @ 100 mls/hr IVPB DAILY [facility]; Protocol Last Admin: 12/11/17 10:44 Dose: 100 mls/hr Alteplase, Recombinant 25 mg/ (Sodium Chloride) 225 mls @ 10 mls/hr IVPB ONCE ONE Stop: 12/12/17 11:59 Last Admin: 12/11/17 14:52 Dose: 10 mls/hr Metoprolol Tartrate (Lopressor -) 50 mg PO BID [facility] Last Admin: 12/11/17 10:44 Dose: 50 mg ASSESSMENT/PLAN: Pt is a 72 y/o lady with a significant past medical history of non-small cell lung cancer, HIV, COPD, HTN, HLD, CAD who was BIBA yesterday evening (12/08/17) after being found on the ground near her couch by her godson at approximately 1 pm yesterday. #Cardiovascular -Syncope 2/2 Pulmonary Embolism vs.Arrhythmia Cardiology consult appreciated Trend troponins and EKG to rule out ACS BNP: [id number]. Most likely 2/2 P.E, not CHF -HTN Consider continuing Losartan in light of pt's residing hyperkalemia Resume Metoprolol 25 bid #Pulmonology -Bilateral PE CTA Chest shows multiple acute pulmonary emboli within L and R upper and lower lobe pulmonary arterial branches. D/C Lovenox Started on Heparin Drip Protocol Bolused 500 units of Heparin On tPA drip f/u fibrinogen levels Q2H and adjust drip as per Dr. Moreira's note BNP: [id number] -COPD-stable Resume Qvar Inhaler BID Ventolin inhaler PRN #Infectious Disease -HIV Pt endorses taking Genvoya every day Continue taking medication ID consult concern for HIV associated dementia # Oncology -Non-Small cell Adeno Lung- stable Completed Radiation and Chemotherapy Tx. Heme/Onc consult appreciated MRI Brain to check for metastases #F/E/N No Fluids Monitor electrolytes and replete as needed Low sodium Diet DVT ppx: D/C Lovenox Started on Heparin Drip Protocol Bolused 500 units of Heparin On tPA drip Dispo: ICU Visit type - Emergency Visit Emergency Visit: Yes ED Registration Date: 12/08/17 Care time: The patient presented to the Emergency Department on the above date and was hospitalized for further evaluation of their emergent condition. - New Patient This patient is new to me today: No - Critical Care Critical Care patient: Yes Total Critical Care Time (in minutes): 42 Critical Care Statement: The care of this patient involved high complexity decision making to prevent further life threatening deterioration of the patient 's condition and/or to evaluate & treat vital organ system(s) failure or risk of failure. - Discharge Referral Referred to [facility] Med P.C.: No
[2017-12-11] MEDS ORDERED: HEPARIN NA (PORCINE) 5,000 UNITS/ML 1ML VIAL IVPUSH PRN ×4 (15:23→17:20)
[2017-12-11] MEDS ORDERED: HEPARIN INFUSION - 25,000 UNITS/500 ML INFUS.BAG IVPB SCH (15:30)
--- NOTE | 2017-12-11 15:43 | PN ---
Physical Exam: SUBJECTIVE: Patient seen and examined at bedside this morning. No acute events overnight. Patient is more alert and oriented today. OBJECTIVE: Vital Signs Period Temp Pulse Resp BP Sys/[place] Pulse Ox Last 24 Hr 97.4 F-100.3 F 92-116 16-32 135-162/83-111 95-100 GENERAL: The patient is awake, alert, and fully oriented, in no acute distress. HEAD: Normal with no signs of trauma. +pruritic, dry skin on the face EYES: PERRLA, EOMI, sclera anicteric, conjunctiva clear. ENT: Ears normal, nares patent, oropharynx clear without exudates, moist mucous membranes. NECK: Trachea midline, full range of motion, supple. LUNGS: Breath sounds equal, clear to auscultation bilaterally. HEART: Regular rate and rhythm, S1, S2 without murmur, rub or gallop. ABDOMEN: Soft, nontender, nondistended, normoactive bowel sounds. EXTREMITIES: 2+ pulses, warm, well-perfused, no edema. NEUROLOGICAL: Cranial nerves II through XII grossly intact. Normal speech, gait not observed. PSYCH: Normal mood, normal affect. SKIN: Warm, normal turgor, +dry skin, +wounds on dorsum of feet bilaterally Laboratory Results - last 24 hr 12/10/17 12/11/17 12/11/17 10:30 05:30 05:30 WBC 9.8 9.2 RBC 4.01 Hgb 11.6 Hct 37.6 MCV 93.7 MCH 29.0 MCHC 30.9 L RDW 15.7 H Plt Count 139 D MPV 12.5 H Absolute Neuts (auto) 7.4 Absolute Lymphs (auto) 0.4 L Neutrophils % 81.1 Neutrophils % (Manual) 84.6 H Band Neutrophils % 0.0 Lymphocytes % 9.2 D Lymphocytes % (Manual) 13.4 D Monocytes % 9.3 Monocytes % (Manual) 2 L Eosinophils % 0.0 D Eosinophils % (Manual) 0.0 Basophils % 0.4 Basophils % (Manual) 0.0 Myelocytes % (Man) 0 Promyelocytes % (Man) 0 Blast Cells % (Manual) 0 Nucleated RBC % 0 Lymphocytes 4 Metamyelocytes 0 Nucleated RBCs TNP Hypochromia 0 Platelet Estimate Decreased Polychromasia 0 Poikilocytosis 3+ Anisocytosis 1+ Microcytosis 0 Macrocytosis 0 Sodium 142 Potassium 4.7 Chloride 107 Carbon Dioxide 28 Anion Gap 8 BUN 37 H Creatinine 0.6 Creat Clearance w eGFR > 60 Random Glucose 104 Calcium 9.7 Phosphorus 2.5 Magnesium 2.1 Total Bilirubin 0.7 AST 23 ALT 15 Alkaline Phosphatase 73 Total Protein 6.7 Albumin 2.1 L Absolute CD3 Count 327 L % CD3+ Lymphocytes 81.8 Absolute CD4 [place] 38 L % CD4+ Lymphocyte 9.5 L CD4/CD8 Ratio 0.13 L % CD8+ Lymphocyte 71.3 H Absolute CD8 Count 285 Active Medications Generic Name Dose Route Start Last Admin Trade Name Freq PRN Reason Stop Dose Admin Acetaminophen 650 mg 12/10/17 13:15 12/10/17 15:54 Tylenol - PO 650 mg Q6H PRN Administration PAIN Heparin Sodium (Porcine) 1,000 unit 12/11/17 15:23 Heparin - IVPUSH PRN PRN Heparin Heparin Sodium (Porcine) 5,000 unit 12/11/17 15:23 Heparin - IVPUSH PRN PRN Heparin Ceftriaxone Sodium 1 gm/ 50 mls @ 100 mls/hr 12/09/17 15:15 12/11/17 10:44 Dextrose IVPB 100 mls/hr DAILY [facility] Administration Protocol Alteplase, Recombinant 25 mg/ 225 mls @ 10 mls/hr 12/11/17 13:53 12/11/17 14: 52 Sodium Chloride IVPB 12/12/17 11:59 10 mls/hr ONCE ONE Administration Heparin Sodium/Dextrose 25,000 units in 500 mls @ 10 mls/hr 12/11/17 15:30 Heparin Infusion - IVPB TITR [facility] Protocol 500 UNITS/HR Metoprolol Tartrate 50 mg 12/10/17 22:00 12/11/17 10:44 Lopressor - PO 50 mg BID [facility] Administration Imaging Chest xray (12/08/17) - Since 05/07/17, the lungs appear better aerated. The left central line persists. There is a prominent mediastinum and persistent granuloma left base. Chest xray (12/09/17) - Since 12/08/17, there is no significant change and no sign of an acute process. There is a left base granuloma, left central line and prominent mediastinum. Chest CTA - Multiple pulmonary emboli at the left pulmonary artery bifurcation extending and involving the left upper and lower lobe branches as well as multiple pulmonary emboli in the right upper and lower lobe proximal and distal branches. Minimal atelectatic changes in the left lung base and subsegmental atelectasis in the right lung base, posteriorly. There is no aneurysmal dilatation of the abdominal aorta. Vascular calcifications are present. Partially included exophytic right renal lesion for which further evaluation with US is recommended. On prior CT scan of the chest dated 10/15/17, partially included cortical deformity of the right kidney was present. Head CT without contrast - No evidence of acute intracranial hemorrhage, edema, midline shift, mass effect, or skull fracture. No CT evidence of acute territorial ischemic changes. Moderate supratentorial white matter microangiopathic ischemic changes. Cervical spine CT - No compression fracture, subluxation or prevertebral soft tissue swelling identified. Moderate to marked degenerative disc disease at C6- C7 level with mild anterior and posterior spur formation as well as bilateral uncovertebral hypertrophy slightly to moderately narrowing the right and slightly narrowing the left foramen. Echo - LV is normal in size. LV systolic function is mildly reduced. There are regional wall motion abnormalities. EF is 45-50%. RV is not well visualized. RV appears mildly dilated with reduced systolic function. A moderator band is seen in the RV. LA size is normal. There is mild mitral annular calcification. There is mild tricuspid regurgitation. There is moderate aortic sclerosis. Mild aortic root dilatation. Pulmonary artery systolic pressure is at least 50mmHg assuming RA pressure of 15mmHg (dilated IVC with <50% collapse). No pericardial effusion. ASSESSMENT/PLAN: Patient is a 72 year old female with a significant past medical history of non- small cell lung cancer, HIV, COPD, HTN, HLD, CAD who was BIBA yesterday evening (12/08/17) after having an episode of syncope and being found on the ground near her couch by her godson at approximately 1 pm yesterday. # Syncope: likely 2/2 Arrhythmia vs Pulmonary embolism -EKG - SVT, LAD -Head CT - No evidence of acute intracranial hemorrhage, edema, midline shift, mass effect, or skull fracture. No CT evidence of acute territorial ischemic changes. Moderate supratentorial white matter microangiopathic ischemic changes. -Echo - LV systolic function is mildly reduced. There are regional wall motion abnormalities. EF is 45-50%. -Troponins trended 0.10 --> 0.08. Likely demand ischemia from tachycardia. -Cardiology (Dr. St) consulted. Recommendations appreciated. -Lovenox 60 mg sq BID (1mg/kg bid) held -Cardizem drip discontinued. -Lopressor 25mg BID. -Will monitor. #Multiple pulmonary embolism: s/p IR-guided thrombolysis, thrombectomy -Transferred to ICU for tPA drip -hemodynamically stable -Chest CTA - Multiple pulmonary emboli at the left pulmonary artery bifurcation extending and involving the left upper and lower lobe branches as well as multiple pulmonary emboli in the right upper and lower lobe proximal and distal branches. -Benjamin-Onc (Dr. Fong) consulted. Recommendations appreciated. -Ultimately will need anticoagulant. -Non compliance is an issue so NOAC is favored over lovenox. -Coumadin less efficacious in malignancies and would foresee compliance monitoring issue. -Discontinue Lovenox 60mg sq BID -Started on Heparin Drip Protocol -Bolused 500 units of Heparin -On tPA drip -f/u fibrinogen levels Q2H and adjust drip as per Dr. Moreira's note #Hypomagnesemia: resolved -Mg 2.1 -will monitor #HIV -Pt endorses taking Genvoya every day -ID (Dr. Peralta) consulted. #UTI -UA - WBC 63, leuk est +2 -Ceftriaxone 1 gm daily. #Non-Small cell AdenoCa Lung -Received Radiation therapy for 12 weeks, everyday according to pt -Received Chemo therapy for 12 weeks, once per week according to pt -MRI Brain done - Moderate chronic small vessel ischemic changes. Otherwise unremarkable MRI of the brain. #HTN: controlled -Consider continuing Losartan in light of pt's residing hyperkalemia -Resume Metoprolol 25 mg bid #COPD -Resume Qvar Inhaler BID -Ventolin inhaler PRN #FEN -not on any standing fluids -HypoMg, replete as needed -Sodium restricted diet #Prophylaxis -On heparin ggt #Disposition -ICU for tPA drip Visit type - Emergency Visit Emergency Visit: Yes ED Registration Date: 12/08/17 Care time: The patient presented to the Emergency Department on the above date and was hospitalized for further evaluation of their emergent condition. - New Patient This patient is new to me today: Yes Date on this admission: 12/12/17 - Critical Care Critical Care patient: No
--- NOTE | 2017-12-11 16:00 | PN ---
Physical Exam: SUBJECTIVE: Patient seen and examined at bedside. POD#0 s/p thrombectomy. Currently on TPa drip. Tolerated procedure well. Lying comfortably in bed. Denies CP, ZAPATA, abdominal pain. OBJECTIVE: Vital Signs Period Temp Pulse Resp BP Sys/[place] Pulse Ox Last 24 Hr 97.4 F-100.3 F 92-116 16-32 135-162/83-111 95-100 GENERAL:Awake and alert, NAD HEAD: NCAT EYES: PERRLA, EOMI, sclera anicteric, conjunctiva clear. ptosis of left eye EARS, NOSE, THROAT: Dry mucous membranes. NECK: bandaged right neck appears C/D/I LUNGS: Decreased breath sounds bilaterally.Scattered wheezes, and no crackles. No accessory muscle use. HEART: RRR, normal S1 and S2 without murmur, rub or gallop. BREAST: No palpable masses, without dippling or retraction. ABDOMEN: Soft, NT/ND, NABS, no guarding, no rebound, no masses. No hepatomegaly or splenomegaly. MUSCULOSKELETAL: No CVA tenderness. UPPER EXTREMITIES: 2+ pulses, warm, well-perfused. No cyanosis. No clubbing. No peripheral edema. LOWER EXTREMITIES: 2+ pulses, warm, well-perfused. No calf tenderness. No peripheral edema. NEUROLOGICAL: lethargic , responds to repeated questioning. SKIN: Xeroderma of face and scalp, onychomycosis of bilateral feet. Laboratory Results - last 24 hr 12/10/17 12/11/17 12/11/17 10:30 05:30 05:30 WBC 9.8 9.2 RBC 4.01 Hgb 11.6 Hct 37.6 MCV 93.7 MCH 29.0 MCHC 30.9 L RDW 15.7 H Plt Count 139 D MPV 12.5 H Absolute Neuts (auto) 7.4 Absolute Lymphs (auto) 0.4 L Neutrophils % 81.1 Neutrophils % (Manual) 84.6 H Band Neutrophils % 0.0 Lymphocytes % 9.2 D Lymphocytes % (Manual) 13.4 D Monocytes % 9.3 Monocytes % (Manual) 2 L Eosinophils % 0.0 D Eosinophils % (Manual) 0.0 Basophils % 0.4 Basophils % (Manual) 0.0 Myelocytes % (Man) 0 Promyelocytes % (Man) 0 Blast Cells % (Manual) 0 Nucleated RBC % 0 Lymphocytes 4 Metamyelocytes 0 Nucleated RBCs TNP Hypochromia 0 Platelet Estimate Decreased Polychromasia 0 Poikilocytosis 3+ Anisocytosis 1+ Microcytosis 0 Macrocytosis 0 Sodium 142 Potassium 4.7 Chloride 107 Carbon Dioxide 28 Anion Gap 8 BUN 37 H Creatinine 0.6 Creat Clearance w eGFR > 60 Random Glucose 104 Calcium 9.7 Phosphorus 2.5 Magnesium 2.1 Total Bilirubin 0.7 AST 23 ALT 15 Alkaline Phosphatase 73 Total Protein 6.7 Albumin 2.1 L Absolute CD3 Count 327 L % CD3+ Lymphocytes 81.8 Absolute CD4 [place] 38 L % CD4+ Lymphocyte 9.5 L CD4/CD8 Ratio 0.13 L % CD8+ Lymphocyte 71.3 H Absolute CD8 Count 285 Active Medications Generic Name Dose Route Start Last Admin Trade Name Freq PRN Reason Stop Dose Admin Acetaminophen 650 mg 12/10/17 13:15 12/10/17 15:54 Tylenol - PO 650 mg Q6H PRN Administration PAIN Heparin Sodium (Porcine) 1,000 unit 12/11/17 15:23 Heparin - IVPUSH PRN PRN Heparin Heparin Sodium (Porcine) 5,000 unit 12/11/17 15:23 Heparin - IVPUSH PRN PRN Heparin Ceftriaxone Sodium 1 gm/ 50 mls @ 100 mls/hr 12/09/17 15:15 12/11/17 10:44 Dextrose IVPB 100 mls/hr DAILY [facility] Administration Protocol Alteplase, Recombinant 25 mg/ 225 mls @ 10 mls/hr 12/11/17 13:53 12/11/17 14: 52 Sodium Chloride IVPB 12/12/17 11:59 10 mls/hr ONCE ONE Administration Heparin Sodium/Dextrose 25,000 units in 500 mls @ 10 mls/hr 12/11/17 15:30 Heparin Infusion - IVPB TITR [facility] Protocol 500 UNITS/HR Metoprolol Tartrate 50 mg 12/10/17 22:00 12/11/17 10:44 Lopressor - PO 50 mg BID [facility] Administration ASSESSMENT/PLAN: Problem List - Problems (1) Pulmonary embolism Assessment/Plan: Bilateral massive PE found on imaging. * S/P thrombectomy today on Tpa drip * Spoke with Dr. Kay his recommendation are: * Stop lovenox and start heparin @ 500 units/hr. ; obtain a baseline fibrinogen. (Goal is to maintain Fibrinogen 200-400) * repeat fibrinogen in 4hrs. and titrate either up or down based on fibrinogen. * If elevated drop by 100 units and repeat fibrinogen in 2hrs. * If low increase by 100 units and repeat fibrinogen in 2hrs. * Titration based upon levels obtained to maintain between 200-400 * Repeat fibrinogen Q6hrs for the first 24hrs. (2) HIV (human immunodeficiency virus infection) Assessment/Plan: On HAART therapy; Followed at [facility]. * Labs pending. (3) Non-small cell carcinoma of lung Assessment/Plan: She has recieved 7 rounds chemo(Carbo and taxil) with radiation * Poorly compliant * Last seen September 2017 in office. Visit type - Emergency Visit Emergency Visit: Yes ED Registration Date: 12/08/17 Care time: The patient presented to the Emergency Department on the above date and was hospitalized for further evaluation of their emergent condition. - New Patient This patient is new to me today: No - Critical Care Critical Care patient: Yes Total Critical Care Time (in minutes): 47 Critical Care Statement: The care of this patient involved high complexity decision making to prevent further life threatening deterioration of the patient 's condition and/or to evaluate & treat vital organ system(s) failure or risk of failure.
--- NOTE | 2017-12-11 16:05 | PN ---
Teaching Attending Note Name of Resident: Winston Moreira ATTENDING PHYSICIAN STATEMENT I saw and evaluated the patient. I reviewed the resident's note and discussed the case with the resident. I agree with the resident's findings and plan as documented. SUBJECTIVE:Patient seen and examined Discussed with Dr. Kay post Tpa thrombolysis. remains SOB and dyspneic Last Vital Signs Temp Pulse Resp BP Pulse Ox 97.4 F L 92 H 30 H 153/106 H 97 12/11/17 15:20 12/11/17 15:30 12/11/17 15:30 12/11/17 15:30 12/11/17 14:50 Lungs - diminished breath sounds Sinus tachycardia Abd- soft Ext- negative CBC, BMP 12/11/17 05:30 12/11/17 05:30 Current Medications Generic Name Dose Route Start Last Admin Trade Name Freq PRN Reason Stop Dose Admin Acetaminophen 650 mg 12/10/17 13:15 12/10/17 15:54 Tylenol - PO 650 mg Q6H PRN Administration PAIN Heparin Sodium (Porcine) 1,000 unit 12/11/17 15:23 Heparin - IVPUSH PRN PRN Heparin Heparin Sodium (Porcine) 5,000 unit 12/11/17 15:23 Heparin - IVPUSH PRN PRN Heparin Ceftriaxone Sodium 1 gm/ 50 mls @ 100 mls/hr 12/09/17 15:15 12/11/17 10:44 Dextrose IVPB 100 mls/hr DAILY DURGA Administration Protocol Alteplase, Recombinant 25 mg/ 225 mls @ 10 mls/hr 12/11/17 13:53 12/11/17 14: 52 Sodium Chloride IVPB 12/12/17 11:59 10 mls/hr ONCE ONE Administration Heparin Sodium/Dextrose 25,000 units in 500 mls @ 10 mls/hr 12/11/17 15:30 Heparin Infusion - IVPB TITR DURGA Protocol 500 UNITS/HR Metoprolol Tartrate 50 mg 12/10/17 22:00 12/11/17 10:44 Lopressor - PO 50 mg BID DURGA Administration Impression: Non small cell lung ca s/p RT/chemotherapy completed in 07/19 Bilateral saddle pulmonary embol- s/p tpa As discussed with I.R to maintain on heparin with monitoring of fibrinogen levels ( see Dr. Moreira note) HIV COPD OBJECTIVE: ASSESSMENT AND PLAN:
--- NOTE | 2017-12-11 16:51 | PN ---
Teaching Attending Note Name of Resident: Winston Moreira ATTENDING PHYSICIAN STATEMENT I saw and evaluated the patient. I reviewed the resident's note and discussed the case with the resident. I agree with the resident's findings and plan as documented. SUBJECTIVE:Patient seen and examined Remains SOB and dyspneic Some pain at biopsy site Last Vital Signs Temp Pulse Resp BP Pulse Ox 97.4 F L 114 H 30 H 149/102 H 92 L 12/11/17 15:20 12/11/17 16:00 12/11/17 16:00 12/11/17 16:00 12/11/17 15:15 Cor: RSR, No murmurs, No gallops Lungs: rhonchi, wheezes, diminished breath sounds anteriorly and posteriorly R> L Abd: Soft, Normal bowel sounds, No organomegaly Ext:No significant edema Skin: No rashes, Integument intact CBC, BMP 12/11/17 05:30 12/11/17 05:30 Current Medications Generic Name Dose Route Start Last Admin Trade Name Freq PRN Reason Stop Dose Admin Acetaminophen 650 mg 12/10/17 13:15 12/10/17 15:54 Tylenol - PO 650 mg Q6H PRN Administration PAIN Heparin Sodium (Porcine) 1,000 unit 12/11/17 15:23 Heparin - IVPUSH PRN PRN Heparin Heparin Sodium (Porcine) 5,000 unit 12/11/17 15:23 Heparin - IVPUSH PRN PRN Heparin Ceftriaxone Sodium 1 gm/ 50 mls @ 100 mls/hr 12/09/17 15:15 12/11/17 10:44 Dextrose IVPB 100 mls/hr DAILY DURGA Administration Protocol Alteplase, Recombinant 25 mg/ 225 mls @ 10 mls/hr 12/11/17 13:53 12/11/17 14: 52 Sodium Chloride IVPB 12/12/17 11:59 10 mls/hr ONCE ONE Administration Heparin Sodium/Dextrose 25,000 units in 500 mls @ 10 mls/hr 12/11/17 15:30 Heparin Infusion - IVPB TITR DURGA Protocol 500 UNITS/HR Metoprolol Tartrate 50 mg 12/10/17 22:00 12/11/17 10:44 Lopressor - PO 50 mg BID DURGA Administration OBJECTIVE:Impression: Spoke with pathology Path- reveals poorly differentiated carcinoma. Preliminary suggests squamous. Additional studies to confirm squamous etiology- pending. Patient informed of diagnosis of malignancy Spoke with Dr. Cedeno - option of placing stent -followed by staging patient and if localized disease consider combined RT/chemotherpay. If widespread mets- palliative RT and sequential chemotherapy. have asked for PDL-1evaluation. ASSESSMENT AND PLAN:
[2017-12-11] MEDS: HEPARIN INFUSION - 25,000 UNITS/500 ML INFUS.BAG IVPB SCH ×2 (17:12→17:13)
[2017-12-12 06:11] LABS: BASO % 0.1 % (0-2.0); EOS % 0.1 % (0-4.5); HEMOGLOBIN 11.2 GM/dL (10.7-15.3); LYMPH % 6.8 % (8-40); MCH 29.2 pg (25.7-33.7); MCHC 31.1 g/dl (32.0-36.0); MEAN CELL VOLUME 93.9 fl (80-96); MEAN PLT VOLUME 11.8 fl (7.5-11.1); MONO % 8.5 % (3.8-10.2); NEUT % 84.5 % (42.8-82.8); PLATELET COUNT 141 K/MM3 (134-434); RBC 3.83 M/mm3 (3.60-5.2); RDW 15.8 % (11.6-15.6); WHITE BLOOD COUNT 7.5 K/mm3 (4.0-10.0)
[2017-12-12 06:29] LABS: ANION GAP 6 MMOL/L (8-16); BLOOD UREA NITROGEN 48 mg/dL (7-18); CALCIUM 9.1 mg/dL (8.5-10.1); CHLORIDE 106 mmol/L (98-107); CO2 30 mmol/L (21-32); CREATININE 0.7 mg/dL (0.55-1.3); GLUCOSE,RANDOM 115 mg/dL (74-106); MAGNESIUM 2.2 mg/dL (1.8-2.4); PHOSPHOROUS 3.5 mg/dL (2.5-4.9); POTASSIUM 4.4 mmol/L (3.5-5.1); SODIUM 141 mmol/L (136-145)
[2017-12-12] MEDS: ACETAMINOPHEN 325 MG TABLET (FP) PO PRN (08:30)
[2017-12-12] MEDS ORDERED: HEPARIN INFUSION - 25,000 UNITS/500 ML INFUS.BAG IVPB SCH (08:46)
[2017-12-12] MEDS ORDERED: cefTRIAXone SODIUM 1 GM VIAL ONE (09:04)
[2017-12-12] MEDS ORDERED: DEXTROSE 5%-WATER - 50 ML IVPB ONE (09:05)
--- NOTE | 2017-12-12 09:12 | PN ---
Teaching Attending Note Name of Resident: Tracy Malik ATTENDING PHYSICIAN STATEMENT I saw and evaluated the patient. I reviewed the resident's note and discussed the case with the resident. I agree with the resident's findings and plan as documented with exceptions below. SUBJECTIVE: Patient seen and examined. breathing better, no new complaints OBJECTIVE: Vital Signs Period Temp Pulse Resp BP Sys/[place] Pulse Ox Last 24 Hr 97.4 F-98.4 F 92-126 3-32 111-161/83-111 92-100 Intake & Output 12/09/17 12/10/17 12/11/17 12/12/17 23:59 23:59 23:59 23:59 Intake Total 500 530 216 Balance 500 530 216 Weight 138 lb 131 lb General: sitting in bed, mild tachypnea, able to talk in full sentences Chest: decreased effort, no rales or wheezing appreciated Abdomen:n soft, NT, ND Extremities: trace RLE edema Active Medications Acetaminophen (Tylenol -) 650 mg PO Q6H PRN PRN Reason: PAIN Last Admin: 12/12/17 08:30 Dose: 650 mg Ceftriaxone Sodium 1 gm/ (Dextrose) 50 mls @ 100 mls/hr IVPB DAILY DURGA; Protocol Last Admin: 12/11/17 10:44 Dose: 100 mls/hr Alteplase, Recombinant 25 mg/ (Sodium Chloride) 225 mls @ 10 mls/hr IVPB ONCE ONE Stop: 12/12/17 11:59 Last Admin: 12/11/17 14:52 Dose: 10 mls/hr Heparin Sodium/Dextrose (Heparin Infusion -) 25,000 units in 500 mls @ 4 mls/ hr IVPB TITR DURGA; Protocol Last Admin: 12/12/17 08:48 Dose: Not Given Metoprolol Tartrate (Lopressor -) 50 mg PO BID DURGA Last Admin: 12/11/17 21:38 Dose: 50 mg Laboratory Results - last 24 hr 12/10/17 12/11/17 12/11/17 10:30 05:30 16:00 WBC 9.8 RBC Hgb Hct MCV MCH MCHC RDW Plt Count MPV Absolute Neuts (auto) Absolute Lymphs (auto) 0.4 L Neutrophils % Neutrophils % (Manual) 84.6 H Band Neutrophils % 0.0 Lymphocytes % Lymphocytes % (Manual) 13.4 D Monocytes % Monocytes % (Manual) 2 L Eosinophils % Eosinophils % (Manual) 0.0 Basophils % Basophils % (Manual) 0.0 Myelocytes % (Man) 0 Promyelocytes % (Man) 0 Blast Cells % (Manual) 0 Nucleated RBC % Lymphocytes 4 Metamyelocytes 0 Nucleated RBCs TNP Hypochromia 0 Platelet Estimate Decreased Polychromasia 0 Poikilocytosis 3+ Anisocytosis 1+ Microcytosis 0 Macrocytosis 0 Fibrinogen > 500.0 H Sodium Potassium Chloride Carbon Dioxide Anion Gap BUN Creatinine Creat Clearance w eGFR Random Glucose Calcium Phosphorus Magnesium Absolute CD3 Count 327 L % CD3+ Lymphocytes 81.8 Absolute CD4 [place] 38 L % CD4+ Lymphocyte 9.5 L CD4/CD8 Ratio 0.13 L % CD8+ Lymphocyte 71.3 H Absolute CD8 Count 285 12/11/17 12/11/17 12/12/17 20:00 23:00 05:30 WBC 7.5 RBC 3.83 Hgb 11.2 Hct 36.0 MCV 93.9 MCH 29.2 MCHC 31.1 L RDW 15.8 H Plt Count 141 MPV 11.8 H Absolute Neuts (auto) 6.3 Absolute Lymphs (auto) Neutrophils % 84.5 H Neutrophils % (Manual) Band Neutrophils % Lymphocytes % 6.8 L D Lymphocytes % (Manual) Monocytes % 8.5 Monocytes % (Manual) Eosinophils % 0.1 D Eosinophils % (Manual) Basophils % 0.1 Basophils % (Manual) Myelocytes % (Man) Promyelocytes % (Man) Blast Cells % (Manual) Nucleated RBC % 0 Lymphocytes Metamyelocytes Nucleated RBCs Hypochromia Platelet Estimate Polychromasia Poikilocytosis Anisocytosis Microcytosis Macrocytosis Fibrinogen > 500.0 H > 500.0 H Sodium Potassium Chloride Carbon Dioxide Anion Gap BUN Creatinine Creat Clearance w eGFR Random Glucose Calcium Phosphorus Magnesium Absolute CD3 Count % CD3+ Lymphocytes Absolute CD4 [place] % CD4+ Lymphocyte CD4/CD8 Ratio % CD8+ Lymphocyte Absolute CD8 Count 12/12/17 12/12/17 05:30 05:30 WBC RBC Hgb Hct MCV MCH MCHC RDW Plt Count MPV Absolute Neuts (auto) Absolute Lymphs (auto) Neutrophils % Neutrophils % (Manual) Band Neutrophils % Lymphocytes % Lymphocytes % (Manual) Monocytes % Monocytes % (Manual) Eosinophils % Eosinophils % (Manual) Basophils % Basophils % (Manual) Myelocytes % (Man) Promyelocytes % (Man) Blast Cells % (Manual) Nucleated RBC % Lymphocytes Metamyelocytes Nucleated RBCs Hypochromia Platelet Estimate Polychromasia Poikilocytosis Anisocytosis Microcytosis Macrocytosis Fibrinogen > 500.0 H Sodium 141 Potassium 4.4 Chloride 106 Carbon Dioxide 30 Anion Gap 6 L BUN 48 H Creatinine 0.7 Creat Clearance w eGFR > 60 Random Glucose 115 H Calcium 9.1 Phosphorus 3.5 Magnesium 2.2 Absolute CD3 Count % CD3+ Lymphocytes Absolute CD4 [place] % CD4+ Lymphocyte CD4/CD8 Ratio % CD8+ Lymphocyte Absolute CD8 Count Microbiology 12/11/17 08:40 Blood - Peripheral Venous Blood Culture - Preliminary NO GROWTH OBTAINED AFTER 24 HOURS, INCUBATION TO CONTINUE FOR 4 DAYS. 12/11/17 08:10 Blood - Peripheral Venous Blood Culture - Preliminary NO GROWTH OBTAINED AFTER 24 HOURS, INCUBATION TO CONTINUE FOR 4 DAYS. 12/08/17 15:40 Blood - Peripheral Venous Blood Culture - Preliminary NO GROWTH OBTAINED AFTER 72 HOURS, INCUBATION TO CONTINUE FOR 2 DAYS. 12/08/17 15:58 Blood - Peripheral Venous Blood Culture - Preliminary NO GROWTH OBTAINED AFTER 72 HOURS, INCUBATION TO CONTINUE FOR 2 DAYS. 12/08/17 15:58 Urine - Urine - Catheterized Urine Culture - Final Klebsiella Pneumoniae ASSESSMENT AND PLAN: 72yo F with PMH HIV not compliant with HARRT, lung ca s/p chemo/RTX, COPD on home O2 2L NC, HTN, CAD s/p stent, dyslipidemia presented to the ER after syncope. she syncopized at home and then could not get up and was down on the floor for extended period of time.In the ER was found to be in aflutter and have multiple PE -Syncope, from extensive bilateral PE vs Arrhythmia -Submassive PE with likely right heart strain s/p catheter directed thrombolysis -Atrial flutter with RVR, likely from submassive PE -RLE DVT -Fever, ?from PE/DVT vs pulmonary infarction, r/o infectious etiology -Hyperkalemia, resolved -Elevated troponin, suspect right heart strain vs demand induced from above -Hypomagnesemia -Abnormal TFTs -Lower uncomplicated Klebsiella UTI -HIV/AIDS, concern for noncompliance with HAART -Lung ca s/p chemo/RTx -COPD on 2l Home oxygen -CAD s/p PCI -Diffuse rash, > 1 year Plan Catheter directed thrombolysis. Tpa/hep drip per Dr. Gebrael/Hematology. Fevers improved, monitor for now. ID input noted, Urine cx noted, Off ceftriaxone. started on HAART and bactrim prophylaxis. Cardiology/pulmonary input appreciated. Repeat 2D echo with RV dysfunction/dilatation Lovenox on hold, on heparin drip per IR. NOAC when stable. Unlikely candidate for coumadin given less efficacy in malignancy and compliance concerns. Off cardizem drip. Metoprolol 50 mg BID. Hold losartan for now. Replete lytes prn. Repeat TFTs in 2-3 weeks. DVTPPX as above Dispo pending clinical improvement. Plan discussed with patient in detail, all questions answered. Total critical care time spent including patient visit, discussion with ICU, IR , ID, complex decision making 35 min.
[2017-12-12] MEDS: METOPROLOL TARTRATE 50 MG TABLET (FP) PO SCH ×2 (09:20→22:09)
[2017-12-12 09:24] LABS: ANISOCYTOSIS 1+; MACROCYTOSIS 0; PLATELET ESTIMATE DECREASED
[2017-12-12] MEDS: CEFTRIAXONE 1 GM in DEXTROSE 5%-WATER - 50 ML IVPB SCH (09:54)
--- NOTE | 2017-12-12 09:59 | PN ---
Physical Exam: SUBJECTIVE: Patient seen and examined at bedside. No overnight events. No new complaints. Continues to have SOB. Denies CP,ZAPATA,palpitations, nausea or vomiting. OBJECTIVE: Vital Signs Period Temp Pulse Resp BP Sys/[place] Pulse Ox Last 24 Hr 97.4 F-98.4 F 92-126 3-32 111-161/83-111 92-100 GENERAL:Awake and alert, NAD HEAD: NCAT EYES: PERRLA, EOMI, sclera anicteric, conjunctiva clear. ptosis of left eye EARS, NOSE, THROAT: Dry mucous membranes. NECK: bandaged right neck appears C/D/I LUNGS: Decreased breath sounds bilaterally.Scattered wheezes, and no crackles. No accessory muscle use. HEART: RRR, normal S1 and S2 without murmur, rub or gallop. BREAST: No palpable masses, without dippling or retraction. ABDOMEN: Soft, NT/ND, NABS, no guarding, no rebound, no masses. No hepatomegaly or splenomegaly. MUSCULOSKELETAL: No CVA tenderness. UPPER EXTREMITIES: 2+ pulses, warm, well-perfused. No cyanosis. No clubbing. No peripheral edema. LOWER EXTREMITIES: 2+ pulses, warm, well-perfused. No calf tenderness. No peripheral edema. NEUROLOGICAL: lethargic , responds to repeated questioning. SKIN: Xeroderma of face and scalp, onychomycosis of bilateral feet. Laboratory Results - last 24 hr 12/10/17 12/11/17 12/11/17 10:30 05:30 16:00 WBC 9.8 RBC Hgb Hct MCV MCH MCHC RDW Plt Count MPV Absolute Neuts (auto) Absolute Lymphs (auto) 0.4 L Neutrophils % Neutrophils % (Manual) 84.6 H Band Neutrophils % 0.0 Lymphocytes % Lymphocytes % (Manual) 13.4 D Monocytes % Monocytes % (Manual) 2 L Eosinophils % Eosinophils % (Manual) 0.0 Basophils % Basophils % (Manual) 0.0 Myelocytes % (Man) 0 Promyelocytes % (Man) 0 Blast Cells % (Manual) 0 Nucleated RBC % Lymphocytes 4 Metamyelocytes 0 Nucleated RBCs TNP Hypochromia 0 Platelet Estimate Decreased Polychromasia 0 Poikilocytosis 3+ Anisocytosis 1+ Microcytosis 0 Macrocytosis 0 Fibrinogen > 500.0 H Sodium Potassium Chloride Carbon Dioxide Anion Gap BUN Creatinine Creat Clearance w eGFR Random Glucose Calcium Phosphorus Magnesium Absolute CD3 Count 327 L % CD3+ Lymphocytes 81.8 Absolute CD4 [place] 38 L % CD4+ Lymphocyte 9.5 L CD4/CD8 Ratio 0.13 L % CD8+ Lymphocyte 71.3 H Absolute CD8 Count 285 12/11/17 12/11/17 12/12/17 20:00 23:00 05:30 WBC 7.5 RBC 3.83 Hgb 11.2 Hct 36.0 MCV 93.9 MCH 29.2 MCHC 31.1 L RDW 15.8 H Plt Count 141 MPV 11.8 H Absolute Neuts (auto) 6.3 Absolute Lymphs (auto) Neutrophils % 84.5 H Neutrophils % (Manual) 90.1 H Band Neutrophils % 0.0 Lymphocytes % 6.8 L D Lymphocytes % (Manual) 4.0 L D Monocytes % 8.5 Monocytes % (Manual) 6 D Eosinophils % 0.1 D Eosinophils % (Manual) 0.0 Basophils % 0.1 Basophils % (Manual) 0.0 Myelocytes % (Man) 0 Promyelocytes % (Man) 0 Blast Cells % (Manual) 0 Nucleated RBC % 0 Lymphocytes Metamyelocytes 0 Nucleated RBCs Hypochromia 0 Platelet Estimate Decreased Polychromasia 1+ Poikilocytosis 0 Anisocytosis 1+ Microcytosis 0 Macrocytosis 0 Fibrinogen > 500.0 H > 500.0 H Sodium Potassium Chloride Carbon Dioxide Anion Gap BUN Creatinine Creat Clearance w eGFR Random Glucose Calcium Phosphorus Magnesium Absolute CD3 Count % CD3+ Lymphocytes Absolute CD4 [place] % CD4+ Lymphocyte CD4/CD8 Ratio % CD8+ Lymphocyte Absolute CD8 Count 12/12/17 12/12/17 05:30 05:30 WBC RBC Hgb Hct MCV MCH MCHC RDW Plt Count MPV Absolute Neuts (auto) Absolute Lymphs (auto) Neutrophils % Neutrophils % (Manual) Band Neutrophils % Lymphocytes % Lymphocytes % (Manual) Monocytes % Monocytes % (Manual) Eosinophils % Eosinophils % (Manual) Basophils % Basophils % (Manual) Myelocytes % (Man) Promyelocytes % (Man) Blast Cells % (Manual) Nucleated RBC % Lymphocytes Metamyelocytes Nucleated RBCs Hypochromia Platelet Estimate Polychromasia Poikilocytosis Anisocytosis Microcytosis Macrocytosis Fibrinogen > 500.0 H Sodium 141 Potassium 4.4 Chloride 106 Carbon Dioxide 30 Anion Gap 6 L BUN 48 H Creatinine 0.7 Creat Clearance w eGFR > 60 Random Glucose 115 H Calcium 9.1 Phosphorus 3.5 Magnesium 2.2 Absolute CD3 Count % CD3+ Lymphocytes Absolute CD4 [place] % CD4+ Lymphocyte CD4/CD8 Ratio % CD8+ Lymphocyte Absolute CD8 Count Active Medications Generic Name Dose Route Start Last Admin Trade Name Dante PRN Reason Stop Dose Admin Acetaminophen 650 mg 12/10/17 13:15 12/12/17 08:30 Tylenol - PO 650 mg Q6H PRN Administration PAIN Ceftriaxone Sodium 1 gm/ 50 mls @ 100 mls/hr 12/09/17 15:15 12/11/17 10:44 Dextrose IVPB 100 mls/hr DAILY DURGA Administration Protocol Alteplase, Recombinant 25 mg/ 225 mls @ 10 mls/hr 12/11/17 13:53 12/11/17 14: 52 Sodium Chloride IVPB 12/12/17 11:59 10 mls/hr ONCE ONE Administration Heparin Sodium/Dextrose 25,000 units in 500 mls @ 4 mls/hr 12/12/17 08:46 01/19 08:48 Heparin Infusion - IVPB Not Given TITR DURGA Protocol 200 UNITS/HR Metoprolol Tartrate 50 mg 12/10/17 22:00 12/12/17 09:20 Lopressor - PO 50 mg BID DURGA Administration ASSESSMENT/PLAN: 72yo F with PMH HIV not compliant with HARRT, lung ca s/p chemo/RTX, COPD on home O2 2L NC, HTN, CAD s/p stent, dyslipidemia presented to the ER after syncope. she syncopized at home and then could not get up and was down on the floor for extended period of time.In the ER was found to be in aflutter and have multiple PE's. Problem List - Problems (1) Pulmonary embolism Assessment/Plan: Bilateral massive PE found on imaging. * S/P thrombectomy today on Tpa and heparin ggt. * catheter will most likely removed today. * NOAC to be initiated once appropriate. (2) HIV (human immunodeficiency virus infection) Assessment/Plan: On HAART therapy; Followed at [facility]. * Labs pending. * she is on Genvoya at home. (3) Non-small cell carcinoma of lung Assessment/Plan: She has recieved 7 rounds chemo(Carbo and taxil) with radiation * Poorly compliant * Last seen September 2017 in office. Visit type - Emergency Visit Emergency Visit: Yes ED Registration Date: 12/08/17 Care time: The patient presented to the Emergency Department on the above date and was hospitalized for further evaluation of their emergent condition. - New Patient This patient is new to me today: No - Critical Care Critical Care patient: Yes Total Critical Care Time (in minutes): 42 Critical Care Statement: The care of this patient involved high complexity decision making to prevent further life threatening deterioration of the patient 's condition and/or to evaluate & treat vital organ system(s) failure or risk of failure.
--- NOTE | 2017-12-12 13:18 | PN ---
Progress Note, Physician History of Present Illness: More lethargic today C/O chest pain exacerbated by deep inspiration No c/o dyspnea/ cough No c/o fever/ chills Denies dysuria BC no growth Urine c/s Klebsiella (s) Bactrim CD4 38 - Current Medication List Current Medications: Active Medications Acetaminophen (Tylenol -) 650 mg PO Q6H PRN PRN Reason: PAIN Last Admin: 12/12/17 08:30 Dose: 650 mg Ceftriaxone Sodium 1 gm/ (Dextrose) 50 mls @ 100 mls/hr IVPB DAILY [facility]; Protocol Last Admin: 12/12/17 09:54 Dose: 100 mls/hr Heparin Sodium/Dextrose (Heparin Infusion -) 25,000 units in 500 mls @ 4 mls/ hr IVPB TITR [facility]; Protocol Last Admin: 12/12/17 08:48 Dose: Not Given Metoprolol Tartrate (Lopressor -) 50 mg PO BID [facility] Last Admin: 12/12/17 09:20 Dose: 50 mg - Objective Vital Signs: Vital Signs Temperature 98.5 F 12/12/17 10:00 Pulse Rate 102 H 12/12/17 12:00 Respiratory Rate 26 H 12/12/17 12:00 Blood Pressure 106/74 12/12/17 12:00 O2 Sat by Pulse Oximetry (%) 98 12/12/17 08:03 Constitutional: Yes: No Distress Cardiovascular: Yes: Regular Rate and Rhythm, S1, S2 Respiratory: Yes: CTA Bilaterally Gastrointestinal: Yes: Normal Bowel Sounds, Soft. No: Tenderness Labs: CBC, BMP 12/12/17 05:30 12/12/17 05:30 INR, PTT INR 1.16 (0.83-1.09) H 12/10/17 05:30 Fibrinogen > 500.0 mg/dL (238-498) H 12/12/17 05:30 Assessment/Plan S/P syncope Bilateral PE UTI Klebsiella HIV/ AIDS hx non compliance with ART D/C ceftriaxone Substitute po Bactrim DS bid x3d, then Bactrim DS po qd for PCP prophylaxis Genvoya non-formulary Will give truvada/ isentress
--- NOTE | 2017-12-12 14:19 | PN ---
Physical Exam: SUBJECTIVE: Patient seen and examined at bedside this morning. No acute events overnight. Patient on 3L NC. Denies chest pain, palpitations, abdominal pain, urinary symptoms. OBJECTIVE: Vital Signs Period Temp Pulse Resp BP Sys/[place] Pulse Ox Last 24 Hr 8.4 F-98.5 F 84-126 3-34 92-161/50-111 92-100 GENERAL: The patient is awake, alert, and oriented, on 3L NC. HEAD: Normal with no signs of trauma. +dry, flaky skin on the face EYES: PERRLA, EOMI, sclera anicteric, conjunctiva clear. NECK: Bandage on the right side of neck, appear clean with no discharge. LUNGS: Breath sounds equal, clear to auscultation bilaterally. HEART: Regular rate and rhythm, S1, S2 without murmur, rub or gallop. ABDOMEN: Soft, nontender, nondistended, normoactive bowel sounds. EXTREMITIES: 2+ pulses, warm, well-perfused, no edema. NEUROLOGICAL: Cranial nerves II through XII grossly intact. Normal speech, gait not observed. PSYCH: Normal mood, normal affect. SKIN: Warm, normal turgor, +dry skin, +wounds on dorsum of feet bilaterally Laboratory Results - last 24 hr 12/11/17 12/11/17 12/11/17 16:00 20:00 23:00 WBC RBC Hgb Hct MCV MCH MCHC RDW Plt Count MPV Absolute Neuts (auto) Neutrophils % Neutrophils % (Manual) Band Neutrophils % Lymphocytes % Lymphocytes % (Manual) Monocytes % Monocytes % (Manual) Eosinophils % Eosinophils % (Manual) Basophils % Basophils % (Manual) Myelocytes % (Man) Promyelocytes % (Man) Blast Cells % (Manual) Nucleated RBC % Metamyelocytes Hypochromia Platelet Estimate Polychromasia Poikilocytosis Anisocytosis Microcytosis Macrocytosis Fibrinogen > 500.0 H > 500.0 H > 500.0 H Sodium Potassium Chloride Carbon Dioxide Anion Gap BUN Creatinine Creat Clearance w eGFR Random Glucose Calcium Phosphorus Magnesium 12/12/17 12/12/17 12/12/17 05:30 05:30 05:30 WBC 7.5 RBC 3.83 Hgb 11.2 Hct 36.0 MCV 93.9 MCH 29.2 MCHC 31.1 L RDW 15.8 H Plt Count 141 MPV 11.8 H Absolute Neuts (auto) 6.3 Neutrophils % 84.5 H Neutrophils % (Manual) 90.1 H Band Neutrophils % 0.0 Lymphocytes % 6.8 L D Lymphocytes % (Manual) 4.0 L D Monocytes % 8.5 Monocytes % (Manual) 6 D Eosinophils % 0.1 D Eosinophils % (Manual) 0.0 Basophils % 0.1 Basophils % (Manual) 0.0 Myelocytes % (Man) 0 Promyelocytes % (Man) 0 Blast Cells % (Manual) 0 Nucleated RBC % 0 Metamyelocytes 0 Hypochromia 0 Platelet Estimate Decreased Polychromasia 1+ Poikilocytosis 0 Anisocytosis 1+ Microcytosis 0 Macrocytosis 0 Fibrinogen > 500.0 H Sodium 141 Potassium 4.4 Chloride 106 Carbon Dioxide 30 Anion Gap 6 L BUN 48 H Creatinine 0.7 Creat Clearance w eGFR > 60 Random Glucose 115 H Calcium 9.1 Phosphorus 3.5 Magnesium 2.2 Active Medications Generic Name Dose Route Start Last Admin Trade Name Freq PRN Reason Stop Dose Admin Acetaminophen 650 mg 12/10/17 13:15 12/12/17 08:30 Tylenol - PO 650 mg Q6H PRN Administration PAIN Emtricitabine/Tenofovir 1 tab 12/12/17 14:30 Truvada PO DAILY [facility] Heparin Sodium/Dextrose 25,000 units in 500 mls @ 4 mls/hr 12/12/17 08:46 01/19 08:48 Heparin Infusion - IVPB Not Given TITR [facility] Protocol 200 UNITS/HR Metoprolol Tartrate 50 mg 12/10/17 22:00 12/12/17 09:20 Lopressor - PO 50 mg BID DURGA Administration Raltegravir 400 mg 12/12/17 14:30 Isentress - PO BID [facility] Trimethoprim/Sulfamethoxazole 1 each 12/12/17 14:30 Bactrim Ds - PO BID [facility] Imaging Chest xray (12/08/17) - Since 05/07/17, the lungs appear better aerated. The left central line persists. There is a prominent mediastinum and persistent granuloma left base. Chest xray (12/09/17) - Since 12/08/17, there is no significant change and no sign of an acute process. There is a left base granuloma, left central line and prominent mediastinum. Chest CTA - Multiple pulmonary emboli at the left pulmonary artery bifurcation extending and involving the left upper and lower lobe branches as well as multiple pulmonary emboli in the right upper and lower lobe proximal and distal branches. Minimal atelectatic changes in the left lung base and subsegmental atelectasis in the right lung base, posteriorly. There is no aneurysmal dilatation of the abdominal aorta. Vascular calcifications are present. Partially included exophytic right renal lesion for which further evaluation with US is recommended. On prior CT scan of the chest dated 10/15/17, partially included cortical deformity of the right kidney was present. Head CT without contrast - No evidence of acute intracranial hemorrhage, edema, midline shift, mass effect, or skull fracture. No CT evidence of acute territorial ischemic changes. Moderate supratentorial white matter microangiopathic ischemic changes. Cervical spine CT - No compression fracture, subluxation or prevertebral soft tissue swelling identified. Moderate to marked degenerative disc disease at C6- C7 level with mild anterior and posterior spur formation as well as bilateral uncovertebral hypertrophy slightly to moderately narrowing the right and slightly narrowing the left foramen. Echo - LV is normal in size. LV systolic function is mildly reduced. There are regional wall motion abnormalities. EF is 45-50%. RV is not well visualized. RV appears mildly dilated with reduced systolic function. A moderator band is seen in the RV. LA size is normal. There is mild mitral annular calcification. There is mild tricuspid regurgitation. There is moderate aortic sclerosis. Mild aortic root dilatation. Pulmonary artery systolic pressure is at least 50mmHg assuming RA pressure of 15mmHg (dilated IVC with <50% collapse). No pericardial effusion. ASSESSMENT/PLAN: Patient is a 72 year old female with a significant past medical history of non- small cell lung cancer, HIV, COPD, HTN, HLD, CAD who was BIBA yesterday evening (12/08/17) after having an episode of syncope and being found on the ground near her couch by her godson at approximately 1 pm yesterday. # Syncope: likely 2/2 Arrhythmia vs Pulmonary embolism -EKG - SVT, LAD -Head CT - No evidence of acute intracranial hemorrhage, edema, midline shift, mass effect, or skull fracture. No CT evidence of acute territorial ischemic changes. Moderate supratentorial white matter microangiopathic ischemic changes. -Echo - LV systolic function is mildly reduced. There are regional wall motion abnormalities. EF is 45-50%. -Troponins trended 0.10 --> 0.08. Likely demand ischemia from tachycardia. -Cardiology (Dr. St) consulted. Recommendations appreciated. -Lovenox 60 mg sq BID (1mg/kg bid) held -Cardizem drip discontinued. -Lopressor 25mg BID. -Will monitor. #Multiple pulmonary embolism: s/p IR-guided thrombolysis, thrombectomy -Transferred to ICU for tPA drip -hemodynamically stable -Chest CTA - Multiple pulmonary emboli at the left pulmonary artery bifurcation extending and involving the left upper and lower lobe branches as well as multiple pulmonary emboli in the right upper and lower lobe proximal and distal branches. -[facility]-Onc (Dr. Fong) consulted. Recommendations appreciated. -Ultimately will need anticoagulant. -Non compliance is an issue so NOAC is favored over lovenox. -Coumadin less efficacious in malignancies and would foresee compliance monitoring issue. -Discontinue Lovenox 60mg sq BID -Started on Heparin Drip Protocol -CTA during the day showed no pulmonary embolism. -tPA was discontinued. Fibrinogen readings were discontinued. -Right central line was removed. #Hypomagnesemia: resolved -Mg 2.1 -will monitor #HIV -Pt endorses taking Genvoya every day -ID (Dr. Peralta) consulted. #UTI -UA - WBC 63, leuk est +2 -Urine Cx - Klebsiella pneumoniae -Ceftriaxone 1 gm discontinue -Bactrim DS BID x3 days -Then PO Bactrim DS PO daily for PCP prophylaxis. #Non-Small cell AdenoCa Lung -Received Radiation therapy for 12 weeks, everyday according to pt -Received Chemo therapy for 12 weeks, once per week according to pt -MRI Brain done - Moderate chronic small vessel ischemic changes. Otherwise unremarkable MRI of the brain. #HTN: controlled -Consider continuing Losartan in light of pt's residing hyperkalemia -Resume Metoprolol 25 mg bid #COPD -Resume Qvar Inhaler BID -Ventolin inhaler PRN #FEN -not on any standing fluids -HypoMg, replete as needed -Sodium restricted diet #Prophylaxis -On heparin ggt #Disposition -ICU for tPA drip Visit type - Emergency Visit Emergency Visit: Yes ED Registration Date: 12/08/17 Care time: The patient presented to the Emergency Department on the above date and was hospitalized for further evaluation of their emergent condition. - New Patient This patient is new to me today: Yes Date on this admission: 12/22/17 - Critical Care Critical Care patient: No
--- NOTE | 2017-12-12 15:02 | EKG ---
Test Reason : Blood Pressure : / mmHG Vent. Rate : 092 BPM Atrial Rate : 092 BPM P-R Int : 176 ms QRS Dur : 086 ms QT Int : 384 ms P-R-T Axes : 063 -38 008 degrees QTc Int : 474 ms SINUS RHYTHM WITH PREMATURE SUPRAVENTRICULAR COMPLEXES LEFT AXIS DEVIATION NONSPECIFIC T WAVE ABNORMALITY PROLONGED QT ABNORMAL ECG Confirmed by JENN PEÑA MD ([id number]) on 12/12/2017 3:01:58 PM Referred By: MARIO RAMOS DR Confirmed By:JENN PEÑA MD
[2017-12-12] MEDS ORDERED: LACTATED RINGERS SOLUTION 1,000 ML/1,000 ML INFUS.BAG IV STA (15:52)
--- NOTE | 2017-12-12 16:00 | PN ---
Teaching Attending Note Name of Resident: Hakeem Vincent ATTENDING PHYSICIAN STATEMENT I saw and evaluated the patient. I reviewed the resident's note and discussed the case with the resident. I agree with the resident's findings and plan as documented. SUBJECTIVE: Patient seen and examined in the ICU. S/P catheter directed intervention for Submassive PE. Reports some anterior CP, but then denies a few minutes later. No occult bleeding. During the day, noted possible Rapid AFib. Increasing lethargy also noted. Intake & Output 12/09/17 12/10/17 12/11/17 12/12/17 23:59 23:59 23:59 23:59 Intake Total 500 530 216 Balance 500 530 216 Weight 138 lb 131 lb Last Vital Signs Temp Pulse Resp BP Pulse Ox 8.4 F L 88 34 H 107/50 L 100 12/12/17 13:37 12/12/17 14:16 12/12/17 14:16 12/12/17 14:16 12/12/17 14:16 Active Medications Acetaminophen (Tylenol -) 650 mg PO Q6H PRN PRN Reason: PAIN Last Admin: 12/12/17 08:30 Dose: 650 mg Emtricitabine/Tenofovir (Truvada) 1 tab PO DAILY [facility] Heparin Sodium/Dextrose (Heparin Infusion -) 25,000 units in 500 mls @ 4 mls/ hr IVPB TITR [facility]; Protocol Last Admin: 12/12/17 08:48 Dose: Not Given Lactated Ringer's (Lactated Ringers Solution) 1,000 ml in 1,000 mls @ 1,000 mls /hr IV ONCE STA Stop: 12/12/17 16:51 Metoprolol Tartrate (Lopressor -) 50 mg PO BID [facility]UR[facility] Last Admin: 12/12/17 09:20 Dose: 50 mg Raltegravir (Isentress -) 400 mg PO BID [facility] Trimethoprim/Sulfamethoxazole (Bactrim Ds -) 1 each PO BID [facility] Constitutional: Yes: Mildly Tachypneic at rest. Mildly confused Eyes: Yes: WNL HENT: Yes: WNL Neck: Yes: WNL Cardiovascular: Yes: Tachycardia, S1, S2, AFib Respiratory: Yes: Diminished at the bases, bilateral rhonchi Gastrointestinal: Yes: Normal Bowel Sounds, Soft Extremities: Yes: WNL Edema: No Labs: Laboratory Results - last 24 hr 12/11/17 12/11/17 12/11/17 16:00 20:00 23:00 WBC RBC Hgb Hct MCV MCH MCHC RDW Plt Count MPV Absolute Neuts (auto) Neutrophils % Neutrophils % (Manual) Band Neutrophils % Lymphocytes % Lymphocytes % (Manual) Monocytes % Monocytes % (Manual) Eosinophils % Eosinophils % (Manual) Basophils % Basophils % (Manual) Myelocytes % (Man) Promyelocytes % (Man) Blast Cells % (Manual) Nucleated RBC % Metamyelocytes Hypochromia Platelet Estimate Polychromasia Poikilocytosis Anisocytosis Microcytosis Macrocytosis Fibrinogen > 500.0 H > 500.0 H > 500.0 H Sodium Potassium Chloride Carbon Dioxide Anion Gap BUN Creatinine Creat Clearance w eGFR Random Glucose Calcium Phosphorus Magnesium 12/12/17 12/12/17 12/12/17 05:30 05:30 05:30 WBC 7.5 RBC 3.83 Hgb 11.2 Hct 36.0 MCV 93.9 MCH 29.2 MCHC 31.1 L RDW 15.8 H Plt Count 141 MPV 11.8 H Absolute Neuts (auto) 6.3 Neutrophils % 84.5 H Neutrophils % (Manual) 90.1 H Band Neutrophils % 0.0 Lymphocytes % 6.8 L D Lymphocytes % (Manual) 4.0 L D Monocytes % 8.5 Monocytes % (Manual) 6 D Eosinophils % 0.1 D Eosinophils % (Manual) 0.0 Basophils % 0.1 Basophils % (Manual) 0.0 Myelocytes % (Man) 0 Promyelocytes % (Man) 0 Blast Cells % (Manual) 0 Nucleated RBC % 0 Metamyelocytes 0 Hypochromia 0 Platelet Estimate Decreased Polychromasia 1+ Poikilocytosis 0 Anisocytosis 1+ Microcytosis 0 Macrocytosis 0 Fibrinogen > 500.0 H Sodium 141 Potassium 4.4 Chloride 106 Carbon Dioxide 30 Anion Gap 6 L BUN 48 H Creatinine 0.7 Creat Clearance w eGFR > 60 Random Glucose 115 H Calcium 9.1 Phosphorus 3.5 Magnesium 2.2 12/12/17 13:00 WBC RBC Hgb Hct MCV MCH MCHC RDW Plt Count MPV Absolute Neuts (auto) Neutrophils % Neutrophils % (Manual) Band Neutrophils % Lymphocytes % Lymphocytes % (Manual) Monocytes % Monocytes % (Manual) Eosinophils % Eosinophils % (Manual) Basophils % Basophils % (Manual) Myelocytes % (Man) Promyelocytes % (Man) Blast Cells % (Manual) Nucleated RBC % Metamyelocytes Hypochromia Platelet Estimate Polychromasia Poikilocytosis Anisocytosis Microcytosis Macrocytosis Fibrinogen 559.0 H Sodium Potassium Chloride Carbon Dioxide Anion Gap BUN Creatinine Creat Clearance w eGFR Random Glucose Calcium Phosphorus Magnesium Assessment/Plan Problem List - Problems (1) Pulmonary embolism Code(s): I26.99 - OTHER PULMONARY EMBOLISM WITHOUT ACUTE COR PULMONALE Qualifiers: Pulmonary embolism type: other Chronicity: acute Acute cor pulmonale presence: without acute cor pulmonale Qualified Code(s): I26.99 - Other pulmonary embolism without acute cor pulmonale (2) Syncope Code(s): R55 - SYNCOPE AND COLLAPSE Qualifiers: Syncope type: unspecified Qualified Code(s): R55 - Syncope and collapse (3) Non-small cell carcinoma of lung Code(s): C34.90 - MALIGNANT NEOPLASM OF UNSP PART OF UNSP BRONCHUS OR LUNG (4) COPD (chronic obstructive pulmonary disease) Code(s): J44.9 - CHRONIC OBSTRUCTIVE PULMONARY DISEASE, UNSPECIFIED Qualifiers: COPD type: unspecified COPD Qualified Code(s): J44.9 - Chronic obstructive pulmonary disease, unspecified (5) Coronary artery disease Code(s): I25.10 - ATHSCL HEART DISEASE OF [place] CORONARY ARTERY W/O ANG PCTRS (6) Human immunodeficiency virus (HIV) disease Code(s): B20 - HUMAN IMMUNODEFICIENCY VIRUS [HIV] DISEASE (7) Hypertension, benign Code(s): I10 - ESSENTIAL (PRIMARY) HYPERTENSION Assessment/Plan Syncope Acute Submassive Pulmonary Emboli Atrial Fibrillation with RVR RLE DVT NSCLC (Adenocarcinoma) s/p chemo/RT HIV COPD Chronic Hypoxic Respiratory Failure CAD HTN Hyperlipidemia - STAT EKG - STAT ABG - STAT CT Head - May need to hold AC - O2 to keep SpO2 >90% - inhaled bronchodilators - Aspiration precautions - Requires ICU monitoring Dr De Dios Critical care time spent in reviewing chart, evaluating patient and formulating plan - 36 minutes.
[2017-12-12 16:31] LABS: ARTERIAL BLD GAS O2 SATURATION 94.1 % (90-98.9); ARTERIAL BLOOD GAS BASE EXCESS 1.5 meq/l (-2-2); ARTERIAL BLOOD GAS PCO2 48.5 mmHg (35-45); ARTERIAL BLOOD GAS pH 7.36 (7.35-7.45)
[2017-12-12 16:39] LABS: ALLENS TEST POSITIVE
[2017-12-12] MEDS ORDERED: LACTATED RINGERS SOLUTION 1,000 ML/1,000 ML INFUS.BAG IV SCH (17:00)
[2017-12-12] MEDS: SULFAMETHOXAZOLE/TRIMETHOPRIM 800MG/160MG D.S. TABLET PO SCH ×2 (17:03→22:09)
[2017-12-12] MEDS: RALTEGRAVIR POTASSIUM 400 MG TAB PO SCH ×2 (17:04→22:10)
[2017-12-12] MEDS: EMTRICITABINE 200MG/TENOFOVIR 300MG PO SCH (17:04)
[2017-12-12] MEDS ORDERED: HEPARIN NA (PORCINE) 5,000 UNITS/ML 1ML VIAL IVPUSH PRN ×2 (17:12)
[2017-12-12] MEDS ORDERED: HEPARIN - 25,000 UNIT in SODIUM CHLORIDE 495 ML IV SCH (17:15)
[2017-12-12] MEDS: LACTATED RINGERS SOLUTION 1,000 ML/1,000 ML INFUS.BAG IV SCH (17:18)
[2017-12-12] MEDS ORDERED: PT OWN MED DRAWER 7, Y5N ONE ×2 (17:20→21:13)
--- NOTE | 2017-12-12 17:33 | PN ---
Physical Exam: SUBJECTIVE: Patient seen and examined. Overnight Fibrinogen was found to be over 500 at every lab read. Pt. in the morning denied any symptoms including CP , SOB, abdominal pain, dizziness, or blurry vision. Rpt. CTA during the day showed no pulmonary embolism. tPA was discontinued. Fibrinogen readings were discontinued. Right central line was removed. During the afternoon Pt. was found to be hypotensive with altered mental status. One Liter of LR was given, ABG was drawn and Head CT was performed. OBJECTIVE: Vital Signs Period Temp Pulse Resp BP Sys/[place] Pulse Ox Last 24 Hr 8.4 F-98.5 F 84-126 22-34 78-156/50-110 94-100 GENERAL: The patient is awake, alert, and oriented to name only, in no acute distress. HEAD: Normal with no signs of gross trauma; facial rash-psoriasis? EYES: PERRL, extraocular movements intact, sclera anicteric, conjunctiva clear. No ptosis. ENT: Ears normal, nares patent, oropharynx clear without exudates, moist mucous membranes. LUNGS: Bibasilar crackles, coarse breath sounds, no accessory muscle use. HEART: Regular rate and rhythm, S1, S2 without murmur, JVD difficult to assess d /t Right neck central line. ABDOMEN: Soft, nontender, nondistended, normoactive bowel sounds, no guarding, no rebound EXTREMITIES: 2+ dorsal pedal pulses, cool to touch, well-perfused, no edema. 3/ 5 muscle strength bilaterally on initial exam, 2/5 muscle strength on subsequent exam prior to Head CT. NEUROLOGICAL: Cranial nerves II through XII grossly intact. Confused speech, gait not observed. PSYCH: Normal mood, normal affect. SKIN: Warm, dry, normal turgor Laboratory Results - last 24 hr 12/11/17 12/11/17 12/11/17 16:00 20:00 23:00 WBC RBC Hgb Hct MCV MCH MCHC RDW Plt Count MPV Absolute Neuts (auto) Neutrophils % Neutrophils % (Manual) Band Neutrophils % Lymphocytes % Lymphocytes % (Manual) Monocytes % Monocytes % (Manual) Eosinophils % Eosinophils % (Manual) Basophils % Basophils % (Manual) Myelocytes % (Man) Promyelocytes % (Man) Blast Cells % (Manual) Nucleated RBC % Metamyelocytes Hypochromia Platelet Estimate Polychromasia Poikilocytosis Anisocytosis Microcytosis Macrocytosis Fibrinogen > 500.0 H > 500.0 H > 500.0 H Anticoagulation Therapy Puncture Site ABG pH ABG pCO2 at Pt Temp ABG pO2 at Pt Temp ABG HCO3 ABG O2 Sat (Measured) ABG O2 Content ABG Base Excess Terrence Test O2 Delivery Device Oxygen Flow Rate Vent Mode Vent Rate Mechanical Rate Pressure Support Vent Sodium Potassium Chloride Carbon Dioxide Anion Gap BUN Creatinine Creat Clearance w eGFR Random Glucose Calcium Phosphorus Magnesium 12/12/17 12/12/17 12/12/17 05:30 05:30 05:30 WBC 7.5 RBC 3.83 Hgb 11.2 Hct 36.0 MCV 93.9 MCH 29.2 MCHC 31.1 L RDW 15.8 H Plt Count 141 MPV 11.8 H Absolute Neuts (auto) 6.3 Neutrophils % 84.5 H Neutrophils % (Manual) 90.1 H Band Neutrophils % 0.0 Lymphocytes % 6.8 L D Lymphocytes % (Manual) 4.0 L D Monocytes % 8.5 Monocytes % (Manual) 6 D Eosinophils % 0.1 D Eosinophils % (Manual) 0.0 Basophils % 0.1 Basophils % (Manual) 0.0 Myelocytes % (Man) 0 Promyelocytes % (Man) 0 Blast Cells % (Manual) 0 Nucleated RBC % 0 Metamyelocytes 0 Hypochromia 0 Platelet Estimate Decreased Polychromasia 1+ Poikilocytosis 0 Anisocytosis 1+ Microcytosis 0 Macrocytosis 0 Fibrinogen > 500.0 H Anticoagulation Therapy Puncture Site ABG pH ABG pCO2 at Pt Temp ABG pO2 at Pt Temp ABG HCO3 ABG O2 Sat (Measured) ABG O2 Content ABG Base Excess Terrence Test O2 Delivery Device Oxygen Flow Rate Vent Mode Vent Rate Mechanical Rate Pressure Support Vent Sodium 141 Potassium 4.4 Chloride 106 Carbon Dioxide 30 Anion Gap 6 L BUN 48 H Creatinine 0.7 Creat Clearance w eGFR > 60 Random Glucose 115 H Calcium 9.1 Phosphorus 3.5 Magnesium 2.2 12/12/17 12/12/17 13:00 16:03 WBC RBC Hgb Hct MCV MCH MCHC RDW Plt Count MPV Absolute Neuts (auto) Neutrophils % Neutrophils % (Manual) Band Neutrophils % Lymphocytes % Lymphocytes % (Manual) Monocytes % Monocytes % (Manual) Eosinophils % Eosinophils % (Manual) Basophils % Basophils % (Manual) Myelocytes % (Man) Promyelocytes % (Man) Blast Cells % (Manual) Nucleated RBC % Metamyelocytes Hypochromia Platelet Estimate Polychromasia Poikilocytosis Anisocytosis Microcytosis Macrocytosis Fibrinogen 559.0 H Anticoagulation Therapy No Result Required. Puncture Site Left radial ABG pH 7.36 ABG pCO2 at Pt Temp 48.5 H ABG pO2 at Pt Temp 75.0 ABG HCO3 26.8 H ABG O2 Sat (Measured) 94.1 ABG O2 Content 13.3 L ABG Base Excess 1.5 Terrence Test Positive O2 Delivery Device Nasal Oxygen Flow Rate 2.5l Vent Mode No Result Required. Vent Rate No Result Required. Mechanical Rate No Result Required. Pressure Support Vent No Result Required. Sodium Potassium Chloride Carbon Dioxide Anion Gap BUN Creatinine Creat Clearance w eGFR Random Glucose Calcium Phosphorus Magnesium Active Medications Current Medications Acetaminophen (Tylenol -) 650 mg PO Q6H PRN PRN Reason: PAIN Last Admin: 12/12/17 08:30 Dose: 650 mg Emtricitabine/Tenofovir (Truvada) 1 tab PO DAILY [facility] Last Admin: 12/12/17 17:04 Dose: 1 tab Heparin Sodium (Porcine) (Heparin -) 1,000 unit IVPUSH PRN PRN PRN Reason: Heparin Heparin Sodium (Porcine) (Heparin -) 5,000 unit IVPUSH PRN PRN PRN Reason: Heparin Heparin Sodium (Porcine) 25, (000 unit/ Sodium Chloride) 500 mls @ 16 mls/hr IV TITR [facility]; Protocol Lactated Ringer's (Lactated Ringers Solution) 1,000 ml in 1,000 mls @ 42 mls/ hr IV ASDIR [facility] Last Admin: 12/12/17 17:18 Dose: 42 mls/hr Metoprolol Tartrate (Lopressor -) 50 mg PO BID [facility] Last Admin: 12/12/17 09:20 Dose: 50 mg Raltegravir (Isentress -) 400 mg PO BID [facility] Last Admin: 12/12/17 17:04 Dose: 400 mg Trimethoprim/Sulfamethoxazole (Bactrim Ds -) 1 each PO BID [facility] Last Admin: 12/12/17 17:03 Dose: 1 each ASSESSMENT/PLAN: Pt is a 72 y/o lady with a significant past medical history of non-small cell lung cancer, HIV, COPD, HTN, HLD, CAD who was BIBA yesterday evening (12/08/17) after being found on the ground near her couch by her godson at approximately 1 pm 12/08/17. #Cardiovascular -Syncope 2/2 Pulmonary Embolism vs. Arrhythmia Cardiology consult appreciated Trend troponins and EKG to rule out ACS BNP: [id number]. Most likely 2/2 P.E, not CHF -HTN Consider continuing Losartan in light of pt's residing hyperkalemia Resume Metoprolol 25 bid #Pulmonology -Bilateral PE Rpt. CTA 12/12/17: shows no eveidence of PE. CTA Chest shows multiple acute pulmonary emboli within L and R upper and lower lobe pulmonary arterial branches. C/w Heparin Drip Protocol until transition to NOAC per Hematology/Oncology D/C tPA drip D/C Lovenox BNP: [id number] -COPD-stable Resume Qvar Inhaler BID Ventolin inhaler PRN #Infectious Disease -HIV Pt endorses taking Genvoya every day Continue taking medication ID consult concern for HIV associated dementia # Oncology -Non-Small cell Adeno Lung- stable Completed Radiation and Chemotherapy Tx. Heme/Onc consult appreciated Brain MRI negative for acute pathology #F/E/N No Fluids Monitor electrolytes and replete as needed Chopped Diet DVT ppx: C/w Heparin Drip Protocol will transition to NOAC per Hematology/Oncology D/C tPA drip D/C Lovenox Dispo: ICU Visit type - Emergency Visit Emergency Visit: Yes ED Registration Date: 12/08/17 Care time: The patient presented to the Emergency Department on the above date and was hospitalized for further evaluation of their emergent condition. - New Patient This patient is new to me today: No - Critical Care Critical Care patient: Yes Total Critical Care Time (in minutes): 40 Critical Care Statement: The care of this patient involved high complexity decision making to prevent further life threatening deterioration of the patient 's condition and/or to evaluate & treat vital organ system(s) failure or risk of failure. - Discharge Referral Referred to [facility] Med P.C.: No
[2017-12-12] MEDS ORDERED: HEPARIN NA (PORCINE) 5,000 UNITS/ML 1ML VIAL SQ ONE (18:15)
--- NOTE | 2017-12-12 18:47 | PN ---
Physical Exam: SUBJECTIVE: Patient seen and examined at bedside this morning. No acute events overnight. Patient looks tired, but denies chest pain, palpitations, abdominal pain, urinary symptoms. OBJECTIVE: Vital Signs Period Temp Pulse Resp BP Sys/Ovalles Pulse Ox Last 24 Hr 8.4 F-98.5 F 84-126 20-34 74-156/50-105 94-100 GENERAL: The patient is awake, alert, and oriented, on 3L NC. HEAD: Normal with no signs of trauma. +dry, flaky skin on the face EYES: PERRLA, EOMI, sclera anicteric, conjunctiva clear. NECK: Bandage on the right side of neck, appear clean with no discharge. LUNGS: Breath sounds equal, clear to auscultation bilaterally. HEART: Regular rate and rhythm, S1, S2 without murmur, rub or gallop. ABDOMEN: Soft, nontender, nondistended, normoactive bowel sounds. EXTREMITIES: 2+ pulses, warm, well-perfused, no edema. NEUROLOGICAL: Cranial nerves II through XII grossly intact. Normal speech, gait not observed. PSYCH: Normal mood, normal affect. SKIN: Warm, normal turgor, +dry skin, +wounds on dorsum of feet bilaterally Laboratory Results - last 24 hr 12/11/17 12/11/17 12/11/17 16:00 20:00 23:00 WBC RBC Hgb Hct MCV MCH MCHC RDW Plt Count MPV Absolute Neuts (auto) Neutrophils % Neutrophils % (Manual) Band Neutrophils % Lymphocytes % Lymphocytes % (Manual) Monocytes % Monocytes % (Manual) Eosinophils % Eosinophils % (Manual) Basophils % Basophils % (Manual) Myelocytes % (Man) Promyelocytes % (Man) Blast Cells % (Manual) Nucleated RBC % Metamyelocytes Hypochromia Platelet Estimate Polychromasia Poikilocytosis Anisocytosis Microcytosis Macrocytosis Fibrinogen > 500.0 H > 500.0 H > 500.0 H Anticoagulation Therapy Puncture Site ABG pH ABG pCO2 at Pt Temp ABG pO2 at Pt Temp ABG HCO3 ABG O2 Sat (Measured) ABG O2 Content ABG Base Excess Terrence Test O2 Delivery Device Oxygen Flow Rate Vent Mode Vent Rate Mechanical Rate Pressure Support Vent Sodium Potassium Chloride Carbon Dioxide Anion Gap BUN Creatinine Creat Clearance w eGFR Random Glucose Calcium Phosphorus Magnesium 12/12/17 12/12/1718 05:30 05:30 05:30 WBC 7.5 RBC 3.83 Hgb 11.2 Hct 36.0 MCV 93.9 MCH 29.2 MCHC 31.1 L RDW 15.8 H Plt Count 141 MPV 11.8 H Absolute Neuts (auto) 6.3 Neutrophils % 84.5 H Neutrophils % (Manual) 90.1 H Band Neutrophils % 0.0 Lymphocytes % 6.8 L D Lymphocytes % (Manual) 4.0 L D Monocytes % 8.5 Monocytes % (Manual) 6 D Eosinophils % 0.1 D Eosinophils % (Manual) 0.0 Basophils % 0.1 Basophils % (Manual) 0.0 Myelocytes % (Man) 0 Promyelocytes % (Man) 0 Blast Cells % (Manual) 0 Nucleated RBC % 0 Metamyelocytes 0 Hypochromia 0 Platelet Estimate Decreased Polychromasia 1+ Poikilocytosis 0 Anisocytosis 1+ Microcytosis 0 Macrocytosis 0 Fibrinogen > 500.0 H Anticoagulation Therapy Puncture Site ABG pH ABG pCO2 at Pt Temp ABG pO2 at Pt Temp ABG HCO3 ABG O2 Sat (Measured) ABG O2 Content ABG Base Excess Terrence Test O2 Delivery Device Oxygen Flow Rate Vent Mode Vent Rate Mechanical Rate Pressure Support Vent Sodium 141 Potassium 4.4 Chloride 106 Carbon Dioxide 30 Anion Gap 6 L BUN 48 H Creatinine 0.7 Creat Clearance w eGFR > 60 Random Glucose 115 H Calcium 9.1 Phosphorus 3.5 Magnesium 2.2 12/12/17 12/12/17 13:00 16:03 WBC RBC Hgb Hct MCV MCH MCHC RDW Plt Count MPV Absolute Neuts (auto) Neutrophils % Neutrophils % (Manual) Band Neutrophils % Lymphocytes % Lymphocytes % (Manual) Monocytes % Monocytes % (Manual) Eosinophils % Eosinophils % (Manual) Basophils % Basophils % (Manual) Myelocytes % (Man) Promyelocytes % (Man) Blast Cells % (Manual) Nucleated RBC % Metamyelocytes Hypochromia Platelet Estimate Polychromasia Poikilocytosis Anisocytosis Microcytosis Macrocytosis Fibrinogen 559.0 H Anticoagulation Therapy No Result Required. Puncture Site Left radial ABG pH 7.36 ABG pCO2 at Pt Temp 48.5 H ABG pO2 at Pt Temp 75.0 ABG HCO3 26.8 H ABG O2 Sat (Measured) 94.1 ABG O2 Content 13.3 L ABG Base Excess 1.5 Terrence Test Positive O2 Delivery Device Nasal Oxygen Flow Rate 2.5l Vent Mode No Result Required. Vent Rate No Result Required. Mechanical Rate No Result Required. Pressure Support Vent No Result Required. Sodium Potassium Chloride Carbon Dioxide Anion Gap BUN Creatinine Creat Clearance w eGFR Random Glucose Calcium Phosphorus Magnesium Active Medications Generic Name Dose Route Start Last Admin Trade Name Freq PRN Reason Stop Dose Admin Acetaminophen 650 mg 12/10/17 13:15 12/12/17 08:30 Tylenol - PO 650 mg Q6H PRN Administration PAIN Digoxin 0.25 mg 12/12/17 18:15 Lanoxin Injection - IVPUSH 12/13/17 18:16 Q6H DURGA Emtricitabine/Tenofovir 1 tab 12/12/17 14:30 12/12/17 17:04 Truvada PO 1 tab DAILY D[facility] Administration Heparin Sodium (Porcine) 1,000 unit 12/12/17 17:12 Heparin - IVPUSH PRN PRN Heparin Heparin Sodium (Porcine) 5,000 unit 12/12/17 17:12 Heparin - IVPUSH PRN PRN Heparin Heparin Sodium (Porcine) 25, 500 mls @ 16 mls/hr 12/12/17 17:15 000 unit/ Sodium Chloride IV [facility] Protocol 800 UNIT/HR Lactated Ringer's 1,000 ml in 1,000 mls @ 42 mls/hr 12/12/17 17:16 12/12/17 17:18 Lactated Ringers Solution IV 42 mls/hr ASDIR DURGA Administration Metoprolol Tartrate 50 mg 12/10/17 22:00 12/12/17 09:20 Lopressor - PO 50 mg BID DURGA Administration Raltegravir 400 mg 12/12/17 14:30 12/12/17 17:04 Isentress - PO 400 mg BID DURGA Administration Trimethoprim/Sulfamethoxazole 1 each 12/12/17 14:30 12/12/17 17:03 Bactrim Ds - PO 1 each BID [facility] Administration ASSESSMENT/PLAN:
[2017-12-12] MEDS: DIGOXIN 0.5 MG/2 ML AMPUL IVPUSH SCH (19:05)
--- NOTE | 2017-12-12 22:13 | PN ---
Progress Note (short form) - Note Progress Note: PAtient seen and examined Feels well Last Vital Signs Temp Pulse Resp BP Pulse Ox 97.8 F 104 H 22 H 116/74 99 12/12/17 14:45 12/12/17 22:00 12/12/17 22:00 12/12/17 22:00 12/12/17 21:00 Cor: RSR, No murmurs, No gallops Lungs: Clear to P&A Abd: Soft, Normal bowel sounds, No organomegaly Ext:No significant edema Abnormal Lab Results 12/12/17 12/12/17 12/12/17 05:30 05:30 05:30 MCHC 31.1 L RDW 15.8 H MPV 11.8 H Neutrophils % 84.5 H Neutrophils % (Manual) 90.1 H Lymphocytes % 6.8 L D Lymphocytes % (Manual) 4.0 L D Fibrinogen > 500.0 H ABG pCO2 at Pt Temp ABG HCO3 ABG O2 Content Anion Gap 6 L BUN 48 H Random Glucose 115 H 12/12/17 12/12/17 13:00 16:03 MCHC RDW MPV Neutrophils % Neutrophils % (Manual) Lymphocytes % Lymphocytes % (Manual) Fibrinogen 559.0 H ABG pCO2 at Pt Temp 48.5 H ABG HCO3 26.8 H ABG O2 Content 13.3 L Anion Gap BUN Random Glucose Active Medications Generic Name Dose Route Start Last Admin Trade Name Freq PRN Reason Stop Dose Admin Acetaminophen 650 mg 12/10/17 13:15 12/12/17 08:30 Tylenol - PO 650 mg Q6H PRN Administration PAIN Digoxin 0.25 mg 12/12/17 18:15 12/12/17 19:05 Lanoxin Injection - IVPUSH 12/13/17 18:16 0.25 mg Q6H DURGA Administration Emtricitabine/Tenofovir 1 tab 12/12/17 14:30 12/12/17 17:04 Truvada PO 1 tab DAILY [facility] Administration Heparin Sodium (Porcine) 1,000 unit 12/12/17 17:12 Heparin - IVPUSH PRN PRN Heparin Heparin Sodium (Porcine) 5,000 unit 12/12/17 17:12 Heparin - IVPUSH PRN PRN Heparin Heparin Sodium (Porcine) 25, 500 mls @ 16 mls/hr 12/12/17 17:15 12/12/17 19: 01 000 unit/ Sodium Chloride IV 800 unit/hr TITR [facility] 16 mls/hr Administration Protocol 800 UNIT/HR Lactated Ringer's 1,000 ml in 1,000 mls @ 42 mls/hr 12/12/17 17:16 12/12/17 17:18 Lactated Ringers Solution IV 42 mls/hr ASDIR DURGA Administration Metoprolol Tartrate 50 mg 12/10/17 22:00 12/12/17 22:09 Lopressor - PO 50 mg BID [facility]URGA Administration Raltegravir 400 mg 12/12/17 14:30 12/12/17 22:10 Isentress - PO 400 mg BID DURGA Administration Trimethoprim/Sulfamethoxazole 1 each 12/12/17 14:30 12/12/17 22:09 Bactrim Ds - PO 1 each BID DURGA Administration a?P Non small cell lung ca s/p RT/chemotherapy completed in 07/19 Bilateral saddle pulmonary embol- s/p tpa on heparin with monitoring of fibrinogen levels HIV COPD
[2017-12-13] MEDS: DIGOXIN 0.5 MG/2 ML AMPUL IVPUSH SCH ×4 (01:02→18:06)
[2017-12-13 06:29] LABS: HEMATOCRIT 32.8 % (32.4-45.2); HEMOGLOBIN 10.2 GM/dL (10.7-15.3); MCH 29.8 pg (25.7-33.7); MCHC 31.2 g/dl (32.0-36.0); MEAN CELL VOLUME 95.4 fl (80-96); MEAN PLT VOLUME 12.9 fl (7.5-11.1); PLATELET COUNT 106 K/MM3 (134-434); RBC 3.44 M/mm3 (3.60-5.2); RDW 15.7 % (11.6-15.6); WHITE BLOOD COUNT 5.9 K/mm3 (4.0-10.0)
[2017-12-13 08:23] LABS: ANION GAP 3 MMOL/L (8-16); BLOOD UREA NITROGEN 51 mg/dL (7-18); CHLORIDE 108 mmol/L (98-107); CO2 28 mmol/L (21-32); CREATININE 0.6 mg/dL (0.55-1.3); GLUCOSE,RANDOM 95 mg/dL (74-106); POTASSIUM 4.8 mmol/L (3.5-5.1); SODIUM 139 mmol/L (136-145)
--- NOTE | 2017-12-13 09:35 | EKG ---
Test Reason : Blood Pressure : / mmHG Vent. Rate : 096 BPM Atrial Rate : 096 BPM P-R Int : 172 ms QRS Dur : 082 ms QT Int : 382 ms P-R-T Axes : 061 -43 010 degrees QTc Int : 482 ms NORMAL SINUS RHYTHM LEFT AXIS DEVIATION NONSPECIFIC T WAVE ABNORMALITY PROLONGED QT ABNORMAL ECG Confirmed by HANK GRUBBS MD ([id number]) on 12/13/2017 9:35:33 AM Referred By: Confirmed By:HANK GRUBBS MD
--- NOTE | 2017-12-13 10:29 | PN ---
Progress Note (short form) - Note Progress Note: Patient seen and examined Had transient episode of loss of vision - now resolved Denies significant headaches, or SOB Denies epistaxis, dysphagia chest pain, nausea, diarrhea, constipation, back pain, dysuria Last Vital Signs Temp Pulse Resp BP Pulse Ox 97.8 F 84 26 H 149/80 99 12/12/17 14:45 12/13/17 08:00 12/13/17 08:00 12/13/17 08:00 12/12/17 21:00 HEENT: ALYSSA, EOM Intact Oropharynx: No thrush, No mucositis, upper dentures, thrush Neck: Supple Cor: RSR, No murmurs, No gallops Lungs:diminished breath sounds Abd: Soft, Normal bowel sounds, No organomegaly Ext:No significant edema Skin: xerosis CBC, BMP 12/13/17 05:30 12/13/17 05:30 Current Medications Generic Name Dose Route Start Last Admin Trade Name Freq PRN Reason Stop Dose Admin Acetaminophen 650 mg 12/10/17 13:15 12/12/17 08:30 Tylenol - PO 650 mg Q6H PRN Administration PAIN Digoxin 0.25 mg 12/12/17 18:15 12/13/17 06:06 Lanoxin Injection - IVPUSH 12/13/17 18:16 0.25 mg Q6H DURGA Administration Emtricitabine/Tenofovir 1 tab 12/12/17 14:30 12/12/17 17:04 Truvada PO 1 tab DAILY DURGA Administration Heparin Sodium (Porcine) 1,000 unit 12/12/17 17:12 Heparin - IVPUSH PRN PRN Heparin Heparin Sodium (Porcine) 5,000 unit 12/12/17 17:12 Heparin - IVPUSH PRN PRN Heparin Heparin Sodium (Porcine) 25, 500 mls @ 16 mls/hr 12/12/17 17:15 12/12/17 19: 01 000 unit/ Sodium Chloride IV 800 unit/hr TITR [facility] 16 mls/hr Administration Protocol 800 UNIT/HR Lactated Ringer's 1,000 ml in 1,000 mls @ 42 mls/hr 12/12/17 17:16 12/12/17 17:18 Lactated Ringers Solution IV 42 mls/hr ASDIR DURGA Administration Metoprolol Tartrate 50 mg 12/10/17 22:00 12/12/17 22:09 Lopressor - PO 50 mg BID DURGA Administration Raltegravir 400 mg 12/12/17 14:30 12/12/17 22:10 Isentress - PO 400 mg BID DURGA Administration Trimethoprim/Sulfamethoxazole 1 each 12/12/17 14:30 12/12/17 22:09 Bactrim Ds - PO 1 each BID DURGA Administration Impression: Bilateral saddle pulmonary emboli S/P tpa [place] of lung - s/p RT/chemotherpay completed in 07/19 Transient loss of vision bilateral thrush Heparin therapy Anemia thrombocytopenia Azotemia Consider neurology /opthomology consults carotid studies ECHO of heart Would hold off on bridging to NOAC.
--- NOTE | 2017-12-13 10:52 | PN ---
Progress Note, Physician History of Present Illness: Lethargic today No complaints Denies dysuria BC no growth Urine c/s Klebsiella (s) Bactrim CD4 38 - Current Medication List Current Medications: Active Medications Acetaminophen (Tylenol -) 650 mg PO Q6H PRN PRN Reason: PAIN Last Admin: 12/12/17 08:30 Dose: 650 mg Digoxin (Lanoxin Injection -) 0.25 mg IVPUSH Q6H [facility] Stop: 12/13/17 18:16 Last Admin: 12/13/17 06:06 Dose: 0.25 mg Emtricitabine/Tenofovir (Truvada) 1 tab PO DAILY [facility] Last Admin: 12/12/17 17:04 Dose: 1 tab Heparin Sodium (Porcine) (Heparin -) 1,000 unit IVPUSH PRN PRN PRN Reason: Heparin Heparin Sodium (Porcine) (Heparin -) 5,000 unit IVPUSH PRN PRN PRN Reason: Heparin Heparin Sodium (Porcine) 25, (000 unit/ Sodium Chloride) 500 mls @ 16 mls/hr IV TITR [facility]; Protocol Last Admin: 12/12/17 19:01 Dose: 800 unit/hr, 16 mls/hr Lactated Ringer's (Lactated Ringers Solution) 1,000 ml in 1,000 mls @ 42 mls/ hr IV ASDIR [facility] Last Admin: 12/12/17 17:18 Dose: 42 mls/hr Metoprolol Tartrate (Lopressor -) 50 mg PO BID [facility] Last Admin: 12/12/17 22:09 Dose: 50 mg Raltegravir (Isentress -) 400 mg PO BID [facility] Last Admin: 12/12/17 22:10 Dose: 400 mg Trimethoprim/Sulfamethoxazole (Bactrim Ds -) 1 each PO BID [facility] Last Admin: 12/12/17 22:09 Dose: 1 each - Objective Vital Signs: Vital Signs Temperature 97.8 F 12/12/17 14:45 Pulse Rate 84 12/13/17 08:00 Respiratory Rate 26 H 12/13/17 08:00 Blood Pressure 149/80 12/13/17 08:00 O2 Sat by Pulse Oximetry (%) 99 12/12/17 21:00 Constitutional: Yes: No Distress Eyes: Yes: Conjunctiva Clear HENT: Yes: Other (+ seborrhea, face) Cardiovascular: Yes: Regular Rate and Rhythm, S1, S2 Respiratory: Yes: CTA Bilaterally Gastrointestinal: Yes: Normal Bowel Sounds, Soft. No: Tenderness Edema: No Labs: CBC, BMP 12/13/17 05:30 12/13/17 05:30 INR, PTT INR 1.16 (0.83-1.09) H 12/10/17 05:30 Fibrinogen 559.0 mg/dL (238-498) H 12/12/17 13:00 Assessment/Plan S/P syncope Bilateral PE UTI Klebsiella HIV/ AIDS hx non compliance with ART Continue po Bactrim DS bid x3d, then Bactrim DS po qd for PCP prophylaxis Genvoya non-formulary. Continue Truvada/ Isentress as substitute
[2017-12-13] MEDS ORDERED: PT OWN MED DRAWER 7, Y5N ONE ×2 (11:25→18:03)
[2017-12-13] MEDS: METOPROLOL TARTRATE 50 MG TABLET (FP) PO SCH ×2 (11:27→21:25)
[2017-12-13] MEDS: EMTRICITABINE 200MG/TENOFOVIR 300MG PO SCH (11:28)
[2017-12-13] MEDS: SULFAMETHOXAZOLE/TRIMETHOPRIM 800MG/160MG D.S. TABLET PO SCH ×2 (11:29→21:19)
[2017-12-13] MEDS: RALTEGRAVIR POTASSIUM 400 MG TAB PO SCH ×2 (11:29→21:19)
--- NOTE | 2017-12-13 13:48 | PN ---
Teaching Attending Note Name of Resident: Hakeem Vincent ATTENDING PHYSICIAN STATEMENT I saw and evaluated the patient. I reviewed the resident's note and discussed the case with the resident. I agree with the resident's findings and plan as documented. SUBJECTIVE: UBJECTIVE: Patient seen and examined in the ICU. Apparently had a transient loss of bilateral vision. Now sleepy but easily arousable. Able to follow commands. Vision is intact. Pupils are equal and reactive. Reports breathing is somewhat better today. Intake & Output 12/10/17 12/11/17 12/12/17 12/13/17 23:59 23:59 23:59 23:59 Intake Total 530 1482 595 Balance 530 1482 595 Weight 131 lb Last Vital Signs Temp Pulse Resp BP Pulse Ox 97.3 F L 87 19 151/86 96 12/13/17 10:00 12/13/17 12:00 12/13/17 12:00 12/13/17 12:00 12/13/17 09:00 Active Medications Acetaminophen (Tylenol -) 650 mg PO Q6H PRN PRN Reason: PAIN Last Admin: 12/12/17 08:30 Dose: 650 mg Digoxin (Lanoxin Injection -) 0.25 mg IVPUSH Q6H [facility] Stop: 12/13/17 18:16 Last Admin: 12/13/17 11:28 Dose: 0.25 mg Emtricitabine/Tenofovir (Truvada) 1 tab PO DAILY [facility] Last Admin: 12/13/17 11:28 Dose: 1 tab Heparin Sodium (Porcine) (Heparin -) 1,000 unit IVPUSH PRN PRN PRN Reason: Heparin Heparin Sodium (Porcine) (Heparin -) 5,000 unit IVPUSH PRN PRN PRN Reason: Heparin Heparin Sodium (Porcine) 25, (000 unit/ Sodium Chloride) 500 mls @ 16 mls/hr IV TITR DURGA; Protocol Last Admin: 12/12/17 19:01 Dose: 800 unit/hr, 16 mls/hr Lactated Ringer's (Lactated Ringers Solution) 1,000 ml in 1,000 mls @ 42 mls/ hr IV ASDIR DURGA Last Admin: 12/12/17 17:18 Dose: 42 mls/hr Metoprolol Tartrate (Lopressor -) 50 mg PO BID [facility] Last Admin: 12/13/17 11:27 Dose: 50 mg Raltegravir (Isentress -) 400 mg PO BID [facility] Last Admin: 12/13/17 11:29 Dose: 400 mg Trimethoprim/Sulfamethoxazole (Bactrim Ds -) 1 each PO BID [facility] Last Admin: 12/13/17 11:29 Dose: 1 each Constitutional: Yes: Mildly Tachypneic at rest. Mildly confused Eyes: Yes: WNL HENT: Yes: WNL Neck: Yes: WNL Cardiovascular: Yes: Tachycardia, S1, S2 Respiratory: Yes: Diminished at the bases, bilateral rhonchi Gastrointestinal: Yes: Normal Bowel Sounds, Soft Extremities: Yes: WNL Edema: No Labs: Laboratory Results - last 24 hr 12/12/17 12/12/17 12/13/17 13:00 16:03 01:45 WBC RBC Hgb Hct MCV MCH MCHC RDW Plt Count MPV PTT (Actin FS) > 400.0 H Fibrinogen 559.0 H Anticoagulation Therapy No Result Required. Puncture Site Left radial ABG pH 7.36 ABG pCO2 at Pt Temp 48.5 H ABG pO2 at Pt Temp 75.0 ABG HCO3 26.8 H ABG O2 Sat (Measured) 94.1 ABG O2 Content 13.3 L ABG Base Excess 1.5 Terrence Test Positive O2 Delivery Device Nasal Oxygen Flow Rate 2.5l Vent Mode No Result Required. Vent Rate No Result Required. Mechanical Rate No Result Required. Pressure Support Vent No Result Required. Sodium Potassium Chloride Carbon Dioxide Anion Gap BUN Creatinine Creat Clearance w eGFR Random Glucose Calcium 12/13/17 12/13/17 12/13/17 05:30 05:30 05:30 WBC 5.9 RBC 3.44 L Hgb 10.2 L Hct 32.8 MCV 95.4 MCH 29.8 MCHC 31.2 L RDW 15.7 H Plt Count 106 L D MPV 12.9 H PTT (Actin FS) 59.9 H Fibrinogen Anticoagulation Therapy Puncture Site ABG pH ABG pCO2 at Pt Temp ABG pO2 at Pt Temp ABG HCO3 ABG O2 Sat (Measured) ABG O2 Content ABG Base Excess Terrence Test O2 Delivery Device Oxygen Flow Rate Vent Mode Vent Rate Mechanical Rate Pressure Support Vent Sodium 139 Potassium 4.8 Chloride 108 H Carbon Dioxide 28 Anion Gap 3 L BUN 51 H Creatinine 0.6 Creat Clearance w eGFR > 60 Random Glucose 95 Calcium 9.0 Assessment/Plan Problem List - Problems (1) Pulmonary embolism Code(s): I26.99 - OTHER PULMONARY EMBOLISM WITHOUT ACUTE COR PULMONALE Qualifiers: Pulmonary embolism type: other Chronicity: acute Acute cor pulmonale presence: without acute cor pulmonale Qualified Code(s): I26.99 - Other pulmonary embolism without acute cor pulmonale (2) Syncope Code(s): R55 - SYNCOPE AND COLLAPSE Qualifiers: Syncope type: unspecified Qualified Code(s): R55 - Syncope and collapse (3) Non-small cell carcinoma of lung Code(s): C34.90 - MALIGNANT NEOPLASM OF UNSP PART OF UNSP BRONCHUS OR LUNG (4) COPD (chronic obstructive pulmonary disease) Code(s): J44.9 - CHRONIC OBSTRUCTIVE PULMONARY DISEASE, UNSPECIFIED Qualifiers: COPD type: unspecified COPD Qualified Code(s): J44.9 - Chronic obstructive pulmonary disease, unspecified (5) Coronary artery disease Code(s): I25.10 - ATHSCL HEART DISEASE OF PILOT STATION CORONARY ARTERY W/O ANG PCTRS (6) Human immunodeficiency virus (HIV) disease Code(s): B20 - HUMAN IMMUNODEFICIENCY VIRUS [HIV] DISEASE (7) Hypertension, benign Code(s): I10 - ESSENTIAL (PRIMARY) HYPERTENSION Assessment/Plan Syncope Acute Submassive Pulmonary Emboli Atrial Fibrillation with RVR RLE DVT NSCLC (Adenocarcinoma) s/p chemo/RT HIV COPD Chronic Hypoxic Respiratory Failure CAD HTN Hyperlipidemia - D/W Heme will wait a few days to start NOAC due to overall condition - O2 to keep SpO2 >90% - inhaled bronchodilators - Aspiration precautions - HIV meds as ordered - Cardiac Telemetry monitoring Dr De Dios
--- NOTE | 2017-12-13 15:30 | PN ---
Teaching Attending Note Name of Resident: Tracy Malik ATTENDING PHYSICIAN STATEMENT I saw and evaluated the patient. I reviewed the resident's note and discussed the case with the resident. I agree with the resident's findings and plan as documented with exceptions below. SUBJECTIVE: Patient seen and examined, oriented to place, time, appropriate, denies any dyspnea or pain. OBJECTIVE: Vital Signs Period Temp Pulse Resp BP Sys/Ovalles Pulse Ox Last 24 Hr 97.3 F-97.6 F 84-172 18-28 74-151/55-96 96-99 Intake & Output 12/10/17 12/11/17 12/12/17 12/13/17 23:59 23:59 23:59 23:59 Intake Total 530 1482 595 Balance 530 1482 595 Weight 131 lb General: sitting in bed in no acute distress, mild tachypnea, able to talk in full sentences CVS;S1S2 regular,tachycardic Chest; no rales or wheezing appreciated, pos air entry Abdomen:soft, NT, ND Extremities: trace RLE edema Neuro AAOX3, facial symmetry, EOMI, power generalized weakness, non focal, unchanged from prior exam Active Medications Acetaminophen (Tylenol -) 650 mg PO Q6H PRN PRN Reason: PAIN Last Admin: 12/12/17 08:30 Dose: 650 mg Digoxin (Lanoxin Injection -) 0.25 mg IVPUSH Q6H [facility] Stop: 12/13/17 18:16 Last Admin: 12/13/17 11:28 Dose: 0.25 mg Emtricitabine/Tenofovir (Truvada) 1 tab PO DAILY [facility] Last Admin: 12/13/17 11:28 Dose: 1 tab Lactated Ringer's (Lactated Ringers Solution) 1,000 ml in 1,000 mls @ 42 mls/ hr IV ASDIR [facility] Last Admin: 12/12/17 17:18 Dose: 42 mls/hr Metoprolol Tartrate (Lopressor -) 50 mg PO BID [facility] Last Admin: 12/13/17 11:27 Dose: 50 mg Raltegravir (Isentress -) 400 mg PO BID [facility] Last Admin: 12/13/17 11:29 Dose: 400 mg Trimethoprim/Sulfamethoxazole (Bactrim Ds -) 1 each PO BID [facility] Last Admin: 12/13/17 11:29 Dose: 1 each Laboratory Results - last 24 hr 12/12/17 12/13/17 12/13/17 16:03 01:45 05:30 WBC 5.9 RBC 3.44 L Hgb 10.2 L Hct 32.8 MCV 95.4 MCH 29.8 MCHC 31.2 L RDW 15.7 H Plt Count 106 L D MPV 12.9 H PTT (Actin FS) > 400.0 H Anticoagulation Therapy No Result Required. Puncture Site Left radial ABG pH 7.36 ABG pCO2 at Pt Temp 48.5 H ABG pO2 at Pt Temp 75.0 ABG HCO3 26.8 H ABG O2 Sat (Measured) 94.1 ABG O2 Content 13.3 L ABG Base Excess 1.5 Terrence Test Positive O2 Delivery Device Nasal Oxygen Flow Rate 2.5l Vent Mode No Result Required. Vent Rate No Result Required. Mechanical Rate No Result Required. Pressure Support Vent No Result Required. Sodium Potassium Chloride Carbon Dioxide Anion Gap BUN Creatinine Creat Clearance w eGFR Random Glucose Calcium 12/13/17 12/13/17 05:30 05:30 WBC RBC Hgb Hct MCV MCH MCHC RDW Plt Count MPV PTT (Actin FS) 59.9 H Anticoagulation Therapy Puncture Site ABG pH ABG pCO2 at Pt Temp ABG pO2 at Pt Temp ABG HCO3 ABG O2 Sat (Measured) ABG O2 Content ABG Base Excess Terrence Test O2 Delivery Device Oxygen Flow Rate Vent Mode Vent Rate Mechanical Rate Pressure Support Vent Sodium 139 Potassium 4.8 Chloride 108 H Carbon Dioxide 28 Anion Gap 3 L BUN 51 H Creatinine 0.6 Creat Clearance w eGFR > 60 Random Glucose [address] brain neg for acute process ASSESSMENT AND PLAN: 72yo F with PMH HIV not compliant with HARRT, lung ca s/p chemo/RTX, COPD on home O2 2L NC, HTN, CAD s/p stent, dyslipidemia presented to the ER after syncope. she syncopized at home and then could not get up and was down on the floor for extended period of time.In the ER was found to be in aflutter and have multiple PE -Syncope, from extensive bilateral PE vs Arrhythmia -Submassive PE with likely right heart strain s/p catheter directed tpa -Atrial flutter with RVR, likely from submassive PE -RLE DVT -Fever, ?from PE/DVT vs pulmonary infarction, r/o infectious etiology, -?Transient bilateral visual loss today -AMS, waxing wanong mental status, suspect toxic metabolic encephalopathy, rather than neurological process -Hyperkalemia, resolved -Elevated troponin, suspect right heart strain vs demand induced from above -Hypomagnesemia -Abnormal TFTs -Lower uncomplicated Klebsiella UTI -HIV/AIDS, concern for noncompliance with HAART -Lung ca s/p chemo/RTx -COPD on 2l Home oxygen -CAD s/p PCI -Diffuse rash, > 1 year Plan s/p tpa drip Discussed with Dr. Fong, change to heparin PE protocol with aptt monitoring over next 48 hours, if no concerns, transition to NOAC. Overnight events noted. AFlutter with RVR s/p diltiazem, digoxin,. In NSR, continue metoprolol and monitor. ?Transient bilateral visual loss, CT brain neg, current exam non concerning. Carotid duplex, neurology consult Dr. Rodríguez. Fevers improved, monitor for now. ID input noted, Urine cx noted, Off ceftriaxone. started on HAART and bactrim prophylaxis. Cardiology/pulmonary input appreciated. Repeat 2D echo with RV dysfunction/dilatation Lovenox on hold, on heparin drip as above Hold losartan for now. Replete lytes prn. Repeat TFTs in 2-3 weeks. DVTPPX as above Dispo pending clinical improvement. Plan discussed with patient in detail, all questions answered. Total critical care time spent including patient visit, discussion with ICU, hematology, complex decision making 35 min. Agree with transfer to telemetry.
[2017-12-13] MEDS ORDERED: HEPARIN NA (PORCINE) 5,000 UNITS/ML 1ML VIAL IVPUSH ONE (15:38)
[2017-12-13] MEDS ORDERED: HEPARIN NA (PORCINE) 5,000 UNITS/ML 1ML VIAL IVPUSH PRN ×8 (15:38→18:36)
[2017-12-13] MEDS ORDERED: HEPARIN - 25,000 UNIT in SODIUM CHLORIDE 495 ML IV SCH ×2 (15:45→16:15)
--- NOTE | 2017-12-13 16:03 | PN ---
Physical Exam: SUBJECTIVE: Patient seen and examined. Overnight Pt.'s HR increased to 170s, Pt. given Diltiazem and HR decreased to 100. Pt. started on Digoxin 0.25mg q6H. Pt. endorses increased confusion today and endorses feeling palpitations. Pt. denies chest pain, shortness of breath, dizziness, abdominal pain or numbness and tingling in the extremities. Initial physical exam as noted below was concerning for CVA. Head CT ordered and came back negative. Dr. St was in attendance during physical exam and agreed that a Head CT was warranted at that time. OBJECTIVE: Vital Signs Period Temp Pulse Resp BP Sys/Ovalles Pulse Ox Last 24 Hr 97.3 F-97.6 F 84-172 18-26 84-151/55-96 96-99 GENERAL: The patient is somnolent and oriented to name only, in no acute distress, generalized weakness present EYES: EOM non-intact: unable to follow commands to move eye-as I was moving fingers Pt. states she was moving her eyes though she was not, vision loss?- unable to tell me how many fingers holding up, Left sided ptosis. ENT: No Carotid Bruit, no JVD noted, ROM in tact NECK: Trachea midline, full range of motion, supple. LUNGS: Left-sided crackles, coarse breath sounds, no accessory muscle use. HEART: Regular rate and rhythm, S1, S2 ABDOMEN: Soft, nontender, nondistended, normoactive bowel sounds, no guarding EXTREMITIES: 2+ dorsal pedal pulses, warm, well-perfused, no edema, 2/5 muscle strength on LLE vs. 3/5 on LRE, 2/5 internal communications manager strength NEUROLOGICAL: Confused speech, gait not observed. SKIN: Facial rash, dorsal pedal scabs Follow-up PE: On subsequent serial physical exams Pt. Ocular symptoms were resolved and muscle strength increased back to her hospital baseline assessment. Laboratory Results - last 24 hr 12/12/17 12/13/17 12/13/17 16:03 01:45 05:30 WBC 5.9 RBC 3.44 L Hgb 10.2 L Hct 32.8 MCV 95.4 MCH 29.8 MCHC 31.2 L RDW 15.7 H Plt Count 106 L D MPV 12.9 H PTT (Actin FS) > 400.0 H Anticoagulation Therapy No Result Required. Puncture Site Left radial ABG pH 7.36 ABG pCO2 at Pt Temp 48.5 H ABG pO2 at Pt Temp 75.0 ABG HCO3 26.8 H ABG O2 Sat (Measured) 94.1 ABG O2 Content 13.3 L ABG Base Excess 1.5 Terrence Test Positive O2 Delivery Device Nasal Oxygen Flow Rate 2.5l Vent Mode No Result Required. Vent Rate No Result Required. Mechanical Rate No Result Required. Pressure Support Vent No Result Required. Sodium Potassium Chloride Carbon Dioxide Anion Gap BUN Creatinine Creat Clearance w eGFR Random Glucose Calcium 12/13/17 12/13/17 05:30 05:30 WBC RBC Hgb Hct MCV MCH MCHC RDW Plt Count MPV PTT (Actin FS) 59.9 H Anticoagulation Therapy Puncture Site ABG pH ABG pCO2 at Pt Temp ABG pO2 at Pt Temp ABG HCO3 ABG O2 Sat (Measured) ABG O2 Content ABG Base Excess Terrence Test O2 Delivery Device Oxygen Flow Rate Vent Mode Vent Rate Mechanical Rate Pressure Support Vent Sodium 139 Potassium 4.8 Chloride 108 H Carbon Dioxide 28 Anion Gap 3 L BUN 51 H Creatinine 0.6 Creat Clearance w eGFR > 60 Random Glucose 95 Calcium 9.0 Active Medications Current Medications Acetaminophen (Tylenol -) 650 mg PO Q6H PRN PRN Reason: PAIN Last Admin: 12/12/17 08:30 Dose: 650 mg Digoxin (Lanoxin Injection -) 0.25 mg IVPUSH Q6H DURGA Stop: 12/13/17 18:16 Last Admin: 12/13/17 11:28 Dose: 0.25 mg Emtricitabine/Tenofovir (Truvada) 1 tab PO DAILY DURGA Last Admin: 12/13/17 11:28 Dose: 1 tab Heparin Sodium (Porcine) (Heparin -) 1,000 unit IVPUSH PRN PRN PRN Reason: Heparin Heparin Sodium (Porcine) (Heparin -) 5,000 unit IVPUSH PRN PRN PRN Reason: Heparin Lactated Ringer's (Lactated Ringers Solution) 1,000 ml in 1,000 mls @ 42 mls/ hr IV ASDIR DURGA Last Admin: 12/12/17 17:18 Dose: 42 mls/hr Heparin Sodium (Porcine) 25, (000 unit/ Sodium Chloride) 500 mls @ 16 mls/hr IV TITR DURGA; Protocol Metoprolol Tartrate (Lopressor -) 50 mg PO BID [facility] Last Admin: 12/13/17 11:27 Dose: 50 mg Raltegravir (Isentress -) 400 mg PO BID [facility] Last Admin: 12/13/17 11:29 Dose: 400 mg Trimethoprim/Sulfamethoxazole (Bactrim Ds -) 1 each PO BID [facility] Last Admin: 12/13/17 11:29 Dose: 1 each ASSESSMENT/PLAN: Pt is a 72 y/o lady with a significant past medical history of non-small cell lung cancer, HIV, COPD, HTN, HLD, CAD who was BIBA yesterday evening (12/08/17) after being found on the ground near her couch by her godson at approximately 1 pm 12/08/17. #Cardiovascular -Syncope 2/2 Pulmonary Embolism vs. Arrhythmia Cardiology consult appreciated Trend troponins and EKG to rule out ACS BNP: 83509. Most likely 2/2 P.E, not CHF -HTN Pt. is normotensive c/w Metoprolol 50mg BID -Tachycardia Increased Metoprolol to 50mg BID started Digoxin 0.25mg Q6H monitor BMP for electrolyte abnormalities, monitor for Coumadin interaction if starting Coumadin as AC; monitor for Amiodarone interaction if decision is made to start for rate control. Goal Digoxin level 0.5-1.[address], will get Digoxin level after 5th half life as getting earlier can give artificially high levels. Half life of Digoxin is 36 hours. #Pulmonology -Bilateral PE- resolved Rpt. CTA 12/12/17: shows no eveidence of PE. CTA Chest shows multiple acute pulmonary emboli within L and R upper and lower lobe pulmonary arterial branches. C/w Heparin Drip Protocol until transition to NOAC per Hematology/Oncology D/C tPA drip D/C Lovenox BNP: 50950 -COPD-stable Resume Qvar Inhaler BID Ventolin inhaler PRN #Infectious Disease -HIV Pt endorses taking Genvoya every day C/w Truvada and Isentress as we do not have Genvoya in our Pharmacy ID consult (Dr. Peralta) appreciated concern for HIV associated dementia -UTI Cx. positive for Klebsiella growth c/w Bactrim-Day 2 # Oncology -Non-Small cell Adeno Lung- stable Completed Radiation and Chemotherapy Tx. Heme/Onc consult appreciated Brain MRI negative for acute pathology Lung Ca. w/u as outpatient. #F/E/N LR @ 42ml/hr Monitor electrolytes and replete as needed Chopped Diet DVT ppx: C/w Heparin Drip Protocol will transition to NOAC per Hematology/Oncology Latest PTT: 59.9 D/C tPA drip D/C Lovenox Dispo: Telemetry Visit type - Emergency Visit Emergency Visit: Yes ED Registration Date: 12/08/17 Care time: The patient presented to the Emergency Department on the above date and was hospitalized for further evaluation of their emergent condition. - New Patient This patient is new to me today: No - Critical Care Critical Care patient: Yes Total Critical Care Time (in minutes): 40 Critical Care Statement: The care of this patient involved high complexity decision making to prevent further life threatening deterioration of the patient 's condition and/or to evaluate & treat vital organ system(s) failure or risk of failure. - Discharge Referral Referred to [facility] Med [facility].: No
--- NOTE | 2017-12-13 16:16 | PN ---
Physical Exam: SUBJECTIVE: Patient seen and examined at bedside this morning. She seemed tired and less reactive. But was more alert and awake throughout the day. Denies chest pain, SOB, palpitations, abdominal pain, urinary symptoms. OBJECTIVE: Vital Signs Period Temp Pulse Resp BP Sys/Ovalles Pulse Ox Last 24 Hr 97.3 F-97.6 F 75-172 18-26 84-151/60-96 95-99 GENERAL: The patient is awake, alert, and oriented, on 3L NC. HEAD: Normal with no signs of trauma. +dry, flaky skin on the face EYES: PERRLA, EOMI, sclera anicteric, conjunctiva clear. NECK: Bandage on the right side of neck, appear clean with no discharge. LUNGS: Breath sounds equal, clear to auscultation bilaterally. HEART: Regular rate and rhythm, S1, S2 without murmur, rub or gallop. ABDOMEN: Soft, nontender, nondistended, normoactive bowel sounds. EXTREMITIES: 2+ pulses, warm, well-perfused, no edema. NEUROLOGICAL: Cranial nerves II through XII grossly intact. Normal speech, gait not observed. PSYCH: Normal mood, normal affect. SKIN: Warm, normal turgor, +dry skin, +wounds on dorsum of feet bilaterally Laboratory Results - last 24 hr 12/12/17 12/13/17 12/13/17 16:03 01:45 05:30 WBC 5.9 RBC 3.44 L Hgb 10.2 L Hct 32.8 MCV 95.4 MCH 29.8 MCHC 31.2 L RDW 15.7 H Plt Count 106 L D MPV 12.9 H PTT (Actin FS) > 400.0 H Anticoagulation Therapy No Result Required. Puncture Site Left radial ABG pH 7.36 ABG pCO2 at Pt Temp 48.5 H ABG pO2 at Pt Temp 75.0 ABG HCO3 26.8 H ABG O2 Sat (Measured) 94.1 ABG O2 Content 13.3 L ABG Base Excess 1.5 Terrence Test Positive O2 Delivery Device Nasal Oxygen Flow Rate 2.5l Vent Mode No Result Required. Vent Rate No Result Required. Mechanical Rate No Result Required. Pressure Support Vent No Result Required. Sodium Potassium Chloride Carbon Dioxide Anion Gap BUN Creatinine Creat Clearance w eGFR Random Glucose Calcium 12/13/17 12/13/17 05:30 05:30 WBC RBC Hgb Hct MCV MCH MCHC RDW Plt Count MPV PTT (Actin FS) 59.9 H Anticoagulation Therapy Puncture Site ABG pH ABG pCO2 at Pt Temp ABG pO2 at Pt Temp ABG HCO3 ABG O2 Sat (Measured) ABG O2 Content ABG Base Excess Terrence Test O2 Delivery Device Oxygen Flow Rate Vent Mode Vent Rate Mechanical Rate Pressure Support Vent Sodium 139 Potassium 4.8 Chloride 108 H Carbon Dioxide 28 Anion Gap 3 L BUN 51 H Creatinine 0.6 Creat Clearance w eGFR > 60 Random Glucose 95 Calcium 9.0 Active Medications Generic Name Dose Route Start Last Admin Trade Name Freq PRN Reason Stop Dose Admin Acetaminophen 650 mg 12/10/17 13:15 12/12/17 08:30 Tylenol - PO 650 mg Q6H PRN Administration PAIN Digoxin 0.25 mg 12/12/17 18:15 12/13/17 11:28 Lanoxin Injection - IVPUSH 12/13/17 18:16 0.25 mg Q6H DURGA Administration Emtricitabine/Tenofovir 1 tab 12/12/17 14:30 12/13/17 11:28 Truvada PO 1 tab DAILY DURGA Administration Heparin Sodium (Porcine) 1,000 unit 12/13/17 16:02 Heparin - IVPUSH PRN PRN Heparin Heparin Sodium (Porcine) 5,000 unit 12/13/17 16:02 Heparin - IVPUSH PRN PRN Heparin Lactated Ringer's 1,000 ml in 1,000 mls @ 42 mls/hr 12/12/17 17:16 12/12/17 17:18 Lactated Ringers Solution IV 42 mls/hr ASDIR DURGA Administration Heparin Sodium (Porcine) 25, 500 mls @ 16 mls/hr 12/13/17 16:15 000 unit/ Sodium Chloride IV TITR DURGA Protocol 800 UNIT/HR Metoprolol Tartrate 50 mg 12/10/17 22:00 12/13/17 11:27 Lopressor - PO 50 mg BID DURGA Administration Raltegravir 400 mg 12/12/17 14:30 12/13/17 11:29 Isentress - PO 400 mg BID DURGA Administration Trimethoprim/Sulfamethoxazole 1 each 12/12/17 14:30 12/13/17 11:29 Bactrim Ds - PO 1 each BID DURGA Administration Imaging Chest xray (12/08/17) - Since 05/07/17, the lungs appear better aerated. The left central line persists. There is a prominent mediastinum and persistent granuloma left base. Chest xray (12/09/17) - Since 12/08/17, there is no significant change and no sign of an acute process. There is a left base granuloma, left central line and prominent mediastinum. Chest CTA - Multiple pulmonary emboli at the left pulmonary artery bifurcation extending and involving the left upper and lower lobe branches as well as multiple pulmonary emboli in the right upper and lower lobe proximal and distal branches. Minimal atelectatic changes in the left lung base and subsegmental atelectasis in the right lung base, posteriorly. There is no aneurysmal dilatation of the abdominal aorta. Vascular calcifications are present. Partially included exophytic right renal lesion for which further evaluation with US is recommended. On prior CT scan of the chest dated 10/15/17, partially included cortical deformity of the right kidney was present. Head CT without contrast - No evidence of acute intracranial hemorrhage, edema, midline shift, mass effect, or skull fracture. No CT evidence of acute territorial ischemic changes. Moderate supratentorial white matter microangiopathic ischemic changes. Cervical spine CT - No compression fracture, subluxation or prevertebral soft tissue swelling identified. Moderate to marked degenerative disc disease at C6- C7 level with mild anterior and posterior spur formation as well as bilateral uncovertebral hypertrophy slightly to moderately narrowing the right and slightly narrowing the left foramen. Echo - LV is normal in size. LV systolic function is mildly reduced. There are regional wall motion abnormalities. EF is 45-50%. RV is not well visualized. RV appears mildly dilated with reduced systolic function. A moderator band is seen in the RV. LA size is normal. There is mild mitral annular calcification. There is mild tricuspid regurgitation. There is moderate aortic sclerosis. Mild aortic root dilatation. Pulmonary artery systolic pressure is at least 50mmHg assuming RA pressure of 15mmHg (dilated IVC with <50% collapse). No pericardial effusion. ASSESSMENT/PLAN: Patient is a 72 year old female with a significant past medical history of non- small cell lung cancer, HIV, COPD, HTN, HLD, CAD who was BIBA yesterday evening (12/08/17) after having an episode of syncope and being found on the ground near her couch by her godson at approximately 1 pm yesterday. # Syncope: likely 2/2 Arrhythmia vs Pulmonary embolism -EKG - SVT, LAD -Head CT - No evidence of acute intracranial hemorrhage, edema, midline shift, mass effect, or skull fracture. No CT evidence of acute territorial ischemic changes. Moderate supratentorial white matter microangiopathic ischemic changes. -Echo - LV systolic function is mildly reduced. There are regional wall motion abnormalities. EF is 45-50%. -Troponins trended 0.10 --> 0.08. Likely demand ischemia from tachycardia. -Cardiology (Dr. St) consulted. Recommendations appreciated. -Lovenox 60 mg sq BID (1mg/kg bid) held -Cardizem drip discontinued. -Increased Metoprolol to 50mg BID. -Started Digoxin 0.25mg q6h -Goal Digoxin level 0.5-1.0 -Will get Digoxin level after 5th half life. Getting levels earlier may give artificially high levels. Half life of Digoxin is 36 hours. -Monitor for electrolyte abnormalities -Monitor for coumadin and Amiodarone interaction if plan to start on these medications -Will monitor. #Multiple pulmonary embolism: s/p IR-guided thrombolysis -tPA drip discontinued -Chest CTA - Multiple pulmonary emboli at the left pulmonary artery bifurcation extending and involving the left upper and lower lobe branches as well as multiple pulmonary emboli in the right upper and lower lobe proximal and distal branches. -Benjamin-Onc (Dr. Fong) consulted. Recommendations appreciated. -Ultimately will need anticoagulant. -Non compliance is an issue so NOAC is favored over lovenox. -Coumadin less efficacious in malignancies and would foresee compliance monitoring issue. -Continue Heparin Drip Protocol until can bridge to NOAC -CTA during the day showed no pulmonary embolism. -tPA was discontinued. Fibrinogen readings were discontinued. -Lovenox discontinued. #Hypomagnesemia: resolved -Mg 2.1 -will monitor #HIV -Pt endorses taking Genvoya every day. Not available in our pharmacy -ID (Dr. Peralta) consulted. Recommendations appreciated. -Continue Truvada and Isentress #UTI -UA - WBC 63, leuk est +2 -Urine Cx - Klebsiella pneumoniae -Ceftriaxone 1 gm discontinue -Bactrim DS BID x3 days, day 2 -Then PO Bactrim DS PO daily for PCP prophylaxis. #Non-Small cell AdenoCa Lung -Received Radiation therapy for 12 weeks, everyday according to pt -Received Chemo therapy for 12 weeks, once per week according to pt -MRI Brain done - Moderate chronic small vessel ischemic changes. Otherwise unremarkable MRI of the brain. #HTN: controlled -Consider continuing Losartan in light of pt's residing hyperkalemia -Resume Metoprolol 25 mg bid #COPD -Resume Qvar Inhaler BID -Ventolin inhaler PRN #FEN -not on any standing fluids -routine bmp monitoring, replete as needed -Sodium restricted diet #Prophylaxis -On heparin ggt #Disposition -Will transfer to tele Visit type - Emergency Visit Emergency Visit: Yes ED Registration Date: 12/08/17 Care time: The patient presented to the Emergency Department on the above date and was hospitalized for further evaluation of their emergent condition. - New Patient This patient is new to me today: Yes Date on this admission: 12/13/17 - Critical Care Critical Care patient: Yes Total Critical Care Time (in minutes): 35 Critical Care Statement: The care of this patient involved high complexity decision making to prevent further life threatening deterioration of the patient 's condition and/or to evaluate & treat vital organ system(s) failure or risk of failure.
--- NOTE | 2017-12-13 16:32 | PN ---
Progress Note, Physician Chief Complaint: Pt A&Ox3; feels "better" than on admission, but still coughs, feels fatigued and is easily dyspneic.No chest pain presently. History of Present Illness: 72yo white woman with HIV, lung adenocarcinoma s/p radiation and chemotherapy ( last session in August 2017), COPD (uses 2L O2 at home) htn, hld, stent placement BIBA after being found on the floor by her couch. Per daughter, pt was last seen at around 5pm yesterday and she was on her couch. She was found on the floor by her godson at around 1pm today. Pt states she went to get up off the couch when she fell down. She admits to palpitations and cough. Denies headache , back pain, chest pain, abdominal pain, n/v/d, hemoptysis, leg pain/swelling, fevers. She is not taking blood thinners. She has not taken her HAART medications for the past few months, does not know what her current viral load is. PCP: Oncologist: Ajit PMH: see hpi PSH: cardiac stent 2014 - Current Medication List Current Medications: Active Medications Acetaminophen (Tylenol -) 650 mg PO Q6H PRN PRN Reason: PAIN Last Admin: 12/12/17 08:30 Dose: 650 mg Digoxin (Lanoxin Injection -) 0.25 mg IVPUSH Q6H ON LICENSE OF [facility] Stop: 12/13/17 18:16 Last Admin: 12/13/17 11:28 Dose: 0.25 mg Emtricitabine/Tenofovir (Truvada) 1 tab PO DAILY ON [facility] OF [facility] Last Admin: 12/13/17 11:28 Dose: 1 tab Heparin Sodium (Porcine) (Heparin -) 1,000 unit IVPUSH PRN PRN PRN Reason: Heparin Heparin Sodium (Porcine) (Heparin -) 5,000 unit IVPUSH PRN PRN PRN Reason: Heparin Lactated Ringer's (Lactated Ringers Solution) 1,000 ml in 1,000 mls @ 42 mls/ hr IV ASDIR ON LICENSE OF [facility] Last Admin: 12/12/17 17:18 Dose: 42 mls/hr Heparin Sodium (Porcine) 25, (000 unit/ Sodium Chloride) 500 mls @ 16 mls/hr IV TITR DURGA; Protocol Metoprolol Tartrate (Lopressor -) 50 mg PO BID ON [facility] Last Admin: 12/13/17 11:27 Dose: 50 mg Raltegravir (Isentress -) 400 mg PO BID ON [facility] Last Admin: 12/13/17 11:29 Dose: 400 mg Trimethoprim/Sulfamethoxazole (Bactrim Ds -) 1 each PO BID ON [facility] Last Admin: 12/13/17 11:29 Dose: 1 each - Objective Vital Signs: Vital Signs Temperature 97.6 F 12/13/17 14:00 Pulse Rate 75 12/13/17 16:00 Respiratory Rate 21 H 12/13/17 16:00 Blood Pressure 129/64 12/13/17 16:00 O2 Sat by Pulse Oximetry (%) 95 12/13/17 14:00 Constitutional: Yes: Calm Eyes: Yes: WNL HENT: Yes: WNL Neck: Yes: WNL Cardiovascular: Yes: Pulse Irregular, S1, S2 Respiratory: Yes: Diminished, Tachypnea Gastrointestinal: Yes: Soft ...Rectal Exam: Yes: Deferred Genitourinary: No: Anuria Musculoskeletal: Yes: Muscle Weakness Extremities: Yes: Cool Edema: No Peripheral Pulses WNL: Yes Integumentary: Yes: WNL Neurological: Yes: Alert, Weakness Psychiatric: Yes: Alert, Other Labs: CBC, BMP 12/13/17 05:30 12/13/17 05:30 INR, PTT INR 1.16 (0.83-1.09) H 12/10/17 05:30 Fibrinogen 559.0 mg/dL (238-498) H 12/12/17 13:00 - ....Imaging Chest X-ray: Image Reviewed Problem List - Problems (1) Pulmonary embolism Assessment/Plan: Multiple bilateral pulmonary emboli, Initially in sinus tachycardia; now in NSR, with HR 90-100 bpm. ECHO: mildly reduced LVEF with regional wall motion abnormalities; reduced RVEF with mildly dilated RV On Lovenox 60 mg bid. As discussed with harness tier, pt to be evaluated for possible tPa. Coronary artery evaluation when stable (hx coronary stent several years ago; still smokes cigarettes; she is unsure if she ever had an WA). Code(s): I26.99 - OTHER PULMONARY EMBOLISM WITHOUT ACUTE COR PULMONALE Qualifiers: Qualified Code(s): I26.99 - Other pulmonary embolism without acute cor pulmonale (2) Syncope Code(s): R55 - SYNCOPE AND COLLAPSE Qualifiers: Qualified Code(s): R55 - Syncope and collapse (3) Coronary artery calcification seen on CT scan Assessment/Plan: hx coronary stent several years ago. Multiple ongoing risks for CAD progression. For coronary artery evaluation when stable, if not done in the recent past. Code(s): I25.10 - ATHSCL HEART DISEASE OF CIRCLE CORONARY ARTERY W/O ANG PCTRS (4) Diabetes Code(s): E11.9 - TYPE 2 DIABETES MELLITUS WITHOUT COMPLICATIONS (5) Fever Assessment/Plan: on antibiotics for UTI per ID. Code(s): R50.9 - FEVER, UNSPECIFIED Qualifiers: Qualified Code(s): R50.9 - Fever, unspecified (6) Non-small cell carcinoma of lung Code(s): C34.90 - MALIGNANT NEOPLASM OF UNSP PART OF UNSP BRONCHUS OR LUNG (7) COPD (chronic obstructive pulmonary disease) Code(s): J44.9 - CHRONIC OBSTRUCTIVE PULMONARY DISEASE, UNSPECIFIED Qualifiers: Qualified Code(s): J44.9 - Chronic obstructive pulmonary disease, unspecified (8) Coronary artery disease Code(s): I25.10 - ATHSCL HEART DISEASE OF CIRCLE CORONARY ARTERY W/O ANG PCTRS (9) Osteoporosis Code(s): M81.0 - AGE-RELATED OSTEOPOROSIS W/O CURRENT PATHOLOGICAL FRACTURE (10) Seborrheic dermatitis of scalp Code(s): L21.9 - SEBORRHEIC DERMATITIS, UNSPECIFIED (11) Tobacco use disorder Code(s): Z72.0 - TOBACCO USE (12) HIV (human immunodeficiency virus infection) Code(s): B20 - HUMAN IMMUNODEFICIENCY VIRUS [HIV] DISEASE
--- NOTE | 2017-12-13 16:37 | PN ---
Progress Note, Physician Chief Complaint: Pt is fatigued; opens eyes on request, but has trouble staying awake. Knows she is at [facility]; does notr respond when asked the date. Moves feet weakly on request. History of Present Illness: 72yo white woman with HIV, lung adenocarcinoma s/p radiation and chemotherapy ( last session in August 2017), COPD (uses 2L O2 at home) htn, hld, stent placement BIBA after being found on the floor by her couch. Per daughter, pt was last seen at around 5pm yesterday and she was on her couch. She was found on the floor by her godson at around 1pm today. Pt states she went to get up off the couch when she fell down. She admits to palpitations and cough. Denies headache , back pain, chest pain, abdominal pain, n/v/d, hemoptysis, leg pain/swelling, fevers. She is not taking blood thinners. She has not taken her HAART medications for the past few months, does not know what her current viral load is. PCP: Oncologist: Ajit PMH: see hpi PSH: cardiac stent 2014 - Current Medication List Current Medications: Active Medications Acetaminophen (Tylenol -) 650 mg PO Q6H PRN PRN Reason: PAIN Last Admin: 12/12/17 08:30 Dose: 650 mg Digoxin (Lanoxin Injection -) 0.25 mg IVPUSH Q6H DURGA Stop: 12/13/17 18:16 Last Admin: 12/13/17 11:28 Dose: 0.25 mg Emtricitabine/Tenofovir (Truvada) 1 tab PO DAILY DURGA Last Admin: 12/13/17 11:28 Dose: 1 tab Heparin Sodium (Porcine) (Heparin -) 1,000 unit IVPUSH PRN PRN PRN Reason: Heparin Heparin Sodium (Porcine) (Heparin -) 5,000 unit IVPUSH PRN PRN PRN Reason: Heparin Lactated Ringer's (Lactated Ringers Solution) 1,000 ml in 1,000 mls @ 42 mls/ hr IV ASDIR DURGA Last Admin: 12/12/17 17:18 Dose: 42 mls/hr Heparin Sodium (Porcine) 25, (000 unit/ Sodium Chloride) 500 mls @ 16 mls/hr IV TITR DURGA; Protocol Metoprolol Tartrate (Lopressor -) 50 mg PO BID DURGA Last Admin: 12/13/17 11:27 Dose: 50 mg Raltegravir (Isentress -) 400 mg PO BID [facility] Last Admin: 12/13/17 11:29 Dose: 400 mg Trimethoprim/Sulfamethoxazole (Bactrim Ds -) 1 each PO BID [facility] Last Admin: 12/13/17 11:29 Dose: 1 each - Objective Vital Signs: Vital Signs Temperature 97.6 F 12/13/17 14:00 Pulse Rate 75 12/13/17 16:00 Respiratory Rate 21 H 12/13/17 16:00 Blood Pressure 129/64 12/13/17 16:00 O2 Sat by Pulse Oximetry (%) 95 12/13/17 14:00 Constitutional: Yes: Calm Eyes: Yes: WNL HENT: Yes: WNL Neck: Yes: WNL Cardiovascular: Yes: Pulse Irregular, S1, S2 Respiratory: Yes: Diminished Gastrointestinal: Yes: Soft ...Rectal Exam: Yes: Deferred Genitourinary: No: Anuria Musculoskeletal: Yes: Muscle Weakness Extremities: Yes: Cool Edema: No Peripheral Pulses WNL: No Peripheral Pulses: Left Doralis Pedis: 1+, Right Dorsalis Pedis: 1+ Integumentary: Yes: WNL Neurological: Yes: Lethargy, Weakness Psychiatric: Yes: Other Labs: CBC, BMP 12/13/17 05:30 12/13/17 05:30 INR, PTT INR 1.16 (0.83-1.09) H 12/10/17 05:30 Fibrinogen 559.0 mg/dL (238-498) H 12/12/17 13:00 Abnormal Lab Results 12/13/17 12/13/17 12/13/17 01:45 05:30 05:30 RBC 3.44 L Hgb 10.2 L MCHC 31.2 L RDW 15.7 H Plt Count 106 L D MPV 12.9 H PTT (Actin FS) > 400.0 H 59.9 H Chloride Anion Gap BUN 12/13/17 05:30 RBC Hgb MCHC RDW Plt Count MPV PTT (Actin FS) Chloride 108 H Anion Gap 3 L BUN 51 H - ....Imaging Other: Image Reviewed (telemetry: NSR; marked sinus arrhytymia) Problem List - Problems (1) Pulmonary embolism Assessment/Plan: s/p thrombectomy and tpa. On IV heparin. Maintain gentle hydration (PE; severe systolic LV dysfunction on latest ECHO; rising BUN/Cr; initial hypotension). Code(s): I26.99 - OTHER PULMONARY EMBOLISM WITHOUT ACUTE COR PULMONALE Qualifiers: Pulmonary embolism type: other Chronicity: acute Acute cor pulmonale presence: without acute cor pulmonale Qualified Code(s): I26.99 - Other pulmonary embolism without acute cor pulmonale (2) Syncope Code(s): R55 - SYNCOPE AND COLLAPSE Qualifiers: Syncope type: unspecified Qualified Code(s): R55 - Syncope and collapse (3) Coronary artery calcification seen on CT scan Assessment/Plan: hx coronary stent ?2015. Multiple ongoing risks for CAD progression. For coronary artery evaluation when stable, if not done in the recent past. Code(s): I25.10 - ATHSCL HEART DISEASE OF [place] CORONARY ARTERY W/O ANG PCTRS (4) Diabetes Code(s): E11.9 - TYPE 2 DIABETES MELLITUS WITHOUT COMPLICATIONS (5) Fever Assessment/Plan: on antibiotics for UTI per ID. Code(s): R50.9 - FEVER, UNSPECIFIED Qualifiers: Fever type: unspecified Qualified Code(s): R50.9 - Fever, unspecified (6) Non-small cell carcinoma of lung Code(s): C34.90 - MALIGNANT NEOPLASM OF UNSP PART OF UNSP BRONCHUS OR LUNG (7) COPD (chronic obstructive pulmonary disease) Code(s): J44.9 - CHRONIC OBSTRUCTIVE PULMONARY DISEASE, UNSPECIFIED Qualifiers: COPD type: unspecified COPD Qualified Code(s): J44.9 - Chronic obstructive pulmonary disease, unspecified (8) Osteoporosis Code(s): M81.0 - AGE-RELATED OSTEOPOROSIS W/O CURRENT PATHOLOGICAL FRACTURE (9) Seborrheic dermatitis of scalp Code(s): L21.9 - SEBORRHEIC DERMATITIS, UNSPECIFIED (10) Tobacco use disorder Assessment/Plan: nicotine patch. Code(s): Z72.0 - TOBACCO USE (11) HIV (human immunodeficiency virus infection) Code(s): B20 - HUMAN IMMUNODEFICIENCY VIRUS [HIV] DISEASE (12) Acute on chronic systolic (congestive) heart failure Assessment/Plan: On metoprolol for HR control and severe systolic CHF. On digoxin (loaded) for presumed AF, later noted to be NSR with marked sinus arrhythmia. Given poor LVEF, would continue digoxin only if HR unable to be controlled with metoprolol. Problematic starting ACEI, ARB, or spironolactone due to pt being on Bactrim and the potential for hyperkalemia, particularly in elderly with renal insuffiency. Recommend search for alternative for Bactrim, then start losartan 12.5 mg daily. F/u BUN/Cr, Is and Os, daily weight, electrolytes. Keep Mg 2-2.4, K 4-4.5, and PO4 2.5-4.9. . Code(s): I50.23 - ACUTE ON CHRONIC SYSTOLIC (CONGESTIVE) HEART FAILURE
[2017-12-13] MEDS: LACTATED RINGERS SOLUTION 1,000 ML/1,000 ML INFUS.BAG IV SCH ×2 (17:29→18:00)
[2017-12-13] MEDS: HEPARIN - 25,000 UNIT in SODIUM CHLORIDE 495 ML IV SCH ×2 (17:31→17:33)
[2017-12-13] MEDS ORDERED: ALTEPLASE 50MG 25 MG in SODIUM CHLORIDE 250 ML IVPB ONE (18:36)
[2017-12-13] MEDS ORDERED: ACETAMINOPHEN 325 MG TABLET (FP) PO PRN (18:36)
[2017-12-14 06:30] LABS: HEMATOCRIT 30.6 % (32.4-45.2); HEMOGLOBIN 9.7 GM/dL (10.7-15.3); MCH 30.1 pg (25.7-33.7); MCHC 31.7 g/dl (32.0-36.0); MEAN CELL VOLUME 94.9 fl (80-96); MEAN PLT VOLUME 11.8 fl (7.5-11.1); PLATELET COUNT 124 K/MM3 (134-434); RBC 3.23 M/mm3 (3.60-5.2); RDW 15.7 % (11.6-15.6)
[2017-12-14 07:00] LABS: ANION GAP 3 MMOL/L (8-16); BLOOD UREA NITROGEN 42 mg/dL (7-18); CALCIUM 8.6 mg/dL (8.5-10.1); CHLORIDE 107 mmol/L (98-107); CO2 33 mmol/L (21-32); CREATININE 0.5 mg/dL (0.55-1.3); GLUCOSE,RANDOM 83 mg/dL (74-106); MAGNESIUM 2.1 mg/dL (1.8-2.4); PHOSPHOROUS 2.9 mg/dL (2.5-4.9); SODIUM 143 mmol/L (136-145)
[2017-12-14] MEDS ORDERED: PT OWN MED DRAWER 7, Y5N ONE ×3 (08:46→17:28)
--- NOTE | 2017-12-14 09:28 | PN ---
Progress Note, Physician Chief Complaint: Cardiology coverage for Maciel Seen and examined in ICU: no acute distress TELE: NSR. She denies CP, SOB. - Current Medication List Current Medications: Active Medications Acetaminophen (Tylenol -) 650 mg PO Q6H PRN PRN Reason: PAIN 1-3 Emtricitabine/Tenofovir (Truvada) 1 tab PO DAILY [facility] Heparin Sodium (Porcine) (Heparin -) 1,000 unit IVPUSH PRN PRN PRN Reason: Heparin Heparin Sodium (Porcine) (Heparin -) 5,000 unit IVPUSH PRN PRN PRN Reason: Heparin Heparin Sodium (Porcine) 25, (000 unit/ Sodium Chloride) 500 mls @ 16 mls/hr IV TITR DURGA; Protocol Last Admin: 12/13/17 17:33 Dose: 800 unit/hr, 16 mls/hr Lactated Ringer's (Lactated Ringers Solution) 1,000 ml in 1,000 mls @ 42 mls/ hr IV ASDIR [facility] Last Admin: 12/13/17 18:00 Dose: 42 mls/hr Metoprolol Tartrate (Lopressor -) 50 mg PO BID [facility] Last Admin: 12/13/17 21:25 Dose: 50 mg Raltegravir (Isentress -) 400 mg PO BID [facility] Last Admin: 12/13/17 21:19 Dose: 400 mg Trimethoprim/Sulfamethoxazole (Bactrim Ds -) 1 each PO BID [facility] Last Admin: 12/13/17 21:19 Dose: 1 each - Objective Vital Signs: Vital Signs Temperature 97.5 F L 12/13/17 18:00 Pulse Rate 87 12/14/17 08:00 Respiratory Rate 30 H 12/14/17 08:00 Blood Pressure 134/59 L 12/14/17 08:00 O2 Sat by Pulse Oximetry (%) 99 12/13/17 20:43 Constitutional: Yes: No Distress Cardiovascular: Yes: Regular Rate and Rhythm Respiratory: Yes: CTA Bilaterally Gastrointestinal: Yes: Soft Edema: No Neurological: Yes: Alert Labs: CBC, BMP 12/14/17 05:30 12/14/17 05:30 INR, PTT INR 1.16 (0.83-1.09) H 12/10/17 05:30 Fibrinogen 559.0 mg/dL (238-498) H 12/12/17 13:00 Laboratory Tests 12/13/17 12/14/17 12/14/17 05:30 05:30 05:30 WBC 6.0 Hgb 9.7 L Hct 30.6 L Plt Count 124 L PTT (Actin FS) 59.9 H 46.8 H Sodium Potassium BUN Creatinine Magnesium 12/14/17 05:30 WBC Hgb Hct Plt Count PTT (Actin FS) Sodium 143 Potassium 5.0 BUN 42 H Creatinine 0.5 L Magnesium 2.1 - ....Imaging EKG: Image Reviewed Assessment/Plan Assessment/Plan Syncope Acute Submassive Pulmonary Emboli s/p tPA Atrial Fibrillation with RVR RLE DVT NSCLC (Adenocarcinoma) s/p chemo/RT HIV COPD Chronic Hypoxic Respiratory Failure CAD HTN Hyperlipidemia REC: Presently hemodynamically stable on 3-4 L NC O2. Continue ICU monitoring w/ AC as per Critical Care Team and Oncology. Continue beta bharat, in sinus with controlled BP.
[2017-12-14] MEDS: METOPROLOL TARTRATE 50 MG TABLET (FP) PO SCH ×2 (09:47→23:35)
[2017-12-14] MEDS: RALTEGRAVIR POTASSIUM 400 MG TAB PO SCH ×2 (09:48→23:36)
[2017-12-14] MEDS: SULFAMETHOXAZOLE/TRIMETHOPRIM 800MG/160MG D.S. TABLET PO SCH ×2 (09:48→23:35)
[2017-12-14] MEDS: EMTRICITABINE 200MG/TENOFOVIR 300MG PO SCH (09:57)
--- NOTE | 2017-12-14 10:29 | EKG ---
Test Reason : Blood Pressure : / mmHG Vent. Rate : 094 BPM Atrial Rate : 094 BPM P-R Int : 230 ms QRS Dur : 088 ms QT Int : 354 ms P-R-T Axes : 065 -47 -62 degrees QTc Int : 442 ms SINUS RHYTHM WITH 1ST DEGREE A-V BLOCK LEFT ANTERIOR FASCICULAR BLOCK T WAVE ABNORMALITY, CONSIDER ANTERIOR ISCHEMIA ABNORMAL ECG WHEN COMPARED WITH ECG OF 12-DEC-2017 16:49, AR INTERVAL HAS INCREASED T WAVE INVERSION NOW EVIDENT IN ANTERIOR LEADS Confirmed by HANK GRUBBS MD ([id number]) on 12/14/2017 10:29:10 AM Referred By: Confirmed By:HANK GRUBBS MD
--- NOTE | 2017-12-14 11:13 | PN ---
Teaching Attending Note Name of Resident: Sharee Clarke ATTENDING PHYSICIAN STATEMENT I saw and evaluated the patient. I reviewed the resident's note and discussed the case with the resident. I agree with the resident's findings and plan as documented. SUBJECTIVE: Patient seen and examined in the ICU. Neruo exam intact. Sleepy but arousable. Able to follow commands. Vision is intact. Breathing feels stable today. Intake & Output 12/11/17 12/12/17 12/13/17 12/14/17 23:59 23:59 23:59 23:59 Intake Total 1482 1591 586 Balance 1482 1591 586 Weight 125 lb 7.088 oz Last Vital Signs Temp Pulse Resp BP Pulse Ox 98.2 F 88 24 H 139/63 99 12/14/17 10:00 12/14/17 10:00 12/14/17 10:00 12/14/17 10:00 12/13/17 20:43 Active Medications Acetaminophen (Tylenol -) 650 mg PO Q6H PRN PRN Reason: PAIN 1-3 Emtricitabine/Tenofovir (Truvada) 1 tab PO DAILY [facility] Last Admin: 12/14/17 09:57 Dose: 1 tab Heparin Sodium (Porcine) (Heparin -) 1,000 unit IVPUSH PRN PRN PRN Reason: Heparin Last Admin: 12/14/17 09:47 Dose: 1,000 unit Heparin Sodium (Porcine) (Heparin -) 5,000 unit IVPUSH PRN PRN PRN Reason: Heparin Heparin Sodium (Porcine) 25, (000 unit/ Sodium Chloride) 500 mls @ 16 mls/hr IV TITR DURAG; Protocol Last Titration: 12/14/17 09:50 Dose: 900 unit/hr, 18 mls/hr Lactated Ringer's (Lactated Ringers Solution) 1,000 ml in 1,000 mls @ 42 mls/ hr IV ASDIR DURGA Last Admin: 12/13/17 18:00 Dose: 42 mls/hr Metoprolol Tartrate (Lopressor -) 50 mg PO BID [facility] Last Admin: 12/14/17 09:47 Dose: 50 mg Raltegravir (Isentress -) 400 mg PO BID [facility] Last Admin: 12/14/17 09:48 Dose: 400 mg Trimethoprim/Sulfamethoxazole (Bactrim Ds -) 1 each PO BID [facility] Last Admin: 12/14/17 09:48 Dose: 1 each Constitutional: Yes: Sleepy but arousable, NAD Eyes: Yes: WNL HENT: Yes: WNL Neck: Yes: WNL Cardiovascular: Yes: Tachycardia, S1, S2 Respiratory: Yes: Diminished at the bases, bilateral rhonchi Gastrointestinal: Yes: Normal Bowel Sounds, Soft Extremities: Yes: WNL Edema: No [employer]: non-focal Labs: Laboratory Results - last 24 hr 12/14/17 12/14/17 12/14/17 05:30 05:30 05:30 WBC 6.0 RBC 3.23 L Hgb 9.7 L Hct 30.6 L MCV 94.9 MCH 30.1 MCHC 31.7 L RDW 15.7 H Plt Count 124 L MPV 11.8 H PTT (Actin FS) 46.8 H Sodium 143 Potassium 5.0 Chloride 107 Carbon Dioxide 33 H Anion Gap 3 L BUN 42 H Creatinine 0.5 L Creat Clearance w eGFR > 60 Random Glucose 83 Calcium 8.6 Phosphorus 2.9 Magnesium 2.1 Assessment/Plan Problem List - Problems (1) Pulmonary embolism Code(s): I26.99 - OTHER PULMONARY EMBOLISM WITHOUT ACUTE COR PULMONALE Qualifiers: Pulmonary embolism type: other Chronicity: acute Acute cor pulmonale presence: without acute cor pulmonale Qualified Code(s): I26.99 - Other pulmonary embolism without acute cor pulmonale (2) Syncope Code(s): R55 - SYNCOPE AND COLLAPSE Qualifiers: Syncope type: unspecified Qualified Code(s): R55 - Syncope and collapse (3) Non-small cell carcinoma of lung Code(s): C34.90 - MALIGNANT NEOPLASM OF UNSP PART OF UNSP BRONCHUS OR LUNG (4) COPD (chronic obstructive pulmonary disease) Code(s): J44.9 - CHRONIC OBSTRUCTIVE PULMONARY DISEASE, UNSPECIFIED Qualifiers: COPD type: unspecified COPD Qualified Code(s): J44.9 - Chronic obstructive pulmonary disease, unspecified (5) Coronary artery disease Code(s): I25.10 - ATHSCL HEART DISEASE OF [place] CORONARY ARTERY W/O ANG PCTRS (6) Human immunodeficiency virus (HIV) disease Code(s): B20 - HUMAN IMMUNODEFICIENCY VIRUS [HIV] DISEASE (7) Hypertension, benign Code(s): I10 - ESSENTIAL (PRIMARY) HYPERTENSION Assessment/Plan Syncope Acute Submassive Pulmonary Emboli Atrial Fibrillation with RVR RLE DVT NSCLC (Adenocarcinoma) s/p chemo/RT HIV COPD Chronic Hypoxic Respiratory Failure CAD HTN Hyperlipidemia - D/W Heme will wait a few days to start NOAC due to overall condition - O2 to keep SpO2 >90% - inhaled bronchodilators - Aspiration precautions - HIV meds as ordered - Cardiac Telemetry monitoring Dr De Dios
--- NOTE | 2017-12-14 11:49 | PN ---
Physical Exam: SUBJECTIVE: Patient seen and examined at bedside this morning. She was sleepy but arousable. Patient was responsive and able to follow commands. HR remained stable overnight at 70s-80s. Episodes of desaturation at 80s overnight, may have been positional during sleep, saturating at 100 this morning at 5L NC. OBJECTIVE: Vital Signs Period Temp Pulse Resp BP Sys/[place] Pulse Ox Last 24 Hr 97.5 F-98.2 F 75-96 19-30 129-152/59-86 95-99 GENERAL: The patient is awake, alert, and oriented, on 5L NC. HEAD: Normal with no signs of trauma. +dry, flaky skin on the face EYES: PERRLA, EOMI, sclera anicteric, conjunctiva clear. NECK: Bandage on the right side of neck, appear clean with no discharge. LUNGS: Breath sounds equal, clear to auscultation bilaterally. HEART: Regular rate and rhythm, S1, S2 without murmur, rub or gallop. ABDOMEN: Soft, nontender, nondistended, normoactive bowel sounds. EXTREMITIES: 2+ pulses, warm, well-perfused, no edema. NEUROLOGICAL: Cranial nerves II through XII grossly intact. Normal speech, gait not observed. PSYCH: Normal mood, normal affect. SKIN: Warm, normal turgor, +dry skin, +wounds on dorsum of feet bilaterally Laboratory Results - last 24 hr 12/14/17 12/14/17 12/14/17 05:30 05:30 05:30 WBC 6.0 RBC 3.23 L Hgb 9.7 L Hct 30.6 L MCV 94.9 MCH 30.1 MCHC 31.7 L RDW 15.7 H Plt Count 124 L MPV 11.8 H PTT (Actin FS) 46.8 H Sodium 143 Potassium 5.0 Chloride 107 Carbon Dioxide 33 H Anion Gap 3 L BUN 42 H Creatinine 0.5 L Creat Clearance w eGFR > 60 Random Glucose 83 Calcium 8.6 Phosphorus 2.9 Magnesium 2.1 Active Medications Generic Name Dose Route Start Last Admin Trade Name Freq PRN Reason Stop Dose Admin Acetaminophen 650 mg 12/13/17 18:36 Tylenol - PO Q6H PRN PAIN 1-3 Emtricitabine/Tenofovir 1 tab 12/14/17 10:00 12/14/17 09:57 Truvada PO 1 tab DAILY DURGA Administration Heparin Sodium (Porcine) 1,000 unit 12/13/17 16:02 12/14/17 09:47 Heparin - IVPUSH 1,000 unit PRN PRN Administration Heparin Heparin Sodium (Porcine) 5,000 unit 12/13/17 16:02 Heparin - IVPUSH PRN PRN Heparin Heparin Sodium (Porcine) 25, 500 mls @ 16 mls/hr 12/13/17 16:15 12/14/17 09: 50 000 unit/ Sodium Chloride IV 900 unit/hr TITR DURGA 18 mls/hr Titration Protocol 800 UNIT/HR Lactated Ringer's 1,000 ml in 1,000 mls @ 42 mls/hr 12/13/17 18:36 12/13/17 18:00 Lactated Ringers Solution IV 42 mls/hr ASDIR DURGA Administration Metoprolol Tartrate 50 mg 12/13/17 22:00 12/14/17 09:47 Lopressor - PO 50 mg BID DURGA Administration Raltegravir 400 mg 12/13/17 22:00 12/14/17 09:48 Isentress - PO 400 mg BID DURGA Administration Trimethoprim/Sulfamethoxazole 1 each 12/13/17 22:00 12/14/17 09:48 Bactrim Ds - PO 1 each BID DURGA Administration Imaging Chest xray (12/08/17) - Since 05/07/17, the lungs appear better aerated. The left central line persists. There is a prominent mediastinum and persistent granuloma left base. Chest xray (12/09/17) - Since 12/08/17, there is no significant change and no sign of an acute process. There is a left base granuloma, left central line and prominent mediastinum. Chest CTA - Multiple pulmonary emboli at the left pulmonary artery bifurcation extending and involving the left upper and lower lobe branches as well as multiple pulmonary emboli in the right upper and lower lobe proximal and distal branches. Minimal atelectatic changes in the left lung base and subsegmental atelectasis in the right lung base, posteriorly. There is no aneurysmal dilatation of the abdominal aorta. Vascular calcifications are present. Partially included exophytic right renal lesion for which further evaluation with US is recommended. On prior CT scan of the chest dated 10/15/17, partially included cortical deformity of the right kidney was present. Head CT without contrast - No evidence of acute intracranial hemorrhage, edema, midline shift, mass effect, or skull fracture. No CT evidence of acute territorial ischemic changes. Moderate supratentorial white matter microangiopathic ischemic changes. Cervical spine CT - No compression fracture, subluxation or prevertebral soft tissue swelling identified. Moderate to marked degenerative disc disease at C6- C7 level with mild anterior and posterior spur formation as well as bilateral uncovertebral hypertrophy slightly to moderately narrowing the right and slightly narrowing the left foramen. Echo - LV is normal in size. LV systolic function is mildly reduced. There are regional wall motion abnormalities. EF is 45-50%. RV is not well visualized. RV appears mildly dilated with reduced systolic function. A moderator band is seen in the RV. LA size is normal. There is mild mitral annular calcification. There is mild tricuspid regurgitation. There is moderate aortic sclerosis. Mild aortic root dilatation. Pulmonary artery systolic pressure is at least 50mmHg assuming RA pressure of 15mmHg (dilated IVC with <50% collapse). No pericardial effusion. ASSESSMENT/PLAN: Patient is a 72 year old female with a significant past medical history of non- small cell lung cancer, HIV, COPD, HTN, HLD, CAD who was BIBA yesterday evening (12/08/17) after having an episode of syncope and being found on the ground near her couch by her godson at approximately 1 pm yesterday. # Syncope: likely 2/2 Arrhythmia vs Pulmonary embolism -EKG - SVT, LAD -Head CT - No evidence of acute intracranial hemorrhage, edema, midline shift, mass effect, or skull fracture. No CT evidence of acute territorial ischemic changes. Moderate supratentorial white matter microangiopathic ischemic changes. -Echo - LV systolic function is mildly reduced. There are regional wall motion abnormalities. EF is 45-50%. -Cardiology (Dr. St) consulted. Recommendations appreciated. -In sinus, with controlled BP -Lovenox 60 mg sq BID (1mg/kg bid) held -Cardizem drip discontinued. -Continue Metoprolol to 50mg BID. -Discontinued Digoxin 0.25mg q6h. 5/5 doses completed. -Will monitor. #Multiple pulmonary embolism: s/p IR-guided thrombolysis -Chest CTA - Multiple pulmonary emboli at the left pulmonary artery bifurcation extending and involving the left upper and lower lobe branches as well as multiple pulmonary emboli in the right upper and lower lobe proximal and distal branches. -[facility]-Onc (Dr. Fong) consulted. Recommendations appreciated. -Ultimately will need anticoagulant. -Non compliance is an issue so NOAC is favored over lovenox. -Coumadin less efficacious in malignancies and would foresee compliance monitoring issue. -Continue Heparin Drip Protocol until can bridge to NOAC -CTA during the day showed no pulmonary embolism. -tPA was discontinued. Fibrinogen readings were discontinued. -Lovenox discontinued. #Hypomagnesemia: resolved -Mg 2.1 -will monitor #HIV -Pt endorses taking Genvoya every day. Not available in our pharmacy -ID (Dr. Peralta) consulted. Recommendations appreciated. -Continue Truvada and Isentress #UTI -UA - WBC 63, leuk est +2 -Urine Cx - Klebsiella pneumoniae -Ceftriaxone 1 gm discontinue -Bactrim DS BID x3 days, day 3 -Then PO Bactrim DS PO daily for PCP prophylaxis. #Non-Small cell AdenoCa Lung -Received Radiation therapy for 12 weeks, everyday according to pt -Received Chemo therapy for 12 weeks, once per week according to pt -MRI Brain done - Moderate chronic small vessel ischemic changes. Otherwise unremarkable MRI of the brain. #HTN: controlled -Consider continuing Losartan in light of pt's residing hyperkalemia -Resume Metoprolol 25 mg bid #COPD -Resume Qvar Inhaler BID -Ventolin inhaler PRN #FEN -LR @42ml/hr -routine bmp monitoring, replete as needed -Dysphagia pureed diet, thin liquids. #Prophylaxis -On heparin ggt, until can be bridged to NOAC #Disposition -Will transfer to tele Visit type - Emergency Visit Emergency Visit: Yes ED Registration Date: 12/08/17 Care time: The patient presented to the Emergency Department on the above date and was hospitalized for further evaluation of their emergent condition. - New Patient This patient is new to me today: Yes Date on this admission: 12/14/17 - Critical Care Critical Care patient: Yes Total Critical Care Time (in minutes): 35 Critical Care Statement: The care of this patient involved high complexity decision making to prevent further life threatening deterioration of the patient 's condition and/or to evaluate & treat vital organ system(s) failure or risk of failure.
--- NOTE | 2017-12-14 12:45 | PN ---
Teaching Attending Note Name of Resident: Tracy Malik ATTENDING PHYSICIAN STATEMENT I saw and evaluated the patient. I reviewed the resident's note and discussed the case with the resident. I agree with the resident's findings and plan as documented with exceptions below. SUBJECTIVE: Patient seen and examined. oriented to self, knows is in the hospital. No dyspnea or pain or new complaints. OBJECTIVE: Vital Signs Period Temp Pulse Resp BP Sys/[place] Pulse Ox Last 24 Hr 97.5 F-98.2 F 75-96 19-30 129-152/59-76 95-99 Intake & Output 12/11/17 12/12/17 12/13/17 12/14/17 23:59 23:59 23:59 23:59 Intake Total 1482 1591 686 Balance 1482 1591 686 Weight 125 lb 7.088 oz General: sitting in bed in no acute distress CVS:S1S2 regular Chest: decreased effort, no rales or wheezing Abdomen:soft, NT, ND Extremities; no edema Neuro: AA, oriented to self, knows is in the hospital, but not to time, facial symmetry, tongue midline, generalized weakness but no new focal findings on exam Active Medications Acetaminophen (Tylenol -) 650 mg PO Q6H PRN PRN Reason: PAIN 1-3 Emtricitabine/Tenofovir (Truvada) 1 tab PO DAILY [facility] Last Admin: 12/14/17 09:57 Dose: 1 tab Heparin Sodium (Porcine) (Heparin -) 1,000 unit IVPUSH PRN PRN PRN Reason: Heparin Last Admin: 12/14/17 09:47 Dose: 1,000 unit Heparin Sodium (Porcine) (Heparin -) 5,000 unit IVPUSH PRN PRN PRN Reason: Heparin Heparin Sodium (Porcine) 25, (000 unit/ Sodium Chloride) 500 mls @ 16 mls/hr IV TITR [facility]; Protocol Last Titration: 12/14/17 09:50 Dose: 900 unit/hr, 18 mls/hr Lactated Ringer's (Lactated Ringers Solution) 1,000 ml in 1,000 mls @ 42 mls/ hr IV ASDIR [facility] Last Admin: 12/13/17 18:00 Dose: 42 mls/hr Metoprolol Tartrate (Lopressor -) 50 mg PO BID [facility] Last Admin: 12/14/17 09:47 Dose: 50 mg Raltegravir (Isentress -) 400 mg PO BID [facility] Last Admin: 12/14/17 09:48 Dose: 400 mg Trimethoprim/Sulfamethoxazole (Bactrim Ds -) 1 each PO BID [facility] Last Admin: 12/14/17 09:48 Dose: 1 each Laboratory Results - last 24 hr 12/14/17 12/14/17 12/14/17 05:30 05:30 05:30 WBC 6.0 RBC 3.23 L Hgb 9.7 L Hct 30.6 L MCV 94.9 MCH 30.1 MCHC 31.7 L RDW 15.7 H Plt Count 124 L MPV 11.8 H PTT (Actin FS) 46.8 H Sodium 143 Potassium 5.0 Chloride 107 Carbon Dioxide 33 H Anion Gap 3 L BUN 42 H Creatinine 0.5 L Creat Clearance w eGFR > 60 Random Glucose 83 Calcium 8.6 Phosphorus 2.9 Magnesium 2.1 Microbiology 12/11/17 08:40 Blood - Peripheral Venous Blood Culture - Preliminary NO GROWTH OBTAINED AFTER 72 HOURS, INCUBATION TO CONTINUE FOR 2 DAYS. 12/11/17 08:10 Blood - Peripheral Venous Blood Culture - Preliminary NO GROWTH OBTAINED AFTER 72 HOURS, INCUBATION TO CONTINUE FOR 2 DAYS. 12/08/17 15:40 Blood - Peripheral Venous Blood Culture - Final NO GROWTH AFTER 5 DAYS INCUBATION 12/08/17 15:58 Blood - Peripheral Venous Blood Culture - Final NO GROWTH AFTER 5 DAYS INCUBATION 12/08/17 15:58 Urine - Urine - Catheterized Urine Culture - Final Klebsiella Pneumoniae ASSESSMENT AND PLAN: 72yo F with PMH HIV not compliant with HARRT, lung ca s/p chemo/RTX, COPD on home O2 2L NC, HTN, CAD s/p stent, dyslipidemia presented to the ER after syncope. she syncopized at home and then could not get up and was down on the floor for extended period of time.In the ER was found to be in aflutter and have multiple PE -Syncope, from extensive bilateral PE vs Arrhythmia -Submassive PE with likely right heart strain s/p catheter directed tpa -Atrial flutter with RVR, likely from submassive PE -RLE DVT -Fever, ?from PE/DVT vs pulmonary infarction, infectious w/u neg so far -?Transient bilateral visual loss 12/13 -AMS, waxing waning mental status, suspect toxic metabolic encephalopathy, rather than neurological process -Hyperkalemia, resolved -Elevated troponin, suspect right heart strain vs demand induced from above -Hypomagnesemia -Abnormal TFTs -Lower uncomplicated Klebsiella UTI -HIV/AIDS, concern for noncompliance with HAART -Lung ca s/p chemo/RTx -COPD on 2l Home oxygen -CAD s/p PCI -Diffuse rash, > 1 year Plan s/p tpa drip Heparn drip, transition to NOAC in 24-48 hours if no new concerns. Currently in NSR, continue metoprolol, cardiology input noted. ?Transient bilateral visual loss, CT brain neg, current exam non concerning. Carotid duplex, neurology consult Dr. Rodríguez. Fevers improved, monitor for now. ID input noted, Urine cx noted, Off ceftriaxone. started on HAART and bactrim prophylaxis. Cardiology/pulmonary input appreciated. Repeat 2D echo with RV dysfunction/dilatation Lovenox on hold, on heparin drip as above Hold losartan for now. Replete lytes prn. Repeat TFTs in 2-3 weeks. DVTPPX as above Dispo pending clinical improvement. Plan discussed with patient in detail, all questions answered. Total critical care time spent 35 min. Agree with transfer to telemetry.
--- NOTE | 2017-12-14 15:10 | PN ---
Physical Exam: SUBJECTIVE: Patient seen and examined; no new complaints; more awake; alert; denies chest pain, sob, ZAPATA, blurry vision, n, v. On heparin ggt. OBJECTIVE: Vital Signs Period Temp Pulse Resp BP Sys/[place] Pulse Ox Last 24 Hr 97.5 F-98.6 F 75-96 20-30 129-152/59-76 96-99 GENERAL: The patient is awake, alert, and fully oriented, in no acute distress. HEAD: Normal with no signs of trauma. EYES: PERRL, extraocular movements intact, sclera anicteric, conjunctiva clear. No ptosis. LUNGS: Breath sounds equal, clear to auscultation bilaterally, no wheezes, no crackles, no accessory muscle use. HEART: Regular rate and rhythm, S1, S2 without murmur, rub or gallop. ABDOMEN: Soft, nontender, nondistended, normoactive bowel sounds, no guarding, no rebound, no hepatosplenomegaly, no masses. EXTREMITIES: 2+ pulses, warm, well-perfused, no edema. NEUROLOGICAL: somewhat somnolent, improved from yesterday Skin; dry Laboratory Results - last 24 hr 12/14/17 12/14/17 12/14/17 05:30 05:30 05:30 WBC 6.0 RBC 3.23 L Hgb 9.7 L Hct 30.6 L MCV 94.9 MCH 30.1 MCHC 31.7 L RDW 15.7 H Plt Count 124 L MPV 11.8 H PTT (Actin FS) 46.8 H Sodium 143 Potassium 5.0 Chloride 107 Carbon Dioxide 33 H Anion Gap 3 L BUN 42 H Creatinine 0.5 L Creat Clearance w eGFR > 60 Random Glucose 83 Calcium 8.6 Phosphorus 2.9 Magnesium 2.1 Active Medications Generic Name Dose Route Start Last Admin Trade Name Freq PRN Reason Stop Dose Admin Acetaminophen 650 mg 12/13/17 18:36 Tylenol - PO Q6H PRN PAIN 1-3 Emtricitabine/Tenofovir 1 tab 12/14/17 10:00 12/14/17 09:57 Truvada PO 1 tab DAILY [facility] Administration Heparin Sodium (Porcine) 1,000 unit 12/13/17 16:02 12/14/17 09:47 Heparin - IVPUSH 1,000 unit PRN PRN Administration Heparin Heparin Sodium (Porcine) 5,000 unit 12/13/17 16:02 Heparin - IVPUSH PRN PRN Heparin Heparin Sodium (Porcine) 25, 500 mls @ 16 mls/hr 12/13/17 16:15 12/14/17 09: 50 000 unit/ Sodium Chloride IV 900 unit/hr TITR [facility] 18 mls/hr Titration Protocol 800 UNIT/HR Lactated Ringer's 1,000 ml in 1,000 mls @ 42 mls/hr 12/13/17 18:36 12/13/17 18:00 Lactated Ringers Solution IV 42 mls/hr ASDIR [facility] Administration Metoprolol Tartrate 50 mg 12/13/17 22:00 12/14/17 09:47 Lopressor - PO 50 mg BID [facility] Administration Raltegravir 400 mg 12/13/17 22:00 12/14/17 09:48 Isentress - PO 400 mg BID [facility] Administration Trimethoprim/Sulfamethoxazole 1 each 12/13/17 22:00 12/14/17 09:48 Bactrim Ds - PO 1 each BID [facility] Administration ASSESSMENT/PLAN: This is a 72 year old female with HIV, lung Ca s/p chemo/radiation, COPD, HTN , CAD who presents with a syncopal episodes, found to have submassive PE, s/p catheter directed TPA. Submassive Pulmonary emboli Atrial flutter with rvr Adenocarcinoma of the Lung COPD chronic resp failure HIV CAD HTN HLD DVT UTI -s/p tpa -cont heparin drip; transition to NOAC when appropriate -mental status has improved; may be secondary to metabolic encephalopathy from UTI; possible delirium -cont antibiotics -rate controlled with metoprolol -cont HIV meds -duonebs -MAP >65% -oxygen sat 88-92% -tele monitoring Visit type - Emergency Visit Emergency Visit: Yes ED Registration Date: 12/08/17 Care time: The patient presented to the Emergency Department on the above date and was hospitalized for further evaluation of their emergent condition. - New Patient This patient is new to me today: No - Critical Care Critical Care patient: Yes Total Critical Care Time (in minutes): 40 Critical Care Statement: The care of this patient involved high complexity decision making to prevent further life threatening deterioration of the patient 's condition and/or to evaluate & treat vital organ system(s) failure or risk of failure.
--- NOTE | 2017-12-14 16:58 | PN ---
Progress Note, Physician Chief Complaint: 72F with lung ca s/p chemo/radiation admitted with submassive PE History of Present Illness: No complaints though not really willing to answer questions. Denies visual changes - Current Medication List Current Medications: Active Medications Acetaminophen (Tylenol -) 650 mg PO Q6H PRN PRN Reason: PAIN 1-3 Emtricitabine/Tenofovir (Truvada) 1 tab PO DAILY [facility] Last Admin: 12/14/17 09:57 Dose: 1 tab Heparin Sodium (Porcine) (Heparin -) 1,000 unit IVPUSH PRN PRN PRN Reason: Heparin Last Admin: 12/14/17 09:47 Dose: 1,000 unit Heparin Sodium (Porcine) (Heparin -) 5,000 unit IVPUSH PRN PRN PRN Reason: Heparin Heparin Sodium (Porcine) 25, (000 unit/ Sodium Chloride) 500 mls @ 16 mls/hr IV TITR [facility]; Protocol Last Titration: 12/14/17 09:50 Dose: 900 unit/hr, 18 mls/hr Lactated Ringer's (Lactated Ringers Solution) 1,000 ml in 1,000 mls @ 42 mls/ hr IV ASDIR [facility] Last Admin: 12/13/17 18:00 Dose: 42 mls/hr Metoprolol Tartrate (Lopressor -) 50 mg PO BID [facility] Last Admin: 12/14/17 09:47 Dose: 50 mg Raltegravir (Isentress -) 400 mg PO BID [facility] Last Admin: 12/14/17 09:48 Dose: 400 mg Trimethoprim/Sulfamethoxazole (Bactrim Ds -) 1 each PO BID [facility] Last Admin: 12/14/17 09:48 Dose: 1 each - Objective Vital Signs: Vital Signs Temperature 98.4 F 12/14/17 16:51 Pulse Rate 71 12/14/17 16:51 Respiratory Rate 23 H 12/14/17 16:51 Blood Pressure 144/66 12/14/17 16:51 O2 Sat by Pulse Oximetry (%) 98 12/14/17 09:00 Constitutional: Yes: No Distress Eyes: No: Sclera Icterus Neck: Yes: Supple Cardiovascular: Yes: Regular Rate and Rhythm Respiratory: Yes: Regular Gastrointestinal: Yes: Soft. No: Distention, Tenderness Labs: CBC, BMP 12/14/17 05:30 12/14/17 05:30 INR, PTT INR 1.16 (0.83-1.09) H 12/10/17 05:30 Fibrinogen 559.0 mg/dL (238-498) H 12/12/17 13:00 - ....Imaging Cat Scan: Report Reviewed (no acute findings) Assessment/Plan 72F with HIV, lung ca s/p chemo/radiation admitted with submassive PE, s/p TPA On UFH. No bleeding. No e/o acute cva/bleed on interval CTH Would switch from heparin to apixaban 10 mg BID (although some HIV meds have interactions with doacs, her regimen does not appear to)
[2017-12-14 19:49] LABS: ANION GAP 3 MMOL/L (8-16); BLOOD UREA NITROGEN 40 mg/dL (7-18); CALCIUM 9.4 mg/dL (8.5-10.1); CHLORIDE 110 mmol/L (98-107); CO2 30 mmol/L (21-32); CREATININE 0.4 mg/dL (0.55-1.3); GLUCOSE,RANDOM 83 mg/dL (74-106); POTASSIUM 5.1 mmol/L (3.5-5.1); SODIUM 144 mmol/L (136-145)
[2017-12-14] MEDS: HEPARIN - 25,000 UNIT in SODIUM CHLORIDE 495 ML IV SCH (23:44)
[2017-12-15] MEDS ORDERED: PT OWN MED DRAWER 7, Y5N ONE (00:23)
[2017-12-15 06:43] LABS: BASO % 0.2 % (0-2.0); EOS % 0.8 % (0-4.5); HEMOGLOBIN 9.4 GM/dL (10.7-15.3); LYMPH % 8.4 % (8-40); MCH 30.9 pg (25.7-33.7); MCHC 32.3 g/dl (32.0-36.0); MEAN CELL VOLUME 95.5 fl (80-96); MONO % 8.1 % (3.8-10.2); NEUT % 82.5 % (42.8-82.8); PLATELET COUNT 123 K/MM3 (134-434); RBC 3.04 M/mm3 (3.60-5.2); RDW 15.7 % (11.6-15.6)
[2017-12-15 07:12] LABS: ALBUMIN 1.7 g/dl (3.4-5.0); ALK PHOS 53 U/L (45-117); ANION GAP 3 MMOL/L (8-16); BILIRUBIN,TOTAL 0.4 mg/dL (0.2-1); BLOOD UREA NITROGEN 36 mg/dL (7-18); CALCIUM 9.1 mg/dL (8.5-10.1); CHLORIDE 108 mmol/L (98-107); CO2 32 mmol/L (21-32); CREATININE 0.5 mg/dL (0.55-1.3); GLUCOSE,RANDOM 84 mg/dL (74-106); MAGNESIUM 2.2 mg/dL (1.8-2.4); PHOSPHOROUS 2.1 mg/dL (2.5-4.9); POTASSIUM 4.8 mmol/L (3.5-5.1); SGOT/AST 36 U/L (15-37); SGPT/ALT 17 U/L (13-61); SODIUM 143 mmol/L (136-145); TOT PROT 5.6 g/dl (6.4-8.2)
[2017-12-15 09:06] LABS: PLATELET ESTIMATE SLT DECREASE
--- NOTE | 2017-12-15 09:17 | PN ---
Progress Note, Physician Chief Complaint: Cardiology for Maciel More alert this AM: denies CP or SOB TELE: reviewed, NSR. - Current Medication List Current Medications: Active Medications Acetaminophen (Tylenol -) 650 mg PO Q6H PRN PRN Reason: PAIN 1-3 Apixaban (Eliquis -) 10 mg PO BID [facility] Stop: 12/21/17 22:01 Apixaban (Eliquis -) 5 mg PO BID [facility] Emtricitabine/Tenofovir (Truvada) 1 tab PO DAILY [facility] Last Admin: 12/14/17 09:57 Dose: 1 tab Lactated Ringer's (Lactated Ringers Solution) 1,000 ml in 1,000 mls @ 42 mls/ hr IV ASDIR [facility] Last Admin: 12/13/17 18:00 Dose: 42 mls/hr Metoprolol Tartrate (Lopressor -) 50 mg PO BID [facility] Last Admin: 12/14/17 23:35 Dose: 50 mg Raltegravir (Isentress -) 400 mg PO BID [facility] Last Admin: 12/14/17 23:36 Dose: 400 mg Trimethoprim/Sulfamethoxazole (Bactrim Ds -) 1 each PO BID [facility] Last Admin: 12/14/17 23:35 Dose: 1 each - Objective Vital Signs: Vital Signs Temperature 98 F 12/14/17 22:00 Pulse Rate 86 12/15/17 06:00 Respiratory Rate 18 12/15/17 06:00 Blood Pressure 149/71 12/15/17 06:00 O2 Sat by Pulse Oximetry (%) 98 12/14/17 21:00 Constitutional: Yes: No Distress Neck: Yes: Other (No JVD) Respiratory: Yes: CTA Bilaterally Gastrointestinal: Yes: Soft Edema: No Neurological: Yes: Alert ...Motor Strength: WNL Labs: CBC, BMP 12/15/17 05:30 12/15/17 05:30 INR, PTT INR 1.16 (0.83-1.09) H 12/10/17 05:30 Fibrinogen 559.0 mg/dL (238-498) H 12/12/17 13:00 Laboratory Tests 12/14/17 12/14/17 12/15/17 05:30 15:00 05:30 WBC Hgb Hct Plt Count PTT (Actin FS) 46.8 H 51.6 H 65.3 H Sodium Potassium BUN Creatinine Total Bilirubin AST ALT Alkaline Phosphatase 12/15/17 12/15/17 05:30 05:30 WBC 4.0 Hgb 9.4 L Hct 29.0 L Plt Count 123 L PTT (Actin FS) Sodium 143 Potassium 4.8 BUN 36 H Creatinine 0.5 L Total Bilirubin 0.4 AST 36 ALT 17 Alkaline Phosphatase 53 - ....Imaging EKG: Image Reviewed Assessment/Plan Assessment/Plan Syncope Acute Submassive Pulmonary Emboli s/p tPA Atrial Fibrillation with RVR RLE DVT NSCLC (Adenocarcinoma) s/p chemo/RT HIV COPD Chronic Hypoxic Respiratory Failure CAD HTN Hyperlipidemia REC: Presently hemodynamically stable on 3-4 L NC O2. Continue ICU monitoring w/ AC as per Critical Care Team and Oncology. Caution with NOACs and HIV meds as some of the HIV drugs inhibit hepatic metabolism and may heighten the AC effect of NOACs to an unpredicatble degree. Coumadin likely easier to monitor in this situation. Continue beta bharat, in sinus with controlled BP.
[2017-12-15] MEDS: METOPROLOL TARTRATE 50 MG TABLET (FP) PO SCH ×2 (10:29→22:04)
[2017-12-15] MEDS: APIXABAN 5 MG TABLET PO SCH ×2 (10:29→22:03)
[2017-12-15] MEDS: SULFAMETHOXAZOLE/TRIMETHOPRIM 800MG/160MG D.S. TABLET PO SCH ×2 (10:30→22:03)
[2017-12-15] MEDS: EMTRICITABINE 200MG/TENOFOVIR 300MG PO SCH (10:32)
[2017-12-15] MEDS: RALTEGRAVIR POTASSIUM 400 MG TAB PO SCH ×2 (10:32→22:04)
--- NOTE | 2017-12-15 10:41 | PN ---
Teaching Attending Note Name of Resident: Hakeem Vincent ATTENDING PHYSICIAN STATEMENT I saw and evaluated the patient. I reviewed the resident's note and discussed the case with the resident. I agree with the resident's findings and plan as documented. SUBJECTIVE: Patient seen and examined in the ICU. Neruo exam intact. More awake today. Follows all commands. Vision is intact. Breathing feels stable today. Intake & Output 12/12/17 12/13/17 12/14/17 12/15/17 23:59 23:59 23:59 23:59 Intake Total 1482 1591 1655 716 Balance 1482 1591 1655 716 Weight 125 lb 7.088 oz Last Vital Signs Temp Pulse Resp BP Pulse Ox 98 F 86 18 149/71 98 12/14/17 22:00 12/15/17 06:00 12/15/17 06:00 12/15/17 06:00 12/14/17 21:00 Active Medications Acetaminophen (Tylenol -) 650 mg PO Q6H PRN PRN Reason: PAIN 1-3 Apixaban (Eliquis -) 10 mg PO BID [facility] Stop: 12/21/17 22:01 Last Admin: 12/15/17 10:29 Dose: 10 mg Apixaban (Eliquis -) 5 mg PO BID [facility] Emtricitabine/Tenofovir (Truvada) 1 tab PO DAILY [facility] Last Admin: 12/15/17 10:32 Dose: 1 tab Lactated Ringer's (Lactated Ringers Solution) 1,000 ml in 1,000 mls @ 42 mls/ hr IV ASDIR [facility] Last Admin: 12/13/17 18:00 Dose: 42 mls/hr Metoprolol Tartrate (Lopressor -) 50 mg PO BID [facility] Last Admin: 12/15/17 10:29 Dose: 50 mg Raltegravir (Isentress -) 400 mg PO BID [facility] Last Admin: 12/15/17 10:32 Dose: 400 mg Trimethoprim/Sulfamethoxazole (Bactrim Ds -) 1 each PO BID [facility] Last Admin: 12/15/17 10:30 Dose: 1 each Constitutional: Yes: More awake and interactive today, NAD Eyes: Yes: WNL HENT: Yes: WNL Neck: Yes: WNL Cardiovascular: Yes: Tachycardia, S1, S2 Respiratory: Yes: Diminished at the bases, bilateral rhonchi Gastrointestinal: Yes: Normal Bowel Sounds, Soft Extremities: Yes: WNL Edema: No DISABILITY REPRESENTATIVE: non-focal Labs: Laboratory Results - last 24 hr 12/14/17 12/14/17 12/15/17 15:00 18:00 05:30 WBC RBC Hgb Hct MCV MCH MCHC RDW Plt Count MPV Absolute Neuts (auto) Neutrophils % Neutrophils % (Manual) Band Neutrophils % Lymphocytes % Lymphocytes % (Manual) Monocytes % Monocytes % (Manual) Eosinophils % Eosinophils % (Manual) Basophils % Basophils % (Manual) Myelocytes % (Man) Nucleated RBC % Metamyelocytes Platelet Estimate Platelet Comment PTT (Actin FS) 51.6 H 65.3 H Sodium 144 Potassium 5.1 Chloride 110 H Carbon Dioxide 30 Anion Gap 3 L BUN 40 H Creatinine 0.4 L Creat Clearance w eGFR > 60 Random Glucose 83 Calcium 9.4 Phosphorus Magnesium Total Bilirubin AST ALT Alkaline Phosphatase Total Protein Albumin 12/15/17 12/15/17 05:30 05:30 WBC 4.0 RBC 3.04 L Hgb 9.4 L Hct 29.0 L MCV 95.5 MCH 30.9 MCHC 32.3 RDW 15.7 H Plt Count 123 L MPV 12.0 H Absolute Neuts (auto) 3.3 Neutrophils % 82.5 Neutrophils % (Manual) 85.0 H Band Neutrophils % 1.0 Lymphocytes % 8.4 D Lymphocytes % (Manual) 9.0 D Monocytes % 8.1 Monocytes % (Manual) 4 Eosinophils % 0.8 D Eosinophils % (Manual) 0.0 Basophils % 0.2 Basophils % (Manual) 0.0 Myelocytes % (Man) 1 D Nucleated RBC % 2 H Metamyelocytes 0 Platelet Estimate Slt decrease Platelet Comment No clumping noted PTT (Actin FS) Sodium 143 Potassium 4.8 Chloride 108 H Carbon Dioxide 32 Anion Gap 3 L BUN 36 H Creatinine 0.5 L Creat Clearance w eGFR > 60 Random Glucose 84 Calcium 9.1 Phosphorus 2.1 L Magnesium 2.2 Total Bilirubin 0.4 AST 36 ALT 17 Alkaline Phosphatase 53 Total Protein 5.6 L Albumin 1.7 L Assessment/Plan Problem List - Problems (1) Pulmonary embolism Code(s): I26.99 - OTHER PULMONARY EMBOLISM WITHOUT ACUTE COR PULMONALE Qualifiers: Pulmonary embolism type: other Chronicity: acute Acute cor pulmonale presence: without acute cor pulmonale Qualified Code(s): I26.99 - Other pulmonary embolism without acute cor pulmonale (2) Syncope Code(s): R55 - SYNCOPE AND COLLAPSE Qualifiers: Syncope type: unspecified Qualified Code(s): R55 - Syncope and collapse (3) Non-small cell carcinoma of lung Code(s): C34.90 - MALIGNANT NEOPLASM OF UNSP PART OF UNSP BRONCHUS OR LUNG (4) COPD (chronic obstructive pulmonary disease) Code(s): J44.9 - CHRONIC OBSTRUCTIVE PULMONARY DISEASE, UNSPECIFIED Qualifiers: COPD type: unspecified COPD Qualified Code(s): J44.9 - Chronic obstructive pulmonary disease, unspecified (5) Coronary artery disease Code(s): I25.10 - ATHSCL HEART DISEASE OF [place] CORONARY ARTERY W/O ANG PCTRS (6) Human immunodeficiency virus (HIV) disease Code(s): B20 - HUMAN IMMUNODEFICIENCY VIRUS [HIV] DISEASE (7) Hypertension, benign Code(s): I10 - ESSENTIAL (PRIMARY) HYPERTENSION Assessment/Plan Syncope Acute Submassive Pulmonary Emboli Atrial Fibrillation with RVR RLE DVT NSCLC (Adenocarcinoma) s/p chemo/RT HIV COPD Chronic Hypoxic Respiratory Failure CAD HTN Hyperlipidemia - Caution with DOAC and HIV Meds (DOAC & Genvoya has increased monitoring recommendation) - O2 to keep SpO2 >90% - inhaled bronchodilators - Aspiration precautions - HIV meds as ordered - Cardiac Telemetry monitoring Dr De Dios
--- NOTE | 2017-12-15 10:56 | EKG ---
Test Reason : Blood Pressure : / mmHG Vent. Rate : 087 BPM Atrial Rate : 087 BPM P-R Int : 238 ms QRS Dur : 082 ms QT Int : 316 ms P-R-T Axes : 044 -47 -40 degrees QTc Int : 380 ms SINUS RHYTHM WITH 1ST DEGREE A-V BLOCK LEFT ANTERIOR FASCICULAR BLOCK NONSPECIFIC T WAVE ABNORMALITY ABNORMAL ECG Confirmed by HANK GRUBBS MD ([id number]) on 12/15/2017 10:56:28 AM Referred By: Gloria TERRELL Confirmed By:HANK GRUBBS MD
--- NOTE | 2017-12-15 11:35 | PN ---
Physical Exam: SUBJECTIVE: Patient seen and examined, occasionally states 'ok' to all questions , occasionally answers appropriately. no pain or new complaints. OBJECTIVE: Vital Signs Period Temp Pulse Resp BP Sys/[place] Pulse Ox Last 24 Hr 98 F-98.6 F 66-88 18-25 129-151/55-83 98 GENERAL: awake, no acute distress CVS;S1s2 irregular Chest: decreased effort and intermittent lack of co-operation limiting exam, no rales or wheezing appreciated Abdomen:Soft, NT, positive bowel sounds Extremities: no edema neuro: awake, on questions, occasionally keeps repeating 'its ok', occasionally responds appropriately, when asked if in hospital stated 'yes', able to state name of the hospital, thought was [facility] and keep repeating '[facility]' when asked about the year, PERRL, facial symmetry, generalized weakness but moving all extremities, not co-operative with sensory exam Laboratory Results - last 24 hr 12/14/17 12/14/17 12/15/17 15:00 18:00 05:30 WBC RBC Hgb Hct MCV MCH MCHC RDW Plt Count MPV Absolute Neuts (auto) Neutrophils % Neutrophils % (Manual) Band Neutrophils % Lymphocytes % Lymphocytes % (Manual) Monocytes % Monocytes % (Manual) Eosinophils % Eosinophils % (Manual) Basophils % Basophils % (Manual) Myelocytes % (Man) Nucleated RBC % Metamyelocytes Platelet Estimate Platelet Comment PTT (Actin FS) 51.6 H 65.3 H Sodium 144 Potassium 5.1 Chloride 110 H Carbon Dioxide 30 Anion Gap 3 L BUN 40 H Creatinine 0.4 L Creat Clearance w eGFR > 60 Random Glucose 83 Calcium 9.4 Phosphorus Magnesium Total Bilirubin AST ALT Alkaline Phosphatase Total Protein Albumin 12/15/17 12/15/17 05:30 05:30 WBC 4.0 RBC 3.04 L Hgb 9.4 L Hct 29.0 L MCV 95.5 MCH 30.9 MCHC 32.3 RDW 15.7 H Plt Count 123 L MPV 12.0 H Absolute Neuts (auto) 3.3 Neutrophils % 82.5 Neutrophils % (Manual) 85.0 H Band Neutrophils % 1.0 Lymphocytes % 8.4 D Lymphocytes % (Manual) 9.0 D Monocytes % 8.1 Monocytes % (Manual) 4 Eosinophils % 0.8 D Eosinophils % (Manual) 0.0 Basophils % 0.2 Basophils % (Manual) 0.0 Myelocytes % (Man) 1 D Nucleated RBC % 2 H Metamyelocytes 0 Platelet Estimate Slt decrease Platelet Comment No clumping noted PTT (Actin FS) Sodium 143 Potassium 4.8 Chloride 108 H Carbon Dioxide 32 Anion Gap 3 L BUN 36 H Creatinine 0.5 L Creat Clearance w eGFR > 60 Random Glucose 84 Calcium 9.1 Phosphorus 2.1 L Magnesium 2.2 Total Bilirubin 0.4 AST 36 ALT 17 Alkaline Phosphatase 53 Total Protein 5.6 L Albumin 1.7 L Active Medications Generic Name Dose Route Start Last Admin Trade Name Freq PRN Reason Stop Dose Admin Acetaminophen 650 mg 12/13/17 18:36 Tylenol - PO Q6H PRN PAIN 1-3 Apixaban 10 mg 12/15/17 11:00 12/15/17 10:29 Eliquis - PO 12/21/17 22:01 10 mg BID DURGA Administration Apixaban 5 mg 12/22/17 10:00 Eliquis - PO BID DURGA Emtricitabine/Tenofovir 1 tab 12/14/17 10:00 12/15/17 10:32 Truvada PO 1 tab DAILY DURGA Administration Lactated Ringer's 1,000 ml in 1,000 mls @ 42 mls/hr 12/13/17 18:36 12/13/17 18:00 Lactated Ringers Solution IV 42 mls/hr ASDIR DURGA Administration Metoprolol Tartrate 50 mg 12/13/17 22:00 12/15/17 10:29 Lopressor - PO 50 mg BID DURGA Administration Raltegravir 400 mg 12/13/17 22:00 12/15/17 10:32 Isentress - PO 400 mg BID DURGA Administration Trimethoprim/Sulfamethoxazole 1 each 12/13/17 22:00 12/15/17 10:30 Bactrim Ds - PO 1 each BID DURGA Administration ASSESSMENT/PLAN: 72yo F with PMH HIV not compliant with HARRT, lung ca s/p chemo/RTX, COPD on home O2 2L NC, HTN, CAD s/p stent, dyslipidemia presented to the ER after syncope. she syncopized at home and then could not get up and was down on the floor for extended period of time.In the ER was found to be in aflutter and have multiple PE -Syncope, from extensive bilateral PE vs Arrhythmia -Submassive PE with likely right heart strain s/p catheter directed tpa -Atrial flutter with RVR, likely from submassive PE -RLE DVT -Fever, ?from PE/DVT vs pulmonary infarction, infectious w/u neg so far -?Transient bilateral visual loss 12/13 -AMS, waxing waning mental status, suspect toxic metabolic encephalopathy, rather than neurological process -Hyperkalemia, resolved -Elevated troponin, suspect right heart strain vs demand induced from above -Hypomagnesemia -Abnormal TFTs -Lower uncomplicated Klebsiella UTI -HIV/AIDS, concern for noncompliance with HAART -Lung ca s/p chemo/RTx -COPD on 2l Home oxygen -CAD s/p PCI -Diffuse rash, > 1 year Plan Heme/onc input noted. D.c heparin drip, start apixaban 10 mg BID x 7 days, then 5 mg BID. Poor candidate for coumadin given known extensive h/o non compliance as discussed with Dr. Fong. Currently in NSR, continue metoprolol, cardiology input noted. ?Transient bilateral visual loss, CT brain neg, current exam non concerning. waxing waning mental status, suspect toxic metabolic encephalopathy in the setting of underlying dementia. Follow up carotid duplex. neurology input, however unlikely will project management analyst. Multiple CT brain and MRI brain done this admission. Fevers improved, monitor for now. ID input noted, Urine cx noted, Off ceftriaxone. started on HAART and bactrim prophylaxis. Cardiology/pulmonary input appreciated. Repeat 2D echo with RV dysfunction/dilatation Lovenox on hold, on heparin drip as above Hold losartan for now. Replete lytes prn. Repeat TFTs in 1-2 weeks. DVTPPX as above Dispo pending clinical improvement. Plan discussed with patient and nursing in detail, all questions answered. Discussed with ICU team Total time spent including patient visit, discussion with pharmacy, ICU team, patient , nursing and co-ordination of care 35 min. Agree with transfer to telemetry. Visit type - Emergency Visit Emergency Visit: Yes ED Registration Date: 12/08/17 Care time: The patient presented to the Emergency Department on the above date and was hospitalized for further evaluation of their emergent condition. - New Patient This patient is new to me today: No - Critical Care Critical Care patient: No - Discharge Referral Referred to [facility] No
--- NOTE | 2017-12-15 12:39 | CON.NEURO ---
Consult Consult Specialty:: Marcos Referred by:: Hospitalist - History of Present Illness History of Present Illness: 72 years old woman with mm with new onset PE on Ac was in the ICU for 7 days Neurology was called to evaluate waxing and wanning mental status HPI: 72 year sold woman with non-small cell lung cancer, HIV (diagnosed 1988, Viral load 89, CD4 count 10,000, follows up at [facility]), COPD, HTN, HLD, CAD presented to [facility] a week ago after been found on the floor. Patient was diagnosed with massive PE , received thrombolysis Neurology was called today as [facility] patient was noted with waxing and waning mental status No reported seizure I sa wthe patient in the MICU Hemodyncally stable at [facility] bedside was her god son, Patient with a history of HIv for over 20 years No recent travel Her source of HIV is unknown - History Source History Provided By: Medical Record Limitations to Obtaining History: Clinical Condition - Past Medical History Cardio/Vascular: Yes: CAD, HTN, Hyperlipdemia Pulmonary: Yes: COPD ...: No Infectious Disease: Yes: HIV - Past Surgical History Past Surgical History: Yes: Stent - Alcohol/Substance Use Hx Alcohol Use: No History of Substance Use: reports: None - Smoking History Smoking history: Former smoker Have you smoked in the past 12 months: Yes Aproximately how many cigarettes per day: 8 If you are a former smoker, when did you quit?: 7 mos ago - Social History ADL: Independent Home Medications - Allergies Allergies/Adverse Reactions: Allergies Allergy/AdvReac Type Severity Reaction Status Date / Time procaine HCl [From Novocain] Allergy Unknown Swelling Verified 12/08/17 14:12 - Home Medications Home Medications: Ambulatory Orders Alendronate Na [Fosamax (Weekly)] 70 mg PO Q7D 05/01/17 Calcium Carbonate/Vitamin D3 [Calcium 600 + Vit D 400 Softgl] 1 each PO DAILY Cholecalciferol (Vitamin D3) [Vitamin D3] 5,000 unit PO WEEKLY 05/01/17 Lancets [Lancets Ultra Thin] 1 each MC TID #100 each 06/27/17 Albuterol Sulfate Inhaler - [Ventolin Hfa Inhaler -] 1 - 2 inh PO Q6H PRN Furosemide [Lasix -] 20 mg PO DAILY 07/05/17 Albuterol Sulfate Inhaler - [Ventolin HFA Inhaler -] 1 - 2 inh PO Q4H #3 each Aspirin [ASA -] 81 mg PO DAILY #90 tab.chew 09/25/17 Beclomethasone Dipropionate [Qvar] 8.7 gm IH BID #3 aer.w.adap 09/25/17 Clindamycin [Cleocin -] 300 mg PO TID #21 capsule 09/25/17 Elviteg/Cob/Emtri/Tenof Alafen [Genvoya (Non-Formulary)] 1 each PO HS #30 tablet 09/25/17 Fenofibrate Nanocrystallized [Triglide] 160 mg PO DAILY #90 tablet 09/25/17 L.acidoph,Paracasei, B.lactis [Probiotic] 1 each PO BID #30 capsule 09/25/17 Losartan Potassium [Cozaar -] 50 mg PO DAILY #90 tablet 09/25/17 Metoprolol Tartrate [Lopressor -] 25 mg PO BID #180 tablet 09/25/17 Mirtazapine 15 mg PO HS #30 tablet 09/25/17 Multivitamin,Therapeutic [Thera] 1 each PO DAILY #90 tablet 09/25/17 Umeclidinium [place] [Incruse Ellipta] 1 puff IH DAILY #3 blst.w.dev 09/25/17 Zolpidem Tartrate [Ambien] 5 mg PO HS #5 tablet MDD half tablet 09/25/17 [place]-3/Dha/Epa/Fish Oil [[place] 3 500 Softgel] 1 each PO BID 12/09/17 Family Disease History - Family Disease History Family History: Unable to Obtain Family Disease History: Heart Disease: Grandparent, Mother, Respiratory: Grandparent Review of Systems - Review of Systems Constitutional: reports: No Symptoms Eyes: reports: No Symptoms Neurological: reports: Headache, Numbness Physical Exam-Neuro Vital Signs: Vital Signs Temperature 97.6 F 12/15/17 12:00 Pulse Rate 70 12/15/17 12:00 Respiratory Rate 18 12/15/17 12:00 Blood Pressure 161/68 12/15/17 12:00 O2 Sat by Pulse Oximetry (%) 98 12/15/17 09:00 Constitutional: Yes: Well Nourished, Anxious Neck: Yes: WNL Labs: CBC, BMP 10/14/18 05:30 12/15/17 05:30 INR, PTT INR 1.16 (0.83-1.09) H 12/10/17 05:30 Fibrinogen 559.0 mg/dL (238-498) H 12/12/17 13:00 - Neuro Exam Level Of Consciousness: Yes: Oriented to Person Eyes: Yes: PERRLA Speech: WNL Dominant Hand: Right Mini Mental Exam: does not follwo commands normal attention span no spontaenous movement right lefet confusion Cranial Nerves II-XII Intact: Yes Gag: Present DTR's: 0 Left Tricep, 0 Right Tricep, 1+ Left Bicep, 1+ Right Bicep, 1+ Left Brachioradialis, 1+ Right Brachioradialis Response to light touch: Abnormal Response to pain prick: Abnormal Response to temperature: Abnormal Motor Strength: 3/5: Left Arm, Right Arm Gait: Deferred Imaging - Results Cat Scan: Image Reviewed Problem List - Problems (1) Altered mental state Assessment/Plan: Neurological DD 1. AIDS Dementia complex 2. Toxic metabolic encephalopathy 3. ICU pscyhosis Plan: 1. Neuro check 2. Move out of [facility] unit when possible 3. GGT level 4. ID follow up 5. Toxo titers 6. MRI brain with no jorge alberto 7. EEG thank you for [facility] kind referral Code(s): R41.82 - ALTERED MENTAL STATUS, UNSPECIFIED
--- NOTE | 2017-12-15 15:11 | PN ---
Progress Note, Physician Chief Complaint: PE History of Present Illness: Denies SOB, chest pain, ZAPATA, visual changes. More alert today. - Current Medication List Current Medications: Active Medications Acetaminophen (Tylenol -) 650 mg PO Q6H PRN PRN Reason: PAIN 1-3 Apixaban (Eliquis -) 10 mg PO BID [facility] Stop: 12/21/17 22:01 Last Admin: 12/15/17 10:29 Dose: 10 mg Apixaban (Eliquis -) 5 mg PO BID [facility] Emtricitabine/Tenofovir (Truvada) 1 tab PO DAILY [facility] Last Admin: 12/15/17 10:32 Dose: 1 tab Metoprolol Tartrate (Lopressor -) 50 mg PO BID [facility] Last Admin: 12/15/17 10:29 Dose: 50 mg Raltegravir (Isentress -) 400 mg PO BID [facility] Last Admin: 12/15/17 10:32 Dose: 400 mg Trimethoprim/Sulfamethoxazole (Bactrim Ds -) 1 each PO BID [facility] Last Admin: 12/15/17 10:30 Dose: 1 each - Objective Vital Signs: Vital Signs Temperature 97.6 F 12/15/17 12:00 Pulse Rate 70 12/15/17 12:00 Respiratory Rate 18 12/15/17 12:00 Blood Pressure 161/68 12/15/17 12:00 O2 Sat by Pulse Oximetry (%) 98 12/15/17 09:00 Constitutional: Yes: Calm Eyes: No: Sclera Icterus Neck: Yes: Supple Cardiovascular: Yes: Regular Rate and Rhythm Respiratory: Yes: Regular, CTA Bilaterally Gastrointestinal: Yes: Soft. No: Distention, Palpable Mass, Tenderness Edema: No Neurological: Yes: Alert Labs: CBC, BMP 12/15/17 05:30 12/15/17 05:30 INR, PTT INR 1.16 (0.83-1.09) H 12/10/17 05:30 Fibrinogen 559.0 mg/dL (238-498) H 12/12/17 13:00 Problem List - Problems (1) Pulmonary embolism Assessment/Plan: 72F with HIV, lung ca s/p chemo/RT, admitted with submassive PE, s/p TPA Has had waxing/waning mental status, interval CTH neg for acute event Switched from UFH this am to apixaban Monitor for bleeding Code(s): I26.99 - OTHER PULMONARY EMBOLISM WITHOUT ACUTE COR PULMONALE Qualifiers: Pulmonary embolism type: other Chronicity: acute Acute cor pulmonale presence: without acute cor pulmonale Qualified Code(s): I26.99 - Other pulmonary embolism without acute cor pulmonale
[2017-12-15] MEDS ORDERED: ACETAMINOPHEN 325 MG TABLET (FP) PO PRN (20:50)
[2017-12-15] MEDS ORDERED: HEPARIN NA (PORCINE) 5,000 UNITS/ML 1ML VIAL IVPUSH PRN ×2 (20:50)
[2017-12-15] MEDS: LACTATED RINGERS SOLUTION 1,000 ML/1,000 ML INFUS.BAG IV SCH (21:06)
[2017-12-16 06:37] LABS: BASO % 0.5 % (0-2.0); HEMATOCRIT 33.1 % (32.4-45.2); HEMOGLOBIN 10.2 GM/dL (10.7-15.3); LYMPH % 13.5 % (8-40); MCH 29.4 pg (25.7-33.7); MCHC 30.8 g/dl (32.0-36.0); MEAN CELL VOLUME 95.6 fl (80-96); MEAN PLT VOLUME 12.2 fl (7.5-11.1); MONO % 11.7 % (3.8-10.2); NEUT % 73.3 % (42.8-82.8); PLATELET COUNT 127 K/MM3 (134-434); RBC 3.46 M/mm3 (3.60-5.2); RDW 15.6 % (11.6-15.6); WHITE BLOOD COUNT 3.5 K/mm3 (4.0-10.0)
[2017-12-16 06:52] LABS: ANION GAP 3 MMOL/L (8-16); BLOOD UREA NITROGEN 30 mg/dL (7-18); CALCIUM 9.9 mg/dL (8.5-10.1); CHLORIDE 108 mmol/L (98-107); CO2 34 mmol/L (21-32); CREATININE 0.4 mg/dL (0.55-1.3); GLUCOSE,RANDOM 88 mg/dL (74-106); MAGNESIUM 2.2 mg/dL (1.8-2.4); PHOSPHOROUS 1.9 mg/dL (2.5-4.9); POTASSIUM 4.9 mmol/L (3.5-5.1); SODIUM 144 mmol/L (136-145)
--- NOTE | 2017-12-16 07:49 | PN ---
Teaching Attending Note Name of Resident: Tracy Malik ATTENDING PHYSICIAN STATEMENT I saw and evaluated the patient. I reviewed the resident's note and discussed the case with the resident. I agree with the resident's findings and plan as documented with exceptions below. SUBJECTIVE: Patient seen and examined. Oriented to self, knows is in the hospital. no complaints. OBJECTIVE: Vital Signs Period Temp Pulse Resp BP Sys/[place] Pulse Ox Last 24 Hr 97.6 F-98.4 F 64-78 18-27 151-172/68-77 98-98 Intake & Output 12/13/17 12/14/17 12/15/17 12/16/17 23:59 23:59 23:59 23:59 Intake Total 1591 1655 1932 100 Balance 1591 1655 1932 100 Weight 125 lb 7.088 oz 128 lb 6.4 oz General; Mild tachypnea, able to talk in full sentences CVS: S1S2 regular Chest: decreased effort, no rales or wheezing Abdomen: soft, Nt, Nd, positive bowel sounds Extremities; no edema neuro: AA oriented to self, thought was in [facility]', facial symmetry, slow in responses, but overall appropriate, moves all extemities, unable to check for sensation, unchanged exam from yesterday Active Medications Acetaminophen (Tylenol -) 650 mg PO Q6H PRN PRN Reason: PAIN 1-3 Apixaban (Eliquis -) 10 mg PO BID [facility] Stop: 12/21/17 22:01 Last Admin: 12/15/17 22:03 Dose: 10 mg Apixaban (Eliquis -) 5 mg PO BID [facility] Emtricitabine/Tenofovir (Truvada) 1 tab PO DAILY [facility] Heparin Sodium (Porcine) (Heparin -) 1,000 unit IVPUSH PRN PRN PRN Reason: Heparin Heparin Sodium (Porcine) (Heparin -) 5,000 unit IVPUSH PRN PRN PRN Reason: Heparin Metoprolol Tartrate (Lopressor -) 50 mg PO BID [facility] Last Admin: 12/15/17 22:04 Dose: 50 mg Raltegravir (Isentress -) 400 mg PO BID [facility] Last Admin: 12/15/17 22:04 Dose: 400 mg Trimethoprim/Sulfamethoxazole (Bactrim Ds -) 1 each PO BID [facility] Last Admin: 12/15/17 22:03 Dose: 1 each Laboratory Results - last 24 hr 12/15/17 12/15/17 12/15/17 05:30 05:30 15:50 WBC RBC Hgb Hct MCV MCH MCHC RDW Plt Count MPV Absolute Neuts (auto) Neutrophils % Neutrophils % (Manual) 85.0 H Band Neutrophils % 1.0 Lymphocytes % Lymphocytes % (Manual) 9.0 D Monocytes % Monocytes % (Manual) 4 Eosinophils % Eosinophils % (Manual) 0.0 Basophils % Basophils % (Manual) 0.0 Myelocytes % (Man) 1 D Nucleated RBC % 2 H Metamyelocytes 0 Platelet Estimate Slt decrease Platelet Comment No clumping noted Sodium 143 Potassium 4.8 Chloride 108 H Carbon Dioxide 32 Anion Gap 3 L BUN 36 H Creatinine 0.5 L Creat Clearance w eGFR > 60 Random Glucose 84 Hemoglobin A1c % Calcium 9.1 Phosphorus 2.1 L Magnesium 2.2 Total Bilirubin 0.4 AST 36 ALT 17 Alkaline Phosphatase 53 Ammonia 42.04 H C-Reactive Protein 5.8 H Total Protein 5.6 L Albumin 1.7 L Vitamin B12 541 TSH 12/16/17 12/16/17 12/16/17 05:30 05:30 05:30 WBC 3.5 L RBC 3.46 L Hgb 10.2 L Hct 33.1 MCV 95.6 MCH 29.4 MCHC 30.8 L RDW 15.6 Plt Count 127 L MPV 12.2 H Absolute Neuts (auto) 2.6 Neutrophils % 73.3 Neutrophils % (Manual) Band Neutrophils % Lymphocytes % 13.5 D Lymphocytes % (Manual) Monocytes % 11.7 H Monocytes % (Manual) Eosinophils % 1.0 Eosinophils % (Manual) Basophils % 0.5 Basophils % (Manual) Myelocytes % (Man) Nucleated RBC % 0 Metamyelocytes Platelet Estimate Platelet Comment Sodium 144 Potassium 4.9 Chloride 108 H Carbon Dioxide 34 H Anion Gap 3 L BUN 30 H Creatinine 0.4 L Creat Clearance w eGFR > 60 Random Glucose 88 Hemoglobin A1c % 5.9 Calcium 9.9 Phosphorus 1.9 L Magnesium 2.2 Total Bilirubin AST ALT Alkaline Phosphatase Ammonia C-Reactive Protein Total Protein Albumin Vitamin B12 TSH 0.55 ASSESSMENT AND PLAN: 72yo F with PMH HIV not compliant with HARRT, lung ca s/p chemo/RTX, COPD on home O2 2L NC, HTN, CAD s/p stent, dyslipidemia presented to the ER after syncope. she syncopized at home and then could not get up and was down on the floor for extended period of time.In the ER was found to be in aflutter and have multiple PE -Syncope, from extensive bilateral PE vs Arrhythmia -Submassive PE with likely right heart strain s/p catheter directed tpa -Atrial flutter with RVR, likely from submassive PE -RLE DVT -Fever, ?from PE/DVT vs pulmonary infarction, infectious w/u neg so far -?Transient bilateral visual loss 12/13 -AMS, waxing waning mental status, suspect toxic metabolic encephalopathy, rather than neurological process -Hyperkalemia, resolved -Elevated troponin, suspect right heart strain vs demand induced from above -Hypomagnesemia -Abnormal TFTs -Lower uncomplicated Klebsiella UTI -HIV/AIDS, concern for noncompliance with HAART -Lung ca s/p chemo/RTx -COPD on 2l Home oxygen -CAD s/p PCI -Diffuse rash, > 1 year Plan Heme/onc input noted. Off tpa/heparin drip, Apixaban 10 mg BID day 04/10, then 5 mg BID. Poor candidate for coumadin given known extensive h/o non compliance as discussed with Dr. Fong. Currently in NSR, continue metoprolol, cardiology input noted. ?Transient bilateral visual loss, CT brain neg, current exam non concerning. waxing waning mental status, suspect toxic metabolic encephalopathy in the setting of underlying dementia. Neurology input noted, recent MRI on 12/09, discussed with Dr. Rodríguez, will d/c repeat study. Carotid duplex noted. Multiple CT brain and MRI brain done this admission. Fevers improved, monitor for now. ID input noted, Urine cx noted, Off ceftriaxone. started on HAART and bactrim prophylaxis. Cardiology/pulmonary input appreciated. Repeat 2D echo with RV dysfunction/dilatation Lovenox on hold, on heparin drip as above resume losartan,monitor K levels. Replete lytes prn. Repeat TFTs in 1-2 weeks. Encourage incentive spirometry. DVTPPX as above PT eval and dispo planning Dispo in 1-2 days if no new concerns, if disposition arranged. Plan discussed with patient and nursing in detail, all questions answered.
--- NOTE | 2017-12-16 09:40 | PN ---
Progress Note, Physician History of Present Illness: Pt is a 72 y/o lady with a significant past medical history of non-small cell lung cancer, HIV (diagnosed 1988, Viral load 89, CD4 count 10,000, follows up at [facility]), COPD, HTN, HLD, CAD who was BIBA yesterday evening (12/08/17) after being found on the ground near her couch by her godson at approximately 1 pm yesterday. Pt endorses that she last saw her family Saturday around 5pm and was informed then that they would be taking her to [facility] in the afternoon. Pt endorses remembering waking up around midnight yesterday and being confused. Pt endorses she remembers hitting her head sometime during the night but cannot recall any details. Pt states she has fallen 3 times in the past few months, Oct 24, , and yesterday. Did not seek medical treatment for the first 2 falls. Denies chest pain, headache, changes in vision, nausea or vomiting. ER course was notable for: (1) CTA chest- multiple acute pulmonary emboli within L and R upper and lower lobe pulmonary arterial branches. (2) Potassium--> 6.0 (3) BNP > 18K - Current Medication List Current Medications: Active Medications Acetaminophen (Tylenol -) 650 mg PO Q6H PRN PRN Reason: PAIN 1-3 Apixaban (Eliquis -) 10 mg PO BID [facility] Stop: 12/21/17 22:01 Last Admin: 12/15/17 22:03 Dose: 10 mg Apixaban (Eliquis -) 5 mg PO BID [facility] Emtricitabine/Tenofovir (Truvada) 1 tab PO DAILY [facility] Heparin Sodium (Porcine) (Heparin -) 1,000 unit IVPUSH PRN PRN PRN Reason: Heparin Heparin Sodium (Porcine) (Heparin -) 5,000 unit IVPUSH PRN PRN PRN Reason: Heparin Metoprolol Tartrate (Lopressor -) 50 mg PO BID [facility] Last Admin: 12/15/17 22:04 Dose: 50 mg Raltegravir (Isentress -) 400 mg PO BID [facility] Last Admin: 12/15/17 22:04 Dose: 400 mg Trimethoprim/Sulfamethoxazole (Bactrim Ds -) 1 each PO BID [facility] Last Admin: 12/15/17 22:03 Dose: 1 each - Objective Vital Signs: Vital Signs Temperature 98.4 F 12/16/17 06:00 Pulse Rate 84 12/16/17 08:00 Respiratory Rate 20 12/16/17 08:00 Blood Pressure 162/75 12/16/17 08:00 O2 Sat by Pulse Oximetry (%) 96 12/16/17 08:56 Eyes: Yes: WNL, Conjunctiva Clear, EOM Intact HENT: Yes: WNL, Atraumatic, Normocephalic Neck: Yes: WNL, Supple, Trachea Midline Cardiovascular: Yes: WNL, Regular Rate and Rhythm Respiratory: Yes: WNL, Regular, CTA Bilaterally Gastrointestinal: Yes: WNL, Normal Bowel Sounds Genitourinary: Yes: WNL Musculoskeletal: Yes: WNL Extremities: Yes: WNL Edema: No Integumentary: Yes: WNL Neurological: Yes: WNL, Alert, Oriented ...Motor Strength: WNL Psychiatric: Yes: WNL Labs: CBC, BMP 12/16/17 05:30 12/16/17 05:30 INR, PTT INR 1.16 (0.83-1.09) H 12/10/17 05:30 Fibrinogen 559.0 mg/dL (238-498) H 12/12/17 13:00 Problem List - Problems (1) Arrhythmia Code(s): I49.9 - CARDIAC ARRHYTHMIA, UNSPECIFIED Qualifiers: Arrhythmia type: atrial flutter Atrial flutter type: unspecified Qualified Code(s): I48.92 - Unspecified atrial flutter (2) Pulmonary embolism Code(s): I26.99 - OTHER PULMONARY EMBOLISM WITHOUT ACUTE COR PULMONALE Qualifiers: Pulmonary embolism type: other Chronicity: acute Acute cor pulmonale presence: without acute cor pulmonale Qualified Code(s): I26.99 - Other pulmonary embolism without acute cor pulmonale (3) Syncope Code(s): R55 - SYNCOPE AND COLLAPSE Qualifiers: Syncope type: unspecified Qualified Code(s): R55 - Syncope and collapse (4) UTI (urinary tract infection) Code(s): N39.0 - URINARY TRACT INFECTION, SITE NOT SPECIFIED Qualifiers: Urinary tract infection type: site unspecified Hematuria presence: without hematuria Qualified Code(s): N39.0 - Urinary tract infection, site not specified (5) Abdominal or pelvic swelling, mass, or lump, left upper quadrant Code(s): R19.02 - LEFT UPPER QUADRANT ABDOMINAL SWELLING, MASS AND LUMP (6) Abnormal finding on CT scan Code(s): R93.8 - ABNORMAL FINDINGS ON DIAGNOSTIC IMAGING OF BILL * DO NOT USE * (7) Acute URI Code(s): J06.9 - ACUTE UPPER RESPIRATORY INFECTION, UNSPECIFIED (8) Coronary artery calcification seen on CT scan Code(s): I25.10 - ATHSCL HEART DISEASE OF [place] CORONARY ARTERY W/O ANG PCTRS (9) Deficiency of vitamin B12 Code(s): E53.8 - DEFICIENCY OF OTHER SPECIFIED B GROUP VITAMINS (10) Diabetes Code(s): E11.9 - TYPE 2 DIABETES MELLITUS WITHOUT COMPLICATIONS (11) Diarrhea Code(s): R19.7 - DIARRHEA, UNSPECIFIED (12) Dizziness Code(s): R42 - DIZZINESS AND GIDDINESS (13) Encounter for gynecological examination Code(s): Z01.419 - ENCNTR FOR STENCIL TYPIST EXAM (GENERAL) (ROUTINE) W/O ABN FINDINGS (14) Encounter for medication counseling Code(s): Z71.89 - OTHER SPECIFIED COUNSELING (15) Fever Code(s): R50.9 - FEVER, UNSPECIFIED Qualifiers: Fever type: unspecified Qualified Code(s): R50.9 - Fever, unspecified (16) Gram-negative bacteremia Code(s): R78.81 - BACTEREMIA (17) Headache Code(s): R51 - HEADACHE (18) Herpes zoster Code(s): B02.9 - ZOSTER WITHOUT COMPLICATIONS (19) Hypercalcemia Code(s): E83.52 - HYPERCALCEMIA (20) Instability of right knee joint Code(s): M25.361 - OTHER INSTABILITY, RIGHT KNEE (21) Joint pain Code(s): M25.50 - PAIN IN UNSPECIFIED JOINT (22) Knee pain, right Code(s): M25.561 - PAIN IN RIGHT KNEE (23) Macrocytosis Code(s): D75.89 - OTHER SPECIFIED DISEASES OF BLOOD AND BLOOD-FORMING ORGANS (24) Non-small cell carcinoma of lung Code(s): C34.90 - MALIGNANT NEOPLASM OF UNSP PART OF UNSP BRONCHUS OR LUNG (25) Pre-diabetes Code(s): R73.09 - OTHER ABNORMAL GLUCOSE (26) Pre-op evaluation Code(s): Z01.818 - ENCOUNTER FOR OTHER PREPROCEDURAL EXAMINATION (27) Screening for malignant neoplasm of cervix Code(s): Z12.4 - ENCOUNTER FOR SCREENING FOR MALIGNANT NEOPLASM OF CERVIX (28) Seborrhea Code(s): L21.9 - SEBORRHEIC DERMATITIS, UNSPECIFIED (29) Sinus tachycardia Code(s): R00.0 - TACHYCARDIA, UNSPECIFIED (30) Skin lesion of face Code(s): L98.9 - DISORDER OF THE SKIN AND SUBCUTANEOUS TISSUE, UNSPECIFIED (31) Tachycardia Code(s): R00.0 - TACHYCARDIA, UNSPECIFIED (32) Vitamin D deficiency Code(s): E55.9 - VITAMIN D DEFICIENCY, UNSPECIFIED (33) Weight loss Code(s): R63.4 - ABNORMAL WEIGHT LOSS (34) Wound of right leg Code(s): S81.801A - UNSPECIFIED OPEN WOUND, RIGHT LOWER LEG, INITIAL ENCOUNTER (35) COPD (chronic obstructive pulmonary disease) Code(s): J44.9 - CHRONIC OBSTRUCTIVE PULMONARY DISEASE, UNSPECIFIED Qualifiers: COPD type: unspecified COPD Qualified Code(s): J44.9 - Chronic obstructive pulmonary disease, unspecified (36) Coronary artery disease Code(s): I25.10 - ATHSCL HEART DISEASE OF [place] CORONARY ARTERY W/O ANG PCTRS (37) Human immunodeficiency virus (HIV) disease Code(s): B20 - HUMAN IMMUNODEFICIENCY VIRUS [HIV] DISEASE (38) Hypertension, benign Code(s): I10 - ESSENTIAL (PRIMARY) HYPERTENSION (39) Leukopenia Code(s): D72.819 - DECREASED WHITE BLOOD CELL COUNT, UNSPECIFIED Qualifiers: Leukopenia type: unspecified Qualified Code(s): D72.819 - Decreased white blood cell count, unspecified (40) Macrocytosis without anemia Code(s): D75.89 - OTHER SPECIFIED DISEASES OF BLOOD AND BLOOD-FORMING ORGANS (41) Osteoporosis Code(s): M81.0 - AGE-RELATED OSTEOPOROSIS W/O CURRENT PATHOLOGICAL FRACTURE (42) Paresthesia of right upper extremity Code(s): R20.2 - PARESTHESIA OF SKIN (43) Seborrheic dermatitis of scalp Code(s): L21.9 - SEBORRHEIC DERMATITIS, UNSPECIFIED (44) Tobacco use disorder Code(s): Z72.0 - TOBACCO USE Assessment/Plan Assessment/Plan Syncope Acute Submassive Pulmonary Emboli s/p tPA Atrial Fibrillation with RVR RLE DVT NSCLC (Adenocarcinoma) s/p chemo/RT HIV COPD Chronic Hypoxic Respiratory Failure CAD HTN Hyperlipidemia REC: Presently hemodynamically stable on 3-4 L NC O2. Continue ICU monitoring w/ AC as per Critical Care Team and Oncology. Caution with NOACs and HIV meds as some of the HIV drugs inhibit hepatic metabolism and may heighten the AC effect of NOACs to an unpredicatble degree. Coumadin likely easier to monitor in this situation. Continue beta bharat, in sinus with controlled BP.
[2017-12-16] MEDS ORDERED: PT OWN MED DRAWER 7, Y5N ONE (09:49)
[2017-12-16] MEDS: SULFAMETHOXAZOLE/TRIMETHOPRIM 800MG/160MG D.S. TABLET PO SCH ×2 (09:53→21:32)
[2017-12-16] MEDS: APIXABAN 5 MG TABLET PO SCH ×2 (09:54→21:32)
[2017-12-16] MEDS: RALTEGRAVIR POTASSIUM 400 MG TAB PO SCH ×2 (09:57→21:32)
[2017-12-16] MEDS: METOPROLOL TARTRATE 50 MG TABLET (FP) PO SCH ×2 (09:58→21:33)
[2017-12-16] MEDS: EMTRICITABINE 200MG/TENOFOVIR 300MG PO SCH (09:59)
--- NOTE | 2017-12-16 10:01 | CONSULT ---
Admitting History and Physical - Primary Care Physician PCP: Fauzia Middleton - Admission History of Present Illness: 72yo F with PMH HIV not compliant with HARRT, lung ca s/p chemo/RTX, COPD on home O2 2L NC, HTN, CAD s/p stent, dyslipidemia presented to the ER after syncope, found to be in aflutter and have multiple PE's. Altered mental state in ICU. Per Neurology: 1. AIDS Dementia complex 2. Toxic metabolic encephalopathy 3. ICU pscyhosis Selected Entries 12/15/17 12/15/17 12/16/17 20:00 23:00 02:00 Breakfast Supper 0 0 Temperature 98 F 12/16/17 12/16/17 12/16/17 04:00 06:00 09:54 Breakfast 50% Supper Temperature 98 F 98.4 F Laboratory Tests 12/16/17 05:30 WBC 3.5 L Weakness, poor appetite. On puree/thin liquids. History Source: Medical Record Limitations to Obtaining History: Clinical Condition - Past Medical History Cardiovascular: Yes: CAD, HTN, Hyperlipdemia Pulmonary: Yes: COPD ...: No Infectious Disease: Yes: HIV - Past Surgical History Past Surgical History: Yes: Stent - Smoking History Smoking history: Former smoker Have you smoked in the past 12 months: Yes Aproximately how many cigarettes per day: 8 If you are a former smoker, when did you quit?: 7 mos ago - Alcohol/Substance Use Hx Alcohol Use: No History of Substance Use: reports: None - Social History ADL: Independent History - Admission Reason For Visit: TACHYCARDIA/HYPERKALEMIA - Diagnostics X-ray: Report Reviewed CT Scan: Report Reviewed - General Mental Status: Forgetful, Vague, Confused, Flat Affect, Lethargic (arousable) Attention: Moderate Impairment (poor ability to establish and maintain eye contact) Ability to Follow Directions: Fair (needs repetition to refocus) Head/Neck Control: Fair - Hearing Hearing: Normal Hearing Aide: No With Patient: No Speech Evaluation - Communication Primary Language: TURK[place] Communication: Yes: Simple Responses (rare. No speech initiation with cues) - Speech Production Able to Make Needs Known: Yes: Mildly Impaired Intelligibility: Yes: Mildly Impaired - Speech Characteristics Voice Loudness: Normal Voice Pitch: Yes: Normal Voice Phonatory-based Quality: Yes: Normal Speech Clarity: < 100% Nasal Resonance: Normal Articulation: Yes: Imprecise - Language/Auditory Comprehension Follows: Yes: 1 Stage Simple Commands Observation: Able to respond to yes/no queries: No (responds yes to all questions for me), Yes/No Confusion: Yes, Comprehends Conversational Speech: Yes (social), Benefits from Slow Speech: Yes, Benefits from Repetiton: Yes, Benefits from Increased Volume of Speech: Yes - Language/Verbal Expression Able to Respond to Simple Queries: Yes: Moderately Impaired Attention: Yes: Moderate Impairment - Memory/Perception residential Memory: Yes: Severely Impaired Short Term Memory: Yes: Severely Impaired - Swallow Evaluation/Bedside Assessment Current Nutritional Intake: Dysphagia Pureed, Thin Liquids Oral Secretions: Yes: WFL Dentition: Yes: Edentulous (lower), Dental Appliance Upper Facial Symmetry at Rest: Symmetrical Facial Symmetry on Retraction: Symmetrical Against Resistance Opening: Weak Against Resistance Closing: Weak Pucker Lips: Weak Smile: Weak Lingual Movement: Symmetric (coated) Lingual Speed of Movement: Reduced Lingual Movement Strgth Against Opposition: Reduced Laryngeal Movement: Able to Palpate, Labored,delay initiation Rate of Intake: Slow/Holding Bolus Size: Small Labial Seal: WFL Oral Prep Time: Increased Coughing/Throat Clear: No Change in Voice: No Recommendations - Speech Evaluation, Impression/Plan Impression: Initially c/o pain while drinking ensure. tongue coated. thrush? next few sips fine and no c/o for staff - Disposition Discharge to: To be Determined - Dysphagia Impressions/Plan Swallowing Skills: Impaired (due to impaired mentation) Dysphagia Impressions: Mild Impairment, Moderate Impairment *Silent aspiration: cannot be R/O at bedside Dysphagia Treatment Plan: Small Bites, Chin Tuck/Down, Trial Feedings, Facilitative Feeding, Safe Rate, 1/2 tsp. at a time, Elevate HOB during feed Recommendations: Other (tongue coated. mouth care. r/o thrush) - Recommendations Diet Consistency: Dysphagia Pureed Medication Administration: Crushed with applesauce Liquids: Thin Liquids Supplement: Ensure, Magic Cup, Ensure Pudding
--- NOTE | 2017-12-16 10:51 | PN ---
Physical Exam: SUBJECTIVE: Patient seen and examined at bedside. No overnight events. No new complaints. Denies CP, ZAPATA, abdominal pain, palpitations, nausea or vomiting. OBJECTIVE: Vital Signs Period Temp Pulse Resp BP Sys/[place] Pulse Ox Last 24 Hr 97.6 F-98.4 F 68-84 18-27 154-172/68-77 96-98 GENERAL:Awake but lethargic. NAD HEAD: NCAT EYES: PERRLA, EOMI, sclera anicteric, conjunctiva clear. ptosis of left eye EARS, NOSE, THROAT: Dry mucous membranes. LUNGS: Decreased breath sounds bilaterally.Scattered wheezes, and no crackles. No accessory muscle use. HEART: RRR, normal S1 and S2 without murmur, rub or gallop. ABDOMEN: Soft, NT/ND, NABS, no guarding, no rebound, no masses. UPPER EXTREMITIES: 2+ pulses, warm, well-perfused. No cyanosis. No clubbing. 1 + edema. LOWER EXTREMITIES: 2+ pulses, warm, well-perfused. No calf tenderness. No peripheral edema. NEUROLOGICAL: lethargic , responds to repeated questioning. SKIN: Xeroderma of face and scalp, onychomycosis of bilateral feet. Laboratory Results - last 24 hr 12/15/17 12/15/17 12/16/17 05:30 15:50 05:30 WBC RBC Hgb Hct MCV MCH MCHC RDW Plt Count MPV Absolute Neuts (auto) Neutrophils % Lymphocytes % Monocytes % Eosinophils % Basophils % Nucleated RBC % ESR PTT (Actin FS) 35.1 Sodium 143 Potassium 4.8 Chloride 108 H Carbon Dioxide 32 Anion Gap 3 L BUN 36 H Creatinine 0.5 L Creat Clearance w eGFR > 60 Random Glucose 84 Hemoglobin A1c % Calcium 9.1 Phosphorus 2.1 L Magnesium 2.2 Total Bilirubin 0.4 AST 36 ALT 17 Alkaline Phosphatase 53 Ammonia 42.04 H C-Reactive Protein 5.8 H Total Protein 5.6 L Albumin 1.7 L Vitamin B12 541 TSH 12/16/17 12/16/17 12/16/17 05:30 05:30 05:30 WBC 3.5 L RBC 3.46 L Hgb 10.2 L Hct 33.1 MCV 95.6 MCH 29.4 MCHC 30.8 L RDW 15.6 Plt Count 127 L MPV 12.2 H Absolute Neuts (auto) 2.6 Neutrophils % 73.3 Lymphocytes % 13.5 D Monocytes % 11.7 H Eosinophils % 1.0 Basophils % 0.5 Nucleated RBC % 0 ESR 89 H PTT (Actin FS) Sodium 144 Potassium 4.9 Chloride 108 H Carbon Dioxide 34 H Anion Gap 3 L BUN 30 H Creatinine 0.4 L Creat Clearance w eGFR > 60 Random Glucose 88 Hemoglobin A1c % Calcium 9.9 Phosphorus 1.9 L Magnesium 2.2 Total Bilirubin AST ALT Alkaline Phosphatase Ammonia C-Reactive Protein Total Protein Albumin Vitamin B12 TSH 0.55 12/16/17 05:30 WBC RBC Hgb Hct MCV MCH MCHC RDW Plt Count MPV Absolute Neuts (auto) Neutrophils % Lymphocytes % Monocytes % Eosinophils % Basophils % Nucleated RBC % ESR PTT (Actin FS) Sodium Potassium Chloride Carbon Dioxide Anion Gap BUN Creatinine Creat Clearance w eGFR Random Glucose Hemoglobin A1c % 5.9 Calcium Phosphorus Magnesium Total Bilirubin AST ALT Alkaline Phosphatase Ammonia C-Reactive Protein Total Protein Albumin Vitamin B12 TSH Active Medications Generic Name Dose Route Start Last Admin Trade Name Freq PRN Reason Stop Dose Admin Acetaminophen 650 mg 12/15/17 20:50 Tylenol - PO Q6H PRN PAIN 1-3 Apixaban 10 mg 12/15/17 11:00 12/16/17 09:54 Eliquis - PO 12/21/17 22:01 10 mg BID [facility] Administration Apixaban 5 mg 12/22/17 10:00 Eliquis - PO BID [facility] Emtricitabine/Tenofovir 1 tab 12/16/17 10:00 12/16/17 09:59 Truvada PO 1 tab DAILY [facility] Administration Heparin Sodium (Porcine) 1,000 unit 12/15/17 20:50 Heparin - IVPUSH PRN PRN Heparin Heparin Sodium (Porcine) 5,000 unit 12/15/17 20:50 Heparin - IVPUSH PRN PRN Heparin Losartan Potassium 50 mg 12/16/17 10:15 Cozaar - PO DAILY [facility] Metoprolol Tartrate 50 mg 12/15/17 22:00 12/16/17 09:58 Lopressor - PO 50 mg BID [facility] Administration Raltegravir 400 mg 12/15/17 22:00 12/16/17 09:57 Isentress - PO 400 mg BID [facility] Administration Trimethoprim/Sulfamethoxazole 1 each 12/15/17 22:00 12/16/17 09:53 Bactrim Ds - PO 1 each BID [facility] Administration ASSESSMENT/PLAN: Problem List - Problems (1) Pulmonary embolism Assessment/Plan: Bilateral massive PE found on imaging. * S/P cath directed throbolysis with Tpa * Eliquis started (2) HIV (human immunodeficiency virus infection) Assessment/Plan: On HAART therapy; Followed at [facility]. * CD 34 * she is on Genvoya at home. (3) Non-small cell carcinoma of lung Assessment/Plan: She has recieved 7 rounds chemo(Carbo and taxil) with radiation * Poorly compliant * will obtain brain mri w/w/o contrast to r/o brain lesion * Last seen September 2017 in office. Visit type - Emergency Visit Emergency Visit: Yes ED Registration Date: 12/08/17 Care time: The patient presented to the Emergency Department on the above date and was hospitalized for further evaluation of their emergent condition. - New Patient This patient is new to me today: No - Critical Care Critical Care patient: No
[2017-12-16] MEDS: LOSARTAN POTASSIUM 50 MG TABLET (FP) PO SCH (11:50)
--- NOTE | 2017-12-16 13:51 | PN ---
Progress Note (short form) - Note Progress Note: PULMONARY Somnolent but arousable. Denies shortness of breath or chest pain. Vital Signs Period Temp Pulse Resp BP Sys/[place] Pulse Ox Last 24 Hr 98 F-98.4 F 68-84 18-27 152-172/70-77 96-98 Gen: NAD at rest Heart: RRR Lung: decreased breath sounds at the bases Abd: soft, nontender Ext: no edema CBC, BMP 12/16/17 05:30 12/16/17 05:30 Active Medications Acetaminophen (Tylenol -) 650 mg PO Q6H PRN PRN Reason: PAIN 1-3 Apixaban (Eliquis -) 10 mg PO BID [facility] Stop: 12/21/17 22:01 Last Admin: 12/16/17 09:54 Dose: 10 mg Apixaban (Eliquis -) 5 mg PO BID [facility] Emtricitabine/Tenofovir (Truvada) 1 tab PO DAILY [facility] Last Admin: 12/16/17 09:59 Dose: 1 tab Heparin Sodium (Porcine) (Heparin -) 1,000 unit IVPUSH PRN PRN PRN Reason: Heparin Heparin Sodium (Porcine) (Heparin -) 5,000 unit IVPUSH PRN PRN PRN Reason: Heparin Losartan Potassium (Cozaar -) 50 mg PO DAILY [facility] Last Admin: 12/16/17 11:50 Dose: 50 mg Metoprolol Tartrate (Lopressor -) 50 mg PO BID [facility] Last Admin: 12/16/17 09:58 Dose: 50 mg Raltegravir (Isentress -) 400 mg PO BID [facility] Last Admin: 12/16/17 09:57 Dose: 400 mg Trimethoprim/Sulfamethoxazole (Bactrim Ds -) 1 each PO BID [facility] Last Admin: 12/16/17 09:53 Dose: 1 each A/P Syncope Acute Submassive Pulmonary Emboli Atrial Fibrillation with RVR RLE DVT NSCLC (Adenocarcinoma) s/p chemo/RT HIV COPD Chronic Hypoxic Respiratory Failure CAD HTN Hyperlipidemia - continue anticoagulation - O2 to keep SpO2 >90% - inhaled bronchodilators - aspiration precautions - continue ART Problem List - Problems (1) Pulmonary embolism Code(s): I26.99 - OTHER PULMONARY EMBOLISM WITHOUT ACUTE COR PULMONALE Qualifiers: Pulmonary embolism type: other Chronicity: acute Acute cor pulmonale presence: without acute cor pulmonale Qualified Code(s): I26.99 - Other pulmonary embolism without acute cor pulmonale (2) Syncope Code(s): R55 - SYNCOPE AND COLLAPSE Qualifiers: Syncope type: unspecified Qualified Code(s): R55 - Syncope and collapse (3) Non-small cell carcinoma of lung Code(s): C34.90 - MALIGNANT NEOPLASM OF UNSP PART OF UNSP BRONCHUS OR LUNG (4) COPD (chronic obstructive pulmonary disease) Code(s): J44.9 - CHRONIC OBSTRUCTIVE PULMONARY DISEASE, UNSPECIFIED Qualifiers: COPD type: unspecified COPD Qualified Code(s): J44.9 - Chronic obstructive pulmonary disease, unspecified (5) Coronary artery disease Code(s): I25.10 - ATHSCL HEART DISEASE OF [place] CORONARY ARTERY W/O ANG PCTRS (6) Human immunodeficiency virus (HIV) disease Code(s): B20 - HUMAN IMMUNODEFICIENCY VIRUS [HIV] DISEASE (7) Hypertension, benign Code(s): I10 - ESSENTIAL (PRIMARY) HYPERTENSION
[2017-12-16 14:26] LABS: PLATELET ESTIMATE ADEQUATE
[2017-12-16] MEDS ORDERED: FUROSEMIDE 40 MG/4 ML INJECTABLE VIAL IVPUSH ONE (16:19)
[2017-12-16 16:21] VITALS: BMI 21.2
--- NOTE | 2017-12-16 17:25 | PN ---
Physical Exam: SUBJECTIVE: Patient seen and examined at bedside this morning. No acute events overnight. Patient awake, but not oriented. Just stares at the light, and just answers "yes" or "no". OBJECTIVE: Vital Signs Period Temp Pulse Resp BP Sys/Ovalles Pulse Ox Last 24 Hr 98 F-98.4 F 68-84 18-27 152-172/70-77 96-98 GENERAL: The patient is awake, alert, and oriented, on 5L NC. HEAD: Normal with no signs of trauma. +dry, flaky skin on the face EYES: PERRLA, EOMI, sclera anicteric, conjunctiva clear. NECK: Bandage on the right side of neck, appear clean with no discharge. LUNGS: Breath sounds equal, clear to auscultation bilaterally. HEART: Regular rate and rhythm, S1, S2 without murmur, rub or gallop. ABDOMEN: Soft, nontender, nondistended, normoactive bowel sounds. EXTREMITIES: 2+ pulses, warm, well-perfused, no edema. NEUROLOGICAL: Cranial nerves II through XII grossly intact. Normal speech, gait not observed. PSYCH: Normal mood, normal affect. SKIN: Warm, normal turgor, +dry skin, +wounds on dorsum of feet bilaterally Laboratory Results - last 24 hr 12/16/17 12/16/17 12/16/17 05:30 05:30 05:30 WBC 3.5 L RBC 3.46 L Hgb 10.2 L Hct 33.1 MCV 95.6 MCH 29.4 MCHC 30.8 L RDW 15.6 Plt Count 127 L MPV 12.2 H Absolute Neuts (auto) 2.6 Total Counted 100 Neutrophils % 73.3 Neutrophils % (Manual) 80.0 Lymphocytes % 13.5 D Lymphocytes % (Manual) 11.0 D Monocytes % 11.7 H Monocytes % (Manual) 9 D Eosinophils % 1.0 Basophils % 0.5 Nucleated RBC % 0 Platelet Estimate Adequate ESR PTT (Actin FS) 35.1 Sodium 144 Potassium 4.9 Chloride 108 H Carbon Dioxide 34 H Anion Gap 3 L BUN 30 H Creatinine 0.4 L Creat Clearance w eGFR > 60 Random Glucose 88 Hemoglobin A1c % Calcium 9.9 Phosphorus 1.9 L Magnesium 2.2 TSH 0.55 RPR Titer 12/16/17 12/16/17 12/16/17 05:30 05:30 05:30 WBC RBC Hgb Hct MCV MCH MCHC RDW Plt Count MPV Absolute Neuts (auto) Total Counted Neutrophils % Neutrophils % (Manual) Lymphocytes % Lymphocytes % (Manual) Monocytes % Monocytes % (Manual) Eosinophils % Basophils % Nucleated RBC % Platelet Estimate ESR 89 H PTT (Actin FS) Sodium Potassium Chloride Carbon Dioxide Anion Gap BUN Creatinine Creat Clearance w eGFR Random Glucose Hemoglobin A1c % 5.9 Calcium Phosphorus Magnesium TSH RPR Titer Nonreactive Active Medications Generic Name Dose Route Start Last Admin Trade Name Freq PRN Reason Stop Dose Admin Acetaminophen 650 mg 12/15/17 20:50 Tylenol - PO Q6H PRN PAIN 1-3 Apixaban 10 mg 12/15/17 11:00 12/16/17 09:54 Eliquis - PO 12/21/17 22:01 10 mg BID DURGA Administration Apixaban 5 mg 12/22/17 10:00 Eliquis - PO BID DURGA Emtricitabine/Tenofovir 1 tab 12/16/17 10:00 12/16/17 09:59 Truvada PO 1 tab DAILY DURGA Administration Heparin Sodium (Porcine) 1,000 unit 12/15/17 20:50 Heparin - IVPUSH PRN PRN Heparin Heparin Sodium (Porcine) 5,000 unit 12/15/17 20:50 Heparin - IVPUSH PRN PRN Heparin Losartan Potassium 50 mg 12/16/17 11:30 12/16/17 11:50 Cozaar - PO 50 mg DAILY DURGA Administration Metoprolol Tartrate 50 mg 12/15/17 22:00 12/16/17 09:58 Lopressor - PO 50 mg BID DURGA Administration Raltegravir 400 mg 12/15/17 22:00 12/16/17 09:57 Isentress - PO 400 mg BID DURGA Administration Trimethoprim/Sulfamethoxazole 1 each 12/15/17 22:00 12/16/17 09:53 Bactrim Ds - PO 1 each BID DURGA Administration Imaging Chest xray (12/08/17) - Since 05/07/17, the lungs appear better aerated. The left central line persists. There is a prominent mediastinum and persistent granuloma left base. Chest xray (12/09/17) - Since 12/08/17, there is no significant change and no sign of an acute process. There is a left base granuloma, left central line and prominent mediastinum. Chest CTA - Multiple pulmonary emboli at the left pulmonary artery bifurcation extending and involving the left upper and lower lobe branches as well as multiple pulmonary emboli in the right upper and lower lobe proximal and distal branches. Minimal atelectatic changes in the left lung base and subsegmental atelectasis in the right lung base, posteriorly. There is no aneurysmal dilatation of the abdominal aorta. Vascular calcifications are present. Partially included exophytic right renal lesion for which further evaluation with US is recommended. On prior CT scan of the chest dated 10/15/17, partially included cortical deformity of the right kidney was present. Head CT without contrast - No evidence of acute intracranial hemorrhage, edema, midline shift, mass effect, or skull fracture. No CT evidence of acute territorial ischemic changes. Moderate supratentorial white matter microangiopathic ischemic changes. Cervical spine CT - No compression fracture, subluxation or prevertebral soft tissue swelling identified. Moderate to marked degenerative disc disease at C6- C7 level with mild anterior and posterior spur formation as well as bilateral uncovertebral hypertrophy slightly to moderately narrowing the right and slightly narrowing the left foramen. Echo - LV is normal in size. LV systolic function is mildly reduced. There are regional wall motion abnormalities. EF is 45-50%. RV is not well visualized. RV appears mildly dilated with reduced systolic function. A moderator band is seen in the RV. LA size is normal. There is mild mitral annular calcification. There is mild tricuspid regurgitation. There is moderate aortic sclerosis. Mild aortic root dilatation. Pulmonary artery systolic pressure is at least 50mmHg assuming RA pressure of 15mmHg (dilated IVC with <50% collapse). No pericardial effusion. ASSESSMENT/PLAN: Patient is a 72 year old female with a significant past medical history of non- small cell lung cancer, HIV, COPD, HTN, HLD, CAD who was BIBA yesterday evening (12/08/17) after having an episode of syncope and being found on the ground near her couch by her godson at approximately 1 pm yesterday. #Syncope: likely 2/2 Arrhythmia vs Pulmonary embolism -EKG - SVT, LAD -Head CT - No evidence of acute intracranial hemorrhage, edema, midline shift, mass effect, or skull fracture. No CT evidence of acute territorial ischemic changes. Moderate supratentorial white matter microangiopathic ischemic changes. -Echo - LV systolic function is mildly reduced. There are regional wall motion abnormalities. EF is 45-50%. -Cardiology (Dr. St) consulted. Recommendations appreciated. -In sinus, with controlled BP -Lovenox 60 mg sq BID (1mg/kg bid) held -Cardizem drip discontinued. -Continue Metoprolol to 50mg BID. -Discontinued Digoxin 0.25mg q6h. 5/5 doses completed. -Will monitor. #Multiple pulmonary embolism: s/p IR-guided thrombolysis -Chest CTA - Multiple pulmonary emboli at the left pulmonary artery bifurcation extending and involving the left upper and lower lobe branches as well as multiple pulmonary emboli in the right upper and lower lobe proximal and distal branches. -[facility]-Onc (Dr. Fong) consulted. Recommendations appreciated. -Ultimately will need anticoagulant. -Non compliance is an issue so NOAC is favored over lovenox. -Coumadin less efficacious in malignancies and would foresee compliance monitoring issue. -Bridging to Eliquis 10mg BID x14 doses then 5 mg BID (05/15) -tPA was discontinued. Fibrinogen readings were discontinued. #Altered mental status: waxing and waning -Neurology (Dr. Rodríguez) consulted. Recommendations appreciated. -DDX: 1. AIDS dementia complex 2. Toxic metabolic encephalopathy 3. ICU psychosis -Move out of unit when possible -GGT level -Toxo titers -MRI brain without contrast -EEG #New onset SOB: pneumonia vs CHF -Chest xray - developing bilateral pleural effusion -Chest CT without contrast ordered. -IV Lasix 20mg once given -Strict I&O -Boyce catheter #Hypomagnesemia: resolved -Mg 2.2 -will monitor #HIV -Pt endorses taking Genvoya every day. Not available in our pharmacy -ID (Dr. Peralta) consulted. Recommendations appreciated. -Continue Truvada and Isentress #UTI -UA - WBC 63, leuk est +2 -Urine Cx - Klebsiella pneumoniae -Ceftriaxone 1 gm discontinue -Bactrim DS BID x3 days, completed -On PO Bactrim DS PO daily for PCP prophylaxis. #Non-Small cell AdenoCa Lung -Received Radiation therapy for 12 weeks, everyday according to pt -Received Chemo therapy for 12 weeks, once per week according to pt -MRI Brain done - Moderate chronic small vessel ischemic changes. Otherwise unremarkable MRI of the brain. #HTN: controlled -Losartan 50mg daily -Resume Metoprolol 25 mg bid #COPD -Resume Qvar Inhaler BID -Ventolin inhaler PRN #FEN -not on any standing fluids -routine bmp monitoring, replete as needed -Dysphagia pureed diet, thin liquids. #Prophylaxis -Heparin drip discontinued -Bridging to eliquis 10mg BID x14 doses, then taper to 5mg BID #Disposition -Will transfer to tele Visit type - Emergency Visit Emergency Visit: Yes ED Registration Date: 12/08/17 Care time: The patient presented to the Emergency Department on the above date and was hospitalized for further evaluation of their emergent condition. - New Patient This patient is new to me today: Yes Date on this admission: 12/17/17 - Critical Care Critical Care patient: No
--- NOTE | 2017-12-16 22:10 | PN ---
Progress Note (short form) - Note Progress Note: PAtient seen and examined Feels well afvss Cor: RSR, No murmurs, No gallops Lungs: Clear to P&A Abd: Soft, Normal bowel sounds, No organomegaly Ext:No significant edema a?P Non small cell lung ca s/p RT/chemotherapy completed in 07/19 Bilateral saddle pulmonary embol- s/p tpa on heparin with monitoring of fibrinogen levels HIV COPD Altered mental status--mildly raised ammonia will check MRI brain
[2017-12-17 06:08] LABS: BASO % 0.3 % (0-2.0); EOS % 1.6 % (0-4.5); HEMATOCRIT 31.9 % (32.4-45.2); HEMOGLOBIN 10.1 GM/dL (10.7-15.3); LYMPH % 11.1 % (8-40); MCHC 31.5 g/dl (32.0-36.0); MEAN PLT VOLUME 11.5 fl (7.5-11.1); MONO % 9.2 % (3.8-10.2); NEUT % 77.8 % (42.8-82.8); PLATELET COUNT 142 K/MM3 (134-434); RBC 3.36 M/mm3 (3.60-5.2); RDW 15.4 % (11.6-15.6); WHITE BLOOD COUNT 4.5 K/mm3 (4.0-10.0)
[2017-12-17 06:38] LABS: ALBUMIN 1.8 g/dl (3.4-5.0); ALK PHOS 55 U/L (45-117); ANION GAP 0 MMOL/L (8-16); BILIRUBIN,TOTAL 0.7 mg/dL (0.2-1); BLOOD UREA NITROGEN 29 mg/dL (7-18); CALCIUM 9.7 mg/dL (8.5-10.1); CHLORIDE 104 mmol/L (98-107); CO2 37 mmol/L (21-32); CREATININE 0.4 mg/dL (0.55-1.3); GLUCOSE,RANDOM 100 mg/dL (74-106); MAGNESIUM 1.9 mg/dL (1.8-2.4); PHOSPHOROUS 1.8 mg/dL (2.5-4.9); POTASSIUM 4.4 mmol/L (3.5-5.1); SGOT/AST 30 U/L (15-37); SGPT/ALT 18 U/L (13-61); SODIUM 141 mmol/L (136-145); TOT PROT 5.7 g/dl (6.4-8.2)
[2017-12-17 09:30] LABS: ANISOCYTOSIS 1+; MACROCYTOSIS 0; PLATELET ESTIMATE DECREASED
--- NOTE | 2017-12-17 10:28 | PN ---
Progress Note, Physician History of Present Illness: Lethargic today No complaints offerred Denies dysuria Follow up CT shows ?ROSETTA infiltrate No reported cough - Current Medication List Current Medications: Active Medications Acetaminophen (Tylenol -) 650 mg PO Q6H PRN PRN Reason: PAIN 1-3 Apixaban (Eliquis -) 10 mg PO BID [facility] Stop: 12/21/17 22:01 Last Admin: 12/16/17 21:32 Dose: 10 mg Apixaban (Eliquis -) 5 mg PO BID [facility] Emtricitabine/Tenofovir (Truvada) 1 tab PO DAILY [facility] Last Admin: 12/16/17 09:59 Dose: 1 tab Heparin Sodium (Porcine) (Heparin -) 1,000 unit IVPUSH PRN PRN PRN Reason: Heparin Heparin Sodium (Porcine) (Heparin -) 5,000 unit IVPUSH PRN PRN PRN Reason: Heparin Losartan Potassium (Cozaar -) 50 mg PO DAILY [facility] Last Admin: 12/16/17 11:50 Dose: 50 mg Metoprolol Tartrate (Lopressor -) 50 mg PO BID [facility] Last Admin: 12/16/17 21:33 Dose: 50 mg Raltegravir (Isentress -) 400 mg PO BID [facility] Last Admin: 12/16/17 21:32 Dose: 400 mg Trimethoprim/Sulfamethoxazole (Bactrim Ds -) 1 each PO BID [facility] Last Admin: 12/16/17 21:32 Dose: 1 each - Objective Vital Signs: Vital Signs Temperature 98.6 F 12/17/17 06:00 Pulse Rate 68 12/17/17 06:00 Respiratory Rate 22 H 12/17/17 06:00 Blood Pressure 130/54 L 12/17/17 06:00 O2 Sat by Pulse Oximetry (%) 96 12/16/17 20:57 Constitutional: Yes: No Distress Eyes: Yes: Conjunctiva Clear Cardiovascular: Yes: Regular Rate and Rhythm, S1, S2 Respiratory: Yes: Diminished Gastrointestinal: Yes: Normal Bowel Sounds, Soft. No: Tenderness Edema: No Labs: CBC, BMP 12/17/17 05:30 12/17/17 05:30 INR, PTT INR 1.16 (0.83-1.09) H 12/10/17 05:30 Fibrinogen 559.0 mg/dL (238-498) H 12/12/17 13:00 Assessment/Plan S/P syncope Bilateral PE UTI Klebsiella HIV/ AIDS hx non compliance with ART Continue Bactrim DS po qd for PCP prophylaxis Observe off IV antibiotics
[2017-12-17] MEDS: LOSARTAN POTASSIUM 50 MG TABLET (FP) PO SCH (10:48)
[2017-12-17] MEDS: METOPROLOL TARTRATE 50 MG TABLET (FP) PO SCH ×2 (10:48→21:49)
[2017-12-17] MEDS: APIXABAN 5 MG TABLET PO SCH ×2 (10:48→21:49)
[2017-12-17] MEDS: SULFAMETHOXAZOLE/TRIMETHOPRIM 800MG/160MG D.S. TABLET PO SCH ×2 (10:48→21:48)
[2017-12-17] MEDS: RALTEGRAVIR POTASSIUM 400 MG TAB PO SCH ×2 (10:49→21:48)
[2017-12-17] MEDS: EMTRICITABINE 200MG/TENOFOVIR 300MG PO SCH (10:49)
--- NOTE | 2017-12-17 11:15 | PN ---
Progress Note, Physician Chief Complaint: Pt is A&O; tired; denies chest pain or dyspnea.; still with productive cough History of Present Illness: 72yo white woman with HIV, lung adenocarcinoma s/p radiation and chemotherapy ( last session in August 2017), COPD (uses 2L O2 at home) htn, hld, stent placement BIBA after being found on the floor by her couch. Per daughter, pt was last seen at around 5pm yesterday and she was on her couch. She was found on the floor by her godson at around 1pm today. Pt states she went to get up off the couch when she fell down. She admits to palpitations and cough. Denies headache , back pain, chest pain, abdominal pain, n/v/d, hemoptysis, leg pain/swelling, fevers. She is not taking blood thinners. She has not taken her HAART medications for the past few months, does not know what her current viral load is. PCP: Oncologist: Ajit PMH: see hpi PSH: cardiac stent 2014 - Current Medication List Current Medications: Active Medications Acetaminophen (Tylenol -) 650 mg PO Q6H PRN PRN Reason: PAIN 1-3 Apixaban (Eliquis -) 10 mg PO BID [facility] Stop: 12/21/17 22:01 Last Admin: 12/17/17 10:48 Dose: 10 mg Apixaban (Eliquis -) 5 mg PO BID [facility] Emtricitabine/Tenofovir (Truvada) 1 tab PO DAILY [facility] Last Admin: 12/17/17 10:49 Dose: 1 tab Heparin Sodium (Porcine) (Heparin -) 1,000 unit IVPUSH PRN PRN PRN Reason: Heparin Heparin Sodium (Porcine) (Heparin -) 5,000 unit IVPUSH PRN PRN PRN Reason: Heparin Losartan Potassium (Cozaar -) 50 mg PO DAILY [facility] Last Admin: 12/17/17 10:48 Dose: 50 mg Metoprolol Tartrate (Lopressor -) 50 mg PO BID [facility] Last Admin: 12/17/17 10:48 Dose: 50 mg Raltegravir (Isentress -) 400 mg PO BID [facility] Last Admin: 12/17/17 10:49 Dose: 400 mg Trimethoprim/Sulfamethoxazole (Bactrim Ds -) 1 each PO BID [facility] Last Admin: 12/17/17 10:48 Dose: 1 each - Objective Vital Signs: Vital Signs Temperature 98.6 F 12/17/17 06:00 Pulse Rate 68 12/17/17 06:00 Respiratory Rate 22 H 12/17/17 06:00 Blood Pressure 130/54 L 12/17/17 06:00 O2 Sat by Pulse Oximetry (%) 96 12/16/17 20:57 Constitutional: Yes: Calm Eyes: Yes: WNL HENT: Yes: WNL Neck: Yes: WNL Cardiovascular: Yes: S1 Respiratory: Yes: Cough, Diminished, SOB on Exertion Gastrointestinal: Yes: Soft ...Rectal Exam: Yes: Deferred Genitourinary: No: Anuria Breast(s): Yes: WNL Musculoskeletal: Yes: Muscle Weakness Extremities: Yes: Cool Edema: No Peripheral Pulses WNL: Yes Integumentary: Yes: Other Neurological: Yes: Alert, Weakness Psychiatric: Yes: Alert, Other Labs: CBC, BMP 12/17/17 05:30 12/17/17 05:30 INR, PTT INR 1.16 (0.83-1.09) H 12/10/17 05:30 Fibrinogen 559.0 mg/dL (238-498) H 12/12/17 13:00 Abnormal Lab Results 12/17/17 12/18/17 12/18/17 05:30 05:30 05:30 RBC 3.42 L Hgb 10.2 L MCHC 31.2 L RDW 16.3 H Monocytes % (Manual) 12 H Carbon Dioxide 41 H Anion Gap 3 L BUN 30 H Creatinine 0.5 L Total Protein 5.8 L Albumin 1.8 L Problem List - Problems (1) Pulmonary embolism Assessment/Plan: s/p thrombectomy and tpa. On IV heparin; now on apixaban (10 mg bid, then changing to 5 mg bid on 12/22/17 ). (PE; severe systolic LV dysfunction on latest ECHO; creatinine clearance now WNL ; initial hypotension; now with elevated BP). Code(s): I26.99 - OTHER PULMONARY EMBOLISM WITHOUT ACUTE COR PULMONALE Qualifiers: Pulmonary embolism type: other Chronicity: acute Acute cor pulmonale presence: without acute cor pulmonale Qualified Code(s): I26.99 - Other pulmonary embolism without acute cor pulmonale (2) Syncope Code(s): R55 - SYNCOPE AND COLLAPSE Qualifiers: Syncope type: unspecified Qualified Code(s): R55 - Syncope and collapse (3) Coronary artery calcification seen on CT scan Assessment/Plan: hx coronary stent ?2015. Multiple ongoing risks for CAD progression. For coronary artery evaluation when stable, if not done in the recent past. Code(s): I25.10 - ATHSCL HEART DISEASE OF [place] CORONARY ARTERY W/O ANG PCTRS (4) Diabetes Code(s): E11.9 - TYPE 2 DIABETES MELLITUS WITHOUT COMPLICATIONS (5) Fever Assessment/Plan: on antibiotics for UTI per ID. Code(s): R50.9 - FEVER, UNSPECIFIED Qualifiers: Fever type: unspecified Qualified Code(s): R50.9 - Fever, unspecified (6) Non-small cell carcinoma of lung Code(s): C34.90 - MALIGNANT NEOPLASM OF UNSP PART OF UNSP BRONCHUS OR LUNG (7) COPD (chronic obstructive pulmonary disease) Assessment/Plan: f/u with sustainability communicator. Code(s): J44.9 - CHRONIC OBSTRUCTIVE PULMONARY DISEASE, UNSPECIFIED Qualifiers: COPD type: unspecified COPD Qualified Code(s): J44.9 - Chronic obstructive pulmonary disease, unspecified (8) Osteoporosis Code(s): M81.0 - AGE-RELATED OSTEOPOROSIS W/O CURRENT PATHOLOGICAL FRACTURE (9) Seborrheic dermatitis of scalp Code(s): L21.9 - SEBORRHEIC DERMATITIS, UNSPECIFIED (10) Tobacco use disorder Assessment/Plan: nicotine patch. Code(s): Z72.0 - TOBACCO USE (11) HIV (human immunodeficiency virus infection) Assessment/Plan: f/u with ID Code(s): B20 - HUMAN IMMUNODEFICIENCY VIRUS [HIV] DISEASE (12) Acute on chronic systolic (congestive) heart failure Assessment/Plan: On metoprolol for HR control and severe systolic CHF; now on losartan 50 mg daily. Give furosemide (now with elevated BP, better renal function, and pleural effusion). Start spironolactone if pt "tolerates" ARB (relative contraindications to these agents while on Bactrim, though if K+ is checked daily she may be able to be on both agents). Can also use combination of hydralazine + nitrate (isordil dinitrate or mononitrate) for sytolic CHF and HTN. N/Cr, Is and Os, daily weight, electrolytes. Keep Mg 2-2.4, K 4-4.5, and PO4 2.5-4.9. . Code(s): I50.23 - ACUTE ON CHRONIC SYSTOLIC (CONGESTIVE) HEART FAILURE (13) Hypoalbuminemia Code(s): E88.09 - [facility] DISORDERS OF PLASMA-PROTEIN METABOLISM, NEC
[2017-12-17] MEDS ORDERED: FUROSEMIDE 40 MG/4 ML INJECTABLE VIAL IVPUSH ONE (11:48)
--- NOTE | 2017-12-17 13:22 | PN ---
Progress Note (short form) - Note Progress Note: PULMONARY Somnolent but arousable. Denies shortness of breath or chest pain. Vital Signs Period Temp Pulse Resp BP Sys/Ovalles Pulse Ox Last 24 Hr 96.9 F-98.6 F 65-86 21-23 130-160/48-74 96-96 Gen: NAD at rest Heart: RRR Lung: decreased breath sounds at the bases Abd: soft, nontender Ext: no edema CBC, BMP 12/17/17 05:30 12/17/17 05:30 Active Medications Acetaminophen (Tylenol -) 650 mg PO Q6H PRN PRN Reason: PAIN 1-3 Apixaban (Eliquis -) 10 mg PO BID [facility] Stop: 12/21/17 22:01 Last Admin: 12/17/17 10:48 Dose: 10 mg Apixaban (Eliquis -) 5 mg PO BID [facility] Emtricitabine/Tenofovir (Truvada) 1 tab PO DAILY [facility] Last Admin: 12/17/17 10:49 Dose: 1 tab Heparin Sodium (Porcine) (Heparin -) 1,000 unit IVPUSH PRN PRN PRN Reason: Heparin Heparin Sodium (Porcine) (Heparin -) 5,000 unit IVPUSH PRN PRN PRN Reason: Heparin Losartan Potassium (Cozaar -) 50 mg PO DAILY [facility] Last Admin: 12/17/17 10:48 Dose: 50 mg Metoprolol Tartrate (Lopressor -) 50 mg PO BID [facility] Last Admin: 12/17/17 10:48 Dose: 50 mg Raltegravir (Isentress -) 400 mg PO BID [facility] Last Admin: 12/17/17 10:49 Dose: 400 mg Trimethoprim/Sulfamethoxazole (Bactrim Ds -) 1 each PO BID [facility] Last Admin: 12/17/17 10:48 Dose: 1 each A/P Syncope Acute Submassive Pulmonary Emboli Atrial Fibrillation with RVR RLE DVT NSCLC (Adenocarcinoma) s/p chemo/RT HIV COPD Chronic Hypoxic Respiratory Failure CAD HTN Hyperlipidemia - continue anticoagulation - O2 to keep SpO2 >90% - inhaled bronchodilators - aspiration precautions - continue ART Problem List - Problems (1) Pulmonary embolism Code(s): I26.99 - OTHER PULMONARY EMBOLISM WITHOUT ACUTE COR PULMONALE Qualifiers: Pulmonary embolism type: other Chronicity: acute Acute cor pulmonale presence: without acute cor pulmonale Qualified Code(s): I26.99 - Other pulmonary embolism without acute cor pulmonale (2) Syncope Code(s): R55 - SYNCOPE AND COLLAPSE Qualifiers: Syncope type: unspecified Qualified Code(s): R55 - Syncope and collapse (3) Non-small cell carcinoma of lung Code(s): C34.90 - MALIGNANT NEOPLASM OF UNSP PART OF UNSP BRONCHUS OR LUNG (4) COPD (chronic obstructive pulmonary disease) Code(s): J44.9 - CHRONIC OBSTRUCTIVE PULMONARY DISEASE, UNSPECIFIED Qualifiers: COPD type: unspecified COPD Qualified Code(s): J44.9 - Chronic obstructive pulmonary disease, unspecified (5) Coronary artery disease Code(s): I25.10 - ATHSCL HEART DISEASE OF [place] CORONARY ARTERY W/O ANG PCTRS (6) Human immunodeficiency virus (HIV) disease Code(s): B20 - HUMAN IMMUNODEFICIENCY VIRUS [HIV] DISEASE (7) Hypertension, benign Code(s): I10 - ESSENTIAL (PRIMARY) HYPERTENSION
[2017-12-17] MEDS ORDERED: MAGNESIUM OXIDE 400 MG TABLET (FP) PO ONE (13:47)
[2017-12-17] MEDS ORDERED: NAPH,MB-DB/K PH,MBDB POWDER PACKET PO ONE (13:47)
--- NOTE | 2017-12-17 13:50 | PN ---
Physical Exam: SUBJECTIVE: Patient seen and examined at bedside this morning. No acute events overnight but patient is somnolent, but arousable. Denies chest pain or shortness of breath. Most of the time stares at the wall. Patient was given IV Lasix 20mg once yesterday, and had an output of 2L. OBJECTIVE: Vital Signs Period Temp Pulse Resp BP Sys/[place] Pulse Ox Last 24 Hr 96.9 F-98.6 F 65-86 21-23 130-160/48-74 96-96 GENERAL: The patient is awake, alert, and oriented x1 on 3L NC. HEAD: Normal with no signs of trauma. +dry, flaky skin on the face EYES: PERRLA, EOMI, sclera anicteric, conjunctiva clear. NECK: supple neck, trachea midline LUNGS:+crackles bilaterally HEART: Regular rate and rhythm, S1, S2 without murmur, rub or gallop. ABDOMEN: Soft, nontender, nondistended, normoactive bowel sounds. EXTREMITIES: 2+ pulses, warm, well-perfused, no edema. NEUROLOGICAL: Does not follow commands, gait not observed. SKIN: Warm, normal turgor, +dry skin, +wounds on dorsum of feet bilaterally Laboratory Results - last 24 hr 12/16/17 12/17/17 12/17/17 05:30 05:30 05:30 WBC 4.5 RBC 3.36 L Hgb 10.1 L Hct 31.9 L MCV 95.0 MCH 30.0 MCHC 31.5 L RDW 15.4 Plt Count 142 MPV 11.5 H Absolute Neuts (auto) 3.5 Total Counted 100 Neutrophils % 77.8 Neutrophils % (Manual) 80.0 74.7 Band Neutrophils % 0.0 Lymphocytes % 11.1 Lymphocytes % (Manual) 11.0 D 10.5 Monocytes % 9.2 Monocytes % (Manual) 9 D 12 H Eosinophils % 1.6 Eosinophils % (Manual) 2.1 D Basophils % 0.3 Basophils % (Manual) 0.0 Myelocytes % (Man) 0 D Promyelocytes % (Man) 0 Blast Cells % (Manual) 0 Nucleated RBC % 0 Metamyelocytes 0 Hypochromia 1+ Platelet Estimate Adequate Decreased Polychromasia 0 Poikilocytosis 1+ Anisocytosis 1+ Microcytosis 0 Macrocytosis 0 Stomatocytes 1+ PTT (Actin FS) 35.2 Sodium Potassium Chloride Carbon Dioxide Anion Gap BUN Creatinine Creat Clearance w eGFR Random Glucose Calcium Phosphorus Magnesium Total Bilirubin AST ALT Alkaline Phosphatase Total Protein Albumin 12/17/17 05:30 WBC RBC Hgb Hct MCV MCH MCHC RDW Plt Count MPV Absolute Neuts (auto) Total Counted Neutrophils % Neutrophils % (Manual) Band Neutrophils % Lymphocytes % Lymphocytes % (Manual) Monocytes % Monocytes % (Manual) Eosinophils % Eosinophils % (Manual) Basophils % Basophils % (Manual) Myelocytes % (Man) Promyelocytes % (Man) Blast Cells % (Manual) Nucleated RBC % Metamyelocytes Hypochromia Platelet Estimate Polychromasia Poikilocytosis Anisocytosis Microcytosis Macrocytosis Stomatocytes PTT (Actin FS) Sodium 141 Potassium 4.4 Chloride 104 Carbon Dioxide 37 H Anion Gap 0 L BUN 29 H Creatinine 0.4 L Creat Clearance w eGFR > 60 Random Glucose 100 Calcium 9.7 Phosphorus 1.8 L Magnesium 1.9 Total Bilirubin 0.7 AST 30 ALT 18 Alkaline Phosphatase 55 Total Protein 5.7 L Albumin 1.8 L Active Medications Generic Name Dose Route Start Last Admin Trade Name Freq PRN Reason Stop Dose Admin Acetaminophen 650 mg 12/15/17 20:50 Tylenol - PO Q6H PRN PAIN 1-3 Apixaban 10 mg 12/15/17 11:00 12/17/17 10:48 Eliquis - PO 12/21/17 22:01 10 mg BID DURGA Administration Apixaban 5 mg 12/22/17 10:00 Eliquis - PO BID DURGA Emtricitabine/Tenofovir 1 tab 12/16/17 10:00 12/17/17 10:49 Truvada PO 1 tab DAILY DURGA Administration Heparin Sodium (Porcine) 1,000 unit 12/15/17 20:50 Heparin - IVPUSH PRN PRN Heparin Heparin Sodium (Porcine) 5,000 unit 12/15/17 20:50 Heparin - IVPUSH PRN PRN Heparin Losartan Potassium 50 mg 12/16/17 11:30 12/17/17 10:48 Cozaar - PO 50 mg DAILY DURGA Administration Magnesium Oxide 800 mg 12/17/17 13:47 Mag-Ox - PO 12/17/17 13:48 ONCE ONE Metoprolol Tartrate 50 mg 12/15/17 22:00 12/17/17 10:48 Lopressor - PO 50 mg BID DURGA Administration Potassium Phos/Sodium Phos 1 packet 12/17/17 13:47 Phos-Nak Packet - PO 12/17/17 13:48 ONCE ONE Raltegravir 400 mg 12/15/17 22:00 12/17/17 10:49 Isentress - PO 400 mg BID DURGA Administration Trimethoprim/Sulfamethoxazole 1 each 12/15/17 22:00 12/17/17 10:48 Bactrim Ds - PO 1 each BID DURGA Administration Imaging Chest xray (12/08/17) - Since 05/07/17, the lungs appear better aerated. The left central line persists. There is a prominent mediastinum and persistent granuloma left base. Chest xray (12/09/17) - Since 12/08/17, there is no significant change and no sign of an acute process. There is a left base granuloma, left central line and prominent mediastinum. Chest CTA - Multiple pulmonary emboli at the left pulmonary artery bifurcation extending and involving the left upper and lower lobe branches as well as multiple pulmonary emboli in the right upper and lower lobe proximal and distal branches. Minimal atelectatic changes in the left lung base and subsegmental atelectasis in the right lung base, posteriorly. There is no aneurysmal dilatation of the abdominal aorta. Vascular calcifications are present. Partially included exophytic right renal lesion for which further evaluation with US is recommended. On prior CT scan of the chest dated 10/15/17, partially included cortical deformity of the right kidney was present. Head CT without contrast - No evidence of acute intracranial hemorrhage, edema, midline shift, mass effect, or skull fracture. No CT evidence of acute territorial ischemic changes. Moderate supratentorial white matter microangiopathic ischemic changes. Cervical spine CT - No compression fracture, subluxation or prevertebral soft tissue swelling identified. Moderate to marked degenerative disc disease at C6- C7 level with mild anterior and posterior spur formation as well as bilateral uncovertebral hypertrophy slightly to moderately narrowing the right and slightly narrowing the left foramen. Echo - LV is normal in size. LV systolic function is mildly reduced. There are regional wall motion abnormalities. EF is 45-50%. RV is not well visualized. RV appears mildly dilated with reduced systolic function. A moderator band is seen in the RV. LA size is normal. There is mild mitral annular calcification. There is mild tricuspid regurgitation. There is moderate aortic sclerosis. Mild aortic root dilatation. Pulmonary artery systolic pressure is at least 50mmHg assuming RA pressure of 15mmHg (dilated IVC with <50% collapse). No pericardial effusion. ASSESSMENT/PLAN: Patient is a 72 year old female with a significant past medical history of non- small cell lung cancer, HIV, COPD, HTN, HLD, CAD who was BIBA yesterday evening (12/08/17) after having an episode of syncope and being found on the ground near her couch by her godson at approximately 1 pm yesterday. #Syncope: likely 2/2 Arrhythmia -EKG - SVT, LAD -Head CT - No evidence of acute intracranial hemorrhage, edema, midline shift, mass effect, or skull fracture. No CT evidence of acute territorial ischemic changes. Moderate supratentorial white matter microangiopathic ischemic changes. -Echo - LV systolic function is mildly reduced. There are regional wall motion abnormalities. EF is 45-50%. -Cardiology (Dr. St) consulted. Recommendations appreciated. -In sinus, with controlled BP -Cardizem drip discontinued. -Discontinued Digoxin 0.25mg q6h. 5/5 doses completed. -Continue Metoprolol 50mg BID. -Heparin bridge to Eliquis 10mg BID (06/15), then taper to 5mg BID. -Will monitor. #Multiple pulmonary embolism: s/p IR-guided thrombolysis -Chest CTA - Multiple pulmonary emboli at the left pulmonary artery bifurcation extending and involving the left upper and lower lobe branches as well as multiple pulmonary emboli in the right upper and lower lobe proximal and distal branches. -[facility]-Onc (Dr. Fong) consulted. Recommendations appreciated. -Ultimately will need anticoagulant. -Non compliance is an issue so NOAC is favored over lovenox. -Coumadin less efficacious in malignancies and would foresee compliance monitoring issue. -Bridging to Eliquis 10mg BID x14 doses then 5 mg BID (05/15) -tPA was discontinued. Fibrinogen readings were discontinued. #Altered mental status: waxing and waning -Neurology (Dr. Rodríguez) consulted. Recommendations appreciated. -DDX: 1. AIDS dementia complex 2. Toxic metabolic encephalopathy 3. ICU psychosis -Move out of unit when possible -GGT level -Toxo titers -MRI brain without contrast -EEG #New onset SOB: likely acute on chronic CHF exacerbation, can not totally rule out pneumonia -Chest xray - developing bilateral pleural effusion -Chest CT without contrast - Developing moderate bilateral pleural effusion and left lung atelectasis. Patchy consolidation in the left upper lobe suspicious for acute pneumonia -IV Lasix 20mg - 2L output noted -Cardiology (Dr. St) consulted. Recommendations appreciated. -IV Lasix 20mg once -May start Spironolactone, but must watch out for drug interaction with Bactrim. Potassium should be monitored if starting Aldactone. -Strict I&O -Boyce catheter -ID (Dr. Peralta) consulted. Recommendations appreciated. -Pt on Bactrim for PCP prophylaxis -Will monitor while off antibiotics for now. #Hypomagnesemia: -Mg 1.9 -Mag 800 mg PO given -will monitor #HIV -Pt endorses taking Genvoya every day. Not available in our pharmacy -ID (Dr. Peralta) consulted. Recommendations appreciated. -Continue Truvada and Isentress #UTI:resolved -UA - WBC 63, leuk est +2 -Urine Cx - Klebsiella pneumoniae -Ceftriaxone 1 gm discontinue -Bactrim DS BID x3 days, completed -On PO Bactrim DS PO daily for PCP prophylaxis. #Non-Small cell AdenoCa Lung -Received Radiation therapy for 12 weeks, everyday according to pt -Received Chemo therapy for 12 weeks, once per week according to pt -MRI Brain done - Moderate chronic small vessel ischemic changes. Otherwise unremarkable MRI of the brain. #HTN: controlled -Losartan 50mg daily -Resume Metoprolol 25 mg bid #COPD -Resume Qvar Inhaler BID -Ventolin inhaler PRN #FEN -not on any standing fluids -routine bmp monitoring, replete as needed -Dysphagia pureed diet, thin liquids. #Prophylaxis -Heparin drip discontinued -Bridging to eliquis 10mg BID x14 doses, then taper to 5mg BID #Disposition -tele monitoring Visit type - Emergency Visit Emergency Visit: Yes ED Registration Date: 12/08/17 Care time: The patient presented to the Emergency Department on the above date and was hospitalized for further evaluation of their emergent condition. - New Patient This patient is new to me today: Yes Date on this admission: 12/17/17 - Critical Care Critical Care patient: Yes Total Critical Care Time (in minutes): 35 Critical Care Statement: The care of this patient involved high complexity decision making to prevent further life threatening deterioration of the patient 's condition and/or to evaluate & treat vital organ system(s) failure or risk of failure.
--- NOTE | 2017-12-17 14:54 | PN ---
Teaching Attending Note Name of Resident: Tracy Malik ATTENDING PHYSICIAN STATEMENT I saw and evaluated the patient. I reviewed the resident's note and discussed the case with the resident. I agree with the resident's findings and plan as documented. SUBJECTIVE:asymptomatic. denies CP, SOB, fever, chills, N/V/C/D OBJECTIVE: Last Vital Signs Temp Pulse Resp BP Pulse Ox 98.2 F 74 20 151/65 96 12/17/17 14:29 12/17/17 14:29 12/17/17 14:29 12/17/17 14:29 12/16/17 20:57 Intake & Output 12/14/17 12/15/17 12/16/17 12/17/17 23:59 23:59 23:59 23:59 Intake Total 1655 1932 200 50 Output Total 1000 1200 Balance 1655 1932 -800 -1150 Weight 125 lb 7.088 oz 128 lb 6.4 oz 129 lb 6.4 oz General NAD CV S1 S2 RRR no murmur/rub/gallop Lungs decreased breath sounds at bases Extremities no pedal edema ASSESSMENT AND PLAN: 72yo F with PMH HIV not compliant with HARRT, lung ca s/p chemo/RTX, COPD on home O2 2L NC, HTN, CAD s/p stent, dyslipidemia presented to the ER after syncope. she syncopized at home and then could not get up and was down on the floor for extended period of time.In the ER was found to be in aflutter and have multiple PE 1. Syncope, from extensive bilateral PE vs Arrhythmia- no recurrent episode. now in NSR. echo done 2. Submassive PE with likely right heart strain s/p catheter directed tpa- now on eliquis 3. acute systolic CHF exacerbation- likely due to aggressive fluid resuscitation. received lasix 20mg IV yesterday. will give an additional dose. daily weights, strict I&O. 4. ROSETTA PNA- CT chest done yesterday due to tachypnea. will d/w ID about starting abx at this time as recently completed treatment with ceftriaxone will likely require broader coverage. 5. Atrial flutter with RVR, likely from submassive PE- now in NSR. on eliquis. rate control. digoxin. 6. RLE DVT- on eliquis. hypercoag workup as outpatient 7. COPD on 2l Home oxygen 8. HIV/AIDS, concern for noncompliance with HAART- re-started on HARRT therapy 9. Abnormal TFT- repeat in 2 weeks 10. RERE sent for SNF placement when medically optimized.
[2017-12-17] MEDS ORDERED: PT OWN MED DRAWER 7, Y5N ONE (20:05)
[2017-12-18 05:59] LABS: BASO % 0.3 % (0-2.0); EOS % 1.7 % (0-4.5); HEMATOCRIT 32.8 % (32.4-45.2); HEMOGLOBIN 10.2 GM/dL (10.7-15.3); LYMPH % 9.7 % (8-40); MCH 29.9 pg (25.7-33.7); MCHC 31.2 g/dl (32.0-36.0); MEAN CELL VOLUME 95.8 fl (80-96); MEAN PLT VOLUME 11.1 fl (7.5-11.1); MONO % 7.3 % (3.8-10.2); PLATELET COUNT 151 K/MM3 (134-434); RBC 3.42 M/mm3 (3.60-5.2); RDW 16.3 % (11.6-15.6); WHITE BLOOD COUNT 4.2 K/mm3 (4.0-10.0)
--- NOTE | 2017-12-18 06:59 | PN ---
Progress Note (short form) - Note Progress Note: Patient seen and examined Denies significant chest pain or SOB No GI complaints of nausea, diarrhea, constipation reported No significant cough or sputum Last Vital Signs Temp Pulse Resp BP Pulse Ox 98.1 F 63 20 143/66 96 12/18/17 02:00 12/18/17 06:00 12/18/17 06:00 12/18/17 06:00 12/17/17 19:36 HEENT: ALYSSA, EOM Intact;right ptosis Oropharynx: No thrush, No mucositisupper dentures; lower edentulous Breasts: Without masses Cor: RSR, No murmurs, No gallops Lungs: diminished breath sounds bilaterally Abd: Soft, Normal bowel sounds, No organomegaly Ext:No significant edema Skin: No rashes, Integument intact,xerosis CBC, BMP 12/18/17 05:30 Current Medications Generic Name Dose Route Start Last Admin Trade Name Freq PRN Reason Stop Dose Admin Acetaminophen 650 mg 12/15/17 20:50 Tylenol - PO Q6H PRN PAIN 1-3 Apixaban 10 mg 12/15/17 11:00 12/17/17 21:49 Eliquis - PO 12/21/17 22:01 10 mg BID DURGA Administration Apixaban 5 mg 12/22/17 10:00 Eliquis - PO BID DURGA Emtricitabine/Tenofovir 1 tab 12/16/17 10:00 12/17/17 10:49 Truvada PO 1 tab DAILY DURGA Administration Heparin Sodium (Porcine) 1,000 unit 12/15/17 20:50 Heparin - IVPUSH PRN PRN Heparin Heparin Sodium (Porcine) 5,000 unit 12/15/17 20:50 Heparin - IVPUSH PRN PRN Heparin Losartan Potassium 50 mg 12/16/17 11:30 12/17/17 10:48 Cozaar - PO 50 mg DAILY DURGA Administration Metoprolol Tartrate 50 mg 12/15/17 22:00 12/17/17 21:49 Lopressor - PO 50 mg BID DURGA Administration Raltegravir 400 mg 12/15/17 22:00 12/17/17 21:48 Isentress - PO 400 mg BID DURGA Administration Trimethoprim/Sulfamethoxazole 1 each 12/15/17 22:00 12/17/17 21:48 Bactrim Ds - PO 1 each BID DURGA Administration Imprssion: Adenoca of lung- s/p RT/chemotherapy Hypercoagulable state Submassive PE RLE DVT S/P thrombolysis COPD HIV Plan: Continue current treatment Continue with A/C HIV therapy Needs PT/ Social service
[2017-12-18 07:53] LABS: ALBUMIN 1.8 g/dl (3.4-5.0); ALK PHOS 55 U/L (45-117); ANION GAP 3 MMOL/L (8-16); BILIRUBIN,TOTAL 0.4 mg/dL (0.2-1); BLOOD UREA NITROGEN 30 mg/dL (7-18); CALCIUM 9.8 mg/dL (8.5-10.1); CHLORIDE 100 mmol/L (98-107); CO2 41 mmol/L (21-32); CREATININE 0.5 mg/dL (0.55-1.3); GLUCOSE,RANDOM 90 mg/dL (74-106); MAGNESIUM 2.2 mg/dL (1.8-2.4); PHOSPHOROUS 2.5 mg/dL (2.5-4.9); POTASSIUM 4.7 mmol/L (3.5-5.1); SGOT/AST 36 U/L (15-37); SGPT/ALT 18 U/L (13-61); SODIUM 144 mmol/L (136-145); TOT PROT 5.8 g/dl (6.4-8.2)
[2017-12-18] MEDS ORDERED: PT OWN MED DRAWER 7, Y5N ONE (09:14)
[2017-12-18] MEDS: RALTEGRAVIR POTASSIUM 400 MG TAB PO SCH (09:16)
[2017-12-18] MEDS: APIXABAN 5 MG TABLET PO SCH (09:16)
[2017-12-18] MEDS: EMTRICITABINE 200MG/TENOFOVIR 300MG PO SCH (09:16)
[2017-12-18] MEDS: METOPROLOL TARTRATE 50 MG TABLET (FP) PO SCH (09:16)
[2017-12-18] MEDS: LOSARTAN POTASSIUM 50 MG TABLET (FP) PO SCH (09:16)
[2017-12-18] MEDS ORDERED: SULFAMETHOXAZOLE/TRIMETHOPRIM 800MG/160MG D.S. TABLET PO SCH (10:00)
--- NOTE | 2017-12-18 11:12 | PN ---
Progress Note, Physician History of Present Illness: Pt is a 72 y/o lady with a significant past medical history of non-small cell lung cancer, HIV (diagnosed 1988, Viral load 89, CD4 count 10,000, follows up at [facility]), COPD, HTN, HLD, CAD who was BIBA yesterday evening (12/08/17) after being found on the ground near her couch by her godson at approximately 1 pm yesterday. Pt endorses that she last saw her family Saturday around 5pm and was informed then that they would be taking her to [facility] the afternoon. Pt endorses remembering waking up around midnight yesterday and being confused. Pt endorses she remembers hitting her head sometime during the night but cannot recall any details. Pt states she has fallen 3 times in the past few months, Oct 24, , and yesterday. Did not seek medical treatment for the first 2 falls. Denies chest pain, headache, changes in vision, nausea or vomiting. ER course was notable for: (1) CTA chest- multiple acute pulmonary emboli within L and R upper and lower lobe pulmonary arterial branches. (2) Potassium--> 6.0 (3) BNP > 18K - Current Medication List Current Medications: Active Medications Acetaminophen (Tylenol -) 650 mg PO Q6H PRN PRN Reason: PAIN 1-3 Last Admin: 12/18/17 09:17 Dose: 650 mg Apixaban (Eliquis -) 10 mg PO BID [facility] Stop: 12/21/17 22:01 Last Admin: 12/18/17 09:16 Dose: 10 mg Apixaban (Eliquis -) 5 mg PO BID [facility] Emtricitabine/Tenofovir (Truvada) 1 tab PO DAILY [facility] Last Admin: 12/18/17 09:16 Dose: 1 tab Heparin Sodium (Porcine) (Heparin -) 1,000 unit IVPUSH PRN PRN PRN Reason: Heparin Heparin Sodium (Porcine) (Heparin -) 5,000 unit IVPUSH PRN PRN PRN Reason: Heparin Losartan Potassium (Cozaar -) 50 mg PO DAILY [facility] Last Admin: 12/18/17 09:16 Dose: 50 mg Metoprolol Tartrate (Lopressor -) 50 mg PO BID [facility] Last Admin: 12/18/17 09:16 Dose: 50 mg Raltegravir (Isentress -) 400 mg PO BID [facility] Last Admin: 12/18/17 09:16 Dose: 400 mg Trimethoprim/Sulfamethoxazole (Bactrim Ds -) 1 each PO DAILY [facility] Last Admin: 12/18/17 09:16 Dose: 1 each - Objective Vital Signs: Vital Signs Temperature 98.1 F 12/18/17 02:00 Pulse Rate 74 12/18/17 10:00 Respiratory Rate 20 12/18/17 10:00 Blood Pressure 142/67 12/18/17 10:00 O2 Sat by Pulse Oximetry (%) 96 12/18/17 10:26 Eyes: Yes: WNL, Conjunctiva Clear, EOM Intact HENT: Yes: WNL, Atraumatic, Normocephalic Neck: Yes: WNL, Supple, Trachea Midline Cardiovascular: Yes: WNL, Regular Rate and Rhythm Respiratory: Yes: WNL, Regular, CTA Bilaterally Gastrointestinal: Yes: WNL, Normal Bowel Sounds Genitourinary: Yes: WNL Musculoskeletal: Yes: WNL Extremities: Yes: WNL Edema: No Integumentary: Yes: WNL Neurological: Yes: WNL, Alert, Oriented ...Motor Strength: WNL Psychiatric: Yes: WNL Labs: CBC, BMP 12/18/17 05:30 12/18/17 05:30 INR, PTT INR 1.16 (0.83-1.09) H 12/10/17 05:30 Fibrinogen 559.0 mg/dL (238-498) H 12/12/17 13:00 Problem List - Problems (1) Arrhythmia Code(s): I49.9 - CARDIAC ARRHYTHMIA, UNSPECIFIED Qualifiers: Arrhythmia type: atrial flutter Atrial flutter type: unspecified Qualified Code(s): I48.92 - Unspecified atrial flutter (2) Pulmonary embolism Code(s): I26.99 - OTHER PULMONARY EMBOLISM WITHOUT ACUTE COR PULMONALE Qualifiers: Pulmonary embolism type: other Chronicity: acute Acute cor pulmonale presence: without acute cor pulmonale Qualified Code(s): I26.99 - Other pulmonary embolism without acute cor pulmonale (3) Syncope Code(s): R55 - SYNCOPE AND COLLAPSE Qualifiers: Syncope type: unspecified Qualified Code(s): R55 - Syncope and collapse (4) UTI (urinary tract infection) Code(s): N39.0 - URINARY TRACT INFECTION, SITE NOT SPECIFIED Qualifiers: Urinary tract infection type: site unspecified Hematuria presence: without hematuria Qualified Code(s): N39.0 - Urinary tract infection, site not specified (5) Abdominal or pelvic swelling, mass, or lump, left upper quadrant Code(s): R19.02 - LEFT UPPER QUADRANT ABDOMINAL SWELLING, MASS AND LUMP (6) Abnormal finding on CT scan Code(s): R93.8 - ABNORMAL FINDINGS ON DIAGNOSTIC IMAGING OF BILL * DO NOT USE * (7) Acute URI Code(s): J06.9 - ACUTE UPPER RESPIRATORY INFECTION, UNSPECIFIED (8) Coronary artery calcification seen on CT scan Code(s): I25.10 - ATHSCL HEART DISEASE OF [place] CORONARY ARTERY W/O ANG PCTRS (9) Deficiency of vitamin B12 Code(s): E53.8 - DEFICIENCY OF OTHER SPECIFIED B GROUP VITAMINS (10) Diabetes Code(s): E11.9 - TYPE 2 DIABETES MELLITUS WITHOUT COMPLICATIONS (11) Diarrhea Code(s): R19.7 - DIARRHEA, UNSPECIFIED (12) Dizziness Code(s): R42 - DIZZINESS AND GIDDINESS (13) Encounter for gynecological examination Code(s): Z01.419 - ENCNTR FOR BUS REPAIR SUPERVISOR EXAM (GENERAL) (ROUTINE) W/O ABN FINDINGS (14) Encounter for medication counseling Code(s): Z71.89 - OTHER SPECIFIED COUNSELING (15) Fever Code(s): R50.9 - FEVER, UNSPECIFIED Qualifiers: Fever type: unspecified Qualified Code(s): R50.9 - Fever, unspecified (16) Gram-negative bacteremia Code(s): R78.81 - BACTEREMIA (17) Headache Code(s): R51 - HEADACHE (18) Herpes zoster Code(s): B02.9 - ZOSTER WITHOUT COMPLICATIONS (19) Hypercalcemia Code(s): E83.52 - HYPERCALCEMIA (20) Instability of right knee joint Code(s): M25.361 - OTHER INSTABILITY, RIGHT KNEE (21) Joint pain Code(s): M25.50 - PAIN IN UNSPECIFIED JOINT (22) Knee pain, right Code(s): M25.561 - PAIN IN RIGHT KNEE (23) Macrocytosis Code(s): D75.89 - OTHER SPECIFIED DISEASES OF BLOOD AND BLOOD-FORMING ORGANS (24) Non-small cell carcinoma of lung Code(s): C34.90 - MALIGNANT NEOPLASM OF UNSP PART OF UNSP BRONCHUS OR LUNG (25) Pre-diabetes Code(s): R73.09 - OTHER ABNORMAL GLUCOSE (26) Pre-op evaluation Code(s): Z01.818 - ENCOUNTER FOR OTHER PREPROCEDURAL EXAMINATION (27) Screening for malignant neoplasm of cervix Code(s): Z12.4 - ENCOUNTER FOR SCREENING FOR MALIGNANT NEOPLASM OF CERVIX (28) Seborrhea Code(s): L21.9 - SEBORRHEIC DERMATITIS, UNSPECIFIED (29) Sinus tachycardia Code(s): R00.0 - TACHYCARDIA, UNSPECIFIED (30) Skin lesion of face Code(s): L98.9 - DISORDER OF THE SKIN AND SUBCUTANEOUS TISSUE, UNSPECIFIED (31) Tachycardia Code(s): R00.0 - TACHYCARDIA, UNSPECIFIED (32) Vitamin D deficiency Code(s): E55.9 - VITAMIN D DEFICIENCY, UNSPECIFIED (33) Weight loss Code(s): R63.4 - ABNORMAL WEIGHT LOSS (34) Wound of right leg Code(s): S81.801A - UNSPECIFIED OPEN WOUND, RIGHT LOWER LEG, INITIAL ENCOUNTER (35) COPD (chronic obstructive pulmonary disease) Code(s): J44.9 - CHRONIC OBSTRUCTIVE PULMONARY DISEASE, UNSPECIFIED Qualifiers: COPD type: unspecified COPD Qualified Code(s): J44.9 - Chronic obstructive pulmonary disease, unspecified (36) Coronary artery disease Code(s): I25.10 - ATHSCL HEART DISEASE OF [place] CORONARY ARTERY W/O [facility] PCTRS (37) Human immunodeficiency virus (HIV) disease Code(s): B20 - HUMAN IMMUNODEFICIENCY VIRUS [HIV] DISEASE (38) Hypertension, benign Code(s): I10 - ESSENTIAL (PRIMARY) HYPERTENSION (39) Leukopenia Code(s): D72.819 - DECREASED WHITE BLOOD CELL COUNT, UNSPECIFIED Qualifiers: Leukopenia type: unspecified Qualified Code(s): D72.819 - Decreased white blood cell count, unspecified (40) Macrocytosis without anemia Code(s): D75.89 - OTHER SPECIFIED DISEASES OF BLOOD AND BLOOD-FORMING ORGANS (41) Osteoporosis Code(s): M81.0 - AGE-RELATED OSTEOPOROSIS W/O CURRENT PATHOLOGICAL FRACTURE (42) Paresthesia of right upper extremity Code(s): R20.2 - PARESTHESIA OF SKIN (43) Seborrheic dermatitis of scalp Code(s): L21.9 - SEBORRHEIC DERMATITIS, UNSPECIFIED (44) Tobacco use disorder Code(s): Z72.0 - TOBACCO USE Assessment/Plan - Problems (1) Pulmonary embolism Assessment/Plan: s/p thrombectomy and tpa. On IV heparin; now on apixaban (10 mg bid, then changing to 5 mg bid on 12/22/17 ). (PE; severe systolic LV dysfunction on latest ECHO; creatinine clearance now WNL ; initial hypotension; now with elevated BP). Code(s): I26.99 - OTHER PULMONARY EMBOLISM WITHOUT ACUTE COR PULMONALE Qualifiers: Pulmonary embolism type: other Chronicity: acute Acute cor pulmonale presence: without acute cor pulmonale Qualified Code(s): I26.99 - Other pulmonary embolism without acute cor pulmonale (2) Syncope Code(s): R55 - SYNCOPE AND COLLAPSE Qualifiers: Syncope type: unspecified Qualified Code(s): R55 - Syncope and collapse (3) Coronary artery calcification seen on CT scan Assessment/Plan: hx coronary stent ?2015. Multiple ongoing risks for CAD progression. For coronary artery evaluation when stable, if not done in the recent past. Code(s): I25.10 - ATHSCL HEART DISEASE OF [place] CORONARY ARTERY W/O ANG PCTRS (4) Diabetes Code(s): E11.9 - TYPE 2 DIABETES MELLITUS WITHOUT COMPLICATIONS (5) Fever Assessment/Plan: on antibiotics for UTI per ID. Code(s): R50.9 - FEVER, UNSPECIFIED Qualifiers: Fever type: unspecified Qualified Code(s): R50.9 - Fever, unspecified (6) Non-small cell carcinoma of lung Code(s): C34.90 - MALIGNANT NEOPLASM OF UNSP PART OF UNSP BRONCHUS OR LUNG (7) COPD (chronic obstructive pulmonary disease) Assessment/Plan: f/u with manufacturing engineer. Code(s): J44.9 - CHRONIC OBSTRUCTIVE PULMONARY DISEASE, UNSPECIFIED Qualifiers: COPD type: unspecified COPD Qualified Code(s): J44.9 - Chronic obstructive pulmonary disease, unspecified (8) Osteoporosis Code(s): M81.0 - AGE-RELATED OSTEOPOROSIS W/O CURRENT PATHOLOGICAL FRACTURE (9) Seborrheic dermatitis of scalp Code(s): L21.9 - SEBORRHEIC DERMATITIS, UNSPECIFIED (10) Tobacco use disorder Assessment/Plan: nicotine patch. Code(s): Z72.0 - TOBACCO USE (11) HIV (human immunodeficiency virus infection) Assessment/Plan: f/u with ID Code(s): B20 - HUMAN IMMUNODEFICIENCY VIRUS [HIV] DISEASE (12) Acute on chronic systolic (congestive) heart failure Assessment/Plan: On metoprolol for HR control and severe systolic CHF; now on losartan 50 mg daily. Give furosemide (now with elevated BP, better renal function, and pleural effusion). Start spironolactone if pt "tolerates" ARB (relative contraindications to these agents while on Bactrim, though if K+ is checked daily she may be able to be on both agents). Can also use combination of hydralazine + nitrate (isordil dinitrate or mononitrate) for sytolic CHF and HTN. N/Cr, Is and Os, daily weight, electrolytes. Keep Mg 2-2.4, K 4-4.5, and PO4 2.5-4.9. . Code(s): I50.23 - ACUTE ON CHRONIC SYSTOLIC (CONGESTIVE) HEART FAILURE (13) Hypoalbuminemia Code(s): E88.09 - [facility] DISORDERS OF PLASMA-PROTEIN METABOLISM, NEC CC time spent 37 min
--- NOTE | 2017-12-18 11:16 | PN ---
Physical Exam: SUBJECTIVE: Patient seen and examined at bedside. No overnight events. No new complaints. Denies CP, ZAPATA, abdominal pain, palpitations, nausea or vomiting. OBJECTIVE: Vital Signs Period Temp Pulse Resp BP Sys/[place] Pulse Ox Last 24 Hr 97.6 F-98.5 F 63-79 19-23 124-164/57-78 96-96 GENERAL:Awake and alert. NAD HEAD: NCAT EYES: PERRLA, EOMI, sclera anicteric, conjunctiva clear. ptosis of left eye EARS, NOSE, THROAT: moist mucous membranes. LUNGS: Decreased breath sounds bilaterally.Scattered wheezes, and no crackles. No accessory muscle use. HEART: RRR, normal S1 and S2 without murmur, rub or gallop. ABDOMEN: Soft, NT/ND, NABS, no guarding, no rebound, no masses. UPPER EXTREMITIES: 2+ pulses, warm, well-perfused. No cyanosis. No clubbing. 1 + edema. LOWER EXTREMITIES: 2+ pulses, warm, well-perfused. No calf tenderness. No peripheral edema. NEUROLOGICAL: no focal def. normal speech. SKIN: Xeroderma of face and scalp, onychomycosis of bilateral feet. Laboratory Results - last 24 hr 12/17/17 12/18/17 12/18/17 05:30 05:30 05:30 WBC 4.2 RBC 3.42 L Hgb 10.2 L Hct 32.8 MCV 95.8 MCH 29.9 MCHC 31.2 L RDW 16.3 H Plt Count 151 MPV 11.1 Absolute Neuts (auto) 3.4 Neutrophils % 81.0 Neutrophils % (Manual) 74.7 Band Neutrophils % 0.0 Lymphocytes % 9.7 Lymphocytes % (Manual) 10.5 Monocytes % 7.3 Monocytes % (Manual) 12 H Eosinophils % 1.7 Eosinophils % (Manual) 2.1 D Basophils % 0.3 Basophils % (Manual) 0.0 Myelocytes % (Man) 0 D Promyelocytes % (Man) 0 Blast Cells % (Manual) 0 Nucleated RBC % 0 Metamyelocytes 0 Hypochromia 1+ Platelet Estimate Decreased Polychromasia 0 Poikilocytosis 1+ Anisocytosis 1+ Microcytosis 0 Macrocytosis 0 Stomatocytes 1+ PTT (Actin FS) 36.5 Sodium Potassium Chloride Carbon Dioxide Anion Gap BUN Creatinine Creat Clearance w eGFR Random Glucose Calcium Phosphorus Magnesium Total Bilirubin AST ALT Alkaline Phosphatase Total Protein Albumin 12/18/17 05:30 WBC RBC Hgb Hct MCV MCH MCHC RDW Plt Count MPV Absolute Neuts (auto) Neutrophils % Neutrophils % (Manual) Band Neutrophils % Lymphocytes % Lymphocytes % (Manual) Monocytes % Monocytes % (Manual) Eosinophils % Eosinophils % (Manual) Basophils % Basophils % (Manual) Myelocytes % (Man) Promyelocytes % (Man) Blast Cells % (Manual) Nucleated RBC % Metamyelocytes Hypochromia Platelet Estimate Polychromasia Poikilocytosis Anisocytosis Microcytosis Macrocytosis Stomatocytes PTT (Actin FS) Sodium 144 Potassium 4.7 Chloride 100 Carbon Dioxide 41 H Anion Gap 3 L BUN 30 H Creatinine 0.5 L Creat Clearance w eGFR > 60 Random Glucose 90 Calcium 9.8 Phosphorus 2.5 Magnesium 2.2 Total Bilirubin 0.4 AST 36 ALT 18 Alkaline Phosphatase 55 Total Protein 5.8 L Albumin 1.8 L Active Medications Generic Name Dose Route Start Last Admin Trade Name Freq PRN Reason Stop Dose Admin Acetaminophen 650 mg 12/15/17 20:50 12/18/17 09:17 Tylenol - PO 650 mg Q6H PRN Administration PAIN 1-3 Apixaban 10 mg 12/15/17 11:00 12/18/17 09:16 Eliquis - PO 12/21/17 22:01 10 mg BID [facility] Administration Apixaban 5 mg 12/22/17 10:00 Eliquis - PO BID [facility] Emtricitabine/Tenofovir 1 tab 12/16/17 10:00 12/18/17 09:16 Truvada PO 1 tab DAILY [facility] Administration Heparin Sodium (Porcine) 1,000 unit 12/15/17 20:50 Heparin - IVPUSH PRN PRN Heparin Heparin Sodium (Porcine) 5,000 unit 12/15/17 20:50 Heparin - IVPUSH PRN PRN Heparin Losartan Potassium 50 mg 12/16/17 11:30 12/18/17 09:16 Cozaar - PO 50 mg DAILY [facility] Administration Metoprolol Tartrate 50 mg 12/15/17 22:00 12/18/17 09:16 Lopressor - PO 50 mg BID [facility] Administration Raltegravir 400 mg 12/15/17 22:00 12/18/17 09:16 Isentress - PO 400 mg BID [facility] Administration Trimethoprim/Sulfamethoxazole 1 each 12/18/17 10:00 12/18/17 09:16 Bactrim Ds - PO 1 each DAILY [facility] Administration ASSESSMENT/PLAN: This is a 72 year old female with HIV, lung Ca s/p chemo/radiation, COPD, HTN , CAD who presents with a syncopal episodes, found to have submassive PE, s/p catheter directed TPA. Problem List - Problems (1) Pulmonary embolism Assessment/Plan: Bilateral massive PE found on imaging. * S/P cath directed throbolysis with Tpa * Eliquis for AC * Plan for d/c to SNF (2) HIV (human immunodeficiency virus infection) Assessment/Plan: On HAART therapy; Followed at [facility]. * CD4- 34 * she is on Genvoya at home. (3) Non-small cell carcinoma of lung Assessment/Plan: She has recieved 7 rounds chemo(Carbo and taxil) with radiation * Poorly compliant * will obtain brain mri w/w/o contrast to r/o brain lesion * Last seen September 2017 in office. Visit type - Emergency Visit Emergency Visit: Yes ED Registration Date: 12/08/17 Care time: The patient presented to the Emergency Department on the above date and was hospitalized for further evaluation of their emergent condition. - New Patient This patient is new to me today: No - Critical Care Critical Care patient: No
--- NOTE | 2017-12-18 11:48 | PN ---
Teaching Attending Note Name of Resident: Tracy Malik ATTENDING PHYSICIAN STATEMENT I saw and evaluated the patient. I reviewed the resident's note and discussed the case with the resident. I agree with the resident's findings and plan as documented. SUBJECTIVE:asymptomatic. states breathing is better today. denies Cp, SOB, fever , chills, N/V/C/D more alert and responsive today OBJECTIVE: Last Vital Signs Temp Pulse Resp BP Pulse Ox 98.1 F 74 20 142/67 96 12/18/17 02:00 12/18/17 10:00 12/18/17 10:00 12/18/17 10:00 12/18/17 10:26 Intake & Output 12/15/17 12/16/17 12/17/17 12/18/17 23:59 23:59 23:59 23:59 Intake Total 1932 200 280 Output Total 1000 1630 950 Balance 1932 -800 -1350 -950 Weight 128 lb 6.4 oz 129 lb 6.4 oz 116 lb 3.2 oz General NAD CV S1 S2 RRR no murmur/rub/gallop Lungs decreased breath sounds L base Extremities no pedal edema ASSESSMENT AND PLAN: 72yo F with PMH HIV not compliant with HARRT, lung ca s/p chemo/RTX, COPD on home O2 2L NC, HTN, CAD s/p stent, dyslipidemia presented to the ER after syncope. she syncopized at home and then could not get up and was down on the floor for extended period of time.In the ER was found to be in aflutter and have multiple PE 1. Syncope, from extensive bilateral PE vs Arrhythmia- no recurrent episode. now in NSR. echo done 2. Submassive PE with likely right heart strain s/p catheter directed tpa- now on eliquis 3. acute systolic CHF exacerbation- likely due to aggressive fluid resuscitation. doubt she lost 14lbs from yesterday. RN to repeat weight. received lasix 20mg IV for past 2 days. appears more euvolemic today. can re- start home dose of lasix. would benefit from starting spirolactone however concern for hyperkalemia as already on aldactone and bactrim. would recommend if K remains stable to be started as outpatient. daily weights, strict I&O. d/c [facility] 4. ROSETTA PNA- CT chest done yesterday due to tachypnea. ID indicating treatment not indicated at this time. 5. Atrial flutter with RVR, likely from submassive PE- now in NSR. on eliquis. rate control. digoxin. 6. RLE DVT- on eliquis. hypercoag workup as outpatient 7. COPD on 2L Home oxygen 8. HIV/AIDS, concern for noncompliance with HAART- re-started on HARRT therapy. bactrim for PCP ppx 9. Abnormal TFT- repeat in 2 weeks 10. lung ca s/p chemo/RTx- f/u outpatient with Oncology. can have MRI done as outpatient 11. Medically optimized at this time for discharge. awaiting acceptance to [facility]. Should have weekly labs to ensure potassium remains stable. consider starting spiroloactone as outpatient
--- NOTE | 2017-12-18 12:11 | PN ---
Progress Note (short form) - Note Progress Note: PULMONARY More awake, alert today. Denies shortness of breath or chest pain. Vital Signs Period Temp Pulse Resp BP Sys/[place] Pulse Ox Last 24 Hr 97.6 F-98.5 F 63-83 19-23 124-164/57-78 96-99 Gen: NAD at rest Heart: RRR Lung: decreased breath sounds at the bases Abd: soft, nontender Ext: no edema CBC, BMP 12/18/17 05:30 12/18/17 05:30 Active Medications Acetaminophen (Tylenol -) 650 mg PO Q6H PRN PRN Reason: PAIN 1-3 Last Admin: 12/18/17 09:17 Dose: 650 mg Apixaban (Eliquis -) 10 mg PO BID [facility] Stop: 12/21/17 22:01 Last Admin: 12/18/17 09:16 Dose: 10 mg Apixaban (Eliquis -) 5 mg PO BID [facility] Emtricitabine/Tenofovir (Truvada) 1 tab PO DAILY [facility] Last Admin: 12/18/17 09:16 Dose: 1 tab Heparin Sodium (Porcine) (Heparin -) 1,000 unit IVPUSH PRN PRN PRN Reason: Heparin Heparin Sodium (Porcine) (Heparin -) 5,000 unit IVPUSH PRN PRN PRN Reason: Heparin Losartan Potassium (Cozaar -) 50 mg PO DAILY [facility] Last Admin: 12/18/17 09:16 Dose: 50 mg Metoprolol Tartrate (Lopressor -) 50 mg PO BID [facility] Last Admin: 12/18/17 09:16 Dose: 50 mg Raltegravir (Isentress -) 400 mg PO BID [facility] Last Admin: 12/18/17 09:16 Dose: 400 mg Trimethoprim/Sulfamethoxazole (Bactrim Ds -) 1 each PO DAILY [facility] Last Admin: 12/18/17 09:16 Dose: 1 each A/P Syncope Acute Submassive Pulmonary Emboli Atrial Fibrillation with RVR RLE DVT NSCLC (Adenocarcinoma) s/p chemo/RT HIV COPD Chronic Hypoxic Respiratory Failure CAD HTN Hyperlipidemia - continue anticoagulation - O2 to keep SpO2 >90% - inhaled bronchodilators - aspiration precautions - continue ART - d/c planning Problem List - Problems (1) Pulmonary embolism Code(s): I26.99 - OTHER PULMONARY EMBOLISM WITHOUT ACUTE COR PULMONALE Qualifiers: Pulmonary embolism type: other Chronicity: acute Acute cor pulmonale presence: without acute cor pulmonale Qualified Code(s): I26.99 - Other pulmonary embolism without acute cor pulmonale (2) Syncope Code(s): R55 - SYNCOPE AND COLLAPSE Qualifiers: Syncope type: unspecified Qualified Code(s): R55 - Syncope and collapse (3) Non-small cell carcinoma of lung Code(s): C34.90 - MALIGNANT NEOPLASM OF UNSP PART OF UNSP BRONCHUS OR LUNG (4) COPD (chronic obstructive pulmonary disease) Code(s): J44.9 - CHRONIC OBSTRUCTIVE PULMONARY DISEASE, UNSPECIFIED Qualifiers: COPD type: unspecified COPD Qualified Code(s): J44.9 - Chronic obstructive pulmonary disease, unspecified (5) Coronary artery disease Code(s): I25.10 - ATHSCL HEART DISEASE OF [place] CORONARY ARTERY W/O ANG PCTRS (6) Human immunodeficiency virus (HIV) disease Code(s): B20 - HUMAN IMMUNODEFICIENCY VIRUS [HIV] DISEASE (7) Hypertension, benign Code(s): I10 - ESSENTIAL (PRIMARY) HYPERTENSION
--- NOTE | 2017-12-18 15:41 | DS ---
Physical Exam: SUBJECTIVE: Patient seen and examined at bedside this morning. No acute events overnight. Patient is more awake and alert today. OBJECTIVE: Vital Signs Period Temp Pulse Resp BP Sys/[place] Pulse Ox Last 24 Hr 97.5 F-98.5 F 63-83 18-23 124-164/57-78 96-99 PHYSICAL EXAM GENERAL: The patient is awake, alert, and oriented x1 on 3L NC. HEAD: Normal with no signs of trauma. +dry, flaky skin on the face EYES: PERRLA, EOMI, sclera anicteric, conjunctiva clear. NECK: supple neck, trachea midline LUNGS:diminished breath at the bases, bilaterally HEART: Regular rate and rhythm, S1, S2 without murmur, rub or gallop. ABDOMEN: Soft, nontender, nondistended, normoactive bowel sounds. EXTREMITIES: 2+ pulses, warm, well-perfused, no edema. NEUROLOGICAL: Does not follow commands, gait not observed. SKIN: Warm, normal turgor, +dry skin, +wounds on dorsum of feet bilaterally LABS Laboratory Results - last 24 hr 12/18/17 12/18/17 12/18/17 05:30 05:30 05:30 WBC 4.2 RBC 3.42 L Hgb 10.2 L Hct 32.8 MCV 95.8 MCH 29.9 MCHC 31.2 L RDW 16.3 H Plt Count 151 MPV 11.1 Absolute Neuts (auto) 3.4 Neutrophils % 81.0 Lymphocytes % 9.7 Monocytes % 7.3 Eosinophils % 1.7 Basophils % 0.3 Nucleated RBC % 0 PTT (Actin FS) 36.5 Sodium 144 Potassium 4.7 Chloride 100 Carbon Dioxide 41 H Anion Gap 3 L BUN 30 H Creatinine 0.5 L Creat Clearance w eGFR > 60 Random Glucose 90 Calcium 9.8 Phosphorus 2.5 Magnesium 2.2 Total Bilirubin 0.4 AST 36 ALT 18 Alkaline Phosphatase 55 Total Protein 5.8 L Albumin 1.8 L Imaging Chest xray (12/08/17) - Since 05/07/17, the lungs appear better aerated. The left central line persists. There is a prominent mediastinum and persistent granuloma left base. Chest xray (12/09/17) - Since 12/08/17, there is no significant change and no sign of an acute process. There is a left base granuloma, left central line and prominent mediastinum. Chest CTA - Multiple pulmonary emboli at the left pulmonary artery bifurcation extending and involving the left upper and lower lobe branches as well as multiple pulmonary emboli in the right upper and lower lobe proximal and distal branches. Minimal atelectatic changes in the left lung base and subsegmental atelectasis in the right lung base, posteriorly. There is no aneurysmal dilatation of the abdominal aorta. Vascular calcifications are present. Partially included exophytic right renal lesion for which further evaluation with US is recommended. On prior CT scan of the chest dated 10/15/17, partially included cortical deformity of the right kidney was present. Head CT without contrast - No evidence of acute intracranial hemorrhage, edema, midline shift, mass effect, or skull fracture. No CT evidence of acute territorial ischemic changes. Moderate supratentorial white matter microangiopathic ischemic changes. Cervical spine CT - No compression fracture, subluxation or prevertebral soft tissue swelling identified. Moderate to marked degenerative disc disease at C6- C7 level with mild anterior and posterior spur formation as well as bilateral uncovertebral hypertrophy slightly to moderately narrowing the right and slightly narrowing the left foramen. Echo - LV is normal in size. LV systolic function is mildly reduced. There are regional wall motion abnormalities. EF is 45-50%. RV is not well visualized. RV appears mildly dilated with reduced systolic function. A moderator band is seen in the RV. LA size is normal. There is mild mitral annular calcification. There is mild tricuspid regurgitation. There is moderate aortic sclerosis. Mild aortic root dilatation. Pulmonary artery systolic pressure is at least 50mmHg assuming RA pressure of 15mmHg (dilated IVC with <50% collapse). No pericardial effusion. HOSPITAL COURSE: Date of Admission:12/08/17 Date of Discharge: 12/18/17 Patient is a 72 year old female with a significant past medical history of non- small cell lung cancer, HIV, COPD, HTN, HLD, CAD who was BIBA after having an episode of syncope and being found on the ground near her couch by her godson. Head CT and echocardiogram done. EKG at the ED showed SVT, LAD. Chest CTA done revealed multiple acute pulmonary emboli within L and R upper and lower lobe pulmonary arterial branches. Patient was admitted for further management of arrhythmia and pulmonary embolism. Cardiology and [facility] consulted. For the arrhythmia, patient was started on Lovenox 63mg sq BID and cardizem drip. Cardizem was then switched to Lopressor 25mg BID. With persistent tachycardia, Digoxin 0.25mg q6h given with 5 doses total. Metoprolol was increased to 50mg BID. Patient underwent IR-guided thrombolysis with tPA for the pulmonary embolism. She was also started on heparin drip. Patient continued to improve. tPA was discontinued. Heparin drip bridged to Eliquis. Patient was also noted to have a urinary tract infection. Urine cultures grew Klebsiella pneumoniae and patient was started on Ceftriaxone 1gm. ID consulted. Ceftriaxone switched to Bactrim BID for 3 days, then to continue Bactrim daily for PCP prophylaxis. Neurology was consulted as patient was noted to have a waxing and waning mental status. MRI brain without contrast and EEG done. Patient developed new onset SOB, likely acute on chronic CHF exacerbation. Chest xray and Chest CT done. Patient was given IV Lasix 20mg [id number] with good urine output. Patient was discharged stable to SNF, with instructions to follow- up with cardiology, neurology, [facility]-onc and PCP. Minutes to complete discharge: 45 Discharge Summary Reason For Visit: TACHYCARDIA/HYPERKALEMIA Current Active Problems Acute on chronic systolic (congestive) heart failure (Acute) Altered mental state (Acute) Arrhythmia (Acute) HIV (human immunodeficiency virus infection) (Acute) Hypoalbuminemia (Acute) Pulmonary embolism (Acute) Syncope (Acute) UTI (urinary tract infection) (Acute) Condition: Stable - Instructions Diet, Activity, Other Instructions: You were admitted because you had loss of consciousness. CAT scan of the head was done which was negative for any bleeding or fracture. EKG showed some abnormal heart rhythm that may have also attributed to you losing consciousness. You were started on a new medication to control your heart rate and prevent recurrence of the abnormal heart rhythm. Ultrasound of the heart showed heart failure, which means your heart is not pumping enough blood into your circulation. You started to build fluid in your lungs. You were given water pills that helped you excrete the fluid through the urine. Continue taking your Lasix at home. CAT scan of the chest was done which showed clots blocking blood flow to the lungs, preventing oxygen from reaching the lungs. You underwent catheter- directed thrombolysis, which is a procedure to rapidly break up blood clots, restoring blood flow within the vein. You were then started on blood thinners to prevent any more formation of blood clots. You will continue to take this blood thinners at home. Please take the following medications as prescribed: 1. Eliquis 10mg twice a day until December 22, 2017. Then take Eliquis 5mg twice a day. 2. Metoprolol 50mg twice a day. 3. Losartan 50 mg daily. 4. Bactrim DS 1 tablet once a day. Please continue your other home medications as prescribed. You will need to have weekly blood work done to monitor your potassium level. Follow-ups: -Please follow-up with the case fitter (Dr. St) in 1-2 weeks. Call the office to schedule an appointment. -Follow-up with the neurologist (Dr. Rodríguez) in 1-2 weeks. -Follow-up with your cancer doctor as outpatient. If you do not have one, you may call Dr. Fong's office to schedule an appointment. -Follow-up with your primary care doctor in 1 week. You will need to have weekly blood work done to monitor your potassium level. If your potasium level remains stable you should discuss with your primary care doctor or case fitter about starting spirolactone as this will help your heart. Restrict your fluid intake to 1.5 L per day. Also, daily weights, notify your doctor if weight gain >3lbs in 2 days or any new concerns. Note that Eliquis increased your risk of bleeding. Monitor yourself for bleeding and bruising. If you fall and hit your head you should come to the hospital for imaging. Call 911 or go to the ED if with any worsening chest pain, shortness of breath, palpitations, headache, dizziness, weakness, abdominal pain or any new concerns noted. Referrals: Cookie Olsen MD [Staff Physician] - James St MD [Staff Physician] - Wiley De Dios MD [Staff Physician] - Leonid Fong MD [Staff Physician] - Efren Rodríguez MD [Staff Physician] - Disposition: INTERMEDIATE FACILITY - Home Medications Comprehensive Discharge Medication List: Ambulatory Orders Albuterol Sulfate Inhaler - [Ventolin HFA Inhaler -] 1 - 2 inh PO Q6H PRN Aspirin [ASA -] 81 mg PO DAILY #90 tab.chew 09/25/17 Elviteg/Cob/Emtri/Tenof Alafen [Genvoya (Non-Formulary)] 1 each PO HS #30 tablet 09/25/17 Fenofibrate Nanocrystallized [Triglide] 160 mg PO DAILY #90 tablet 09/25/17 Multivitamin,Therapeutic [Thera] 1 each PO DAILY #90 tablet 09/25/17 Umeclidinium [place] [Incruse Ellipta] 1 puff IH DAILY #3 blst.w.dev 09/25/17 Zolpidem Tartrate [Ambien] 5 mg PO HS #5 tablet MDD half tablet 09/25/17 Sanderson-3/Dha/Epa/Fish Oil [[place]erson 3 500 Softgel] 1 each PO BID 12/09/17 Acetaminophen [Tylenol .Regular Strength -] 650 mg PO Q6H PRN tablet 12/18/17 Apixaban [Eliquis -] 10 mg PO BID tablet 12/18/17 Furosemide [Lasix] 20 mg PO DAILY #30 tablet 12/18/17 Losartan Potassium [Cozaar -] 50 mg PO DAILY tablet 12/18/17 Metoprolol Tartrate [Lopressor -] 50 mg PO BID tablet 12/18/17 Sulfamethoxazole/Trimethoprim [Bactrim DS -] 1 each PO DAILY tablet 12/18/17 This patient is new to me today: Yes Date on this admission: 12/22/17 Emergency Visit: Yes ED Registration Date: 12/08/17 Care time: The patient presented to the Emergency Department on the above date and was hospitalized for further evaluation of their emergent condition. Critical Care patient: No - Discharge Referral Referred to [facility] Med [facility] No
[2017-12-18 16:01] LABS: ANISOCYTOSIS 1+; MACROCYTOSIS 0; PLATELET ESTIMATE DECREASED
[2017-12-18 18:27] VITALS: BP 147/66; PULSE 72; TEMP 97.6
[2017-12-22] MEDS ORDERED: APIXABAN 5 MG TABLET PO SCH (10:00)
== END 2017-12-18 18:55 | DRG 163 ==
LOC: JER 14:10 → JERBED 20:19 → J4W 12-09 20:36 → JICU 12-11 14:57 → J2W 12-15 19:04
PROVIDERS: ADMIT Internal Medicine; ATTEND Internal Medicine
PROC: 02CQ3ZZ Extirpation of Matter from Right Pulmonary Artery, Percutaneous Approach (ICD-10-PCS; principal; 2017-12-11)
PROC: 02CR3ZZ Extirpation of Matter from Left Pulmonary Artery, Percutaneous Approach (ICD-10-PCS; 2017-12-11)
PROC: 3E07317 Introduction of Other Thrombolytic into Coronary Artery, Percutaneous Approach (ICD-10-PCS; 2017-12-11)
PROC: B543ZZA Ultrasonography of Right Jugular Veins, Guidance (ICD-10-PCS; 2017-12-11)
PROC: B31UZZZ Fluoroscopy of Pulmonary Trunk (ICD-10-PCS; 2017-12-11)
PROC: B31TZZZ Fluoroscopy of Left Pulmonary Artery (ICD-10-PCS; 2017-12-11)
PROC: B31SZZZ Fluoroscopy of Right Pulmonary Artery (ICD-10-PCS; 2017-12-11)
DX: I26.92 Saddle embolus of pulmonary artery without acute cor pulmonale (principal); I50.23 Acute on chronic systolic (congestive) heart failure; G92 Toxic encephalopathy; I82.4Z2 Acute embolism and thrombosis of unspecified deep veins of left distal lower extremity; I48.92 Unspecified atrial flutter; N39.0 Urinary tract infection, site not specified; J44.0 Chronic obstructive pulmonary disease with (acute) lower respiratory infection; J96.11 Chronic respiratory failure with hypoxia; C34.90 Malignant neoplasm of unspecified part of unspecified bronchus or lung; H53.123 Transient visual loss, bilateral; B20 Human immunodeficiency virus [HIV] disease; I47.1 Supraventricular tachycardia; R55 Syncope and collapse; J44.9 Chronic obstructive pulmonary disease, unspecified; I25.10 Atherosclerotic heart disease of native coronary artery without angina pectoris; Z95.5 Presence of coronary angioplasty implant and graft; E87.5 Hyperkalemia; I27.20 Pulmonary hypertension, unspecified; Z99.81 Dependence on supplemental oxygen; E88.09 Other disorders of plasma-protein metabolism, not elsewhere classified; Z87.891 Personal history of nicotine dependence; L29.9 Pruritus, unspecified; E83.42 Hypomagnesemia; L85.0 Acquired ichthyosis; B35.1 Tinea unguium; Z91.11 Patient's noncompliance with dietary regimen; B96.1 Klebsiella pneumoniae [K. pneumoniae] as the cause of diseases classified elsewhere; H02.402 Unspecified ptosis of left eyelid; I11.0 Hypertensive heart disease with heart failure; D64.9 Anemia, unspecified; D69.6 Thrombocytopenia, unspecified; F02.80 Dementia in other diseases classified elsewhere, unspecified severity, without behavioral disturbance, psychotic disturbance, mood disturbance, and anxiety
CPT/HCPCS: 36415; 36600; 37184; 61651; 70450-TC; 70551-TC; 71045-TC-FY; 71250-TC; 71275-TC; 72125-TC; 75746-TC-FY; 76000-TC-FY; 76937-TC; 80048; 80053; 81003; 81015; 82140; 82550; 82607; 82803; 83036; 83605; 83735; 83880; 84100; 84439; 84443; 84481; 84484; 85025; 85027; 85384; 85610; 85651; 85730; 86140; 86359; 86360; 86593; 87040; 87086; 87186; 90688; 93005; 93010; 93306-TC; 93880-TC; 93970-TC; 94761; 95816; 97116-GP; 97162-GP; 99285-25; C1769; C1894; C9999; G0008; J1644; J2997; J7030